=== PATIENT | male | born 1940 | race African-American/Black ===

== ENCOUNTER → 2017-09-14 | Outpatient (CLI) | payer MEDICARE ==
[2017-09-14 11:33] LABS: Blood Urea Nitrogen 31 mg/dL (9-20); Non-African American GFR(MDRD) >60 (>60 ml/min/1.73 sqM)
--- NOTE | 2017-09-14 12:15 | CT ---
EXAMINATION TYPE: CT chest w con DATE OF EXAM: 09/14/2017 COMPARISON: NONE HISTORY: asthma, COPD CT DLP: 484.0 mGycm. Automated Exposure Control for Dose Reduction was Utilized. TECHNIQUE: CT scan of the thorax is performed following with IV Contrast, patient injected with 100 mL of Omnipaque 300. FINDINGS: LUNGS: Bibasilar linear consolidations are favored to represent atelectasis although at this location could represent aspiration pneumonia in the appropriate clinical setting. Minimal centrilobular emph ysema is seen. Lungs are grossly clear, there is no concerning parenchymal mass or nodule identified. Focal area of pleural thickening along the left lung base as seen on series 6 image 49 measuring 7 mm. There is no pleural effusion or pneumothorax seen. The tracheobronchial tree is patent. Minimal atherosclerosis is present of the aortic arch and of the left main coronary artery extending into the left anterior descending coronary artery and circumflex coronary artery. MEDIASTINUM: There are no greater than 1 cm hilar or mediastinal lymph nodes. No pericardial effusi on is seen. OTHER: There is diffuse hypoattenuation of the hepatic parenchyma compatible with hepatic steatosis w ith focal fatty sparing of the medial left hepatic lobe and surrounding the gallbladder fossa in a ge ographic distribution. 2 mm nonobstructing right upper pole renal calculus is seen as well as exophyt ic 9 mm right lower pole cortical renal cyst. Mild multilevel degenerative changes of the thoracic sp ine are present. IMPRESSION: 1. Bibasilar linear airspace disease favored to represent subsegmental atelectasis although in this d istribution aspiration pneumonia is possible in the appropriate clinical setting. Only mild centrilob ular emphysematous changes are seen. 2. Moderate degree calcifications of the left main coronary artery, left anterior descending coronary artery and circumflex coronary artery, a marker of coronary artery disease.
== END ==
LOC: RADCTMAIN 10:55
PROVIDERS: ATTEND Family Medicine
DX: J98.11 Atelectasis (principal); J43.9 Emphysema, unspecified; I25.10 Atherosclerotic heart disease of native coronary artery without angina pectoris
CPT/HCPCS: 82565; 84520; 71260; 36415; Q9967

== ENCOUNTER → 2018-06-04 | Outpatient (CLI) | payer MEDICARE ==
--- NOTE | 2018-06-04 12:15 | PN ---
PROGRESS NOTE Progress note from the [facility]. Gregory is 78, coming in for a followup regarding his ISIDRO treatment. He has got significant ISIDRO with an AHI of 55 and currently is on CPAP at a pressure of 13. He is averaging around 6.1 hour of CPAP use per night and his AHI is down to 6, leak factor is 16 minute. He is benefitting from the treatment. He has no specific complaints. He needs to use it more often. At times he forgets to put in the machine. On days that he uses the machine he feels much more refreshed and alert. No weight loss or weight gain. He is using a Simplus full face mask. He is seeking alternative mask and I was able to offer him an Effort F20 fulll mask. BP is 163/88, pulse is 88, respirations 16, temperature 97.7, saturation 96% on room air. Weight is 223. Height is 5, 5, Needles score is 7, BMI 37.1. GENERAL APPEARANCE: Calm, comfortable. Head is atraumatic, normocephalic. Neck is short, supple, crowded posterior pharynx. Mallampati class 4. No goiter or neck masses. LUNGS: Clear to auscultation. Heart sounds regular rate and rhythm. Normal S1, S2. No S3, S4. No murmurs. Abdomen is soft, nontender. No organomegaly. EXTREMITIES: No edema. No cyanosis or clubbing. IMPRESSION: 1. Severe obstructive sleep apnea, apnea-hypopnea index of 55. The patient is on CPAP pressure of 13. Overall compliance is improving, the patient is benefitting from treatment. 2. Obesity, body mass index of 37.1. 3. Hypersomnia, Needles score is down to 7. PLAN: 1. Encourage weight loss. 2. Continue CPAP therapy at the same level of pressure. Will suggest improved compliancy and will suggest the patient uses every night if possible. Overall response is satisfactory and will see him back in a year's time in followup.. MMODL / IJN: [id number] /
== END | disposition home or self-care (01) ==
LOC: SLEEP 10:45
PROVIDERS: ATTEND Internal Medicine Critical Care Medicine
DX: G47.33 Obstructive sleep apnea (adult) (pediatric) (principal); E66.9 Obesity, unspecified; Z68.37 Body mass index [BMI] 37.0-37.9, adult; Z99.89 Dependence on other enabling machines and devices

== ENCOUNTER → 2020-12-02 | Outpatient (CLI) | payer MEDICARE ==
--- NOTE | 2020-12-02 12:09 | P.STRESS ---
- Stress Test Note Stress Test Results/Findings: Exam Performed: stress echo exercise Exam Date: 12/02/20 Reason for Exam: CARDIOVASCULAR DISEASE Height: 5 ft 6 in Weight: 100 kg Protocol: STRESS ECHO Stage: 1 Duration of Exercise: 4:25 MINUTES Resting Heart Rate: 89 Resting Blood Pressure: 131/68 Maximum Achieved Heart Rate: 140 Maximum Achieved Blood Pressure: 202/101 85% PMHR: 121 100% PMHR: 142 METS: 6.2 Technologist Comment: Stress Test Results/Findings: This is a 80-year-old gentleman with history of previous DC, hypercholester olemia, being evaluated for cardiac status. Stress data: Baseline EKG showed sinus rhythm. Blood pressure at rest is 130/68, pulse rate of 89.. Patient walked on the Len protocol for 4 minutes and 45 seconds achieving a maximum rate of 140 with a blood pressure 191/94. EKGs taken during and after the x-ray did not show any Sigmund change of ischemia. Echo data: Baseline echo images showed hypokinesis of the anteroapical and septal area on the resting images with augmentation noted on the stress images. There is mildly stressed induced hypokinesis of the lateral wall compared to the rest images. There appears to be hypokinesia of the inferoapical segment. On the stress images compared to the rest images with recovery with normalization seen with recovery images. Final impression #1. Evidence of previous leonor-apical and septal myocardial infarction without any inducible ischemia #2. There seems to be ischemic changes involving the inferoapical segment #3. Questionable ischemia of the lateral wall
--- NOTE | 2020-12-02 15:41 | ECHOS ---
Stress Test Results/Findings: Exam Performed: stress echo exercise Exam Date: 12/02/20 Reason for Exam: CARDIOVASCULAR DISEASE Height: 5 ft 6 in Weight: 100 kg Protocol: STRESS ECHO Stage: 1 Duration of Exercise: 4:25 MINUTES Resting Heart Rate: 89 Resting Blood Pressure: 131/68 Maximum Achieved Heart Rate: 140 Maximum Achieved Blood Pressure: 202/101 85% PMHR: 121 100% PMHR: 142 METS: 6.2 Technologist Comment: Stress Test Results/Findings: This is a 80-year-old gentleman with history of previous [place], hypercholesterolemia, being evaluated for cardiac status. Stress data: Baseline EKG showed sinus rhythm. Blood pressure at rest is 130/68, pulse rate of 89.. Patient walked on the Len protocol for 4 minutes and 45 seconds achieving a maximum rate of 140 with a blood pressure 191/94. EKGs taken during and after the x-ray did not show any Sigmund change of ischemia. Echo data: Baseline echo images showed hypokinesis of the anteroapical and septal area on the resting images with augmentation noted on the stress images. There is mildly stressed induced hypokinesis of the lateral wall compared to the rest images. There appears to be hypokinesia of the inferoapical segment. On the stress images compared to the rest images with recovery with normalization seen with recovery images. Final impression #1. Evidence of previous leonor-apical and septal myocardial infarction without any inducible ischemia #2. There seems to be ischemic changes involving the inferoapical segment #3. Questionable ischemia of the lateral wall MTDD
== END | disposition home or self-care (01) ==
LOC: RADNMMAIN 10:00
PROVIDERS: ATTEND Family Medicine
DX: I25.10 Atherosclerotic heart disease of native coronary artery without angina pectoris (principal); I25.2 Old myocardial infarction
CPT/HCPCS: 93351

== ENCOUNTER → 2021-01-18 | Outpatient (CLI) | payer MEDICARE ==
[2021-01-18 13:06] LABS: Potassium 4.8 mmol/L (3.5-5.1)
[2021-01-18 13:18] LABS: HCT 37.7 % (39.0-53.0); HGB 12.4 gm/dL (13.0-17.5); MCH 29.2 pg (25.0-35.0); MCV 88.4 fL (80.0-100.0); Mean Platelet Volume 8.1; Platelet Count 250 k/uL (150-450); RBC 4.26 m/uL (4.30-5.90); RDW 12.9 % (11.5-15.5); WBC 5.9 k/uL (3.8-10.6)
== END | disposition home or self-care (01) ==
LOC: LABPAT 11:51
PROVIDERS: ATTEND Internal Medicine Cardiovascular Disease
DX: Z01.812 Encounter for preprocedural laboratory examination (principal); R93.1 Abnormal findings on diagnostic imaging of heart and coronary circulation
CPT/HCPCS: 36415; 80051; 82565; 84520; 85027

== ENCOUNTER 2021-01-19 06:30 | Day surgery (SDC) | payer MEDICARE ==
[2021-01-17 11:22] VITALS: BMI 35.5
[~2021-01-19 06:30] MED LIST: ALPRAZolam 0.25 MG TAB PO PRN; ALPRAZolam 0.5 MG TAB PO PRN; ASPIRIN 325 MG TAB PO STA; ATORVASTATIN 80 MG TAB PO STA; HEPARIN SODIUM,PORCINE 10,000 UNIT in SODIUM CHLORIDE 0.9% 1,000 ML IRRIGATION PRN; HEPARIN SODIUM,PORCINE 2,500 UNIT in SODIUM CHLORIDE 0.9% 250 ML IRRIGATION PRN; NITROGLYCERIN SL TABS 0.4 MG TAB SUBLINGUAL PRN; SODIUM CHLORIDE 0.9% 1,000 ML in EMPTY BAG 1 BAG IV ONE
[2021-01-19] MEDS ORDERED: CLOPIDOGREL 75 MG TAB ONE (07:07)
[2021-01-19 07:10] VITALS: RESP 18; TEMP 98.1
[2021-01-19 07:18] LABS: Basophils # (A) 0.1 k/uL (0-0.2); Basophils % (A) 1 %; Eosinophils # (A) 0.1 k/uL (0-0.7); Eosinophils % (A) 1 %; HCT 38.2 % (39.0-53.0); HGB 12.5 gm/dL (13.0-17.5); Lymphocytes # (A) 1.6 k/uL (1.0-4.8); Lymphocytes % (A) 14 %; MCH 28.4 pg (25.0-35.0); MCHC 32.6 g/dL (31.0-37.0); MCV 87.1 fL (80.0-100.0); Mean Platelet Volume 7.8; Monocytes # (A) 0.3 k/uL (0-1.0); Monocytes % (A) 3 %; Neutrophils # (A) 9.3 k/uL (1.3-7.7); Neutrophils % (A) 82 %; Platelet Count 294 k/uL (150-450); RBC 4.38 m/uL (4.30-5.90); WBC 11.4 k/uL (3.8-10.6)
[2021-01-19 07:27] LABS: Calcium 9.9 mg/dL (8.4-10.2); Potassium 4.6 mmol/L (3.5-5.1)
[2021-01-19] MEDS ORDERED: fentaNYL (PF) 50 MCG/ML 2 ML AMP ONE (07:50)
[2021-01-19] MEDS ORDERED: fentaNYL (PF) 50 MCG/ML 2 ML AMP IV ONE (07:55)
[2021-01-19] MEDS ORDERED: MIDAZOLAM 2 MG/2 ML VIAL IV ONE ×2 (07:57)
[2021-01-19] MEDS ORDERED: LIDOCAINE 1% INJ 10MG/ML (20 ML MDV) SQ ONE (07:57)
[2021-01-19] MEDS ORDERED: IOPAMIDOL-370 125ML BTL INJ ONE (08:13)
[2021-01-19] MEDS ORDERED: RX INFO: IV CONTRAST WAS GIVEN 1 EACH MISC MISCELLANE PRN (08:33)
[2021-01-19] MEDS ORDERED: SODIUM CHLORIDE 0.9% 1,000 ML IV SCH (08:45)
[2021-01-19] MEDS ORDERED: METOPROLOL SUCCINATE (ER) 25 MG TAB.ER.24H PO SCH (09:00)
[2021-01-19] MEDS ORDERED: lisinopriL 10 MG TAB PO SCH (09:00)
--- NOTE | 2021-01-19 11:36 | ECHOF ---
Referral Reason:assess function/valves MEASUREMENTS -------- HEIGHT: 165.1 cm WEIGHT: 99.3 kg BP: RVIDd: 3.4 cm (< 3.3) IVSd: 1.2 cm (0.6 - 1.1) LVIDd: 4.6 cm (3.9 - 5.3) LVPWd: 1.5 cm (0.6 - 1.1) IVSs: 1.4 cm LVIDs: 3.5 cm LVPWs: 1.7 cm LAESV Index (A-L): 42.77 ml/m Ao Diam: 3.1 cm (2.0 - 3.7) AV Cusp: 1.1 cm (1.5 - 2.6) LA Diam: 4.0 cm (2.7 - 3.8) MV EXCURSION: 19.089 mm (> 18.000) MV EF SLOPE: 90 mm/s (70 - 150) EPSS: 0.3 cm MV E Simba: 0.64 m/s MV DecT: 203 ms MV A Simba: 1.04 m/s MV E/A Ratio: 0.62 RAP: 5.00 mmHg RVSP: 36.40 mmHg FINDINGS -------- Sinus rhythm. This was a technically good study. The left ventricular size is normal. There is mild concentric left ventricular hypertrophy. Overa ll left ventricular systolic function is mildly impaired with, an EF between 45 - 50 %. Anterseptal Hypokinesis The right ventricle is normal in size. LA is severely dilated >40 ml/m2 The right atrial size is normal. There is mild aortic valve sclerosis. There is no evidence of aortic regurgitation. [id number]-[id number] mitral regurgitation is present. Mild tricuspid regurgitation present. There is mild pulmonary hypertension. The right ventricular systolic pressure, as measured by Doppler, is 36.40mmHg. Trace/mild (physiologic) pulmonic regurgitation. The aortic root size is normal. There is a trivial pericardial effusion present. CONCLUSIONS -------- 1. The left ventricular size is normal. 2. There is mild concentric left ventricular hypertrophy. 3. Overall left ventricular systolic function is mildly impaired with, an EF between 45 - 50 %. 4. Anterseptal Hypokinesis 5. The right ventricle is normal in size. 6. LA is severely dilated >40 ml/m2 7. The right atrial size is normal. 8. There is mild aortic valve sclerosis. 9. Gjsm-no-emrcacsk mitral regurgitation is present. 10. Mild tricuspid regurgitation present. 11. There is mild pulmonary hypertension. 12. The right ventricular systolic pressure, as measured by Doppler, is 36.40mmHg. 13. Trace/mild (physiologic) pulmonic regurgitation. 14. The aortic root size is normal. 15. There is a trivial pericardial effusion present. CELL MANAGER: Elizabeth Segura RDCS
--- NOTE | 2021-01-19 11:49 | CC ---
CARDIAC CATHETERIZATION REPORT INDICATION: Abnormal stress echo. PROCEDURE NOTE: After obtaining informed consent, left heart catheterization and coronary angiogram were performed via the right femoral artery using standard Rick catheters. Patient tolerated the procedure well without any obvious immediate complications. The femoral angiogram was performed and Angio-Seal was deployed for hemostasis. Patient received moderate conscious sedation. Total sedation time was 20 minutes. FINDINGS: 1. HEMODYNAMICS: Left ventricular end-diastolic pressure is 24 mm. There is no significant gradient across the aortic valve. 2. LEFT VENTRICULOGRAM: Left ventriculogram is not performed. 3. ANGIOGRAPHIC DATA: Left Main Coronary Artery: Left main coronary artery appears calcified but is free of significant stenosis. Divides into left anterior descending coronary artery and circumflex coronary artery and ramus intermedius. The LAD was previously stented and there is a long segment of narrowing in the LAD which is heavily calcified. At its worst it is a 70% to 80% stenosis. Left main coronary artery shows more than 50% distal left main stenosis. Circumflex coronary artery which is a large vessel in fact reaches the apex of the heart, has a 70% to 80% stenosis distally and more proximally there is a 90% stenosis which seemed to involve the ostium of the ramus also. Right coronary artery is a large dominant vessel that shows ostial stenosis involving PDA. 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 PLAN: I reviewed angiographic data with the patient and consulted a cardiothoracic surgeon for bypass surgery. Cardiothoracic surgeon has evaluated the angiographic data and will schedule him for bypass surgery in an expeditious manner. The patient requires revascularization of the LAD, circumflex, ramus and the PDA. In the meantime, he will be treated with optimal medical therapy including aspirin, Lipitor, Toprol and lisinopril. MMODL / IJN: [id number] /
--- NOTE | 2021-01-19 13:22 | XR ---
EXAMINATION TYPE: XR chest 2V DATE OF EXAM: 01/19/2021 COMPARISON: 09/02/2017 HISTORY: Shortness of breath TECHNIQUE: Frontal and lateral views of the chest are obtained. FINDINGS: Scattered senescent parenchymal changes noted. Hyperinflation compatible with COPD. No evidence for infiltrate. No evidence for atelectasis. Heart size is stable. Mediastinal structures are stable and grossly unremarkable. No evidence for hilar prominence. Degenerative changes dorsal spine. IMPRESSION: 1. No evidence for acute pulmonary disease.
[2021-01-19 14:00] VITALS: BP 154/66; PULSE 72
[2021-01-19 14:35] LABS: Basophils % (A) 0 %; Eosinophils % (A) 0 %; HCT 36.6 % (39.0-53.0); HGB 11.8 gm/dL (13.0-17.5); Lymphocytes # (A) 1.4 k/uL (1.0-4.8); Lymphocytes % (A) 14 %; MCH 28.5 pg (25.0-35.0); MCHC 32.4 g/dL (31.0-37.0); MCV 88.2 fL (80.0-100.0); Mean Platelet Volume 7.6; Monocytes # (A) 0.4 k/uL (0-1.0); Monocytes % (A) 4 %; Neutrophils # (A) 8.3 k/uL (1.3-7.7); Neutrophils % (A) 82 %; Platelet Count 256 k/uL (150-450); RBC 4.15 m/uL (4.30-5.90); WBC 10.1 k/uL (3.8-10.6)
[2021-01-19 14:45] LABS: Appearance,Urine Clear (Clear); Bilirubin,Urine Negative (Negative); Blood,Urine Trace (Negative); Color,Urine Light Yellow; Glucose,Urine (UA) 4+ (Negative); Ketones,Urine Negative (Negative); Leukocyte Esterase,Urine Negative (Negative); Mucus,Urine Rare /hpf; Nitrite,Urine Negative (Negative); PH, Urine 5.5 (5.0-8.0); Protein,Urine Negative (Negative); RBC,Urine 2 /hpf (0-5); Specific Gravity,Urine 1.035 (1.001-1.035); Squamous Epithelial Cell,Urine <1 /hpf (0-4); Urobilinogen,Urine <2.0 mg/dL (<2.0); WBC,Urine <1 /hpf (0-5)
[2021-01-19 14:49] LABS: Albumin 4.4 g/dL (3.5-5.0); Calcium 9.5 mg/dL (8.4-10.2); INR 0.9 (<1.2); Potassium 4.4 mmol/L (3.5-5.1); Prothrombin Time 9.9 sec (9.0-12.0); Total Bilirubin 0.5 mg/dL (0.2-1.3); Total Protein 7.8 g/dL (6.3-8.2)
[2021-01-19 18:25] LABS: T4, Free (Free Thyroxine) 0.64 ng/dL (0.78-2.19)
[2021-01-20 01:43] LABS: Hemoglobin A1C 5.6 % (4.0-6.0)
[2021-01-20 07:39] LABS: Hepatitis A Antibody IgM Non-Reactive (Non-Reactive); Hepatitis B Core IgM Non-Reactive (Non-Reactive); Hepatitis B Surface Antigen Non-Reactive (Non-Reactive); Hepatitis C IgG Antibody Non-Reactive (Non-Reactive)
--- NOTE | 2021-01-20 14:13 | P.GSCN ---
History of Present Illness Consult date: 01/19/21 Reason for Consult: Multivessel coronary artery disease. Requesting physician: Reggie Boo History of present illness: This is a 81-year-old gentleman who is followed by Dr. Kavya Khan on an outpatient basis for his primary care service. The patient has a past medical history significant for coronary artery disease with history of angioplasty with stent placement years ago, remote history of myocardial infarction, hypertension, hyperlipidemia, history of prostate cancer status post prostatectomy, erectile dysfunction, morbid obesity and a history of obstructive sleep apnea without home CPAP use. Recently, the patient has had complaints of a toothache in which he sought medical care from his primary care physician. Subsequently he was referred to Dr. Boo from [facility] to undergo a stress test prior to his seeing a dentist. He denies any recent chest pain, chest pressure, nausea, vomiting, fever, chills, shortness of breath, palpitations, orthopnea or dizziness. On 12/02/2020 the patient underwent a stress echocardiogram which showed evidence of previous anterior apical and s eptal myocardial infarction without any inducible ischemia, and ischemic changes involving the inferior apical segment and questionable ischemia of the lateral wall. Due to the patient's history of coronary artery disease and stress echocardiogram results he was recommended undergo a cardiac catheterization. Today on an elective basis the patient underwent a cardiac catheterization which was performed by Dr. Boo which demonstrated a 50% stenosis to his left main coronary artery, a 60% stenosis to his right coronary artery, and 80% stenosis to his circumflex coronary artery and a 70% stenosis to his proximal left anterior descending coronary artery. The cardiac catheterization findings were reviewed with the patient and a consult was placed to Dr. Kayla James from cardiothoracic surgery for further evaluation and treatment recommendations including myocardial revascularization surgery. Review of Systems A 14 point review of systems was completed was negative except as mentioned in HPI. Past Medical History Past Medical History: Coronary Artery Disease (CAD), Cancer, GERD/Reflux, Hyperlipidemia, Hypertension, Myocardial Infarction (SD), Prostate Disorder, Sleep Apnea/CPAP/BIPAP Additional Past Medical History / Comment(s): no cpap used, hx prostate cancer, erectile dysfunction History of Any Multi-Drug Resistant Organisms: None Reported Past Surgical History: Heart Catheterization With Stent, Prostate Surgery Additional Past Surgical History / Comment(s): one cardiac stent, Past Anesthesia/Blood Transfusion Reactions: No Reported Reaction Date of Last Stent Placement:: unknown Past Psychological History: No Psychological Hx Reported Smoking Status: Never smoker Past Alcohol Use History: None Reported Past Drug Use History: None Reported - Past Family History Mother Additional Family Medical History / Comment(s): Multisystem organ failure, at age 93. Father Family Medical History: Cancer Additional Family Medical History / Comment(s): Colon cancer Medications and Allergies Home Medications Medication Instructions Recorded Confirmed Type Albuterol Sulfate [Albuterol 1 puff PO DIRECTED PRN 01/17/21 01/19/21 History Sulfate Hfa] Atorvastatin [Lipitor] 40 mg PO DIRECTED 01/17/21 01/19/21 History Loratadine [Claritin] 10 mg PO DAILY 01/17/21 01/19/21 History Tums(Dose Unknown) 1 tab PO DIRECTED PRN 01/17/21 01/17/21 History Aspirin [Adult Low Dose Aspirin EC] 81 mg PO DAILY 30 Days tablet. 01/19/21 Rx Clopidogrel [Plavix] 75 mg PO DAILY #0 01/19/21 01/19/21 Rx Metoprolol Succinate (ER) [Toprol 25 mg PO DAILY tab.er.24h 01/19/21 Rx XL] Nitroglycerin Sl Tabs [Nitrostat] 0.4 mg SUBLINGUAL Q5M PRN tab 01/19/21 Rx lisinopriL [Zestril] 10 mg PO DAILY tab 01/19/21 Rx Allergies Allergy/AdvReac Type Severity Reaction Status Date / Time iodine AdvReac Severe Rash/Hives,skin Verified 01/19/21 06:38 peeled Surgical - Exam Vital Signs Temp Pulse Resp BP Pulse Ox 98.1 F 75 18 190/70 96 01/19/21 07:08 01/19/21 07:08 01/19/21 07:08 01/19/21 07:08 01/19/21 07:08 - General well developed, well nourished, no distress, no pain, obese - Eyes PERRL, no icteric - ENT normal pinna, normal nares, normal mucosa, no hearing loss, no congestion - Neck No lymphadenopathy. no masses, no bruits, trachea midline, no venous distension - Respiratory Lung sounds essentially clear throughout. No wheezes, rhonchi or crackles. Respirations are symmetrical and nonlabored. - Cardiovascular Regular rhythm and rate. S1 and S2 present, negative for S3, gallop or murmur. No edema present. - Abdomen Abdomen is soft, nontender and nondistended. Active bowel sounds present all 4 abdominal quadrants. No guarding or rigidity. No organomegaly appreciated. - Genitourinary Deferred - Rectum Deferred - Integumentary no rash, no growths, no abnormal pigmentation - Neurologic Cranial nerves II through XII intact. No focal motor deficits. normal coordination, normal sensation - Musculoskeletal normal gait, normal posture - Psychiatric oriented to time, oriented to person, oriented to place, speech is normal, memory intact Results - Labs 01/19/21 14:09 01/19/21 14:09 Abnormal Lab Results - Last 24 Hours (Table) 01/19/21 01/19/21 Range/Units 06:55 06:55 WBC 11.4 H (3.8-10.6) k/uL Hgb 12.5 L (13.0-17.5) gm/dL Hct 38.2 L (39.0-53.0) % Neutrophils # 9.3 H (1.3-7.7) k/uL BUN 21 H (9-20) mg/dL Glucose 189 H (74-99) mg/dL Diabetes panel 01/19/21 Range/Units 06:55 Sodium 139 (137-145) mmol/L Potassium 4.6 (3.5-5.1) mmol/L Chloride 103 (98-107) mmol/L Carbon Dioxide 26 (22-30) mmol/L BUN 21 H (9-20) mg/dL Creatinine 1.03 (0.66-1.25) mg/dL Glucose 189 H (74-99) mg/dL Calcium 9.9 (8.4-10.2) mg/dL Calcium panel 01/19/21 Range/Units 06:55 Calcium 9.9 (8.4-10.2) mg/dL Pituitary panel 01/19/21 Range/Units 06:55 Sodium 139 (137-145) mmol/L Potassium 4.6 (3.5-5.1) mmol/L Chloride 103 (98-107) mmol/L Carbon Dioxide 26 (22-30) mmol/L BUN 21 H (9-20) mg/dL Creatinine 1.03 (0.66-1.25) mg/dL Glucose 189 H (74-99) mg/dL Calcium 9.9 (8.4-10.2) mg/dL Adrenal panel 01/19/21 Range/Units 06:55 Sodium 139 (137-145) mmol/L Potassium 4.6 (3.5-5.1) mmol/L Chloride 103 (98-107) mmol/L Carbon Dioxide 26 (22-30) mmol/L BUN 21 H (9-20) mg/dL Creatinine 1.03 (0.66-1.25) mg/dL Glucose 189 H (74-99) mg/dL Calcium 9.9 (8.4-10.2) mg/dL Assessment and Plan Assessment: 1. Multivessel coronary artery disease 2. History of coronary artery disease status post angioplasty with stent placement years ago 3. History of myocardial infarction 4. Hypertension 5. Hyperlipidemia 6. Obstructive sleep apnea without home CPAP use 7. Morbid obesity 8. History of prostate cancer status post prostatectomy 9. Erectile dysfunction Plan: The patient was seen and examined in the extended stay unit with Dr. James. Chart/diagnostics were reviewed including heart catheterization films and echocardiogram films. Our recommendation is for coronary artery bypass surgery using the left internal mammary artery, left radial artery, and endoscopic vein harvest as well as exclusion of the left atrial appendage. The usual perioperative course was discussed in detail with the patient and his , risks and benefits were reviewed, all questions were answered, and the patient did consent to surgery. Preoperative testing was initiated. We recommend to continue aspirin, statin, beta ari therapy. Our plan is for surgery 02/03/2021 dependent on the outcome of all preoperative testing. This was discussed with the patient and and they are in complete agreement. STS risk score will be calculated once all testing has been completed. The patient was given our contact information should they have any questions. Thank you Dr. Boo for this consult. Time with Patient: Greater than 30
--- NOTE | 2021-01-26 15:39 | P.ARTDOP ---
Arterial Doppler Bilateral radial artery studies: Reason for testing: Preop CABG Date of study: 01/19/2021 Findings: With radial artery compression using digital plethysmography there are no significant pressure changes. Doppler assessment shows no significant right to left or segmental gradients. On imaging the right radial is 3.9 x 3.6 mm distally, 3.3 x 2.9 mm mid, and 3.5 x 3.8 mm proximally. Left radial is 3.5 x 2.7 mm distally, 3.2 x 2.7 mm mid, and 3.0 x 3.0 mm proximally. Impression: Both radial arteries meet criterion for use.
--- NOTE | 2021-01-26 15:43 | P.VSCSTY ---
Greater Saphenous Vein Mapping This is bilateral lower extremity greater saphenous vein mapping. Date of service: 01/19/2021 Vein quality and ultrasound appearance: We see no intraluminal thrombus or wall changes. The right lower leg and the left leg below mid thigh appear to small for use as conduit Vein size groin right : 5.5 x 6.8 groin left: 5.2 x 6.6 High thigh right: 4.0 x 4.5 high thigh left: 4.2 x 4.5 Mid thigh right: 2.6 x 3.6 mid thigh left: 2.7 x 3.6 Above-knee right: 2.9 above-knee left: 1.4 x 1.9 Below knee right: 2.6 x 3.0 below-knee left: To small to visualize Mid calf right: 1.4 x 1.3 mid calf left: To small to visualize Ankle right: 1.5 x 1.9 ankle left: To small to visualize Impression: There appears to be usable vein in both eyes. The left leg below mid thigh appear to small for use. The right leg mid calf and below appear to small for use.
--- NOTE | 2021-01-27 12:46 | P.PN ---
Progress Note - Text Progress Note Date: 01/27/21 A 5 m walk test was completed with the patient, time 1: 2.82 seconds, time 2: 3.15 seconds, time 3: 2.86 seconds. The STS risk score was calculated and discussed with the patient by Dr. Kayla forbes.
== END 2021-01-19 14:10 | disposition home or self-care (01) ==
LOC: CATHCVL 06:30
PROVIDERS: ATTEND Internal Medicine Cardiovascular Disease
DX: I25.10 Atherosclerotic heart disease of native coronary artery without angina pectoris (principal); I25.84 Coronary atherosclerosis due to calcified coronary lesion; I25.2 Old myocardial infarction; I10 Essential (primary) hypertension; E78.5 Hyperlipidemia, unspecified; E66.01 Morbid (severe) obesity due to excess calories; Z95.5 Presence of coronary angioplasty implant and graft; K21.9 Gastro-esophageal reflux disease without esophagitis; Z85.46 Personal history of malignant neoplasm of prostate; Z20.822 Contact with and (suspected) exposure to COVID-19
CPT/HCPCS: 94150; 93306; 93458; 84439; 80061; 80053; 80074; 84443; 83735; 85025; 85610; 85730; 81001; 87070; 83036; 71046; 93930; 93970; 93923; C1769 ×2; C1760; C1894; U0003; U0005; J2250; J2001; J3010; Q9967; 80048

== ENCOUNTER → 2021-01-28 | Outpatient (CLI) | payer MEDICARE | END | disposition home or self-care (01) | LOC: LABWHC1 16:26 | PROVIDERS: ATTEND Internal Medicine Cardiovascular Disease | DX: E11.9 Type 2 diabetes mellitus without complications (principal) | CPT/HCPCS: 36415; 83036 ==

== ENCOUNTER 2021-02-03 05:32 | Inpatient (IN) | payer MEDICARE ==
[~2021-02-03 05:32] MED LIST changes: +ALBUMIN HUMAN 25% 50 ML IV ONE; +ALBUMIN HUMAN 5% 500 ML IVPB ONE; -ALPRAZolam 0.25 MG TAB PO PRN; -ALPRAZolam 0.5 MG TAB PO PRN; +ASPIRIN 325 MG TAB PO ONE; -ASPIRIN 325 MG TAB PO STA; +ATORVASTATIN 10 MG TAB PO ONE; -ATORVASTATIN 80 MG TAB PO STA; +CALCIUM CHLORIDE 100 MG/ML 10 ML SYRINGE IV ONE; +CHLORHEXIDINE GLUCONATE 15 ML CUP MUCOUS MEM ONE; +CLEVIDIPINE BUTYRATE 25 MG in EMPTY BAG 1 BAG IV ONE; +DEXTROSE 5% IN WATER 1,000 ML with POTASSIUM CHLORIDE 110 MEQ, MAGNESIUM SULFATE 16 MEQ... IV ONE; +DEXTROSE 5% IN WATER 1,000 ML with POTASSIUM CHLORIDE 25 MEQ, SODIUM CHLORIDE 4MEQ/ML V... IRRIGATION ONE; +DILTIAZEM 125 MG in SODIUM CHLORIDE 0.9% 100 ML IV ONE; +HEPARIN SODIUM 1,000 UN/ML (10ML VL) IV ONE; -HEPARIN SODIUM,PORCINE 10,000 UNIT in SODIUM CHLORIDE 0.9% 1,000 ML IRRIGATION PRN; -HEPARIN SODIUM,PORCINE 2,500 UNIT in SODIUM CHLORIDE 0.9% 250 ML IRRIGATION PRN; +HEPARIN SODIUM,PORCINE 5,000 UNIT in SODIUM CHLORIDE 0.9% 500 ML 500 ML IV ONE; +INSULIN REGULAR 100 UNIT in SODIUM CHLORIDE 0.9% 100 ML IV ONE; +LACTATED RINGERS 1,000 ML IV ONE; +MAGNESIUM SULFATE MG 500 MG/ML IV ONE; +MANNITOL 25% 12.5 GM/50 ML VIAL IV ONE; +METOPROLOL TARTRATE 12.5 MG TAB PO ONE; -NITROGLYCERIN SL TABS 0.4 MG TAB SUBLINGUAL PRN; +NITROGLYCERIN-D5W PMX 25 MG/250 ML BTL IV ONE; +NITROGLYCERIN-D5W PMX 50 MG in DEXTROSE/WATER 1 250ML.BAG IV ONE; +NOREPINEPHRINE 4 MG in SODIUM CHLORIDE 0.9% 250 ML IV ONE; +PAPAVERINE 360 MG in SODIUM CHLORIDE 0.9% 90 ML IV ONE; +PHENYLEPHRINE 10 MG/ML VIAL IV ONE; +PHENYLEPHRINE 40 MG in SODIUM CHLORIDE 0.9% 250 ML IV ONE; +PROTAMINE SULFATE 10 MG/ML 25 ML VIAL IV ONE; +PROTAMINE SULFATE 250 MG in EMPTY BAG 1 BAG IV ONE; +SODIUM BICARB 8.4% 50 ML SYR (1 MEQ/ML) IV ONE; +SODIUM CHLORIDE 0.9% 1,000 ML IV ONE; -SODIUM CHLORIDE 0.9% 1,000 ML in EMPTY BAG 1 BAG IV ONE; +TRANEXAMIC ACID 2,000 MG in SODIUM CHLORIDE 0.9% 80 ML IV ONE; +ceFAZolin 1,000 MG in SODIUM CHLORIDE 0.9% IRRIGATIO 1,000 ML IRRIGATION ONE; +propofoL 1,000 MG/100 ML VIAL IV ONE
[2021-02-03 06:24] LABS: Glucose,Whole Blood 135 mg/dL (75-99)
[2021-02-03] MEDS ORDERED: PROTAMINE SULFATE 10 MG/ML 25 ML VIAL IV ONE (08:14)
[2021-02-03] MEDS ORDERED: ALBUMIN HUMAN 5% (25gm) 500 ML VIAL IVPB ONE (08:14)
[2021-02-03] MEDS ORDERED: ceFAZolin 1,000 MG VIAL ONE (08:14)
[2021-02-03] MEDS ORDERED: ELECTROLYTE-R (PH 7.4) 1,000 ML IV.SOLN IV ONE (08:14)
[2021-02-03] MEDS ORDERED: TRANEXAMIC ACID 1,000 MG/10 ML VIAL ONE (08:14)
[2021-02-03] MEDS ORDERED: ROCURONIUM 10 MG/ML (5 ML VIAL) IV ONE (08:14)
[2021-02-03] MEDS ORDERED: SODIUM CHLORIDE 0.9% 250 ML BAG ONE (08:14)
[2021-02-03] MEDS ORDERED: PHENYLEPHRINE-0.9% NACL SYG 1,000 MCG/10 ML SYRINGE ONE (08:14)
[2021-02-03] MEDS ORDERED: SUCCINYLCHOLINE CHLORIDE VIAL 200 MG/10 ML VIAL IV ONE (08:14)
[2021-02-03] MEDS ORDERED: PROPOFOL 10 MG/ML 20 ML VIAL IV ONE (08:14)
[2021-02-03] MEDS ORDERED: fentaNYL (PF) 50 MCG/ML 2 ML AMP ONE (08:14)
[2021-02-03] MEDS ORDERED: NOREPINEPHRINE 1 MG/ML 4 ML VIAL IV ONE (08:14)
[2021-02-03] MEDS ORDERED: LIDOCAINE 2% SYG (PF) 100 MG/5 ML ONE (08:14)
[2021-02-03] MEDS ORDERED: CALCIUM CHLORIDE 100 MG/ML 10 ML SYRINGE ONE (08:14)
[2021-02-03] MEDS ORDERED: SODIUM CHLORIDE 0.9% 100 ML BAG ONE (08:14)
[2021-02-03] MEDS ORDERED: LABETALOL 5 MG/ML VIAL MDV ONE (08:14)
[2021-02-03] MEDS ORDERED: SODIUM CHLORIDE 0.9% IRRIG 1,000 ML BTL IRRIGATION ONE (08:14)
[2021-02-03] MEDS ORDERED: MAGNESIUM SULFATE 4 MEQ/ML 10ML VIAL ONE (08:14)
[2021-02-03] MEDS ORDERED: HEPARIN SODIUM,PORCINE 10,000 UNIT/ML 1 ML VIAL ONE (08:14)
[2021-02-03] MEDS ORDERED: fentaNYL (PF) 50 MCG/ML 50 ML VIAL ONE (08:14)
[2021-02-03] MEDS ORDERED: MIDAZOLAM 2 MG/2 ML VIAL ONE (08:14)
[2021-02-03 09:02] LABS: ABG Base Excess 3.1 mmol/L; ABG Glucose Whole Blood 133 mg/dL (75-99); ABG HCO3 28 mmol/L (21-25); ABG Hematocrit 32 % (34.0-46.0); ABG Ionized Calcium 4.7 mg/dL (4.5-5.3); ABG Lactic Acid Whole Blood 1.1 mmol/L (0.5-1.6); ABG PCO2 40 mmHg (35-45); ABG PH 7.44 (7.35-7.45); ABG PO2 376 mmHg (83-108); ABG Potassium Whole Blood 4.3 mmol/L (3.4-4.5); ABG Sodium Whole Blood 142 mmol/L (135-146); ABG TCO2 29 mmol/L (19-24)
[2021-02-03] MEDS ORDERED: SODIUM CHLORIDE 0.9% 500 ML 500 ML with HEPARIN SODIUM,PORCINE 5,000 UNIT IV ONE ×2 (09:58)
[2021-02-03] MEDS ORDERED: ceFAZolin 1,000 MG in SODIUM CHLORIDE 0.9% 1,000 ML IRRIGATION ONE (09:58)
[2021-02-03] MEDS ORDERED: PAPAVERINE 360 MG in SODIUM CHLORIDE 0.9% 90 ML IV ONE (09:58)
[2021-02-03 11:22] LABS: ABG Base Excess 2.2 mmol/L; ABG Glucose Whole Blood 154 mg/dL (75-99); ABG HCO3 27 mmol/L (21-25); ABG Hematocrit 27 % (34.0-46.0); ABG Ionized Calcium 4.6 mg/dL (4.5-5.3); ABG Lactic Acid Whole Blood 1.6 mmol/L (0.5-1.6); ABG PCO2 41 mmHg (35-45); ABG PH 7.42 (7.35-7.45); ABG PO2 200 mmHg (83-108); ABG Potassium Whole Blood 3.9 mmol/L (3.4-4.5); ABG Sodium Whole Blood 140 mmol/L (135-146); ABG TCO2 28 mmol/L (19-24)
[2021-02-03 12:15] LABS: ABG Base Excess 2.3 mmol/L; ABG Glucose Whole Blood 158 mg/dL (75-99); ABG HCO3 27 mmol/L (21-25); ABG Hematocrit 27 % (34.0-46.0); ABG Ionized Calcium 4.6 mg/dL (4.5-5.3); ABG Lactic Acid Whole Blood 1.4 mmol/L (0.5-1.6); ABG Oxygen Saturation 99.5 % (94-97); ABG PCO2 43 mmHg (35-45); ABG PH 7.41 (7.35-7.45); ABG PO2 149 mmHg (83-108); ABG Sodium Whole Blood 140 mmol/L (135-146); ABG TCO2 29 mmol/L (19-24)
[2021-02-03 12:20] LABS: ABG Base Excess 1.1 mmol/L; ABG Glucose Whole Blood 143 mg/dL (75-99); ABG HCO3 26 mmol/L (21-25); ABG Lactic Acid Whole Blood 1.6 mmol/L (0.5-1.6); ABG PCO2 42 mmHg (35-45); ABG PO2 387 mmHg (83-108); ABG Potassium Whole Blood 4.1 mmol/L (3.4-4.5); ABG Sodium Whole Blood 137 mmol/L (135-146); ABG TCO2 27 mmol/L (19-24)
[2021-02-03 12:56] LABS: ABG Base Excess 1.9 mmol/L; ABG Glucose Whole Blood 180 mg/dL (75-99); ABG HCO3 26 mmol/L (21-25); ABG Ionized Calcium 4.1 mg/dL (4.5-5.3); ABG PCO2 39 mmHg (35-45); ABG PH 7.43 (7.35-7.45); ABG PO2 252 mmHg (83-108); ABG Potassium Whole Blood 4.4 mmol/L (3.4-4.5); ABG Sodium Whole Blood 136 mmol/L (135-146); ABG TCO2 28 mmol/L (19-24)
[2021-02-03 13:39] LABS: ABG Base Excess 1.4 mmol/L; ABG Glucose Whole Blood 198 mg/dL (75-99); ABG HCO3 26 mmol/L (21-25); ABG PCO2 39 mmHg (35-45); ABG PH 7.43 (7.35-7.45); ABG PO2 247 mmHg (83-108); ABG Potassium Whole Blood 4.5 mmol/L (3.4-4.5); ABG Sodium Whole Blood 137 mmol/L (135-146); ABG TCO2 27 mmol/L (19-24)
[2021-02-03 14:15] LABS: ABG Base Excess -0.2 mmol/L; ABG Glucose Whole Blood 189 mg/dL (75-99); ABG HCO3 25 mmol/L (21-25); ABG PCO2 40 mmHg (35-45); ABG PO2 297 mmHg (83-108); ABG Potassium Whole Blood 4.3 mmol/L (3.4-4.5); ABG Sodium Whole Blood 134 mmol/L (135-146); ABG TCO2 26 mmol/L (19-24)
[2021-02-03 14:37] LABS: ABG Base Excess -0.7 mmol/L; ABG Glucose Whole Blood 195 mg/dL (75-99); ABG HCO3 24 mmol/L (21-25); ABG Ionized Calcium 3.9 mg/dL (4.5-5.3); ABG PCO2 42 mmHg (35-45); ABG PH 7.38 (7.35-7.45); ABG PO2 330 mmHg (83-108); ABG Potassium Whole Blood 4.4 mmol/L (3.4-4.5); ABG Sodium Whole Blood 136 mmol/L (135-146); ABG TCO2 26 mmol/L (19-24)
[2021-02-03 15:09] LABS: ABG Base Excess -1.7 mmol/L; ABG Glucose Whole Blood 178 mg/dL (75-99); ABG HCO3 24 mmol/L (21-25); ABG PCO2 45 mmHg (35-45); ABG PH 7.33 (7.35-7.45); ABG PO2 299 mmHg (83-108); ABG Potassium Whole Blood 4.2 mmol/L (3.4-4.5); ABG Sodium Whole Blood 136 mmol/L (135-146); ABG TCO2 25 mmol/L (19-24)
[2021-02-03 16:18] LABS: ABG Hematocrit 23 % (34.0-46.0)
[2021-02-03 16:18] LABS: ABG Hematocrit 21 % (34.0-46.0); ABG Lactic Acid Whole Blood 2.1 mmol/L (0.5-1.6)
[2021-02-03 16:20] LABS: ABG Hematocrit 19 % (34.0-46.0); ABG Lactic Acid Whole Blood 2.7 mmol/L (0.5-1.6)
[2021-02-03 16:21] LABS: ABG Hematocrit 18 % (34.0-46.0); ABG Lactic Acid Whole Blood 3.2 mmol/L (0.5-1.6)
[2021-02-03 16:24] LABS: ABG Hematocrit 21 % (34.0-46.0); ABG Lactic Acid Whole Blood 3.4 mmol/L (0.5-1.6)
[2021-02-03 16:25] LABS: ABG Hematocrit 18 % (34.0-46.0); ABG Lactic Acid Whole Blood 3.5 mmol/L (0.5-1.6)
[2021-02-03] MEDS ORDERED: ALBUMIN HUMAN 5% 250 ML IVPB ONE (16:35)
[2021-02-03] MEDS ORDERED: METOCLOPRAMIDE 5 MG/ML 2 ML VIAL IVP PRN (17:00)
[2021-02-03] MEDS ORDERED: Potassium Replacement Protocol 1 EACH MISC MISCELLANE PRN (17:00)
[2021-02-03] MEDS ORDERED: IPRATROPIUM-ALBUTEROL 3 ML NEB INHALATION PRN (17:00)
[2021-02-03] MEDS ORDERED: Phosphorus Replacement Protoco 1 EACH MISC MISCELLANE PRN (17:00)
[2021-02-03] MEDS ORDERED: BENZOCAINE/MENTHOL LOZENG 1 EACH LOZENGE MUCOUS MEM PRN (17:00)
[2021-02-03] MEDS ORDERED: hydrALAZINE HCL 20 MG/ML 1 ML VIAL IVP PRN (17:00)
[2021-02-03] MEDS ORDERED: DEXMEDETOMIDINE/0.9% NACL(PMX) 400 MCG in EMPTY BAG 1 BAG IV SCH (17:00)
[2021-02-03] MEDS ORDERED: AMIODARONE 360 MG in DEXTROSE 5% IN WATER 200 ML IV PRN ×2 (17:00)
[2021-02-03] MEDS ORDERED: DEXTROSE 5% IN WATER 100 ML with AMIODARONE 150 MG IV PRN (17:00)
[2021-02-03] MEDS ORDERED: CALCIUM GLUCONATE 2 GM in SODIUM CHLORIDE 0.9% 100 ML IVPB PRN (17:00)
[2021-02-03] MEDS ORDERED: ALBUMIN HUMAN 5% 250 ML in EMPTY BAG 1 BAG IVPB PRN (17:00)
[2021-02-03] MEDS ORDERED: NITROGLYCERIN-D5W PMX 50 MG in DEXTROSE/WATER 1 250ML.BAG IV SCH (17:00)
[2021-02-03] MEDS ORDERED: MORPHINE SULFATE 2 MG/ML SYRINGE IVP PRN (17:00)
[2021-02-03] MEDS ORDERED: Magnesium Replacement Protocol 1 EACH MISC MISCELLANE PRN (17:00)
[2021-02-03] MEDS ORDERED: ONDANSETRON 4 MG/2 ML VIAL IVP PRN (17:00)
[2021-02-03] MEDS: NOREPINEPHRINE 4 MG in SODIUM CHLORIDE 0.9% 250 ML IV SCH ×17 (17:00→23:49)
[2021-02-03] MEDS ORDERED: AMIODARONE 450 MG in DEXTROSE 5% IN WATER 250 ML IV PRN ×2 (17:00)
[2021-02-03 17:12] LABS: Glucose,Whole Blood 142 mg/dL (75-99)
[2021-02-03 17:17] LABS: ABG Base Excess -1.5 mmol/L; ABG HCO3 25 mmol/L (21-25); ABG Oxygen Saturation 99.6 % (94-97); ABG PCO2 52 mmHg (35-45); ABG PH 7.29 (7.35-7.45); ABG PO2 351 mmHg (83-108); ABG TCO2 27 mmol/L (19-24)
[2021-02-03 17:21] LABS: Allen Test Performed? NO
[2021-02-03] MEDS: MILRINONE-D5W PMX 20 MG in DEXTROSE/WATER 1 100ML.BAG IV SCH (17:30)
--- NOTE | 2021-02-03 17:37 | XR ---
EXAMINATION TYPE: XR chest 1V portable DATE OF EXAM: 02/03/2021 COMPARISON: 01/19/2021. HISTORY: Status post cardiac surgery. TECHNIQUE: Single frontal view of the chest is obtained. FINDINGS: There are interval cardiothoracic postsurgical changes. There is placement of endotracheal tube with tip at level of the qing. There is a right IJ [place]-Yeison catheter with tip overlying the pulmonary outflow tract. There is a nasogastric tube with tip overlying the stomach. Mediastinal drai n and additional tube overlying the left lower lobe also seen. There is mild perihilar and left basil ar opacities. There are probable trace pleural effusions. No pneumothorax. Cardiomediastinal silhouet te is mildly enlarged. IMPRESSION: Status post cardiac surgery with support apparatus placement. Please note endotracheal t ube is low-lying. Recommend retracting 2 cm. Mild opacities, probably atelectasis.
[2021-02-03 18:03] LABS: Ionized Calcium 5.2 mg/dL (4.5-5.3)
[2021-02-03 18:06] LABS: Basophils % (A) 0 %; Eosinophils # (A) 0.1 k/uL (0-0.7); Eosinophils % (A) 1 %; HCT 26.4 % (39.0-53.0); Hypochromasia Slight; Lymphocytes # (A) 2.2 k/uL (1.0-4.8); Lymphocytes % (A) 20 %; MCH 28.4 pg (25.0-35.0); MCV 88.7 fL (80.0-100.0); Monocytes # (A) 0.6 k/uL (0-1.0); Monocytes % (A) 5 %; Neutrophils # (A) 7.7 k/uL (1.3-7.7); Neutrophils % (A) 72 %; Platelet Count 129 k/uL (150-450); RBC 2.98 m/uL (4.30-5.90); RDW 13.5 % (11.5-15.5); WBC 10.7 k/uL (3.8-10.6)
[2021-02-03 18:07] LABS: HGB 8.4 gm/dL (13.0-17.5)
[2021-02-03] MEDS: SODIUM CHLORIDE 0.9% 1,000 ML IV SCH (18:10)
[2021-02-03 18:14] LABS: Albumin 2.7 g/dL (3.5-5.0); Calcium 8.8 mg/dL (8.4-10.2); Magnesium 2.5 mg/dL (1.6-2.3); Potassium 4.6 mmol/L (3.5-5.1); Total Protein 4.6 g/dL (6.3-8.2)
[2021-02-03] MEDS: ACETAMINOPHEN IV (For NPO) 1,000 MG in EMPTY BAG 1 BAG IVPB SCH ×2 (18:15→23:29)
[2021-02-03] MEDS: INSULIN REGULAR 100 UNIT in SODIUM CHLORIDE 0.9% 100 ML IV SCH (18:19)
[2021-02-03] MEDS: CLEVIDIPINE BUTYRATE 25 MG in EMPTY BAG 1 BAG IV SCH (18:30)
[2021-02-03] MEDS ORDERED: fentaNYL (PF) 50 MCG/ML 2 ML AMP IVP PRN (18:44)
[2021-02-03 18:59] LABS: INR 1.1 (<1.2); Partial Thromboplastin Time 27.8 sec (22.0-30.0); Prothrombin Time 11.7 sec (9.0-12.0)
[2021-02-03] MEDS: HEPARIN SODIUM,PORCINE/PF 5,000 UNIT/0.5 ML SYRINGE SQ SCH ×2 (19:01→23:29)
[2021-02-03] MEDS: IPRATROPIUM-ALBUTEROL 3 ML NEB INHALATION SCH ×2 (19:10)
[2021-02-03 19:13] LABS: Glucose,Whole Blood 113 mg/dL (75-99)
[2021-02-03 19:42] LABS: Glucose,Whole Blood 123 mg/dL (75-99)
[2021-02-03 19:49] LABS: Basophils # (A) 0.1 k/uL (0-0.2); Basophils % (A) 1 %; Eosinophils # (A) 0.1 k/uL (0-0.7); Eosinophils % (A) 1 %; HCT 27.9 % (39.0-53.0); HGB 9.2 gm/dL (13.0-17.5); Hypochromasia Slight; Lymphocytes # (A) 1.9 k/uL (1.0-4.8); Lymphocytes % (A) 18 %; MCH 29.3 pg (25.0-35.0); MCV 88.8 fL (80.0-100.0); Mean Platelet Volume 9.2; Monocytes # (A) 0.7 k/uL (0-1.0); Monocytes % (A) 6 %; Neutrophils # (A) 7.8 k/uL (1.3-7.7); Neutrophils % (A) 74 %; Platelet Count 149 k/uL (150-450); RBC 3.15 m/uL (4.30-5.90); RDW 13.4 % (11.5-15.5); WBC 10.6 k/uL (3.8-10.6)
[2021-02-03 20:57] LABS: Glucose,Whole Blood 155 mg/dL (75-99)
[2021-02-03] MEDS ORDERED: CLOPIDOGREL 75 MG TAB PO STA (21:09)
[2021-02-03 21:31] LABS: Glucose,Whole Blood 164 mg/dL (75-99)
[2021-02-03 21:48] LABS: Basophils % (A) 0 %; Eosinophils # (A) 0.1 k/uL (0-0.7); Eosinophils % (A) 1 %; HCT 24.9 % (39.0-53.0); HGB 8.2 gm/dL (13.0-17.5); Hypochromasia Slight; Lymphocytes # (A) 1.6 k/uL (1.0-4.8); Lymphocytes % (A) 16 %; MCH 29.3 pg (25.0-35.0); MCHC 33.1 g/dL (31.0-37.0); MCV 88.5 fL (80.0-100.0); Mean Platelet Volume 9.7; Monocytes # (A) 0.7 k/uL (0-1.0); Monocytes % (A) 7 %; Neutrophils # (A) 7.6 k/uL (1.3-7.7); Neutrophils % (A) 75 %; Platelet Count 144 k/uL (150-450); RBC 2.81 m/uL (4.30-5.90); RDW 13.4 % (11.5-15.5)
--- NOTE | 2021-02-03 22:38 | OP ---
OPERATIVE REPORT DATE OF SURGERY: 02/03/2021 SURGEON: Dr. Kayla James. ASSISTANTS: 1. DERIAN Shoemaker. 2. EDRIAN Francisco. PREOPERATIVE DIAGNOSES: 1. Triple-vessel coronary artery disease. 2. Prior myocardial infarction and PCI stenting. 3. Obesity. 4. Hypertension. 5. Hyperlipidemia. 6. Obstructive sleep apnea. POSTOPERATIVE DIAGNOSES: 1. Triple-vessel coronary artery disease. 2. Prior myocardial infarction and PCI stenting. 3. Obesity. 4. Hypertension. 5. Hyperlipidemia. 6. Obstructive sleep apnea. 7. Diffuse coronary artery disease. 8. Evidence of an old anteroapical myocardial infarction. PROCEDURE: 1. Quadruple coronary artery bypass grafting using the left internal mammary artery to the left anterior descending artery, the left radial artery to the ramus intermedius artery in a [id number] fashion sequentially, then to the distal circumflex artery in an end-to-side fashion, reverse saphenous vein graft from the aorta to the posterior descending artery. 2. Exclusion of the left atrial appendage using a 35 mm AtriClip. 3. Endoscopic harvesting of the left radial artery. 4. Endoscopic harvesting of the right greater saphenous vein. 5. Graft flow measurements using the YepLike!stim system. 6. Intraoperative transesophageal echocardiogram and epiaortic scanning. INDICATION FOR SURGERY: The patient is a 81-year-old gentleman with the above comorbidities who was worked up recently and found to have triple-vessel disease. He has a prior history of WI and stenting. The patient was brought in today for elective coronary artery bypass grafting. The STS risk was discussed with him. He understood it and agreed to proceed. PROCEDURE DESCRIPTION: With the patient in supine position in the preoperative holding area, right internal jugular [place]-Yeison catheter and right radial arterial line were placed. Cardiac index was 2.5 and PA pressure was 50/30. Subsequently he was brought to the operating room, where general endotracheal anesthesia was induced uneventfully. Taylor catheter was inserted. The chest, abdomen, both lower extremities and the left upper extremity were prepped and draped using ChloraPrep. Ioban was used to cover the skin. The patient received 2 grams of cefazolin intravenously. Transesophageal echocardiogram confirmed the preoperative finding of mild to moderate left ventricular dysfunction with distal anteroseptal hypokinesia and no significant valvular abnormality. Midline sternotomy was performed. The bone was relatively poorly vascularized. No bone wax was used. The left hemisternum was elevated. The left internal mammary artery was harvested in a semi-skeletonized fashion. The left pleura was intentionally opened in this process and was drained with a 19-Eston[place] Kirill drain. The right pleura remained grossly intact. The patient was given 5000 units of heparin, and the mammary artery was clipped distally and transected. It had an excellent pulsatile flow in it and was around 1.5 mm in diameter where it was used. In the same setting, the left radial artery was initially exposed at the wrist, and a clamping trial revealed preserved signal in the left index plethysmography probe. Subsequently the artery was harvested again endoscopically without using a tourniquet. The forearm incisions were closed over a drain. The radial artery was prepared by incising the fascia all along its volar aspect and clipping its branches. It was of excellent quality, around 2 to 3 mm in diameter. Also in the same setting the right greater saphenous vein was harvested endoscopically from groin to above ankle level. That vein was essentially thickened with a lot of branches and we elected to use only one segment of it for the posterior descending artery. The leg incisions were closed over a drain. Patient had been given 2500 units of heparin before starting the control of the venous branching before harvesting. Mediastinal fat was transected between 2 ties and epiaortic scanning revealed no protruding atheroma in the ascending aorta and some concentric intimal thickening. Pericardium was opened in an inverted T-fashion and a pericardial cradle was created. Findings included a short aorta and a mildly enlarged heart with evidence of thinning and old changes at the distal anteroapical wall pointing to an old myocardial infarction. The coronary artery disease was partially calcific in nature. After systemic heparinization, after placement of respective pledgeted pursestrings, aortic cannulation of the proximal arch with a 21-E[place] Soft flow cannula and venous cannulation with a dual-stage 29 37 cannula was done via the right atrial appendage. Antegrade as well as retrograde cardioplegia catheters were given. Cardiopulmonary bypass was initiated and the patient's temperature was allowed to drift down to 34 degrees Celsius. With the heart empty and beating, we looked at the target. The left anterior descending artery was a diminutive artery which seemed to be small in size by cardiac catheterization. In reality, this was a diffusely diseased vessel that probably was occluded distally. We could identify one diagonal branching. That artery again was diffusely diseased and I found a spot in its mid aspect that was softer in view of the fact that it was intramyocardial, and that would be the area for bypass. The ramus intermedius artery very proximally was identified. It had a soft spot as well as the distal circumflex artery as it started coming off the groove which was diffusely diseased. The posterior descending artery was also diffusely diseased, but there was a soft spot despite wall disease in it that would be used for bypass. Aorta was clamped, and during aortic clamping myocardial protection was achieved with an initial dose of one liter of antegrade cold cardioplegia followed by 300 mL of retrograde cold blood cardioplegia. All subsequent doses were given retrograde at 15- to 20-minute intervals. We excluded the left atrial appendage using a 35 mm AtriClip deployed at its base. The first distal anastomosis was between the radial artery and the distal circumflex artery, which was around 2 mm in diameter with wall disease, using Prolene 7-0 in continuous fashion. The second distal anastomosis was between the same conduit, namely the radial artery, and the ramus intermedius artery in a [id number]-[id number] tashi- shaped fashion. That target was around also 2 mm in diameter, thin-walled, and I used Prolene 7-0 in continuous fashion. The third distal anastomosis was between a segment of vein that was thickened but of reasonable quality and the posterior descending artery, which was around 1.5 mm in diameter with wall disease, using Prolene 7-0 in continuous fashion. The fourth and last distal anastomosis was between the left internal mammary artery and the mid aspect in diffusely diseased left anterior descending artery that was diminutive in nature using Prolene 7-0 in continuous fashion. To mention that I used a 1 mm shunt in every anastomosis to stent it, and that was removed before completing the anastomosis. Satisfied with the distal anastomoses, attention was moved at performing the 2 proximal anastomoses of the radial artery and the vein graft. Rewarming was started. Two buttons of 4 mm each were punched out of the ascending aorta and the 2 proximal anastomoses were completed using continuous Prolene. The patient was given one liter of warm blood via the retrograde route as we were performing the last proximal anastomosis. De-airing maneuvers were done. Eventually the aorta was unclamped. The patient regained spontaneous slow junctional rhythm. All anastomoses appeared to be relatively hemostatic. Two monopolar atrial pacing wires were affixed to the respective pursestrings of the right atrium, and one bipolar ventricular pacing wire was driven via the inferior aspect of the right ventricle epicardial surface. After around 15 minutes of reperfusion and imposing an A-pacing at 90, we were able to wean off cardiopulmonary bypass with the need of some vasopressor support, as the patient was dilated. WAQAR showed the same LV function with distal anteroseptal hypokinesia and no significant valvular abnormalities. All suckers were stopped, where we give a test- dose and full-dose protamine. Decannulation followed. The venous cannulation site was reinforced with a pledgeted 4-0 Prolene. At this point, and with stable hemodynamics, we did flow measurements using the Bemba system. A 3 mm probe was selected, and the flow into the vein graft to the posterior descending artery was 28 mL/minute, pulsatility index of 2.2, diastolic filling of 66%, showing an excellent functioning graft. The flow into the radial artery that went sequentially to the ramus and the obtuse marginal artery was 40 mL/minute, pulsatility index of 2.9, diastolic filling of 70%, showing an excellent functioning graft. The flow into the mammary artery to the left anterior descending artery was 13 mL/minute, pulsatility index of 3.6, diastolic filling of 54%, showing a patent graft going to limited outflow vessel. A deep groove was made in the left pleura pericardial fat to accommodate the mammary artery medial to the lung and away from the posterior sternal table. Two 19- [place] Kirill drains were placed substernally. Pericardial and mediastinal fat were approximated over the heart. After ensuring adequate hemostasis and hemodynamics and after correct sponge, instrument and needle counts, the sternum was closed using 5 [id number] pineal cables. Initial plan to perform sternal plating also was aborted, as the system was not available. Thorough irrigation with cefazolin followed. The rest of the closure proceeded in layers. Skin glue was applied. The patient received one unit of packed red blood cells on pump, as his hematocrit was 18, and he received 400 mL of Cell Saver blood. He was transferred to the ICU in stable condition with a PA pressure of 37/15, cardiac index of 2, A-paced at 80 with first-degree AV block and a mean arterial pressure of 75 on low-dose Levophed. MMODL / IJN: [id number] / [facility]
[2021-02-03 23:12] LABS: Glucose,Whole Blood 167 mg/dL (75-99)
[2021-02-03 23:58] LABS: Glucose,Whole Blood 170 mg/dL (75-99)
[2021-02-04] MEDS: NOREPINEPHRINE 4 MG in SODIUM CHLORIDE 0.9% 250 ML IV SCH ×13 (00:18→05:57)
[2021-02-04] MEDS: IPRATROPIUM-ALBUTEROL 3 ML NEB INHALATION SCH ×5 (00:32→20:54)
[2021-02-04 01:05] LABS: Glucose,Whole Blood 159 mg/dL (75-99)
[2021-02-04 01:51] LABS: ABG Base Excess -3.5 mmol/L; ABG HCO3 23 mmol/L (21-25); ABG Oxygen Saturation 94.3 % (94-97); ABG PCO2 43 mmHg (35-45); ABG PH 7.32 (7.35-7.45); ABG PO2 74 mmHg (83-108); ABG TCO2 24 mmol/L (19-24); Allen Test Performed? Yes
[2021-02-04 02:59] LABS: Glucose,Whole Blood 150 mg/dL (75-99)
[2021-02-04 03:57] LABS: Glucose,Whole Blood 143 mg/dL (75-99)
[2021-02-04] MEDS ORDERED: HYDROcodone/APAP 5-325MG 1 EACH TAB PO PRN (04:02)
[2021-02-04 04:23] LABS: Basophils % (A) 0 %; Eosinophils % (A) 0 %; HCT 27.3 % (39.0-53.0); HGB 8.8 gm/dL (13.0-17.5); Hypochromasia Slight; Lymphocytes % (A) 9 %; MCH 28.7 pg (25.0-35.0); MCHC 32.3 g/dL (31.0-37.0); MCV 88.9 fL (80.0-100.0); Mean Platelet Volume 8.7; Monocytes % (A) 6 %; Neutrophils % (A) 84 %; Platelet Count 158 k/uL (150-450); RBC 3.07 m/uL (4.30-5.90); RDW 13.4 % (11.5-15.5); WBC 11.4 k/uL (3.8-10.6)
[2021-02-04 04:24] LABS: Monocytes # (A) 0.7 k/uL (0-1.0); Neutrophils # (A) 9.6 k/uL (1.3-7.7)
[2021-02-04] MEDS: HYDROcodone/APAP 5-325MG 1 EACH TAB PO PRN ×2 (04:30→06:13)
[2021-02-04] MEDS: CLEVIDIPINE BUTYRATE 25 MG in EMPTY BAG 1 BAG IV SCH (04:44)
[2021-02-04 04:55] LABS: Ionized Calcium 5.1 mg/dL (4.5-5.3)
[2021-02-04 05:01] LABS: Glucose,Whole Blood 138 mg/dL (75-99)
[2021-02-04 05:10] LABS: Albumin 3.5 g/dL (3.5-5.0); Calcium 8.6 mg/dL (8.4-10.2); Magnesium 2.3 mg/dL (1.6-2.3); Potassium 4.3 mmol/L (3.5-5.1); Total Bilirubin 0.9 mg/dL (0.2-1.3); Total Protein 5.6 g/dL (6.3-8.2)
[2021-02-04 06:10] LABS: Glucose,Whole Blood 123 mg/dL (75-99)
[2021-02-04 07:06] LABS: Glucose,Whole Blood 132 mg/dL (75-99)
[2021-02-04] MEDS: KETOROLAC 15 MG/ML 1 ML VIAL IVP SCH ×3 (07:15→17:54)
[2021-02-04 08:07] LABS: Glucose,Whole Blood 121 mg/dL (75-99)
[2021-02-04] MEDS ORDERED: METOPROLOL TARTRATE 12.5 MG TAB PO STA (08:28)
--- NOTE | 2021-02-04 08:51 | P.PN ---
Subjective Progress Note Date: 02/04/21 Principal diagnosis: Triple-vessel coronary artery disease. Previous medical history of prior anteroapical myocardial infarction with diffuse coronary artery disease and PCI stenting, obesity, hypertension, hyperlipidemia, obstructive sleep apnea without home CPAP use, history of prostate cancer status post prostatectomy with subsequent erectile dysfunction POD #1 quadruple coronary artery bypass grafting using the left internal mammary artery to the left anterior descending artery, left radial artery to the ramus intermedius artery in a [id number] fashion sequentially, then to the distal circumflex artery in an end to side fashion, reverse saphenous vein graft from t he aorta to the posterior descending artery, exclusion of the left atrial appendage using a 35 mm AtriClip, endoscopic harvesting of the left radial artery, endoscopic harvesting of the right greater saphenous vein from the groin to above the ankle level, intraoperative graft flow measurements using the Agilis Systemsim system, intraoperative transesophageal echocardiogram and epi-aortic scanning. Postoperative acute blood loss anemia, expected given hemodilution and cardiopulmonary bypass pump The patient is currently sitting up in a recliner in the intensive care unit in no acute distress. He was successfully extubated at 2:35 AM. He does complain of postsurgical incisional pain, denies shortness of breath. The patient is in good spirits although a bit confused about date, has asked the nurse if his surgery is today. Remains slightly tachycardic in the low 100s, sinus with occasional PACs. Hemodynamically stable on small dose Primacor. Mediastinal, left pleural chest tube, right internal jugular Zenda/Cordis, right radial arterial line all remaining present. Patient was initially on IV Levophed last night, then needed Cleviprex, currently off of both. No new concerns at this time Objective - Vital Signs Vital signs: Vital Signs Temp 97.2 F L 02/04/21 04:00 Pulse 98 02/04/21 08:00 Resp 18 02/04/21 08:00 BP 129/71 02/04/21 08:00 Pulse Ox 97 02/04/21 08:00 Intake & Output 02/03/21 02/04/21 02/04/21 18:59 06:59 18:59 Intake Total 416.409 0447.391 171.920 Output Total 2764 1426 35 Balance -2281.425 -406.609 136.920 Weight 106.3 kg Intake: IV 157 919 79 Sodium Chloride 0.9% 1, 100 600 50 000 ml @ 20 mls/hr IV . Q24H ELISA Rx#:[id number] co/ci 220 20 pressure bags 99 9 Intake, IV Titration 15.575 100.391 92.920 Amount Clevidipine Butyrate 25 42.932 1.933 mg In Empty Bag 1 bag @ 1 MG/HR 2 mls/hr IV .Q24H ELISA Rx#:[id number] Insulin Regular 100 unit 43.650 7.592 In Sodium Chloride 0.9% 100 ml @ Per Protocol IV .Q0M ELISA Rx#:[id number] Milrinone-D5w Pmx 20 mg 83.395 In Dextrose/Water 1 100ml .bag @ 0.1 MCG/KG/MIN 3. 066 mls/hr IV .Q24H ELISA Rx#:[id number] Norepinephrine 4 mg In 15.575 3.18 Sodium Chloride 0.9% 250 ml @ 2 MCG/KG/MIN 778.764 mls/hr IV .Q20M ELISA Rx#: [id number] propofoL 1,000 mg In 10.629 Empty Bag 1 bag @ Titrate IV .Q0M ELISA Rx#: [id number] Blood Product 310 Rc As-1 Unit 310 [id number] Output: Chest Tube Drainage 170 356 Chest Tube Lateral Chest 100 160 Chest Tube Mediastinal 70 196 Urine 594 1070 35 Estimated Blood Loss 1999 Other: Voiding Method Indwelling Catheter Indwelling Catheter ABP, PAP, CO, CI - Last Documented Arterial Blood Pressure 107/46 Pulmonary Artery Pressure 33/13 Cardiac Output 4.2 Cardiac Index 2.0 - Exam CONSTITUTIONAL: Appears comfortable, cooperative, no acute distress RESPIRATORY: Lungs sounds diminished bilaterally. Respirations even, nonlabored. Currently on 3 L nasal cannula with oxygen saturation 96%. Able to achieve 500 mL on incentive spirometry. Strong cough. CARDIOVASCULAR: S1, S2 present. Tachycardic but regular rate and rhythm, sinus tach with occasional PACs on telemetry. Sternum stable. Palpable peripheral pulses bilaterally. Generalized edema present. No calf pain or tenderness noted. Heart hugger in place with patient demonstrating appropriate use. Antiembolism stockings, SCDs present. GASTROINTESTINAL: Abdomen soft, nontender, nondistended. Hypoactive bowel sounds present 4 quadrants. Tolerating clear liquids. Negative flatus, positive belching GENITOURINARY: Taylor present draining clear, yellow urine. Output overnight 60-100 mL per hour INTEGUMENTARY: Skin is warm and dry with evidence of good perfusion. Anterior chest incision well approximated and covered with dry intact dressing. Right lo wer extremity EVH site well approximated without redness or drainage. Left radial artery harvest site well approximated without redness or drainage, patient able to move his fingers and manager transition appropriately, good cap refill NEUROLOGIC: Cranial nerves II through XII intact MUSKULOSKELETAL: Able to move all extremities, strength equal bilaterally PSYCHIATRIC: Alert and oriented to person, place, confused about date and time, appropriate affect INVASIVE LINES AND TUBES: Mediastinal/left pleural chest tubes present and connected to wall suction, no air leaks present. Mediastinal tube with 90 mL serosanguineous drainage overnight, 300 mL since surgery. Left pleural chest tube with 116 mL serosanguineous drainage overnight, 260 mL since surgery. A/V epicardial pacemaker wires present, connected to generator, VVI mode with backup rate 50 bpm. Right internal jugular Zenda/Cordis, right radial arterial line present. Last CO/CI 4.2/2.0 on 0.1 mcg/kg/m primacor, PA /, CVP 6-8. - Allied health notes Allied health notes reviewed: nursing - Labs CBC & Chem 7: 02/04/21 03:50 02/04/21 03:50 Labs: Abnormal Lab Results - Last 24 Hours (Table) 01/27/21 02/03/21 02/03/21 Range/Units 11:01 09:03 11:23 WBC (3.8-10.6) k/uL RBC (4.30-5.90) m/uL Hgb (13.0-17.5) gm/dL Hct (39.0-53.0) % Plt Count (150-450) k/uL Neutrophils # (1.3-7.7) k/uL ABG pH (7.35-7.45) ABG pCO2 (35-45) mmHg ABG pO2 376 H 200 H (83-108) mmHg ABG HCO3 28 H 27 H (21-25) mmol/L ABG Total CO2 29 H 28 H (19-24) mmol/L ABG O2 Saturation 100.0 H 100.0 H (94-97) % ABG Hematocrit 32 L 27 L (34.0-46.0) % ABG Ionized Calcium (4.5-5.3) mg/dL ABG Glucose 133 H 154 H (75-99) mg/dL ABG Lactic Acid (0.5-1.6) mmol/L Hemoglobin 10.4 L 8.9 L (13.0-17.5) gm/dL Sodium (137-145) mmol/L Chloride (98-107) mmol/L Glucose (74-99) mg/dL POC Glucose (mg/dL) (75-99) mg/dL Magnesium (1.6-2.3) mg/dL AST (17-59) U/L Total Protein (6.3-8.2) g/dL Albumin (3.5-5.0) g/dL Arterial Blood Glucose 133 H 154 H (75-99) mg/dL Crossmatch See Detail 02/03/21 02/03/21 02/03/21 Range/Units 12:16 12:21 12:57 WBC (3.8-10.6) k/uL RBC (4.30-5.90) m/uL Hgb (13.0-17.5) gm/dL Hct (39.0-53.0) % Plt Count (150-450) k/uL Neutrophils # (1.3-7.7) k/uL ABG pH (7.35-7.45) ABG pCO2 (35-45) mmHg ABG pO2 149 H 387 H 252 H (83-108) mmHg ABG HCO3 27 H 26 H 26 H (21-25) mmol/L ABG Total CO2 29 H 27 H 28 H (19-24) mmol/L ABG O2 Saturation 99.5 H 100.0 H 100.0 H (94-97) % ABG Hematocrit 27 L 23 L 21 L (34.0-46.0) % ABG Ionized Calcium 4.0 L 4.1 L (4.5-5.3) mg/dL ABG Glucose 158 H 143 H 180 H (75-99) mg/dL ABG Lactic Acid 2.1 H (0.5-1.6) mmol/L Hemoglobin 8.8 L 7.4 L 6.7 L* (13.0-17.5) gm/dL Sodium (137-145) mmol/L Chloride (98-107) mmol/L Glucose (74-99) mg/dL POC Glucose (mg/dL) (75-99) mg/dL Magnesium (1.6-2.3) mg/dL AST (17-59) U/L Total Protein (6.3-8.2) g/dL Albumin (3.5-5.0) g/dL Arterial Blood Glucose 158 H 143 H 180 H (75-99) mg/dL Crossmatch 02/03/21 02/03/21 02/03/21 Range/Units 14:38 15:09 16:54 WBC 10.7 H (3.8-10.6) k/uL RBC 2.98 L (4.30-5.90) m/uL Hgb 8.4 L D (13.0-17.5) gm/dL Hct 26.4 L (39.0-53.0) % Plt Count 129 L (150-450) k/uL Neutrophils # (1.3-7.7) k/uL ABG pH 7.33 L (7.35-7.45) ABG pCO2 (35-45) mmHg ABG pO2 330 H 299 H (83-108) mmHg ABG HCO3 (21-25) mmol/L ABG Total CO2 26 H 25 H (19-24) mmol/L ABG O2 Saturation 100.0 H 100.0 H (94-97) % ABG Hematocrit 18 L* 21 L (34.0-46.0) % ABG Ionized Calcium 3.9 L 4.0 L (4.5-5.3) mg/dL ABG Glucose 195 H 178 H (75-99) mg/dL ABG Lactic Acid 3.5 H* 3.4 H* (0.5-1.6) mmol/L Hemoglobin 5.7 L* 6.7 L* (13.0-17.5) gm/dL Sodium (137-145) mmol/L Chloride (98-107) mmol/L Glucose (74-99) mg/dL POC Glucose (mg/dL) (75-99) mg/dL Magnesium (1.6-2.3) mg/dL AST (17-59) U/L Total Protein (6.3-8.2) g/dL Albumin (3.5-5.0) g/dL Arterial Blood Glucose 195 H 178 H (75-99) mg/dL Crossmatch 02/03/21 02/03/21 02/03/21 Range/Units 16:54 16:54 17:16 WBC (3.8-10.6) k/uL RBC (4.30-5.90) m/uL Hgb (13.0-17.5) gm/dL Hct (39.0-53.0) % Plt Count (150-450) k/uL Neutrophils # (1.3-7.7) k/uL ABG pH 7.29 L (7.35-7.45) ABG pCO2 52 H (35-45) mmHg ABG pO2 351 H (83-108) mmHg ABG HCO3 (21-25) mmol/L ABG Total CO2 27 H (19-24) mmol/L ABG O2 Saturation 99.6 H (94-97) % ABG Hematocrit (34.0-46.0) % ABG Ionized Calcium (4.5-5.3) mg/dL ABG Glucose (75-99) mg/dL ABG Lactic Acid (0.5-1.6) mmol/L Hemoglobin (13.0-17.5) gm/dL Sodium 135 L (137-145) mmol/L Chloride 108 H (98-107) mmol/L Glucose 126 H (74-99) mg/dL POC Glucose (mg/dL) 142 H (75-99) mg/dL Magnesium 2.5 H (1.6-2.3) mg/dL AST (17-59) U/L Total Protein 4.6 L (6.3-8.2) g/dL Albumin 2.7 L (3.5-5.0) g/dL Arterial Blood Glucose (75-99) mg/dL Crossmatch 02/03/21 02/03/21 02/03/21 Range/Units 19:00 19:40 19:44 WBC (3.8-10.6) k/uL RBC 3.15 L (4.30-5.90) m/uL Hgb 9.2 L (13.0-17.5) gm/dL Hct 27.9 L (39.0-53.0) % Plt Count 149 L (150-450) k/uL Neutrophils # 7.8 H (1.3-7.7) k/uL ABG pH (7.35-7.45) ABG pCO2 (35-45) mmHg ABG pO2 (83-108) mmHg ABG HCO3 (21-25) mmol/L ABG Total CO2 (19-24) mmol/L ABG O2 Saturation (94-97) % ABG Hematocrit (34.0-46.0) % ABG Ionized Calcium (4.5-5.3) mg/dL ABG Glucose (75-99) mg/dL ABG Lactic Acid (0.5-1.6) mmol/L Hemoglobin (13.0-17.5) gm/dL Sodium (137-145) mmol/L Chloride (98-107) mmol/L Glucose (74-99) mg/dL POC Glucose (mg/dL) 113 H 123 H (75-99) mg/dL Magnesium (1.6-2.3) mg/dL AST (17-59) U/L Total Protein (6.3-8.2) g/dL Albumin (3.5-5.0) g/dL Arterial Blood Glucose (75-99) mg/dL Crossmatch 02/03/21 02/03/21 02/03/21 Range/Units 20:56 21:30 21:35 WBC (3.8-10.6) k/uL RBC 2.81 L (4.30-5.90) m/uL Hgb 8.2 L (13.0-17.5) gm/dL Hct 24.9 L (39.0-53.0) % Plt Count 144 L (150-450) k/uL Neutrophils # (1.3-7.7) k/uL ABG pH (7.35-7.45) ABG pCO2 (35-45) mmHg ABG pO2 (83-108) mmHg ABG HCO3 (21-25) mmol/L ABG Total CO2 (19-24) mmol/L ABG O2 Saturation (94-97) % ABG Hematocrit (34.0-46.0) % ABG Ionized Calcium (4.5-5.3) mg/dL ABG Glucose (75-99) mg/dL ABG Lactic Acid (0.5-1.6) mmol/L Hemoglobin (13.0-17.5) gm/dL Sodium (137-145) mmol/L Chloride (98-107) mmol/L Glucose (74-99) mg/dL POC Glucose (mg/dL) 155 H 164 H (75-99) mg/dL Magnesium (1.6-2.3) mg/dL AST (17-59) U/L Total Protein (6.3-8.2) g/dL Albumin (3.5-5.0) g/dL Arterial Blood Glucose (75-99) mg/dL Crossmatch 02/03/21 02/03/21 02/04/21 Range/Units 23:11 23:56 01:03 WBC (3.8-10.6) k/uL RBC (4.30-5.90) m/uL Hgb (13.0-17.5) gm/dL Hct (39.0-53.0) % Plt Count (150-450) k/uL Neutrophils # (1.3-7.7) k/uL ABG pH (7.35-7.45) ABG pCO2 (35-45) mmHg ABG pO2 (83-108) mmHg ABG HCO3 (21-25) mmol/L ABG Total CO2 (19-24) mmol/L ABG O2 Saturation (94-97) % ABG Hematocrit (34.0-46.0) % ABG Ionized Calcium (4.5-5.3) mg/dL ABG Glucose (75-99) mg/dL ABG Lactic Acid (0.5-1.6) mmol/L Hemoglobin (13.0-17.5) gm/dL Sodium (137-145) mmol/L Chloride (98-107) mmol/L Glucose (74-99) mg/dL POC Glucose (mg/dL) 167 H 170 H 159 H (75-99) mg/dL Magnesium (1.6-2.3) mg/dL AST (17-59) U/L Total Protein (6.3-8.2) g/dL Albumin (3.5-5.0) g/dL Arterial Blood Glucose (75-99) mg/dL Crossmatch 02/04/21 02/04/21 02/04/21 Range/Units 01:44 02:51 03:50 WBC 11.4 H (3.8-10.6) k/uL RBC 3.07 L (4.30-5.90) m/uL Hgb 8.8 L (13.0-17.5) gm/dL Hct 27.3 L (39.0-53.0) % Plt Count (150-450) k/uL Neutrophils # 9.6 H (1.3-7.7) k/uL ABG pH 7.32 L (7.35-7.45) ABG pCO2 (35-45) mmHg ABG pO2 74 L (83-108) mmHg ABG HCO3 (21-25) mmol/L ABG Total CO2 (19-24) mmol/L ABG O2 Saturation (94-97) % ABG Hematocrit (34.0-46.0) % ABG Ionized Calcium (4.5-5.3) mg/dL ABG Glucose (75-99) mg/dL ABG Lactic Acid (0.5-1.6) mmol/L Hemoglobin (13.0-17.5) gm/dL Sodium (137-145) mmol/L Chloride (98-107) mmol/L Glucose (74-99) mg/dL POC Glucose (mg/dL) 150 H (75-99) mg/dL Magnesium (1.6-2.3) mg/dL AST (17-59) U/L Total Protein (6.3-8.2) g/dL Albumin (3.5-5.0) g/dL Arterial Blood Glucose (75-99) mg/dL Crossmatch 02/04/21 02/04/21 02/04/21 Range/Units 03:50 03:55 04:59 WBC (3.8-10.6) k/uL RBC (4.30-5.90) m/uL Hgb (13.0-17.5) gm/dL Hct (39.0-53.0) % Plt Count (150-450) k/uL Neutrophils # (1.3-7.7) k/uL ABG pH (7.35-7.45) ABG pCO2 (35-45) mmHg ABG pO2 (83-108) mmHg ABG HCO3 (21-25) mmol/L ABG Total CO2 (19-24) mmol/L ABG O2 Saturation (94-97) % ABG Hematocrit (34.0-46.0) % ABG Ionized Calcium (4.5-5.3) mg/dL ABG Glucose (75-99) mg/dL ABG Lactic Acid (0.5-1.6) mmol/L Hemoglobin (13.0-17.5) gm/dL Sodium (137-145) mmol/L Chloride 108 H (98-107) mmol/L Glucose 135 H (74-99) mg/dL POC Glucose (mg/dL) 143 H 138 H (75-99) mg/dL Magnesium (1.6-2.3) mg/dL AST 105 H (17-59) U/L Total Protein 5.6 L (6.3-8.2) g/dL Albumin (3.5-5.0) g/dL Arterial Blood Glucose (75-99) mg/dL Crossmatch 02/04/21 02/04/21 02/04/21 Range/Units 06:08 07:05 08:06 WBC (3.8-10.6) k/uL RBC (4.30-5.90) m/uL Hgb (13.0-17.5) gm/dL Hct (39.0-53.0) % Plt Count (150-450) k/uL Neutrophils # (1.3-7.7) k/uL ABG pH (7.35-7.45) ABG pCO2 (35-45) mmHg ABG pO2 (83-108) mmHg ABG HCO3 (21-25) mmol/L ABG Total CO2 (19-24) mmol/L ABG O2 Saturation (94-97) % ABG Hematocrit (34.0-46.0) % ABG Ionized Calcium (4.5-5.3) mg/dL ABG Glucose (75-99) mg/dL ABG Lactic Acid (0.5-1.6) mmol/L Hemoglobin (13.0-17.5) gm/dL Sodium (137-145) mmol/L Chloride (98-107) mmol/L Glucose (74-99) mg/dL POC Glucose (mg/dL) 123 H 132 H 121 H (75-99) mg/dL Magnesium (1.6-2.3) mg/dL AST (17-59) U/L Total Protein (6.3-8.2) g/dL Albumin (3.5-5.0) g/dL Arterial Blood Glucose (75-99) mg/dL Crossmatch - Imaging and Cardiology Chest x-ray: image reviewed Assessment and Plan Assessment: 1. Triple-vessel coronary artery disease, status post four-vessel CABG 2. History of prior anteroapical myocardial infarction with diffuse coronary artery disease and PCI stenting 3. Hypertension 4. Hyperlipidemia, treated, cholesterol 221, LDL 151 5. Obstructive sleep apnea without home CPAP use 6. Obesity 7. Never smoker with preoperative FEV1 78% of predicted 8. History of prostate cancer status post prostatectomy with subsequent erectile dysfunction 9. Postoperative acute blood loss anemia, expected Plan: 1. Continue aspirin, statin, Plavix, beta ari therapy. Will increase beta ari therapy as tolerated, increased to 25 mg twice daily today 2. Discontinue IV nitro. Add Norvasc for radial artery spasm. Do not discontinue CCB without discussed with cardiac surgery 3. Will wean off Primacor 4. Wean O2 as tolerated. Encourage incentive spirometry use 10 times every hour while awake. Bronchodilators per pulmonology 5. Increase activity, ambulate as tolerated. PT/OT/cardiac rehab consulted 6. Will monitor daily labs and x-rays. Electrolyte replacement per protocol. No transfusion 7. GI/DVT prophylaxis 8. Pain control with current medication regimen 9. Insulin management per primary care service. Patient is not diabetic, hemoglobin A1c 5.6% 10. Reorient as needed 11. Once Primacor has been discontinued will discontinue Zenda. Connect Cordis to continuous CVP monitoring 12. Continue mediastinal/pleural chest tubes, Cordis, radial arterial line for another 24 hours 13. Continue Taylor catheter for another 24 hours for strict accurate intake and output. Daily weights. 14. More recommendations to follow based on patient's progress Time with Patient: Greater than 30
--- NOTE | 2021-02-04 08:54 | XR ---
EXAMINATION TYPE: XR chest 1V portable DATE OF EXAM: 02/04/2021 COMPARISON: 02/03/2021 HISTORY: Postop cardiac surgery TECHNIQUE: Single frontal view of the chest is obtained. FINDINGS: ET and NG tube have been removed. [place] catheter are noted. Bilateral consolidation an d pleural effusion noted. No sizable pneumothorax. Atherosclerotic change aorta. Question mediastinal drains. Epicardial lead suggested. IMPRESSION: 1. Postoperative change with bilateral infiltrate and small effusion correlate for mild central venou s congestion.
[2021-02-04] MEDS: HEPARIN SODIUM,PORCINE/PF 5,000 UNIT/0.5 ML SYRINGE SQ SCH ×2 (08:56→18:08)
[2021-02-04] MEDS: amLODIPine 5 MG TAB PO SCH (08:58)
[2021-02-04] MEDS: CLOPIDOGREL 75 MG TAB PO SCH (08:59)
[2021-02-04] MEDS: ATORVASTATIN 40 MG TAB PO SCH (08:59)
[2021-02-04] MEDS: ASPIRIN 325 MG TAB PO SCH (08:59)
[2021-02-04] MEDS ORDERED: bisacodyL 10 MG SUPP RECTAL PRN (09:00)
[2021-02-04] MEDS ORDERED: MAGNESIUM HYDROXIDE 2,400 MG/10 ML CUP PO PRN (09:00)
[2021-02-04] MEDS ORDERED: METOPROLOL TARTRATE 12.5 MG TAB PO SCH (09:00)
[2021-02-04] MEDS ORDERED: PANTOPRAZOLE 40 MG/10 ML VIAL IVP SCH (09:00)
--- NOTE | 2021-02-04 09:07 | P.CRDCN ---
History of Present Illness Consult date: 02/04/21 History of present illness: This is a 81-year-old -[place] gentleman who sees Dr. Boo in the office on regular basis with requested to see as a consult here in the intensive care unit following coronary artery that is grafting. The patient was seen recently by Dr. Reis in the office where he was experiencing symptoms of chest discomfort. An echocardiogram was performed and revealed mildly impaired LV function was EF around 45% with mild valvular abnormalities. Subsequently the patient underwent stress echocardiogram and that came in to be abnormal and because of that heart catheterization was advised. The patient underwent a heart catheterization by Dr. Boo few weeks ago and that revealed severe triple-vessel coronary artery disease where the patient was referred to be seen by a surgeon. He was seen after that and underwent yesterday coronary artery that is grafting 4 were the patient received FAULKNER to LAD and radial artery to ramus intermedius as well as left circumflex and also SVG to PDA of the right coronary artery. The patient was extubated yesterday at the same day of the open heart surgery. Today is postop patient the #1. The patient is a slightly confused this morning. He was sitting in the chair does not look in any pain or any distress. After the surgery he was placed on a small dose of Primacor because his cardiac index was low. That was weaned off overnight. This morning he is a slightly hypertensive as well as tachycardic. He is on metoprolol 12.5 mg by mouth twice a day and he was going to be given another 12.5 mg by mouth daily of metoprolol. Otherwise he is on dual antiplatelet therapy along with high intensity started along with calcium channel ari with Norvasc for the radial artery graft. The chest x-ray was reviewed. The blood work was reviewed as well. The patient was seen and examined and he seems to be slightly edematous mostly in the upper extremity. Past Medical History Past Medical History: Coronary Artery Disease (CAD), Cancer, GERD/Reflux, Hyperlipidemia, Hypertension, Myocardial Infarction (GA), Prostate Disorder, Sleep Apnea/CPAP/BIPAP Additional Past Medical History / Comment(s): no cpap used, hx prostate cancer before 1999-had surg. & radiation, erectile dysfunction Last Myocardial Infarction Date:: unknown History of Any Multi-Drug Resistant Organisms: None Reported Past Surgical History: Heart Catheterization, Heart Catheterization With Stent, Prostate Surgery Additional Past Surgical History / Comment(s): one cardiac stent, Past Anesthesia/Blood Transfusion Reactions: No Reported Reaction Date of Last Stent Placement:: unknown Smoking Status: Never smoker - Past Family History Mother Family Medical History: No Reported History Additional Family Medical History / Comment(s): Multisystem organ failure, at age 93. Father Family Medical History: Cancer Additional Family Medical History / Comment(s): Colon cancer Medications and Allergies Home Medications Medication Instructions Recorded Confirmed Type Albuterol Sulfate [Albuterol 1 puff PO Q6H PRN 01/17/21 02/03/21 History Sulfate Hfa] Atorvastatin [Lipitor] 40 mg PO DAILY 01/17/21 02/03/21 History Loratadine [Claritin] 10 mg PO DAILY 01/17/21 02/03/21 History Aspirin [Adult Low Dose Aspirin EC] 81 mg PO DAILY 30 Days tablet. 01/19/21 02/03/21 Rx Metoprolol Succinate (ER) [Toprol 25 mg PO DAILY tab.er.24h 01/19/21 02/03/21 Rx XL] Nitroglycerin Sl Tabs [Nitrostat] 0.4 mg SUBLINGUAL Q5M PRN tab 01/19/21 02/03/21 Rx Allergies Allergy/AdvReac Type Severity Reaction Status Date / Time iodine AdvReac Severe Rash/Hives,skin Verified 02/03/21 06:06 peeled Physical Exam Vitals: Vital Signs Temp Pulse Resp BP Pulse Ox 02/04/21 08:00 98 18 129/71 97 02/04/21 07:30 100 17 129/71 97 02/04/21 07:00 99 12 94 L 02/04/21 06:30 104 H 18 97 02/04/21 06:00 104 H 18 97 02/04/21 05:30 106 H 30 H 91 L 02/04/21 05:00 98 22 91 L 02/04/21 04:30 101 H 23 91 L 02/04/21 04:00 97.2 F L 104 H 19 92 L 02/04/21 03:30 101 H 16 94 L 02/04/21 03:00 101 H 19 129/71 96 02/04/21 02:50 95 02/04/21 02:30 98 15 95 02/04/21 02:00 97 20 94 L 02/04/21 01:30 96 14 98 02/04/21 01:00 91 17 130/76 97 02/04/21 00:48 92 16 100 02/04/21 00:32 95 02/04/21 00:30 94 18 100 02/04/21 00:00 97.2 F L 91 16 130/76 98 02/03/21 23:30 96 24 100 02/03/21 23:15 96 20 100 02/03/21 23:00 95 18 99 02/03/21 22:45 94 16 98 02/03/21 22:30 94 16 100 02/03/21 22:15 93 16 99 02/03/21 22:00 94 16 99 02/03/21 21:45 93 16 98 02/03/21 21:30 94 17 99 02/03/21 21:15 95 16 99 02/03/21 21:00 95 16 99 02/03/21 20:45 96 16 100 02/03/21 20:30 100 14 123/77 99 02/03/21 20:15 96 16 98 02/03/21 20:00 97.7 F 93 16 98 02/03/21 19:45 101 H 17 99 02/03/21 19:30 101 H 16 98 02/03/21 19:20 102 H 02/03/21 19:15 101 H 6 L 98 02/03/21 19:00 99 6 L 98 02/03/21 18:45 98 11 L 02/03/21 18:30 94 16 02/03/21 18:15 90 16 02/03/21 18:00 90 16 02/03/21 17:45 89 16 100 02/03/21 17:30 89 16 100 02/03/21 17:15 89 12 100 02/03/21 17:00 89 11 L 02/03/21 16:48 89 12 02/03/21 15:17 103 H Intake and Output 02/03/21 02/04/21 02/04/21 22:59 06:59 14:59 Intake Total 753.382 691.584 171.920 Output Total 964 826 35 Balance -210.618 -134.416 136.920 Intake: IV 407 612 79 Sodium Chloride 0.9% 1, 300 400 50 000 ml @ 20 mls/hr IV . Q24H ELISA Rx#:[id number] co/ci 80 140 20 pressure bags 27 72 9 Intake, IV Titration 36.382 79.584 92.920 Amount Clevidipine Butyrate 25 3.033 39.899 1.933 mg In Empty Bag 1 bag @ 1 MG/HR 2 mls/hr IV .Q24H ELISA Rx#:[id number] Insulin Regular 100 unit 3.965 39.685 7.592 In Sodium Chloride 0.9% 100 ml @ Per Protocol IV .Q0M ELISA Rx#:[id number] Milrinone-D5w Pmx 20 mg 83.395 In Dextrose/Water 1 100ml .bag @ 0.1 MCG/KG/MIN 3. 066 mls/hr IV .Q24H ELISA Rx#:[id number] Norepinephrine 4 mg In 18.755 Sodium Chloride 0.9% 250 ml @ 2 MCG/KG/MIN 778.764 mls/hr IV .Q20M ELISA Rx#: [id number] propofoL 1,000 mg In 10.629 Empty Bag 1 bag @ Titrate IV .Q0M ELISA Rx#: [id number] Blood Product 310 Rc As-1 Unit 310 [id number] Output: Chest Tube Drainage 320 206 Chest Tube Lateral Chest 144 116 Chest Tube Mediastinal 176 90 Urine 644 620 35 Other: Voiding Method Indwelling Catheter Indwelling Catheter Weight 106.3 kg ABP, PAP, CO, CI - Last 8 Hours Arterial Blood Pressure 107/46 Arterial Blood Pressure 111/46 Arterial Blood Pressure 113/50 Arterial Blood Pressure 131/52 Arterial Blood Pressure 115/54 Arterial Blood Pressure 114/68 Arterial Blood Pressure 126/55 Arterial Blood Pressure 127/57 Arterial Blood Pressure 134/58 Arterial Blood Pressure 135/58 Arterial Blood Pressure 147/59 Arterial Blood Pressure 118/55 Arterial Blood Pressure 165/64 Pulmonary Artery Pressure 33/13 Pulmonary Artery Pressure 27/9 Pulmonary Artery Pressure 30/12 Pulmonary Artery Pressure 34/14 Pulmonary Artery Pressure 32/14 Pulmonary Artery Pressure 43/21 Pulmonary Artery Pressure 47/26 Pulmonary Artery Pressure 40/23 Pulmonary Artery Pressure 38/22 Pulmonary Artery Pressure 39/21 Pulmonary Artery Pressure 43/21 Pulmonary Artery Pressure 41/24 Pulmonary Artery Pressure 40/24 Pulmonary Artery Pressure 46/26 Cardiac Output 4.2 Cardiac Output 4.6 Cardiac Output 4.6 Cardiac Output 5.8 Cardiac Output 6 Cardiac Index 2.0 Cardiac Index 2.2 Cardiac Index 2.2 Cardiac Index 2.7 Cardiac Index 2.8 - Constitutional General appearance: no acute distress - Respiratory Respiratory: bilateral: diminished - Cardiovascular Rhythm: regular Heart sounds: normal: S1, S2 Results 02/04/21 03:50 02/04/21 03:50 Cardiac Enzymes 02/03/21 02/04/21 Range/Units 16:54 03:50 AST 53 105 H (17-59) U/L Coagulation 02/03/21 Range/Units 16:54 PT 11.7 (9.0-12.0) sec APTT 27.8 (22.0-30.0) sec CBC 02/03/21 02/03/21 02/03/21 Range/Units 16:54 19:44 21:35 WBC 10.7 H 10.6 10.0 (3.8-10.6) k/uL RBC 2.98 L 3.15 L 2.81 L (4.30-5.90) m/uL Hgb 8.4 L D 9.2 L 8.2 L (13.0-17.5) gm/dL Hct 26.4 L 27.9 L 24.9 L (39.0-53.0) % Plt Count 129 L 149 L 144 L (150-450) k/uL 02/04/21 Range/Units 03:50 WBC 11.4 H (3.8-10.6) k/uL RBC 3.07 L (4.30-5.90) m/uL Hgb 8.8 L (13.0-17.5) gm/dL Hct 27.3 L (39.0-53.0) % Plt Count 158 (150-450) k/uL Comprehensive Metabolic Panel 02/03/21 02/04/21 Range/Units 16:54 03:50 Sodium 135 L 140 (137-145) mmol/L Potassium 4.6 4.3 (3.5-5.1) mmol/L Chloride 108 H 108 H (98-107) mmol/L Carbon Dioxide 22 23 (22-30) mmol/L BUN 16 17 (9-20) mg/dL Creatinine 1.05 1.17 (0.66-1.25) mg/dL Glucose 126 H 135 H (74-99) mg/dL Calcium 8.8 8.6 (8.4-10.2) mg/dL AST 53 105 H (17-59) U/L ALT 15 22 (4-49) U/L Alkaline Phosphatase 41 49 (38-126) U/L Total Protein 4.6 L 5.6 L (6.3-8.2) g/dL Albumin 2.7 L 3.5 (3.5-5.0) g/dL Current Medications Generic Name Dose Route Start Last Admin Trade Name Freq PRN Reason Stop Dose Admin Hydrocodone Bitart/Acetaminophen 2 each 02/04/21 04:02 Hydrocodone/Apap 5-325mg 1 Each Tab PO Q4HR PRN Severe Pain Hydrocodone Bitart/Acetaminophen 1 each 02/04/21 04:02 02/04/21 06:13 Hydrocodone/Apap 5-325mg 1 Each Tab PO 1 each Q4HR PRN Administration Moderate Pain Albuterol/Ipratropium 3 ml 02/03/21 17:00 Ipratropium-Albuterol 3 Ml Neb INHALATION RT-Q2H PRN Shortness Of Breath Or Wheezing Albuterol/Ipratropium 3 ml 02/03/21 22:03 02/04/21 07:45 Ipratropium-Albuterol 3 Ml Neb INHALATION Not Given RT-QID [facility] Amlodipine Besylate 5 mg 02/04/21 09:00 02/04/21 08:58 Amlodipine 5 Mg Tab PO 5 mg DAILY ELISA Administration Aspirin 325 mg 02/04/21 09:00 02/04/21 08:59 Aspirin 325 Mg Tab PO 325 mg DAILY ELISA Administration Atorvastatin Calcium 40 mg 02/04/21 09:00 02/04/21 08:59 Atorvastatin 40 Mg Tab PO 40 mg DAILY ELISA Administration Benzocaine/Menthol 1 each 02/03/21 17:00 Benzocaine/Menthol Lozeng 1 Each Lozenge MUCOUS MEM Q2H PRN Sore Throat Bisacodyl 10 mg 02/04/21 09:00 Bisacodyl 10 Mg Supp RECTAL DAILY PRN Constipation Clopidogrel Bisulfate 75 mg 02/04/21 09:00 02/04/21 08:59 Clopidogrel 75 Mg Tab PO 75 mg DAILY ELISA Administration Heparin Sodium (Porcine) 5,000 unit 02/03/21 17:00 02/04/21 08:56 Heparin Sodium,Porcine/Pf 5,000 Unit/0.5 Ml Syringe SQ 5,000 unit Q8HR ELISA Administration Milrinone Lactate/Dextrose 20 100 mls @ 3.066 mls/hr 02/03/21 17:15 02/04/21 07:06 mg/ IV Solution IV 0.1 mcg/kg/min .Q24H ELISA 3.066 mls/hr Infusion 0.1 MCG/KG/MIN Clevidipine 25 mg/ IV Solution 50 mls @ 2 mls/hr 02/03/21 17:00 02/04/21 07:06 IV 0 mg/hr .Q24H ELISA 0 mls/hr Titration Protocol 1 MG/HR Amiodarone HCl 150 mg/ 103 mls @ 618 mls/hr 02/03/21 17:00 Dextrose/Water IV .Q10M PRN A.FIB/FLUTTER Protocol Amiodarone HCl 360 mg/ 207.2 mls @ 34.533 mls/hr 02/03/21 17:00 Dextrose/Water IV .Q6H PRN A.FIB/FLUTTER Protocol 1 MG/MIN Amiodarone HCl 450 mg/ 250 mls @ 16.667 mls/hr 02/03/21 17:00 Dextrose/Water IV .Q15H PRN A.FIB/FLUTTER Protocol 0.5 MG/MIN Albumin Human 250 ml/ IV 250 mls @ 250 mls/hr 02/03/21 17:00 02/03/21 20:01 Solution IVPB 02/05/21 17:01 250 mls/hr Q1HR PRN Administration For Volume Cefazolin Sodium 2 gm/ Sodium 50 mls @ 100 mls/hr 02/03/21 17:00 02/04/21 00:19 Chloride IVPB 02/04/21 09:29 100 mls/hr Q8H ELISA Administration Calcium Gluconate 2 gm/ Sodium 120 mls @ 100 mls/hr 02/03/21 17:00 Chloride IVPB 02/25/21 17:01 ONCE PRN Ionized Calcium less than 4.4 Insulin Human Regular 100 unit 101 mls @ 0 mls/hr 02/03/21 17:00 02/04/21 08:09 / Sodium Chloride IV 3.5 units/hr .Q0M ELISA 3.535 mls/hr Titration Protocol Per Protocol Sodium Chloride 1,000 mls @ 20 mls/hr 02/03/21 17:00 02/03/21 18:10 Saline 0.9% IV 50 mls/hr .Q24H ELISA Administration Ketorolac Tromethamine 15 mg 02/04/21 07:15 02/04/21 07:15 Ketorolac 15 Mg/Ml 1 Ml Vial IVP 02/09/21 07:16 15 mg Q6HR ELISA Administration Magnesium Hydroxide 2,400 mg 02/04/21 09:00 Magnesium Hydroxide 2,400 Mg/10 Ml Cup PO BID PRN Constipation Metoclopramide HCl 10 mg 02/03/21 17:00 Metoclopramide 5 Mg/Ml 2 Ml Vial IVP Q4H PRN Nausea And Vomiting Metoprolol Tartrate 25 mg 02/04/21 21:00 Metoprolol Tartrate 25 Mg Tab PO BID ELISA Miscellaneous Information 1 each 02/03/21 17:00 Magnesium Replacement Protocol 1 Each Misc MISCELLANE DAILY PRN Per Protocol Protocol Miscellaneous Information 1 each 02/03/21 17:00 Potassium Replacement Protocol 1 Each Misc MISCELLANE DAILY PRN Per Protocol Protocol Miscellaneous Information 1 each 02/03/21 17:00 Phosphorus Replacement Protoco 1 Each Misc MISCELLANE DAILY PRN Per Protocol Protocol Ondansetron HCl 4 mg 02/03/21 17:00 02/04/21 02:01 Ondansetron 4 Mg/2 Ml Vial IVP 4 mg Q6HR PRN Administration Nausea And Vomiting Pantoprazole Sodium 40 mg 02/04/21 09:00 02/04/21 08:58 Pantoprazole 40 Mg/10 Ml Vial IVP 02/04/21 10:00 40 mg DAILY ELISA Administration Pantoprazole Sodium 40 mg 02/05/21 07:30 Pantoprazole 40 Mg Tablet PO AC-[id number] ELISA Senna/Docusate Sodium 2 each 02/04/21 21:00 Sennosides-Docusate Sodium 1 Each Tab PO HS ELISA Sodium Chloride 10 ml 02/03/21 21:00 02/03/21 21:23 Sodium Chloride 0.9% Flush 10 Ml Syringe IV 10 ml BID ELISA Administration Intake and Output 02/03/21 02/04/21 02/04/21 22:59 06:59 14:59 Intake Total 753.382 691.584 171.920 Output Total 964 826 35 Balance -210.618 -134.416 136.920 Intake: IV 407 612 79 Sodium Chloride 0.9% 1, 300 400 50 000 ml @ 20 mls/hr IV . Q24H ELISA Rx#:[id number] co/ci 80 140 20 pressure bags 27 72 9 Intake, IV Titration 36.382 79.584 92.920 Amount Clevidipine Butyrate 25 3.033 39.899 1.933 mg In Empty Bag 1 bag @ 1 MG/HR 2 mls/hr IV .Q24H ELISA Rx#:[id number] Insulin Regular 100 unit 3.965 39.685 7.592 In Sodium Chloride 0.9% 100 ml @ Per Protocol IV .Q0M ELISA Rx#:[id number] Milrinone-D5w Pmx 20 mg 83.395 In Dextrose/Water 1 100ml .bag @ 0.1 MCG/KG/MIN 3. 066 mls/hr IV .Q24H ELISA Rx#:[id number] Norepinephrine 4 mg In 18.755 Sodium Chloride 0.9% 250 ml @ 2 MCG/KG/MIN 778.764 mls/hr IV .Q20M ELISA Rx#: [id number] propofoL 1,000 mg In 10.629 Empty Bag 1 bag @ Titrate IV .Q0M ELISA Rx#: [id number] Blood Product 310 Rc As-1 Unit 310 [id number] Output: Chest Tube Drainage 320 206 Chest Tube Lateral Chest 144 116 Chest Tube Mediastinal 176 90 Urine 644 620 35 Other: Voiding Method Indwelling Catheter Indwelling Catheter Weight 106.3 kg 02/04/21 03:50 02/04/21 03:50 Assessment and Plan Assessment: Assessment #1 severe triple-vessel coronary artery disease #2 coronary artery bypass grafting 4 as described above #3 hypertension #4 dyslipidemia #5 mild cardiomyopathy Plan #1 continue the current medical regimen including dual antiplatelet therapy along with a statin #2 continue titrating the beta ari to control the heart rate as well as blood pressure next #3 continue monitor the kidney function as well as electrolytes and hemoglobin #4 continue monitoring the chest x-ray #5 continue monitor the urine output as well #6 follow up with the patient
[2021-02-04 09:10] LABS: Glucose,Whole Blood 122 mg/dL (75-99)
[2021-02-04] MEDS ORDERED: METOCLOPRAMIDE 5 MG/ML 2 ML VIAL IVP STA (09:26)
[2021-02-04] MEDS: MILRINONE-D5W PMX 20 MG in DEXTROSE/WATER 1 100ML.BAG IV SCH (09:44)
[2021-02-04 10:02] LABS: Glucose,Whole Blood 132 mg/dL (75-99)
[2021-02-04 11:07] LABS: Glucose,Whole Blood 119 mg/dL (75-99)
--- NOTE | 2021-02-04 11:54 | P.CNPUL ---
History of Present Illness Consult date: 02/04/21 Requesting physician: Kayla James Reason for consult: other Chief complaint: Status post bypass grafting, ICU management. History of present illness: 81-year-old black male, followed by Dr. Khan on the outpatient basis. The patient has a history of CAD, previous angioplasty and stent placement, remote history of myocardial infarction, hypertension, hyperlipidemia, prostate cancer, status post prostatectomy, erectile dysfunction, sleep apnea, morbid obesity, among other things. Recently, he was referred to one of the woodwind reeds cutter for evaluation. He was to see a woodwind reeds cutter before seeing a N test. Unfortunately, a stress echocardiogram showed evidence of previous anterior apical and septal myocardial infarction, without any inducible ischemia. A cardiac catheterization was performed, and demonstrated a 50% stenosis to the left main coronary artery, a 60% stenosis to his right coronary artery and 80% stenosis to the circumflex coronary artery, and a 70% stenosis to his proximal left anterior descending coronary artery. The patient was referred to the cardiothoracic surgeon and underwent a FAULKNER to LAD bypass, left radial to ramus , left radial to distal circumflex coronary artery, and SVG To PDA bypass the patient also had a left atrial ligation procedure. Today is postop day #1. The patient did take quite a bit of time to get extubated from mechanical ventilatio n after leaving the operating room, approximately 10 hours or so. Currently, he is on 4 L nasal cannula, Primacor at 0.1 micrograms per kilogram per minute, saline at 50 mL an hour, and insulin-dependent 3.5 units an hour. The patient is sitting up in the chair next to his bed. White count 11.4, hemoglobin 8.8, hematocrit 27.3, and platelet count 158,000. Sodium 140, potassium 4.3, chlorides 108, CO2 23, anion gap 9, BUN 17, creatinine 1.17. Chest x-ray shows bilateral infiltrates and a small effusion with some central venous congestion. Review of Systems REVIEW OF SYSTEMS: CONSTITUTIONAL: [Negative.] NEUROLOGIC: [ Negative.] HEENT: [ Negative.] CARDIAC: Pain at the surgical site. PULMONARY: [Negative.] GI: [Negative.] : [Negative.] RHEUMATOLOGIC: [ Negative.] IMMUNOLOGIC: [ Negative.] ENDOCRINE: [Negative. ] DERMATOLOGIC: [Negative.] Past Medical History Past Medical History: Coronary Artery Disease (CAD), Cancer, GERD/Reflux, Hyperlipidemia, Hypertension, Myocardial Infarction ([place]), Prostate Disorder, Sleep Apnea/CPAP/BIPAP Additional Past Medical History / Comment(s): no cpap used, hx prostate cancer before 1999-had surg. & radiation, erectile dysfunction Last Myocardial Infarction Date:: unknown History of Any Multi-Drug Resistant Organisms: None Reported Past Surgical History: Heart Catheterization, Heart Catheterization With Stent, Prostate Surgery Additional Past Surgical History / Comment(s): one cardiac stent, Past Anesthesia/Blood Transfusion Reactions: No Reported Reaction Date of Last Stent Placement:: unknown Smoking Status: Never smoker - Past Family History Mother Family Medical History: No Reported History Additional Family Medical History / Comment(s): Multisystem organ failure, at age 93. Father Family Medical History: Cancer Additional Family Medical History / Comment(s): Colon cancer Medications and Allergies Home Medications Medication Instructions Recorded Confirmed Type Albuterol Sulfate [Albuterol 1 puff PO Q6H PRN 01/17/21 02/03/21 History Sulfate Hfa] Atorvastatin [Lipitor] 40 mg PO DAILY 01/17/21 02/03/21 History Loratadine [Claritin] 10 mg PO DAILY 01/17/21 02/03/21 History Aspirin [Adult Low Dose Aspirin EC] 81 mg PO DAILY 30 Days tablet. 01/19/21 02/03/21 Rx Metoprolol Succinate (ER) [Toprol 25 mg PO DAILY tab.er.24h 01/19/21 02/03/21 Rx XL] Nitroglycerin Sl Tabs [Nitrostat] 0.4 mg SUBLINGUAL Q5M PRN tab 01/19/21 02/03/21 Rx Allergies Allergy/AdvReac Type Severity Reaction Status Date / Time iodine AdvReac Severe Rash/Hives,skin Verified 02/03/21 06:06 peeled Physical Exam Osteopathic Statement: *. No significant issues noted on an osteopathic structural exam other than those noted in the History and Physical/Consult. Vitals: Vital Signs Temp Pulse Resp BP Pulse Ox 02/04/21 11:00 92 14 129/71 99 02/04/21 10:30 93 15 129/71 98 02/04/21 10:00 98 17 129/71 97 02/04/21 09:30 98 15 129/71 99 02/04/21 09:00 98 15 129/71 99 02/04/21 08:30 97.9 F 97 16 129/71 99 02/04/21 08:00 98 18 129/71 97 02/04/21 07:30 100 17 129/71 97 02/04/21 07:00 99 12 94 L 02/04/21 06:30 104 H 18 97 02/04/21 06:00 104 H 18 97 02/04/21 05:30 106 H 30 H 91 L 02/04/21 05:00 98 22 91 L 02/04/21 04:30 101 H 23 91 L 02/04/21 04:00 97.2 F L 104 H 19 92 L 02/04/21 03:30 101 H 16 94 L 02/04/21 03:00 101 H 19 129/71 96 02/04/21 02:50 95 02/04/21 02:30 98 15 95 02/04/21 02:00 97 20 94 L 02/04/21 01:30 96 14 98 02/04/21 01:00 91 17 130/76 97 02/04/21 00:48 92 16 100 02/04/21 00:32 95 02/04/21 00:30 94 18 100 02/04/21 00:00 97.2 F L 91 16 130/76 98 02/03/21 23:30 96 24 100 02/03/21 23:15 96 20 100 02/03/21 23:00 95 18 99 02/03/21 22:45 94 16 98 02/03/21 22:30 94 16 100 02/03/21 22:15 93 16 99 02/03/21 22:00 94 16 99 02/03/21 21:45 93 16 98 02/03/21 21:30 94 17 99 02/03/21 21:15 95 16 99 02/03/21 21:00 95 16 99 02/03/21 20:45 96 16 100 02/03/21 20:30 100 14 123/77 99 02/03/21 20:15 96 16 98 02/03/21 20:00 97.7 F 93 16 98 02/03/21 19:45 101 H 17 99 02/03/21 19:30 101 H 16 98 02/03/21 19:20 102 H 02/03/21 19:15 101 H 6 L 98 02/03/21 19:00 99 6 L 98 02/03/21 18:45 98 11 L 02/03/21 18:30 94 16 02/03/21 18:15 90 16 02/03/21 18:00 90 16 02/03/21 17:45 89 16 100 02/03/21 17:30 89 16 100 02/03/21 17:15 89 12 100 02/03/21 17:00 89 11 L 02/03/21 16:48 89 12 02/03/21 15:17 103 H Intake and Output 02/03/21 02/04/21 02/04/21 22:59 06:59 14:59 Intake Total 753.382 691.584 377.481 Output Total 964 826 275 Balance -210.618 -134.416 102.481 Intake: IV 407 612 266 Sodium Chloride 0.9% 1, 300 400 170 000 ml @ 20 mls/hr IV . Q24H ELISA Rx#:[id number] co/ci 80 140 60 pressure bags 27 72 36 Intake, IV Titration 36.382 79.584 111.481 Amount Clevidipine Butyrate 25 3.033 39.899 1.933 mg In Empty Bag 1 bag @ 1 MG/HR 2 mls/hr IV .Q24H ELISA Rx#:[id number] Insulin Regular 100 unit 3.965 39.685 18.079 In Sodium Chloride 0.9% 100 ml @ Per Protocol IV .Q0M ELISA Rx#:[id number] Milrinone-D5w Pmx 20 mg 91.469 In Dextrose/Water 1 100ml .bag @ 0.1 MCG/KG/MIN 3. 066 mls/hr IV .Q24H ELISA Rx#:[id number] Norepinephrine 4 mg In 18.755 Sodium Chloride 0.9% 250 ml @ 2 MCG/KG/MIN 778.764 mls/hr IV .Q20M ELISA Rx#: [id number] propofoL 1,000 mg In 10.629 Empty Bag 1 bag @ Titrate IV .Q0M ELISA Rx#: [id number] Blood Product 310 Rc As-1 Unit 310 [id number] Output: Chest Tube Drainage 320 206 130 Chest Tube Lateral Chest 144 116 110 Chest Tube Mediastinal 176 90 20 Drainage 0 Left Wrist 0 Urine 644 163 145 Other: Voiding Method Indwelling Catheter Indwelling Catheter Indwelling Catheter Weight 106.3 kg 106.3 kg ABP, PAP, CO, CI - Last 8 Hours Arterial Blood Pressure 107/44 Arterial Blood Pressure 109/48 Arterial Blood Pressure 151/53 Arterial Blood Pressure 129/50 Arterial Blood Pressure 113/44 Arterial Blood Pressure 118/49 Arterial Blood Pressure 107/46 Arterial Blood Pressure 111/46 Arterial Blood Pressure 113/50 Arterial Blood Pressure 131/52 Arterial Blood Pressure 115/54 Arterial Blood Pressure 114/68 Arterial Blood Pressure 126/55 Arterial Blood Pressure 127/57 Pulmonary Artery Pressure 36/13 Pulmonary Artery Pressure 38/15 Pulmonary Artery Pressure 41/16 Pulmonary Artery Pressure 32/11 Pulmonary Artery Pressure 34/13 Pulmonary Artery Pressure 32/10 Pulmonary Artery Pressure 33/13 Pulmonary Artery Pressure 27/9 Pulmonary Artery Pressure 30/12 Pulmonary Artery Pressure 34/14 Pulmonary Artery Pressure 32/14 Pulmonary Artery Pressure 43/21 Pulmonary Artery Pressure 47/26 Pulmonary Artery Pressure 40/23 Pulmonary Artery Pressure 38/22 Cardiac Output 4.0 Cardiac Output 5.6 Cardiac Output 4.2 Cardiac Output 4.2 Cardiac Output 4.6 Cardiac Output 4.6 Cardiac Output 5.8 Cardiac Index 1.9 Cardiac Index 2.7 Cardiac Index 2 Cardiac Index 2 Cardiac Index 2.0 Cardiac Index 2.2 Cardiac Index 2.2 Cardiac Index 2.7 No acute distress, oriented 3. Nasal O2 at 4 L. HEENT examination is grossly unremarkable. Neck supple. Full range of motion. No adenopathy thyromegaly or neck vein distention. Cardiovascular examination reveals regular rhythm rate. S1-S2 normal. No S3 or S4. No discernible murmur noted. Heart rate 92 bpm. Lungs reveal scattered rhonchi. No wheezes or crackles. Breath sounds equal. The patient does not take deep breaths. Abdomen soft bowel sounds are heard. No masses or tenderness. Extremities are intact. No cyanosis clubbing or edema. Skin is without rash or lesion. Neurologic examination is brief but nonfocal. Results - Laboratory Findings CBC and BMP: 02/04/21 03:50 02/04/21 03:50 ABG ABG pH 7.32 (7.35-7.45) L 02/04/21 01:44 ABG pCO2 43 mmHg (35-45) 02/04/21 01:44 ABG pO2 74 mmHg (83-108) L 02/04/21 01:44 ABG O2 Saturation 94.3 % (94-97) 02/04/21 01:44 PT/INR, D-dimer PT 11.7 sec (9.0-12.0) 02/03/21 16:54 INR 1.1 (<1.2) 02/03/21 16:54 Abnormal lab findings: Abnormal Labs 01/27/21 02/03/21 02/03/21 11:01 06:19 09:03 WBC RBC Hgb Hct Plt Count Neutrophils # ABG pH ABG pCO2 ABG pO2 376 H ABG HCO3 28 H ABG Total CO2 29 H ABG O2 Saturation 100.0 H ABG Hematocrit 32 L ABG Ionized Calcium ABG Glucose 133 H ABG Lactic Acid Hemoglobin 10.4 L Sodium Chloride Glucose POC Glucose (mg/dL) 135 H Magnesium AST Total Protein Albumin Arterial Blood Glucose 133 H Crossmatch See Detail 02/03/21 02/03/21 02/03/21 11:23 12:16 12:21 WBC RBC Hgb Hct Plt Count Neutrophils # ABG pH ABG pCO2 ABG pO2 200 H 149 H 387 H ABG HCO3 27 H 27 H 26 H ABG Total CO2 28 H 29 H 27 H ABG O2 Saturation 100.0 H 99.5 H 100.0 H ABG Hematocrit 27 L 27 L 23 L ABG Ionized Calcium 4.0 L ABG Glucose 154 H 158 H 143 H ABG Lactic Acid Hemoglobin 8.9 L 8.8 L 7.4 L Sodium Chloride Glucose POC Glucose (mg/dL) Magnesium AST Total Protein Albumin Arterial Blood Glucose 154 H 158 H 143 H Crossmatch 02/03/21 02/03/21 02/03/21 12:57 14:38 15:09 WBC RBC Hgb Hct Plt Count Neutrophils # ABG pH 7.33 L ABG pCO2 ABG pO2 252 H 330 H 299 H ABG HCO3 26 H ABG Total CO2 28 H 26 H 25 H ABG O2 Saturation 100.0 H 100.0 H 100.0 H ABG Hematocrit 21 L 18 L* 21 L ABG Ionized Calcium 4.1 L 3.9 L 4.0 L ABG Glucose 180 H 195 H 178 H ABG Lactic Acid 2.1 H 3.5 H* 3.4 H* Hemoglobin 6.7 L* 5.7 L* 6.7 L* Sodium Chloride Glucose POC Glucose (mg/dL) Magnesium AST Total Protein Albumin Arterial Blood Glucose 180 H 195 H 178 H Crossmatch 02/03/21 02/03/21 02/03/21 16:54 16:54 16:54 WBC 10.7 H RBC 2.98 L Hgb 8.4 L D Hct 26.4 L Plt Count 129 L Neutrophils # ABG pH ABG pCO2 ABG pO2 ABG HCO3 ABG Total CO2 ABG O2 Saturation ABG Hematocrit ABG Ionized Calcium ABG Glucose ABG Lactic Acid Hemoglobin Sodium 135 L Chloride 108 H Glucose 126 H POC Glucose (mg/dL) 142 H Magnesium 2.5 H AST Total Protein 4.6 L Albumin 2.7 L Arterial Blood Glucose Crossmatch 02/03/21 02/03/21 02/03/21 17:16 19:00 19:40 WBC RBC Hgb Hct Plt Count Neutrophils # ABG pH 7.29 L ABG pCO2 52 H ABG pO2 351 H ABG HCO3 ABG Total CO2 27 H ABG O2 Saturation 99.6 H ABG Hematocrit ABG Ionized Calcium ABG Glucose ABG Lactic Acid Hemoglobin Sodium Chloride Glucose POC Glucose (mg/dL) 113 H 123 H Magnesium AST Total Protein Albumin Arterial Blood Glucose Crossmatch 02/03/21 02/03/21 02/03/21 19:44 20:56 21:30 WBC RBC 3.15 L Hgb 9.2 L Hct 27.9 L Plt Count 149 L Neutrophils # 7.8 H ABG pH ABG pCO2 ABG pO2 ABG HCO3 ABG Total CO2 ABG O2 Saturation ABG Hematocrit ABG Ionized Calcium ABG Glucose ABG Lactic Acid Hemoglobin Sodium Chloride Glucose POC Glucose (mg/dL) 155 H 164 H Magnesium AST Total Protein Albumin Arterial Blood Glucose Crossmatch 02/03/21 02/03/21 02/03/21 21:35 23:11 23:56 WBC RBC 2.81 L Hgb 8.2 L Hct 24.9 L Plt Count 144 L Neutrophils # ABG pH ABG pCO2 ABG pO2 ABG HCO3 ABG Total CO2 ABG O2 Saturation ABG Hematocrit ABG Ionized Calcium ABG Glucose ABG Lactic Acid Hemoglobin Sodium Chloride Glucose POC Glucose (mg/dL) 167 H 170 H Magnesium AST Total Protein Albumin Arterial Blood Glucose Crossmatch 02/04/21 02/04/21 02/04/21 01:03 01:44 02:51 WBC RBC Hgb Hct Plt Count Neutrophils # ABG pH 7.32 L ABG pCO2 ABG pO2 74 L ABG HCO3 ABG Total CO2 ABG O2 Saturation ABG Hematocrit ABG Ionized Calcium ABG Glucose ABG Lactic Acid Hemoglobin Sodium Chloride Glucose POC Glucose (mg/dL) 159 H 150 H Magnesium AST Total Protein Albumin Arterial Blood Glucose Crossmatch 02/04/21 02/04/21 02/04/21 03:50 03:50 03:55 WBC 11.4 H RBC 3.07 L Hgb 8.8 L Hct 27.3 L Plt Count Neutrophils # 9.6 H ABG pH ABG pCO2 ABG pO2 ABG HCO3 ABG Total CO2 ABG O2 Saturation ABG Hematocrit ABG Ionized Calcium ABG Glucose ABG Lactic Acid Hemoglobin Sodium Chloride 108 H Glucose 135 H POC Glucose (mg/dL) 143 H Magnesium AST 105 H Total Protein 5.6 L Albumin Arterial Blood Glucose Crossmatch 02/04/21 02/04/21 02/04/21 04:59 06:08 07:05 WBC RBC Hgb Hct Plt Count Neutrophils # ABG pH ABG pCO2 ABG pO2 ABG HCO3 ABG Total CO2 ABG O2 Saturation ABG Hematocrit ABG Ionized Calcium ABG Glucose ABG Lactic Acid Hemoglobin Sodium Chloride Glucose POC Glucose (mg/dL) 138 H 123 H 132 H Magnesium AST Total Protein Albumin Arterial Blood Glucose Crossmatch 02/04/21 02/04/21 02/04/21 08:06 09:08 10:01 WBC RBC Hgb Hct Plt Count Neutrophils # ABG pH ABG pCO2 ABG pO2 ABG HCO3 ABG Total CO2 ABG O2 Saturation ABG Hematocrit ABG Ionized Calcium ABG Glucose ABG Lactic Acid Hemoglobin Sodium Chloride Glucose POC Glucose (mg/dL) 121 H 122 H 132 H Magnesium AST Total Protein Albumin Arterial Blood Glucose Crossmatch 02/04/21 11:06 WBC RBC Hgb Hct Plt Count Neutrophils # ABG pH ABG pCO2 ABG pO2 ABG HCO3 ABG Total CO2 ABG O2 Saturation ABG Hematocrit ABG Ionized Calcium ABG Glucose ABG Lactic Acid Hemoglobin Sodium Chloride Glucose POC Glucose (mg/dL) 119 H Magnesium AST Total Protein Albumin Arterial Blood Glucose Crossmatch - Diagnostic Findings Chest x-ray: image reviewed Assessment and Plan Assessment: Postop day #1, status post FAULKNER to LAD bypass, left radial to ramus and distal circumflex bypass, and SVG to PDA bypass, with left atrial ligation. Routine postoperative ventilator management. History of CAD, with previous angioplasty and stent. Remote history of myocardial infarction. History of essential hypertension. History of hyperlipidemia. History of prostate cancer, status post prostatectomy. History of erectile dysfunction. Morbid obesity. History of sleep apnea syndrome, without home CPAP use. Plan: Plan dated 02/04/2021. The patient seems be doing reasonably well. He is currently on 4 L. We encourage him to deep breathe, cough, and clear secretions. We also expect him to use incentive spirometer every hour while awake. Additional recommendations and suggestions are forthcoming. Prognosis is guarded. We will continue to follow this patient and make recommendations were appropriate. Time with Patient: Greater than 30
[2021-02-04 13:24] LABS: Glucose,Whole Blood 82 mg/dL (75-99)
[2021-02-04 13:24] LABS: Glucose,Whole Blood 104 mg/dL (75-99)
[2021-02-04] MEDS: SODIUM CHLORIDE 0.9% 1,000 ML IV SCH (13:30)
[2021-02-04] MEDS ORDERED: MILRINONE-D5W PMX 20 MG in DEXTROSE/WATER 1 100ML.BAG IV SCH (14:00)
[2021-02-04] MEDS: ALBUMIN HUMAN 25% 50 ML in EMPTY BAG 1 BAG IVPB SCH ×2 (14:00→14:34)
[2021-02-04 14:04] LABS: Glucose,Whole Blood 103 mg/dL (75-99)
[2021-02-04 14:57] LABS: Glucose,Whole Blood 119 mg/dL (75-99)
[2021-02-04 17:14] LABS: Glucose,Whole Blood 160 mg/dL (75-99)
[2021-02-04 17:40] LABS: Glucose,Whole Blood 131 mg/dL (75-99)
[2021-02-04 18:16] LABS: Glucose,Whole Blood 145 mg/dL (75-99)
[2021-02-04 19:10] LABS: Glucose,Whole Blood 122 mg/dL (75-99)
[2021-02-04 20:01] LABS: Glucose,Whole Blood 132 mg/dL (75-99)
[2021-02-04] MEDS: SENNOSIDES-DOCUSATE SODIUM 1 EACH TAB PO SCH (20:18)
[2021-02-04] MEDS: METOPROLOL TARTRATE 25 MG TAB PO SCH (20:18)
[2021-02-04 20:50] LABS: ABG Base Excess -0.8 mmol/L; ABG HCO3 24 mmol/L (21-25); ABG Oxygen Saturation 97.7 % (94-97); ABG PCO2 41 mmHg (35-45); ABG PH 7.38 (7.35-7.45); ABG PO2 92 mmHg (83-108); ABG TCO2 26 mmol/L (19-24); Allen Test Performed? Yes
[2021-02-04 20:54] LABS: Glucose,Whole Blood 118 mg/dL (75-99)
[2021-02-04] MEDS ORDERED: methylPREDNISolone SOD SUCCI 125 MG/2 ML VIAL IV STA (20:57)
[2021-02-04] MEDS ORDERED: diphenhydrAMINE 50 MG/ML 1 ML VIAL IVP STA (20:59)
[2021-02-04] MEDS ORDERED: FAMOTIDINE 20 MG/2 ML VIAL IV ONE (20:59)
--- NOTE | 2021-02-04 21:32 | CT ---
EXAMINATION TYPE: CT brain wo con DATE OF EXAM: 02/04/2021 COMPARISON: None INDICATION: Altered mental status. DLP: 1247.4 mGycm, Automated exposure control for dose reduction was used. CONTRAST: None CT of the brain is performed utilizing 3 mm thick sections through the posterior fossa and 3 mm thick sections through the remaining calvarium. Study is performed within 24 hours of arrival to the hosp [facility]. No abnormal hyperdensity is present to suggest an acute intracranial hemorrhage. No mass lesion is evident. No acute infarcts are evident. There is mild periventricular white matter hypodensity, likely on the basis of chronic white matter ischemic changes. Ventricles and sulci are appropriate for the patient age. Paranasal sinuses and mastoid air cells within the [id number] are clear. IMPRESSIONS: 1. Mild periventricular white matter chronic appearing ischemic type changes.
--- NOTE | 2021-02-04 22:00 | CT ---
EXAMINATION TYPE: CODE STROKE: CTA head neck DATE OF EXAM: 02/04/2021 HISTORY: Altered mental status. COMPARISON: None CT DLP: 915.1 mGycm. Automated Exposure Control for Dose Reduction was Utilized. TECHNIQUE: CTA scan of the neck is performed with IV Contrast, patient injected with 65ml mL of Isov ue 370, axial images are obtained, coronal and sagittal reformatted images are reviewed. Three-D nasir nstructed images are created on an independent workstation and reviewed. Source images are reviewed. FINDINGS: Carotid/Vascular Structures: There is three-vessel arch. Vertebral arteries appear codominant. Common carotid arteries to the bifurcations are normal. Carotid bifurcations are unremarkable without signi ficant flow-limiting stenosis. Cervical of [place]: Vertebral basilar system appears normal. Posterior cerebral vasculature is unrema rkable. Internal carotid arteries bifurcate normally into A1 and M1 segments. A2 segments are normal. The anterior communicating artery is patent. Left Posterior communicating artery is patent. Right po sterior communicating artery is patent. Other: Mild degenerative disc changes to the cervical spine. IMPRESSION: 1. No flow-limiting stenosis bilateral carotid bifurcations. 2. Normal [place]
[2021-02-04 22:01] LABS: Glucose,Whole Blood 110 mg/dL (75-99)
[2021-02-04 22:11] LABS: Basophils % (A) 0 %; Eosinophils % (A) 1 %; Hypochromasia Slight; Lymphocytes # (A) 1.8 k/uL (1.0-4.8); Lymphocytes % (A) 20 %; MCHC 33.6 g/dL (31.0-37.0); MCV 89.2 fL (80.0-100.0); Mean Platelet Volume 9.5; Monocytes # (A) 0.7 k/uL (0-1.0); Monocytes % (A) 8 %; Neutrophils # (A) 6.2 k/uL (1.3-7.7); Neutrophils % (A) 68 %; Platelet Count 108 k/uL (150-450); RBC 2.21 m/uL (4.30-5.90); RDW 13.7 % (11.5-15.5)
[2021-02-04 22:27] LABS: INR 1.1 (<1.2); Prothrombin Time 11.8 sec (9.0-12.0)
[2021-02-04 22:30] LABS: HGB 6.6 gm/dL (13.0-17.5)
[2021-02-04 22:31] LABS: HCT 19.7 % (39.0-53.0)
[2021-02-04 22:52] LABS: Albumin 2.9 g/dL (3.5-5.0); Calcium 8.1 mg/dL (8.4-10.2); Potassium 4.4 mmol/L (3.5-5.1); Total Bilirubin 0.9 mg/dL (0.2-1.3); Total Protein 4.8 g/dL (6.3-8.2)
[2021-02-04 23:05] LABS: Glucose,Whole Blood 131 mg/dL (75-99)
[2021-02-05 00:25] LABS: Glucose,Whole Blood 149 mg/dL (75-99)
[2021-02-05] MEDS: HEPARIN SODIUM,PORCINE/PF 5,000 UNIT/0.5 ML SYRINGE SQ SCH ×4 (00:29→23:33)
[2021-02-05 01:08] LABS: Glucose,Whole Blood 142 mg/dL (75-99)
[2021-02-05 01:57] LABS: Glucose,Whole Blood 149 mg/dL (75-99)
[2021-02-05 02:59] LABS: Glucose,Whole Blood 148 mg/dL (75-99)
[2021-02-05] MEDS ORDERED: ACETAMINOPHEN IV (For NPO) 1,000 MG in EMPTY BAG 1 BAG IVPB PRN (03:18)
[2021-02-05 04:03] LABS: Glucose,Whole Blood 138 mg/dL (75-99)
[2021-02-05 05:16] LABS: Glucose,Whole Blood 127 mg/dL (75-99)
[2021-02-05] MEDS: METOPROLOL TARTRATE 25 MG TAB PO SCH (05:24)
[2021-02-05] MEDS: amLODIPine 5 MG TAB PO SCH ×2 (05:24→06:33)
[2021-02-05] MEDS: PANTOPRAZOLE 40 MG TABLET PO SCH (05:25)
[2021-02-05 05:28] LABS: Basophils % (A) 0 %; Eosinophils % (A) 0 %; HCT 26.1 % (39.0-53.0); Hypochromasia Slight; Lymphocytes # (A) 0.9 k/uL (1.0-4.8); Lymphocytes % (A) 9 %; MCH 29.5 pg (25.0-35.0); MCHC 33.5 g/dL (31.0-37.0); MCV 87.8 fL (80.0-100.0); Mean Platelet Volume 8.9; Monocytes # (A) 0.4 k/uL (0-1.0); Monocytes % (A) 4 %; Neutrophils # (A) 9.2 k/uL (1.3-7.7); Neutrophils % (A) 86 %; Platelet Count 118 k/uL (150-450); RBC 2.97 m/uL (4.30-5.90); RDW 14.4 % (11.5-15.5); WBC 10.7 k/uL (3.8-10.6)
[2021-02-05 05:29] LABS: HGB 8.7 gm/dL (13.0-17.5)
[2021-02-05] MEDS: CLEVIDIPINE BUTYRATE 25 MG in EMPTY BAG 1 BAG IV SCH ×2 (05:35→17:32)
[2021-02-05 05:57] LABS: Albumin 3.3 g/dL (3.5-5.0); Calcium 8.4 mg/dL (8.4-10.2); Potassium 4.4 mmol/L (3.5-5.1); Total Bilirubin 1.3 mg/dL (0.2-1.3); Total Protein 5.5 g/dL (6.3-8.2)
[2021-02-05 06:26] LABS: Glucose,Whole Blood 136 mg/dL (75-99)
[2021-02-05] MEDS ORDERED: METOPROLOL TARTRATE 25 MG TAB PO STA (06:33)
--- NOTE | 2021-02-05 06:46 | P.PN ---
Subjective Progress Note Date: 02/05/21 Principal diagnosis: Status post open heart This is a 81-year-old gentleman who sees Dr. Reis in the office on regular basis was admitted to the hospital and underwent elective CABG 4 with FAULKNER to LAD and radial artery to ramus and diagonal as well as SVG to PDA of RCA. This is postoperative elevation day #3. The patient did have some change in mental status last night and he underwent a computed tomography scan of the brain which showed no evidence of stroke. Hemodynamically he is slightly hypertensive and tachycardic and I would advise increasing the dose of metoprol ol. He still on small dose of Primacor which hopefully would be weaned later on today. Otherwise he is on dual antiplatelet therapy and high intensity statin. He underwent a chest x-ray which I reviewed and showed left pleural effusion. He might benefit from some Lasix IV. Objective - Vital Signs Vital signs: Vital Signs Temp 99.8 F H 02/05/21 04:18 Pulse 111 H 02/05/21 06:00 Resp 21 02/05/21 06:00 BP 133/68 02/05/21 06:00 Pulse Ox 93 L 02/05/21 06:00 Intake & Output 02/04/21 02/04/21 02/05/21 06:59 18:59 06:59 Intake Total 1019.391 767.139 860.280 Output Total 1426 615 845 Balance -406.609 152.139 15.280 Weight 106.3 kg 106.3 kg 108.8 kg Intake: IV 919 649 703 Sodium Chloride 0.9% 1, 600 450 295 000 ml @ 20 mls/hr IV . Q24H ELISA Rx#:[id number] co/ci 220 100 300 pressure bags 99 99 108 Intake, IV Titration 100.391 118.139 37.280 Amount Clevidipine Butyrate 25 42.932 1.933 4.667 mg In Empty Bag 1 bag @ 1 MG/HR 2 mls/hr IV .Q24H ELISA Rx#:[id number] Insulin Regular 100 unit 43.650 24.737 32.613 In Sodium Chloride 0.9% 100 ml @ Per Protocol IV .Q0M ELISA Rx#:[id number] Milrinone-D5w Pmx 20 mg 91.469 In Dextrose/Water 1 100ml .bag @ 0.1 MCG/KG/MIN 3. 066 mls/hr IV .Q24H ELISA Rx#:[id number] Norepinephrine 4 mg In 3.18 Sodium Chloride 0.9% 250 ml @ 2 MCG/KG/MIN 778.764 mls/hr IV .Q20M ELISA Rx#: [id number] propofoL 1,000 mg In 10.629 Empty Bag 1 bag @ Titrate IV .Q0M ELISA Rx#: [id number] Oral 120 Blood Product 0 Rc As-1 Unit 0 [id number] Output: Chest Tube Drainage 356 300 310 Chest Tube Lateral Chest 160 270 280 Chest Tube Mediastinal 196 30 30 Drainage 0 Left Wrist 0 Urine 1070 315 535 Other: Voiding Method Indwelling Catheter Indwelling Catheter Indwelling Catheter ABP, PAP, CO, CI - Last Documented Arterial Blood Pressure 145/52 Pulmonary Artery Pressure 29/11 Cardiac Output 5.7 Cardiac Index 2.7 - Constitutional General appearance: Present: no acute distress - Respiratory Respiratory: bilateral: diminished - Cardiovascular Rhythm: regular - Labs CBC & Chem 7: 02/05/21 05:05 02/05/21 05:05 Labs: Abnormal Lab Results - Last 24 Hours (Table) 01/27/21 02/04/21 02/04/21 Range/Units 11:01 07:05 08:06 WBC (3.8-10.6) k/uL RBC (4.30-5.90) m/uL Hgb (13.0-17.5) gm/dL Hct (39.0-53.0) % Plt Count (150-450) k/uL Neutrophils # (1.3-7.7) k/uL Lymphocytes # (1.0-4.8) k/uL ABG Total CO2 (19-24) mmol/L ABG O2 Saturation (94-97) % Sodium (137-145) mmol/L Chloride (98-107) mmol/L BUN (9-20) mg/dL Creatinine (0.66-1.25) mg/dL Glucose (74-99) mg/dL POC Glucose (mg/dL) 132 H 121 H (75-99) mg/dL Calcium (8.4-10.2) mg/dL AST (17-59) U/L Total Protein (6.3-8.2) g/dL Albumin (3.5-5.0) g/dL Crossmatch See Detail 02/04/21 02/04/21 02/04/21 Range/Units 09:08 10:01 11:06 WBC (3.8-10.6) k/uL RBC (4.30-5.90) m/uL Hgb (13.0-17.5) gm/dL Hct (39.0-53.0) % Plt Count (150-450) k/uL Neutrophils # (1.3-7.7) k/uL Lymphocytes # (1.0-4.8) k/uL ABG Total CO2 (19-24) mmol/L ABG O2 Saturation (94-97) % Sodium (137-145) mmol/L Chloride (98-107) mmol/L BUN (9-20) mg/dL Creatinine (0.66-1.25) mg/dL Glucose (74-99) mg/dL POC Glucose (mg/dL) 122 H 132 H 119 H (75-99) mg/dL Calcium (8.4-10.2) mg/dL AST (17-59) U/L Total Protein (6.3-8.2) g/dL Albumin (3.5-5.0) g/dL Crossmatch 02/04/21 02/04/21 02/04/21 Range/Units 13:13 14:03 14:55 WBC (3.8-10.6) k/uL RBC (4.30-5.90) m/uL Hgb (13.0-17.5) gm/dL Hct (39.0-53.0) % Plt Count (150-450) k/uL Neutrophils # (1.3-7.7) k/uL Lymphocytes # (1.0-4.8) k/uL ABG Total CO2 (19-24) mmol/L ABG O2 Saturation (94-97) % Sodium (137-145) mmol/L Chloride (98-107) mmol/L BUN (9-20) mg/dL Creatinine (0.66-1.25) mg/dL Glucose (74-99) mg/dL POC Glucose (mg/dL) 104 H 103 H 119 H (75-99) mg/dL Calcium (8.4-10.2) mg/dL AST (17-59) U/L Total Protein (6.3-8.2) g/dL Albumin (3.5-5.0) g/dL Crossmatch 02/04/21 02/04/21 02/04/21 Range/Units 17:13 17:37 18:14 WBC (3.8-10.6) k/uL RBC (4.30-5.90) m/uL Hgb (13.0-17.5) gm/dL Hct (39.0-53.0) % Plt Count (150-450) k/uL Neutrophils # (1.3-7.7) k/uL Lymphocytes # (1.0-4.8) k/uL ABG Total CO2 (19-24) mmol/L ABG O2 Saturation (94-97) % Sodium (137-145) mmol/L Chloride (98-107) mmol/L BUN (9-20) mg/dL Creatinine (0.66-1.25) mg/dL Glucose (74-99) mg/dL POC Glucose (mg/dL) 160 H 131 H 145 H (75-99) mg/dL Calcium (8.4-10.2) mg/dL AST (17-59) U/L Total Protein (6.3-8.2) g/dL Albumin (3.5-5.0) g/dL Crossmatch 02/04/21 02/04/21 02/04/21 Range/Units 19:09 20:00 20:45 WBC (3.8-10.6) k/uL RBC (4.30-5.90) m/uL Hgb (13.0-17.5) gm/dL Hct (39.0-53.0) % Plt Count (150-450) k/uL Neutrophils # (1.3-7.7) k/uL Lymphocytes # (1.0-4.8) k/uL ABG Total CO2 26 H (19-24) mmol/L ABG O2 Saturation 97.7 H (94-97) % Sodium (137-145) mmol/L Chloride (98-107) mmol/L BUN (9-20) mg/dL Creatinine (0.66-1.25) mg/dL Glucose (74-99) mg/dL POC Glucose (mg/dL) 122 H 132 H (75-99) mg/dL Calcium (8.4-10.2) mg/dL AST (17-59) U/L Total Protein (6.3-8.2) g/dL Albumin (3.5-5.0) g/dL Crossmatch 02/04/21 02/04/21 02/04/21 Range/Units 20:51 21:59 22:08 WBC (3.8-10.6) k/uL RBC 2.21 L (4.30-5.90) m/uL Hgb 6.6 L* D (13.0-17.5) gm/dL Hct 19.7 L* (39.0-53.0) % Plt Count 108 L (150-450) k/uL Neutrophils # (1.3-7.7) k/uL Lymphocytes # (1.0-4.8) k/uL ABG Total CO2 (19-24) mmol/L ABG O2 Saturation (94-97) % Sodium (137-145) mmol/L Chloride (98-107) mmol/L BUN (9-20) mg/dL Creatinine (0.66-1.25) mg/dL Glucose (74-99) mg/dL POC Glucose (mg/dL) 118 H 110 H (75-99) mg/dL Calcium (8.4-10.2) mg/dL AST (17-59) U/L Total Protein (6.3-8.2) g/dL Albumin (3.5-5.0) g/dL Crossmatch 02/04/21 02/04/21 02/05/21 Range/Units 22:08 23:03 00:24 WBC (3.8-10.6) k/uL RBC (4.30-5.90) m/uL Hgb (13.0-17.5) gm/dL Hct (39.0-53.0) % Plt Count (150-450) k/uL Neutrophils # (1.3-7.7) k/uL Lymphocytes # (1.0-4.8) k/uL ABG Total CO2 (19-24) mmol/L ABG O2 Saturation (94-97) % Sodium 136 L (137-145) mmol/L Chloride (98-107) mmol/L BUN 26 H (9-20) mg/dL Creatinine 1.97 H (0.66-1.25) mg/dL Glucose 105 H (74-99) mg/dL POC Glucose (mg/dL) 131 H 149 H (75-99) mg/dL Calcium 8.1 L (8.4-10.2) mg/dL AST 88 H (17-59) U/L Total Protein 4.8 L (6.3-8.2) g/dL Albumin 2.9 L (3.5-5.0) g/dL Crossmatch 02/05/21 02/05/21 02/05/21 Range/Units 01:05 01:56 02:56 WBC (3.8-10.6) k/uL RBC (4.30-5.90) m/uL Hgb (13.0-17.5) gm/dL Hct (39.0-53.0) % Plt Count (150-450) k/uL Neutrophils # (1.3-7.7) k/uL Lymphocytes # (1.0-4.8) k/uL ABG Total CO2 (19-24) mmol/L ABG O2 Saturation (94-97) % Sodium (137-145) mmol/L Chloride (98-107) mmol/L BUN (9-20) mg/dL Creatinine (0.66-1.25) mg/dL Glucose (74-99) mg/dL POC Glucose (mg/dL) 142 H 149 H 148 H (75-99) mg/dL Calcium (8.4-10.2) mg/dL AST (17-59) U/L Total Protein (6.3-8.2) g/dL Albumin (3.5-5.0) g/dL Crossmatch 02/05/21 02/05/21 02/05/21 Range/Units 04:01 05:05 05:05 WBC 10.7 H (3.8-10.6) k/uL RBC 2.97 L (4.30-5.90) m/uL Hgb 8.7 L D (13.0-17.5) gm/dL Hct 26.1 L (39.0-53.0) % Plt Count 118 L (150-450) k/uL Neutrophils # 9.2 H (1.3-7.7) k/uL Lymphocytes # 0.9 L (1.0-4.8) k/uL ABG Total CO2 (19-24) mmol/L ABG O2 Saturation (94-97) % Sodium (137-145) mmol/L Chloride 108 H (98-107) mmol/L BUN 26 H (9-20) mg/dL Creatinine 1.61 H (0.66-1.25) mg/dL Glucose 121 H (74-99) mg/dL POC Glucose (mg/dL) 138 H (75-99) mg/dL Calcium (8.4-10.2) mg/dL AST 98 H (17-59) U/L Total Protein 5.5 L (6.3-8.2) g/dL Albumin 3.3 L (3.5-5.0) g/dL Crossmatch 02/05/21 02/05/21 Range/Units 05:14 06:19 WBC (3.8-10.6) k/uL RBC (4.30-5.90) m/uL Hgb (13.0-17.5) gm/dL Hct (39.0-53.0) % Plt Count (150-450) k/uL Neutrophils # (1.3-7.7) k/uL Lymphocytes # (1.0-4.8) k/uL ABG Total CO2 (19-24) mmol/L ABG O2 Saturation (94-97) % Sodium (137-145) mmol/L Chloride (98-107) mmol/L BUN (9-20) mg/dL Creatinine (0.66-1.25) mg/dL Glucose (74-99) mg/dL POC Glucose (mg/dL) 127 H 136 H (75-99) mg/dL Calcium (8.4-10.2) mg/dL AST (17-59) U/L Total Protein (6.3-8.2) g/dL Albumin (3.5-5.0) g/dL Crossmatch Assessment and Plan Assessment: Assessment #1 severe triple-vessel coronary artery disease #2 coronary artery bypass grafting 4 as described above #3 hypertension #4 dyslipidemia #5 mild cardiomyopathy Plan #1 continue the current medical regimen including dual antiplatelet therapy along with a statin #2 advise increasing the dose of metoprolol #3 advised giving the patient IV Lasix #4 follow-up with the patient
[2021-02-05] MEDS: INSULIN REGULAR 100 UNIT in SODIUM CHLORIDE 0.9% 100 ML IV SCH (06:59)
[2021-02-05 07:13] LABS: Glucose,Whole Blood 127 mg/dL (75-99)
[2021-02-05 07:57] LABS: Glucose,Whole Blood 127 mg/dL (75-99)
[2021-02-05] MEDS: ATORVASTATIN 40 MG TAB PO SCH (08:32)
[2021-02-05] MEDS: ASPIRIN 325 MG TAB PO SCH (08:32)
[2021-02-05] MEDS: CLOPIDOGREL 75 MG TAB PO SCH (08:32)
[2021-02-05] MEDS ORDERED: FUROSEMIDE 10 MG/ML 2 ML VIAL IV ONE (08:37)
--- NOTE | 2021-02-05 08:38 | P.PN ---
Subjective Progress Note Date: 02/05/21 Principal diagnosis: Triple-vessel coronary artery disease. Previous medical history of prior anteroapical myocardial infarction with diffuse coronary artery disease and PCI stenting, obesity, hypertension, hyperlipidemia, obstructive sleep apnea without home CPAP use, history of prostate cancer status post prostatectomy with subsequent erectile dysfunction POD #2 quadruple coronary artery bypass grafting using the left internal mammary artery to the left anterior descending artery, left radial artery to the ramus intermedius artery in a [id number] fashion sequentially, then to the distal circumflex artery in an end to side fashion, reverse saphenous vein graft from t he aorta to the posterior descending artery, exclusion of the left atrial appendage using a 35 mm AtriClip, endoscopic harvesting of the left radial artery, endoscopic harvesting of the right greater saphenous vein from the groin to above the ankle level, intraoperative graft flow measurements using the [employer] system, intraoperative transesophageal echocardiogram and epi-aortic scanning. Postoperative acute blood loss anemia, expected given hemodilution and cardiopulmonary bypass pump The patient is currently sitting up in a recliner in the intensive care unit in no acute distress. He does complain of postsurgical incisional pain, denies shortness of breath. The patient was progressively more sleepy yesterday afternoon, last night he was confused with global weakness. He was sent down for brain CT and neck CTA per stroke protocol with no acute findings. Within a few hours he was awake, oriented 3, still weak globally but he is able to move all extremities, neurologically intact. Remains slightly tachycardic in the low 100s, sinus with occasional PACs. Hemodynamically stable on small dose Primacor, blood pressure has been allowed to trend up for adequate perfusion. In addition hemoglobin was 6.6 last night although no obvious evidence of bleeding, was transfused with 1 unit packed red blood cells with hemoglobin 8.7 this morning. Mediastinal, left pleural chest tube, right internal jugular [place]ordis, right radial arterial line all remain present. Objective - Vital Signs Vital signs: Vital Signs Temp 99.8 F H 02/05/21 04:18 Pulse 96 02/05/21 07:00 Resp 19 02/05/21 07:00 BP 123/64 02/05/21 07:00 Pulse Ox 97 02/05/21 07:00 Intake & Output 04/09/21 04/10/21 04/10/21 18:59 06:59 18:59 Intake Total 925.008 2501.280 64 Output Total 615 845 35 Balance 152.139 325.280 29 Weight 106.3 kg 108.8 kg Intake: IV 649 703 64 Sodium Chloride 0.9% 1, 450 295 25 000 ml @ 20 mls/hr IV . Q24H ELISA Rx#:[id number] co/ci 100 300 30 pressure bags 99 108 9 Intake, IV Titration 118.139 37.280 Amount Clevidipine Butyrate 25 1.933 4.667 mg In Empty Bag 1 bag @ 1 MG/HR 2 mls/hr IV .Q24H ELISA Rx#:[id number] Insulin Regular 100 unit 24.737 32.613 In Sodium Chloride 0.9% 100 ml @ Per Protocol IV .Q0M ELISA Rx#:[id number] Milrinone-D5w Pmx 20 mg 91.469 In Dextrose/Water 1 100ml .bag @ 0.1 MCG/KG/MIN 3. 066 mls/hr IV .Q24H ELISA Rx#:[id number] Oral 120 Blood Product 310 Rc As-1 Unit 310 [id number] Output: Chest Tube Drainage 300 310 0 Chest Tube Lateral Chest 270 280 0 Chest Tube Mediastinal 30 30 0 Drainage 0 Left Wrist 0 Urine 315 535 35 Other: Voiding Method Indwelling Catheter Indwelling Catheter ABP, PAP, CO, CI - Last Documented Arterial Blood Pressure 145/52 Pulmonary Artery Pressure 42/18 Cardiac Output 5.7 Cardiac Index 2.7 - Exam CONSTITUTIONAL: Appears comfortable, cooperative, no acute distress RESPIRATORY: Lungs sounds diminished bilaterally. Respirations even, nonlabored. Currently on 4 L nasal cannula with oxygen saturation mid 90s. Barely able to achieve 500 mL on incentive spirometry. Strong cough. CARDIOVASCULAR: S1, S2 present. Tachycardic but regular rate and rhythm, sinus tach with PACs on telemetry. Sternum stable. Palpable peripheral pulses bilaterally. Generalized edema present. No calf pain or tenderness noted. Hea rt hugger in place with patient demonstrating appropriate use. Antiembolism stockings, SCDs present. GASTROINTESTINAL: Abdomen soft, nontender, nondistended. Hypoactive bowel sounds present 4 quadrants. Tolerating clear liquids. Positive flatus GENITOURINARY: Taylor present draining clear, yellow urine. Output overnight 40-60 mL per hour INTEGUMENTARY: Skin is warm and dry with evidence of good perfusion. Anterior chest incision well approximated and covered with dry intact dressing. Right lower extremity EVH site well approximated without redness or drainage. Left radial artery harvest site well approximated without redness or drainage, patient able to move his fingers and clay products glazer appropriately, good cap refill NEUROLOGIC: Cranial nerves II through XII intact MUSKULOSKELETAL: Able to move all extremities, strength equal bilaterally but very weak PSYCHIATRIC: Alert and oriented to person, place, year, thinks it's August. Does remember that he was here for open heart surgery, does remember having CAT scans last night but thought it was for his heart. Following commands. INVASIVE LINES AND TUBES: Mediastinal/left pleural chest tubes present and connected to wall suction, no air leaks present. Mediastinal tube with 30 mL serosanguineous drainage overnight, 50 mL in the last 24 hours. Left pleural chest tube with 150 mL serosanguineous drainage overnight, 550 mL in the last 24 hours. A/V epicardial pacemaker wires present, connected to generator, VVI mode with backup rate 50 bpm. Right internal jugular [place], right radial arterial line present. Last CO/CI 5.7/2.7 on 0.1 mcg/kg/m primacor, PA 37/12, CVP 10-16. - Allied health notes Allied health notes reviewed: nursing - Labs CBC & Chem 7: 02/05/21 05:05 02/05/21 05:05 Labs: Abnormal Lab Results - Last 24 Hours (Table) 01/27/21 02/04/21 02/04/21 Range/Units 11:01 08:06 09:08 WBC (3.8-10.6) k/uL RBC (4.30-5.90) m/uL Hgb (13.0-17.5) gm/dL Hct (39.0-53.0) % Plt Count (150-450) k/uL Neutrophils # (1.3-7.7) k/uL Lymphocytes # (1.0-4.8) k/uL ABG Total CO2 (19-24) mmol/L ABG O2 Saturation (94-97) % Sodium (137-145) mmol/L Chloride (98-107) mmol/L BUN (9-20) mg/dL Creatinine (0.66-1.25) mg/dL Glucose (74-99) mg/dL POC Glucose (mg/dL) 121 H 122 H (75-99) mg/dL Calcium (8.4-10.2) mg/dL AST (17-59) U/L Total Protein (6.3-8.2) g/dL Albumin (3.5-5.0) g/dL Crossmatch See Detail 02/04/21 02/04/21 02/04/21 Range/Units 10:01 11:06 13:13 WBC (3.8-10.6) k/uL RBC (4.30-5.90) m/uL Hgb (13.0-17.5) gm/dL Hct (39.0-53.0) % Plt Count (150-450) k/uL Neutrophils # (1.3-7.7) k/uL Lymphocytes # (1.0-4.8) k/uL ABG Total CO2 (19-24) mmol/L ABG O2 Saturation (94-97) % Sodium (137-145) mmol/L Chloride (98-107) mmol/L BUN (9-20) mg/dL Creatinine (0.66-1.25) mg/dL Glucose (74-99) mg/dL POC Glucose (mg/dL) 132 H 119 H 104 H (75-99) mg/dL Calcium (8.4-10.2) mg/dL AST (17-59) U/L Total Protein (6.3-8.2) g/dL Albumin (3.5-5.0) g/dL Crossmatch 02/04/21 02/04/21 02/04/21 Range/Units 14:03 14:55 17:13 WBC (3.8-10.6) k/uL RBC (4.30-5.90) m/uL Hgb (13.0-17.5) gm/dL Hct (39.0-53.0) % Plt Count (150-450) k/uL Neutrophils # (1.3-7.7) k/uL Lymphocytes # (1.0-4.8) k/uL ABG Total CO2 (19-24) mmol/L ABG O2 Saturation (94-97) % Sodium (137-145) mmol/L Chloride (98-107) mmol/L BUN (9-20) mg/dL Creatinine (0.66-1.25) mg/dL Glucose (74-99) mg/dL POC Glucose (mg/dL) 103 H 119 H 160 H (75-99) mg/dL Calcium (8.4-10.2) mg/dL AST (17-59) U/L Total Protein (6.3-8.2) g/dL Albumin (3.5-5.0) g/dL Crossmatch 02/04/21 02/04/21 02/04/21 Range/Units 17:37 18:14 19:09 WBC (3.8-10.6) k/uL RBC (4.30-5.90) m/uL Hgb (13.0-17.5) gm/dL Hct (39.0-53.0) % Plt Count (150-450) k/uL Neutrophils # (1.3-7.7) k/uL Lymphocytes # (1.0-4.8) k/uL ABG Total CO2 (19-24) mmol/L ABG O2 Saturation (94-97) % Sodium (137-145) mmol/L Chloride (98-107) mmol/L BUN (9-20) mg/dL Creatinine (0.66-1.25) mg/dL Glucose (74-99) mg/dL POC Glucose (mg/dL) 131 H 145 H 122 H (75-99) mg/dL Calcium (8.4-10.2) mg/dL AST (17-59) U/L Total Protein (6.3-8.2) g/dL Albumin (3.5-5.0) g/dL Crossmatch 02/04/21 02/04/21 02/04/21 Range/Units 20:00 20:45 20:51 WBC (3.8-10.6) k/uL RBC (4.30-5.90) m/uL Hgb (13.0-17.5) gm/dL Hct (39.0-53.0) % Plt Count (150-450) k/uL Neutrophils # (1.3-7.7) k/uL Lymphocytes # (1.0-4.8) k/uL ABG Total CO2 26 H (19-24) mmol/L ABG O2 Saturation 97.7 H (94-97) % Sodium (137-145) mmol/L Chloride (98-107) mmol/L BUN (9-20) mg/dL Creatinine (0.66-1.25) mg/dL Glucose (74-99) mg/dL POC Glucose (mg/dL) 132 H 118 H (75-99) mg/dL Calcium (8.4-10.2) mg/dL AST (17-59) U/L Total Protein (6.3-8.2) g/dL Albumin (3.5-5.0) g/dL Crossmatch 02/04/21 02/04/21 02/04/21 Range/Units 21:59 22:08 22:08 WBC (3.8-10.6) k/uL RBC 2.21 L (4.30-5.90) m/uL Hgb 6.6 L* D (13.0-17.5) gm/dL Hct 19.7 L* (39.0-53.0) % Plt Count 108 L (150-450) k/uL Neutrophils # (1.3-7.7) k/uL Lymphocytes # (1.0-4.8) k/uL ABG Total CO2 (19-24) mmol/L ABG O2 Saturation (94-97) % Sodium 136 L (137-145) mmol/L Chloride (98-107) mmol/L BUN 26 H (9-20) mg/dL Creatinine 1.97 H (0.66-1.25) mg/dL Glucose 105 H (74-99) mg/dL POC Glucose (mg/dL) 110 H (75-99) mg/dL Calcium 8.1 L (8.4-10.2) mg/dL AST 88 H (17-59) U/L Total Protein 4.8 L (6.3-8.2) g/dL Albumin 2.9 L (3.5-5.0) g/dL Crossmatch 02/04/21 02/05/21 02/05/21 Range/Units 23:03 00:24 01:05 WBC (3.8-10.6) k/uL RBC (4.30-5.90) m/uL Hgb (13.0-17.5) gm/dL Hct (39.0-53.0) % Plt Count (150-450) k/uL Neutrophils # (1.3-7.7) k/uL Lymphocytes # (1.0-4.8) k/uL ABG Total CO2 (19-24) mmol/L ABG O2 Saturation (94-97) % Sodium (137-145) mmol/L Chloride (98-107) mmol/L BUN (9-20) mg/dL Creatinine (0.66-1.25) mg/dL Glucose (74-99) mg/dL POC Glucose (mg/dL) 131 H 149 H 142 H (75-99) mg/dL Calcium (8.4-10.2) mg/dL AST (17-59) U/L Total Protein (6.3-8.2) g/dL Albumin (3.5-5.0) g/dL Crossmatch 02/05/21 02/05/21 02/05/21 Range/Units 01:56 02:56 04:01 WBC (3.8-10.6) k/uL RBC (4.30-5.90) m/uL Hgb (13.0-17.5) gm/dL Hct (39.0-53.0) % Plt Count (150-450) k/uL Neutrophils # (1.3-7.7) k/uL Lymphocytes # (1.0-4.8) k/uL ABG Total CO2 (19-24) mmol/L ABG O2 Saturation (94-97) % Sodium (137-145) mmol/L Chloride (98-107) mmol/L BUN (9-20) mg/dL Creatinine (0.66-1.25) mg/dL Glucose (74-99) mg/dL POC Glucose (mg/dL) 149 H 148 H 138 H (75-99) mg/dL Calcium (8.4-10.2) mg/dL AST (17-59) U/L Total Protein (6.3-8.2) g/dL Albumin (3.5-5.0) g/dL Crossmatch 02/05/21 02/05/21 02/05/21 Range/Units 05:05 05:05 05:14 WBC 10.7 H (3.8-10.6) k/uL RBC 2.97 L (4.30-5.90) m/uL Hgb 8.7 L D (13.0-17.5) gm/dL Hct 26.1 L (39.0-53.0) % Plt Count 118 L (150-450) k/uL Neutrophils # 9.2 H (1.3-7.7) k/uL Lymphocytes # 0.9 L (1.0-4.8) k/uL ABG Total CO2 (19-24) mmol/L ABG O2 Saturation (94-97) % Sodium (137-145) mmol/L Chloride 108 H (98-107) mmol/L BUN 26 H (9-20) mg/dL Creatinine 1.61 H (0.66-1.25) mg/dL Glucose 121 H (74-99) mg/dL POC Glucose (mg/dL) 127 H (75-99) mg/dL Calcium (8.4-10.2) mg/dL AST 98 H (17-59) U/L Total Protein 5.5 L (6.3-8.2) g/dL Albumin 3.3 L (3.5-5.0) g/dL Crossmatch 02/05/21 02/05/21 Range/Units 06:19 07:11 WBC (3.8-10.6) k/uL RBC (4.30-5.90) m/uL Hgb (13.0-17.5) gm/dL Hct (39.0-53.0) % Plt Count (150-450) k/uL Neutrophils # (1.3-7.7) k/uL Lymphocytes # (1.0-4.8) k/uL ABG Total CO2 (19-24) mmol/L ABG O2 Saturation (94-97) % Sodium (137-145) mmol/L Chloride (98-107) mmol/L BUN (9-20) mg/dL Creatinine (0.66-1.25) mg/dL Glucose (74-99) mg/dL POC Glucose (mg/dL) 136 H 127 H (75-99) mg/dL Calcium (8.4-10.2) mg/dL AST (17-59) U/L Total Protein (6.3-8.2) g/dL Albumin (3.5-5.0) g/dL Crossmatch - Imaging and Cardiology Chest x-ray: image reviewed Assessment and Plan Assessment: 1. Triple-vessel coronary artery disease, status post four-vessel CABG 2. History of prior anteroapical myocardial infarction with diffuse coronary artery disease and PCI stenting 3. Hypertension 4. Hyperlipidemia, treated, cholesterol 221, LDL 151 5. Obstructive sleep apnea without home CPAP use 6. Obesity 7. Never smoker with preoperative FEV1 78% of predicted 8. History of prostate cancer status post prostatectomy with subsequent erectile dysfunction 9. Postoperative acute blood loss anemia, expected Plan: 1. Continue aspirin, statin, Plavix, beta ari therapy. Will increase beta ari therapy as tolerated 2. Continue Norvasc for radial artery spasm. Do not discontinue CCB without discussed with cardiac surgery 3. Will wean off Primacor 4. Wean O2 as tolerated. Encourage incentive spirometry use 10 times every hour while awake. Bronchodilators per pulmonology 5. Increase activity, ambulate as tolerated. PT/OT/cardiac rehab consulted 6. Will monitor daily labs and x-rays. Electrolyte replacement per protocol. No further transfusion at this time. Will give 20 mg IV lasix 7. GI/DVT prophylaxis 8. Pain control with current medication regimen 9. Insulin management per primary care service. Patient is not diabetic, hemoglobin A1c 5.6% 10. Reorient as needed, neuro checks 11. Once Primacor has been discontinued will discontinue [place]. Connect Cordis to continuous CVP monitoring 12. Will discontinue mediastinal chest tube, keep left pleural chest tube, [place], radial arterial line for another 24 hours 13. Continue Taylor catheter for another 24 hours for strict accurate intake and output. Daily weights. 14. More recommendations to follow based on patient's progress Time with Patient: Greater than 30
[2021-02-05 09:04] LABS: Glucose,Whole Blood 105 mg/dL (75-99)
[2021-02-05] MEDS: IPRATROPIUM-ALBUTEROL 3 ML NEB INHALATION SCH ×4 (09:09→20:02)
--- NOTE | 2021-02-05 09:48 | XR ---
EXAMINATION TYPE: XR chest 1V portable DATE OF EXAM: 02/05/2021 COMPARISON: 02/04/2021 INDICATION: Postop cardiac surgery TECHNIQUE: Single frontal view of the chest is obtained. FINDINGS: The heart size is normal. The pulmonary vasculature is normal. Bibasilar infiltrates are present. A small right pleural effusion is likely present. There is a left basilar chest tube. No pneumothorax is evident. [place] catheter is present with the tip in the main pulmonary artery region. Correlate with the wa veform. Mediastinal chest tubes are present. IMPRESSION: 1. Bibasilar infiltrates greater on the right. A small right pleural effusion is present. 2. Lines and catheters discussed above.
[2021-02-05 10:02] LABS: Glucose,Whole Blood 137 mg/dL (75-99)
[2021-02-05 11:27] LABS: Glucose,Whole Blood 150 mg/dL (75-99)
[2021-02-05 12:00] LABS: Glucose,Whole Blood 137 mg/dL (75-99)
--- NOTE | 2021-02-05 12:14 | P.PN ---
Subjective Progress Note Date: 02/05/21 Principal diagnosis: Ventilator management. 81-year-old black male, followed by Dr. Khan on the outpatient basis. The patient has a history of CAD, previous angioplasty and stent placement, remote history of myocardial infarction, hypertension, hyperlipidemia, prostate cancer, status post prostatectomy, erectile dysfunction, sleep apnea, morbid obesity, among other things. Recently, he was referred to one of the optometric coordinator for evaluation. He was to see a optometric coordinator before seeing a N test. Unfortunately, a stress echocardiogram showed evidence of previous anterior apical and septal myocardial infarction, without any inducible ischemia. A cardiac catheterization was performed, and demonstrated a 50% stenosis to the left main coronary artery, a 60% stenosis to his right coronary artery and 80% stenosis to the circumflex coronary artery, and a 70% stenosis to his proximal left anterior descending coronary artery. The patient was referred to the cardiothoracic surgeon and underwent a FAULKNER to LAD bypass, left radial to ramus , left radial to distal circumflex coronary artery, and SVG To PDA bypass the patient also had a left atrial ligation procedure. Today is postop day #1. The patient did take quite a bit of time to get extubated from mechanical v entilation after leaving the operating room, approximately 10 hours or so. Currently, he is on 4 L nasal cannula, Primacor at 0.1 micrograms per kilogram per minute, saline at 50 mL an hour, and insulin-dependent 3.5 units an hour. The patient is sitting up in the chair next to his bed. White count 11.4, hemoglobin 8.8, hematocrit 27.3, and platelet count 158,000. Sodium 140, potassium 4.3, chlorides 108, CO2 23, anion gap 9, BUN 17, creatinine 1.17. Chest x-ray shows bilateral infiltrates and a small effusion with some central venous congestion. Progress note dated 02/05/2021. 81-year-old black male, postop day #2, status post four-vessel bypass grafting. The patient had routine postoperative ventilator management, and carries with him a diagnosis of myocardial infarction essential hypertension hyperlipidemia prostate cancer erectile dysfunction morbid obesity, sleep apnea syndrome. Currently, the patient's on 4 L nasal cannula. He is on saline at 30 mL an hour, and insulin drip at 3.5 units an hour. The patient's a bit confused this morning. In no distress. He has been seen by cardiothoracic surgery already today. White count 10.7, hemoglobin 8.7, hematocrit 26.1, platelet count 118,000. Sodium 138, potassium 4.4, chlorides 108, CO2 23, anion gap 7, BUN 26, creatinine 1.61. Chest x-ray showed bibasilar infiltrates, and a small right- sided pleural effusion. CT of the brain showed nothing acute, CT angiography was negative. Objective - Vital Signs Vital signs: Vital Signs Temp 99.7 F H 02/05/21 08:00 Pulse 92 02/05/21 10:30 Resp 17 02/05/21 10:30 BP 124/71 02/05/21 10:30 Pulse Ox 97 02/05/21 10:30 Intake & Output 02/04/21 02/05/21 02/05/21 18:59 06:59 18:59 Intake Total 890.563 3721.280 241.302 Output Total 615 845 590 Balance 152.139 380.280 -348.698 Weight 106.3 kg 108.8 kg Intake: IV 649 758 160 Sodium Chloride 0.9% 1, 450 350 80 000 ml @ 20 mls/hr IV . Q24H ELISA Rx#:[id number] co/ci 100 300 50 pressure bags 99 108 30 Intake, IV Titration 118.139 37.280 81.302 Amount Clevidipine Butyrate 25 1.933 4.667 mg In Empty Bag 1 bag @ 1 MG/HR 2 mls/hr IV .Q24H ELISA Rx#:[id number] Insulin Regular 100 unit 24.737 32.613 7.718 In Sodium Chloride 0.9% 100 ml @ Per Protocol IV .Q0M ELISA Rx#:[id number] Milrinone-D5w Pmx 20 mg 91.469 73.584 In Dextrose/Water 1 100ml .bag @ 0.1 MCG/KG/MIN 3. 066 mls/hr IV .Q24H ELISA Rx#:[id number] Oral 120 Blood Product 310 Rc As-1 Unit 310 [id number] Output: Chest Tube Drainage 300 310 20 Chest Tube Lateral Chest 270 280 20 Chest Tube Mediastinal 30 30 0 Drainage 0 Left Wrist 0 Urine 315 535 570 Other: Voiding Method Indwelling Catheter Indwelling Catheter Indwelling Catheter ABP, PAP, CO, CI - Last Documented Arterial Blood Pressure 159/64 Pulmonary Artery Pressure 38/13 Cardiac Output 4.4 Cardiac Index 2.1 - Exam No acute distress, confused and a bit disoriented. Nasal O2 at 4 L. HEENT examination is grossly unremarkable. Neck supple. Full range of motion. No adenopathy thyromegaly or neck vein distention. Cardiovascular examination reveals regular rhythm rate. S1-S2 normal. No S3 or S4. No discernible murmur noted. Heart rate 88 bpm. Lungs reveal scattered rhonchi. No wheezes or crackles. Breath sounds equal. The patient does not take deep breaths. Abdomen soft bowel sounds are heard. No masses or tenderness. Extremities are intact. No cyanosis clubbing or edema. Skin is without rash or lesion. Neurologic examination is brief but nonfocal. - Labs CBC & Chem 7: 02/05/21 05:05 02/05/21 05:05 Labs: Abnormal Lab Results - Last 24 Hours (Table) 01/27/21 02/04/21 02/04/21 Range/Units 11:01 13:13 14:03 WBC (3.8-10.6) k/uL RBC (4.30-5.90) m/uL Hgb (13.0-17.5) gm/dL Hct (39.0-53.0) % Plt Count (150-450) k/uL Neutrophils # (1.3-7.7) k/uL Lymphocytes # (1.0-4.8) k/uL ABG Total CO2 (19-24) mmol/L ABG O2 Saturation (94-97) % Sodium (137-145) mmol/L Chloride (98-107) mmol/L BUN (9-20) mg/dL Creatinine (0.66-1.25) mg/dL Glucose (74-99) mg/dL POC Glucose (mg/dL) 104 H 103 H (75-99) mg/dL Calcium (8.4-10.2) mg/dL AST (17-59) U/L Total Protein (6.3-8.2) g/dL Albumin (3.5-5.0) g/dL Crossmatch See Detail 02/04/21 02/04/21 02/04/21 Range/Units 14:55 17:13 17:37 WBC (3.8-10.6) k/uL RBC (4.30-5.90) m/uL Hgb (13.0-17.5) gm/dL Hct (39.0-53.0) % Plt Count (150-450) k/uL Neutrophils # (1.3-7.7) k/uL Lymphocytes # (1.0-4.8) k/uL ABG Total CO2 (19-24) mmol/L ABG O2 Saturation (94-97) % Sodium (137-145) mmol/L Chloride (98-107) mmol/L BUN (9-20) mg/dL Creatinine (0.66-1.25) mg/dL Glucose (74-99) mg/dL POC Glucose (mg/dL) 119 H 160 H 131 H (75-99) mg/dL Calcium (8.4-10.2) mg/dL AST (17-59) U/L Total Protein (6.3-8.2) g/dL Albumin (3.5-5.0) g/dL Crossmatch 02/04/21 02/04/21 02/04/21 Range/Units 18:14 19:09 20:00 WBC (3.8-10.6) k/uL RBC (4.30-5.90) m/uL Hgb (13.0-17.5) gm/dL Hct (39.0-53.0) % Plt Count (150-450) k/uL Neutrophils # (1.3-7.7) k/uL Lymphocytes # (1.0-4.8) k/uL ABG Total CO2 (19-24) mmol/L ABG O2 Saturation (94-97) % Sodium (137-145) mmol/L Chloride (98-107) mmol/L BUN (9-20) mg/dL Creatinine (0.66-1.25) mg/dL Glucose (74-99) mg/dL POC Glucose (mg/dL) 145 H 122 H 132 H (75-99) mg/dL Calcium (8.4-10.2) mg/dL AST (17-59) U/L Total Protein (6.3-8.2) g/dL Albumin (3.5-5.0) g/dL Crossmatch 02/04/21 02/04/21 02/04/21 Range/Units 20:45 20:51 21:59 WBC (3.8-10.6) k/uL RBC (4.30-5.90) m/uL Hgb (13.0-17.5) gm/dL Hct (39.0-53.0) % Plt Count (150-450) k/uL Neutrophils # (1.3-7.7) k/uL Lymphocytes # (1.0-4.8) k/uL ABG Total CO2 26 H (19-24) mmol/L ABG O2 Saturation 97.7 H (94-97) % Sodium (137-145) mmol/L Chloride (98-107) mmol/L BUN (9-20) mg/dL Creatinine (0.66-1.25) mg/dL Glucose (74-99) mg/dL POC Glucose (mg/dL) 118 H 110 H (75-99) mg/dL Calcium (8.4-10.2) mg/dL AST (17-59) U/L Total Protein (6.3-8.2) g/dL Albumin (3.5-5.0) g/dL Crossmatch 02/04/21 02/04/21 02/04/21 Range/Units 22:08 22:08 23:03 WBC (3.8-10.6) k/uL RBC 2.21 L (4.30-5.90) m/uL Hgb 6.6 L* D (13.0-17.5) gm/dL Hct 19.7 L* (39.0-53.0) % Plt Count 108 L (150-450) k/uL Neutrophils # (1.3-7.7) k/uL Lymphocytes # (1.0-4.8) k/uL ABG Total CO2 (19-24) mmol/L ABG O2 Saturation (94-97) % Sodium 136 L (137-145) mmol/L Chloride (98-107) mmol/L BUN 26 H (9-20) mg/dL Creatinine 1.97 H (0.66-1.25) mg/dL Glucose 105 H (74-99) mg/dL POC Glucose (mg/dL) 131 H (75-99) mg/dL Calcium 8.1 L (8.4-10.2) mg/dL AST 88 H (17-59) U/L Total Protein 4.8 L (6.3-8.2) g/dL Albumin 2.9 L (3.5-5.0) g/dL Crossmatch 02/05/21 02/05/21 02/05/21 Range/Units 00:24 01:05 01:56 WBC (3.8-10.6) k/uL RBC (4.30-5.90) m/uL Hgb (13.0-17.5) gm/dL Hct (39.0-53.0) % Plt Count (150-450) k/uL Neutrophils # (1.3-7.7) k/uL Lymphocytes # (1.0-4.8) k/uL ABG Total CO2 (19-24) mmol/L ABG O2 Saturation (94-97) % Sodium (137-145) mmol/L Chloride (98-107) mmol/L BUN (9-20) mg/dL Creatinine (0.66-1.25) mg/dL Glucose (74-99) mg/dL POC Glucose (mg/dL) 149 H 142 H 149 H (75-99) mg/dL Calcium (8.4-10.2) mg/dL AST (17-59) U/L Total Protein (6.3-8.2) g/dL Albumin (3.5-5.0) g/dL Crossmatch 02/05/21 02/05/21 02/05/21 Range/Units 02:56 04:01 05:05 WBC 10.7 H (3.8-10.6) k/uL RBC 2.97 L (4.30-5.90) m/uL Hgb 8.7 L D (13.0-17.5) gm/dL Hct 26.1 L (39.0-53.0) % Plt Count 118 L (150-450) k/uL Neutrophils # 9.2 H (1.3-7.7) k/uL Lymphocytes # 0.9 L (1.0-4.8) k/uL ABG Total CO2 (19-24) mmol/L ABG O2 Saturation (94-97) % Sodium (137-145) mmol/L Chloride (98-107) mmol/L BUN (9-20) mg/dL Creatinine (0.66-1.25) mg/dL Glucose (74-99) mg/dL POC Glucose (mg/dL) 148 H 138 H (75-99) mg/dL Calcium (8.4-10.2) mg/dL AST (17-59) U/L Total Protein (6.3-8.2) g/dL Albumin (3.5-5.0) g/dL Crossmatch 02/05/21 02/05/21 02/05/21 Range/Units 05:05 05:14 06:19 WBC (3.8-10.6) k/uL RBC (4.30-5.90) m/uL Hgb (13.0-17.5) gm/dL Hct (39.0-53.0) % Plt Count (150-450) k/uL Neutrophils # (1.3-7.7) k/uL Lymphocytes # (1.0-4.8) k/uL ABG Total CO2 (19-24) mmol/L ABG O2 Saturation (94-97) % Sodium (137-145) mmol/L Chloride 108 H (98-107) mmol/L BUN 26 H (9-20) mg/dL Creatinine 1.61 H (0.66-1.25) mg/dL Glucose 121 H (74-99) mg/dL POC Glucose (mg/dL) 127 H 136 H (75-99) mg/dL Calcium (8.4-10.2) mg/dL AST 98 H (17-59) U/L Total Protein 5.5 L (6.3-8.2) g/dL Albumin 3.3 L (3.5-5.0) g/dL Crossmatch 02/05/21 02/05/21 02/05/21 Range/Units 07:11 07:55 09:02 WBC (3.8-10.6) k/uL RBC (4.30-5.90) m/uL Hgb (13.0-17.5) gm/dL Hct (39.0-53.0) % Plt Count (150-450) k/uL Neutrophils # (1.3-7.7) k/uL Lymphocytes # (1.0-4.8) k/uL ABG Total CO2 (19-24) mmol/L ABG O2 Saturation (94-97) % Sodium (137-145) mmol/L Chloride (98-107) mmol/L BUN (9-20) mg/dL Creatinine (0.66-1.25) mg/dL Glucose (74-99) mg/dL POC Glucose (mg/dL) 127 H 127 H 105 H (75-99) mg/dL Calcium (8.4-10.2) mg/dL AST (17-59) U/L Total Protein (6.3-8.2) g/dL Albumin (3.5-5.0) g/dL Crossmatch 02/05/21 02/05/21 02/05/21 Range/Units 10:00 11:26 11:59 WBC (3.8-10.6) k/uL RBC (4.30-5.90) m/uL Hgb (13.0-17.5) gm/dL Hct (39.0-53.0) % Plt Count (150-450) k/uL Neutrophils # (1.3-7.7) k/uL Lymphocytes # (1.0-4.8) k/uL ABG Total CO2 (19-24) mmol/L ABG O2 Saturation (94-97) % Sodium (137-145) mmol/L Chloride (98-107) mmol/L BUN (9-20) mg/dL Creatinine (0.66-1.25) mg/dL Glucose (74-99) mg/dL POC Glucose (mg/dL) 137 H 150 H 137 H (75-99) mg/dL Calcium (8.4-10.2) mg/dL AST (17-59) U/L Total Protein (6.3-8.2) g/dL Albumin (3.5-5.0) g/dL Crossmatch Assessment and Plan Assessment: Postop day #2, status post FAULKNER to LAD bypass, left radial to ramus and distal circumflex bypass, and SVG to PDA bypass, with left atrial ligation. Routine postoperative ventilator management. History of CAD, with previous angioplasty and stent. Remote history of myocardial infarction. History of essential hypertension. History of hyperlipidemia. History of prostate cancer, status post prostatectomy. History of erectile dysfunction. Morbid obesity. History of sleep apnea syndrome, without home CPAP use. Confusion, with negative computed tomography scan of the brain, and CT angiography. Plan: Plan dated 02/04/2021. The patient seems be doing reasonably well. He is currently on 4 L. We encourage him to deep breathe, cough, and clear secretions. We also expect him to use incentive spirometer every hour while awake. Additional recommendations and suggestions are forthcoming. Prognosis is guarded. We will continue to follow this patient and make recommendations were appropriate. Plan dated 02/05/2021. The patient was a bit confused and disoriented this morning. He pulled out some of his IVs. We encourage deep breathing, coughing, and clearing of secretions. We also recommend hourly use of the incentive spirometer. CT of the brain did not show anything acute. CT angiography did not show any significant blood vessel stenosis. We will continue to follow. Additional recommendations and suggestions are forthcoming. Labs, x-rays, and medications are all reviewed. Prognosis is guarded. Time with Patient: Less than 30
[2021-02-05] MEDS: INSULIN ASPART (NovoLOG) 100 UNIT/ML VIAL SQ SCH ×3 (12:22→19:49)
[2021-02-05] MEDS: AMIODARONE 200 MG TAB PO SCH ×2 (12:48→19:34)
[2021-02-05] MEDS: SODIUM CHLORIDE 0.9% 1,000 ML IV SCH (12:50)
[2021-02-05] MEDS ORDERED: HALOPERIDOL LACTATE 5 MG/ML 1 ML VIAL IVP STA (12:55)
[2021-02-05] MEDS ORDERED: HALOPERIDOL LACTATE 5 MG/ML 1 ML VIAL ONE (12:59)
--- NOTE | 2021-02-05 15:42 | CONS ---
CONSULTATION DATE OF SERVICE: 02/05/2021 REASON FOR CONSULTATION: Diabetes mellitus and other medical issues, requested by Cardiovascular Surgery HISTORY OF PRESENT ILLNESS: This 81-year-old gentleman with a past medical history of multiple medical problems, being followed CAD, GERD, hypertension, history of myocardial infarction being followed by Dr. Mix in the outpatient setting was admitted after CABG. The blood sugars were elevated. The patient underwent CABG. The blood sugars are elevated and patient was on insulin drip this morning and currently off insulin drip. The patient is mildly confused and multiple consultants are following the patient closely. The blood sugars of 150, 137. There is no history of fever, rigors or chills. REVIEW OF SYSTEMS: Could not be taken because the patient is confused. HOME MEDICATIONS: The home medications are nitroglycerin, Toprol, Claritin. Lipitor, aspirin, albuterol. ALLERGIES: IODINE. FAMILY HISTORY: Multiorgan failure. SOCIAL HISTORY: No history of current smoking or alcohol. Previous smoking. REVIEW OF SYSTEMS: Could not be taken because of change in mental status. PHYSICAL EXAM: Patient is conscious, confused. Pulse 92, blood pressure 128/70, respiration 17, temperature 99.3, pulse ox 97% on 4 L. HEENT: Conjunctivae normal. Oral mucosa moist. NECK: No jugular venous distention. No lymph node enlargement. CARDIOVASCULAR: S1, S2, muffled. No S3, no S4, RESPIRATORY: Diminished breath sounds at the bases. A few scattered rhonchi. ABDOMEN: Soft, nontender. NERVOUS SYSTEM: No focal deficits. LABS: Accu-Cheks 137. WBC 10.2, hemoglobin is 8.6. ASSESSMENT: 1. Coronary artery disease, coronary artery bypass graft. 2. History of gastroesophageal reflux disease. 3. Elevated blood sugars. 4. Hypertension. 5. History of myocardial infarction. 6. History of sleep apnea. 7. History of prostate cancer. 8. History of coronary artery disease, stent. 9. FULL CODE. RECOMMENDATION AND DISCUSSION: In this 81-year-old gentleman who presented after surgery, at this time I recommend to continue current management, continue symptomatic treatment. The patient had elevated blood sugars immediately postop, but currently the sugars are better controlled. I would recommend Accu-Cheks a.c. and HS again. There is no evidence of any diabetes prior to admission. Otherwise, continue the rest of medications. Incentive spirometry. DVT prophylaxis. Recommend close followup with Dr. Mix after discharge. Thank you for letting us participate in the care of this patient. MMODL / IJN: [id number] /
[2021-02-05 17:12] LABS: Glucose,Whole Blood 127 mg/dL (75-99)
[2021-02-05] MEDS: SENNOSIDES-DOCUSATE SODIUM 1 EACH TAB PO SCH (19:33)
[2021-02-05] MEDS: METOPROLOL TARTRATE 50 MG TAB PO SCH (19:34)
[2021-02-05 19:50] LABS: Glucose,Whole Blood 135 mg/dL (75-99)
[2021-02-06 01:07] LABS: Glucose,Whole Blood 174 mg/dL (75-99)
[2021-02-06 05:31] LABS: Albumin 3.2 g/dL (3.5-5.0); Calcium 8.4 mg/dL (8.4-10.2); Potassium 4.7 mmol/L (3.5-5.1); Total Bilirubin 1.2 mg/dL (0.2-1.3); Total Protein 5.5 g/dL (6.3-8.2)
[2021-02-06 05:33] LABS: Basophils % (A) 0 %; Eosinophils % (A) 0 %; HCT 25.8 % (39.0-53.0); Hypochromasia Slight; Lymphocytes # (A) 1.8 k/uL (1.0-4.8); Lymphocytes % (A) 14 %; MCH 27.9 pg (25.0-35.0); MCHC 31.2 g/dL (31.0-37.0); MCV 89.5 fL (80.0-100.0); Mean Platelet Volume 8.2; Monocytes # (A) 0.9 k/uL (0-1.0); Monocytes % (A) 7 %; Neutrophils # (A) 10.6 k/uL (1.3-7.7); Neutrophils % (A) 79 %; Platelet Count 153 k/uL (150-450); RBC 2.89 m/uL (4.30-5.90); RDW 14.8 % (11.5-15.5); WBC 13.5 k/uL (3.8-10.6)
[2021-02-06] MEDS: PANTOPRAZOLE 40 MG TABLET PO SCH (06:24)
[2021-02-06] MEDS: INSULIN ASPART (NovoLOG) 100 UNIT/ML VIAL SQ SCH ×4 (06:31→20:31)
[2021-02-06 06:32] LABS: Glucose,Whole Blood 142 mg/dL (75-99)
--- NOTE | 2021-02-06 07:23 | P.PN ---
Subjective Progress Note Date: 02/06/21 Principal diagnosis: Triple-vessel coronary artery disease. Previous medical history of prior anteroapical myocardial infarction with diffuse coronary artery disease and PCI stenting, obesity, hypertension, hyperlipidemia, obstructive sleep apnea without home CPAP use, history of prostate cancer status post prostatectomy with subsequent erectile dysfunction POD #3 quadruple coronary artery bypass grafting using the left internal mammary artery to the left anterior descending artery, left radial artery to the ramus intermedius artery in a [id number] fashion sequentially, then to the distal circumflex artery in an end to side fashion, reverse saphenous vein graft from t he aorta to the posterior descending artery, exclusion of the left atrial appendage using a 35 mm AtriClip, endoscopic harvesting of the left radial artery, endoscopic harvesting of the right greater saphenous vein from the groin to above the ankle level, intraoperative graft flow measurements using the Tarena system, intraoperative transesophageal echocardiogram and epi-aortic scanning. Postoperative acute blood loss anemia, expected given hemodilution and cardiopulmonary bypass pump Confusion, unclear etiology, CT of the brain negative for any acute process The patient is currently sitting up in a recliner in the intensive care unit in no acute distress. He does complain of postsurgical incisional pain, denies shortness of breath. The patient continues to have intermittent short bursts of confusion, yesterday he became agitated at one point, was given IV Haldol with resolution of agitation. He did pull out his Brady/Cordis yesterday morning. Last night he was calm and cooperative all night with a couple of short bursts of confusion per nursing. Currently he is alert and oriented 3, does remember being confused and states he had a bad day yesterday, cooperative and able to move all extremities. Currently in sinus rhythm with occasional PACs. Hemodynamically stable on no inotropes or pressors. Left pleural chest tube, right radial arterial line, epicardial pacemaker wires remain present. Objective - Vital Signs Vital signs: Vital Signs Temp 98.3 F 02/06/21 04:00 Pulse 92 02/06/21 06:00 Resp 20 02/06/21 06:00 BP 130/95 02/06/21 06:00 Pulse Ox 97 02/06/21 06:00 Intake & Output 02/05/21 02/06/21 02/06/21 18:59 06:59 18:59 Intake Total 259.302 156 3 Output Total 880 560 40 Balance -620.698 -404 -37 Weight 105.3 kg Intake: IV 178 36 3 Sodium Chloride 0.9% 1, 80 000 ml @ 20 mls/hr IV . Q24H ELISA Rx#:[id number] co/ci 50 pressure bags 48 36 3 Intake, IV Titration 81.302 Amount Insulin Regular 100 unit 7.718 In Sodium Chloride 0.9% 100 ml @ Per Protocol IV .Q0M ELISA Rx#:[id number] Milrinone-D5w Pmx 20 mg 73.584 In Dextrose/Water 1 100ml .bag @ 0.1 MCG/KG/MIN 3. 066 mls/hr IV .Q24H ELISA Rx#:[id number] Oral 120 Output: Chest Tube Drainage 20 180 10 Chest Tube Lateral Chest 20 180 10 Chest Tube Mediastinal 0 Urine 860 380 30 Other: Voiding Method Indwelling Catheter Indwelling Catheter ABP, PAP, CO, CI - Last Documented Arterial Blood Pressure 144/56 Pulmonary Artery Pressure 38/13 Cardiac Output 4.4 Cardiac Index 2.1 - Exam CONSTITUTIONAL: Appears comfortable, cooperative, no acute distress RESPIRATORY: Lungs sounds diminished bilaterally. Respirations even, nonlabored. Currently on 3 L nasal cannula with oxygen saturation 96%. Barely able to achieve 500 mL on incentive spirometry. Weak cough. CARDIOVASCULAR: S1, S2 present. Regular rate and rhythm, sinus rhythm with occasional PACs on telemetry. Sternum stable. Palpable peripheral pulses bilaterally. Generalized edema present. No calf pain or tenderness noted. Heart hugger in place with patient demonstrating appropriate use. Antiembolism stockings, SCDs present. GASTROINTESTINAL: Abdomen soft, nontender, nondistended. Hypoactive bowel sounds present 4 quadrants. Tolerating full liquids. Positive flatus GENITOURINARY: Taylor present draining clear, yellow urine. Output overnight 30-40 mL per hour, 1240 mL in the last 24 hours INTEGUMENTARY: Skin is warm and dry with evidence of good perfusion. Anterior chest incision well approximated and covered with dry intact dressing. Right lower extremity EVH site well approximated without redness or drainage. 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 Does remember that he was here for open heart surgery, does remember being confused yesterday. Following commands. INVASIVE LINES AND TUBES: Left pleural chest tubes present and connected to wall suction, no air leak present. Left pleural chest tube with 120 mL serosanguineous drainage overnight, 350 mL in the last 24 hours. A/V epicardial pacemaker wires present, grounded. Right radial arterial line present. - Allied health notes Allied health notes reviewed: nursing - Labs CBC & Chem 7: 02/06/21 04:35 02/06/21 04:35 Labs: Abnormal Lab Results - Last 24 Hours (Table) 02/03/21 02/03/21 02/05/21 Range/Units 13:40 14:16 07:11 WBC (3.8-10.6) k/uL RBC (4.30-5.90) m/uL Hgb (13.0-17.5) gm/dL Hct (39.0-53.0) % Neutrophils # (1.3-7.7) k/uL ABG pO2 247 H 297 H (83-108) mmHg ABG HCO3 26 H (21-25) mmol/L ABG Total CO2 27 H 26 H (19-24) mmol/L ABG O2 Saturation 100.0 H 100.0 H (94-97) % ABG Hematocrit 19 L* 18 L* (34.0-46.0) % ABG Sodium 134 L (135-146) mmol/L ABG Ionized Calcium 4.0 L 4.0 L (4.5-5.3) mg/dL ABG Glucose 198 H 189 H (75-99) mg/dL ABG Lactic Acid 2.7 H* 3.2 H* (0.5-1.6) mmol/L Hemoglobin 6.2 L* 5.7 L* (13.0-17.5) gm/dL BUN (9-20) mg/dL Creatinine (0.66-1.25) mg/dL Glucose (74-99) mg/dL POC Glucose (mg/dL) 127 H (75-99) mg/dL AST (17-59) U/L ALT (4-49) U/L Total Protein (6.3-8.2) g/dL Albumin (3.5-5.0) g/dL Arterial Blood Glucose 198 H 189 H (75-99) mg/dL 02/05/21 02/05/21 02/05/21 Range/Units 07:55 09:02 10:00 WBC (3.8-10.6) k/uL RBC (4.30-5.90) m/uL Hgb (13.0-17.5) gm/dL Hct (39.0-53.0) % Neutrophils # (1.3-7.7) k/uL ABG pO2 (83-108) mmHg ABG HCO3 (21-25) mmol/L ABG Total CO2 (19-24) mmol/L ABG O2 Saturation (94-97) % ABG Hematocrit (34.0-46.0) % ABG Sodium (135-146) mmol/L ABG Ionized Calcium (4.5-5.3) mg/dL ABG Glucose (75-99) mg/dL ABG Lactic Acid (0.5-1.6) mmol/L Hemoglobin (13.0-17.5) gm/dL BUN (9-20) mg/dL Creatinine (0.66-1.25) mg/dL Glucose (74-99) mg/dL POC Glucose (mg/dL) 127 H 105 H 137 H (75-99) mg/dL AST (17-59) U/L ALT (4-49) U/L Total Protein (6.3-8.2) g/dL Albumin (3.5-5.0) g/dL Arterial Blood Glucose (75-99) mg/dL 02/05/21 02/05/21 02/05/21 Range/Units 11:26 11:59 17:10 WBC (3.8-10.6) k/uL RBC (4.30-5.90) m/uL Hgb (13.0-17.5) gm/dL Hct (39.0-53.0) % Neutrophils # (1.3-7.7) k/uL ABG pO2 (83-108) mmHg ABG HCO3 (21-25) mmol/L ABG Total CO2 (19-24) mmol/L ABG O2 Saturation (94-97) % ABG Hematocrit (34.0-46.0) % ABG Sodium (135-146) mmol/L ABG Ionized Calcium (4.5-5.3) mg/dL ABG Glucose (75-99) mg/dL ABG Lactic Acid (0.5-1.6) mmol/L Hemoglobin (13.0-17.5) gm/dL BUN (9-20) mg/dL Creatinine (0.66-1.25) mg/dL Glucose (74-99) mg/dL POC Glucose (mg/dL) 150 H 137 H 127 H (75-99) mg/dL AST (17-59) U/L ALT (4-49) U/L Total Protein (6.3-8.2) g/dL Albumin (3.5-5.0) g/dL Arterial Blood Glucose (75-99) mg/dL 02/05/21 02/06/21 02/06/21 Range/Units 19:48 01:05 04:35 WBC 13.5 H (3.8-10.6) k/uL RBC 2.89 L (4.30-5.90) m/uL Hgb 8.0 L (13.0-17.5) gm/dL Hct 25.8 L (39.0-53.0) % Neutrophils # 10.6 H (1.3-7.7) k/uL ABG pO2 (83-108) mmHg ABG HCO3 (21-25) mmol/L ABG Total CO2 (19-24) mmol/L ABG O2 Saturation (94-97) % ABG Hematocrit (34.0-46.0) % ABG Sodium (135-146) mmol/L ABG Ionized Calcium (4.5-5.3) mg/dL ABG Glucose (75-99) mg/dL ABG Lactic Acid (0.5-1.6) mmol/L Hemoglobin (13.0-17.5) gm/dL BUN (9-20) mg/dL Creatinine (0.66-1.25) mg/dL Glucose (74-99) mg/dL POC Glucose (mg/dL) 135 H 174 H (75-99) mg/dL AST (17-59) U/L ALT (4-49) U/L Total Protein (6.3-8.2) g/dL Albumin (3.5-5.0) g/dL Arterial Blood Glucose (75-99) mg/dL 02/06/21 02/06/21 Range/Units 04:35 06:29 WBC (3.8-10.6) k/uL RBC (4.30-5.90) m/uL Hgb (13.0-17.5) gm/dL Hct (39.0-53.0) % Neutrophils # (1.3-7.7) k/uL ABG pO2 (83-108) mmHg ABG HCO3 (21-25) mmol/L ABG Total CO2 (19-24) mmol/L ABG O2 Saturation (94-97) % ABG Hematocrit (34.0-46.0) % ABG Sodium (135-146) mmol/L ABG Ionized Calcium (4.5-5.3) mg/dL ABG Glucose (75-99) mg/dL ABG Lactic Acid (0.5-1.6) mmol/L Hemoglobin (13.0-17.5) gm/dL BUN 42 H (9-20) mg/dL Creatinine 1.62 H (0.66-1.25) mg/dL Glucose 145 H (74-99) mg/dL POC Glucose (mg/dL) 142 H (75-99) mg/dL AST 111 H (17-59) U/L ALT 60 H (4-49) U/L Total Protein 5.5 L (6.3-8.2) g/dL Albumin 3.2 L (3.5-5.0) g/dL Arterial Blood Glucose (75-99) mg/dL - Imaging and Cardiology Chest x-ray: image reviewed Assessment and Plan Assessment: 1. Triple-vessel coronary artery disease, status post four-vessel CABG 2. History of prior anteroapical myocardial infarction with diffuse coronary artery disease and PCI stenting 3. Hypertension 4. Hyperlipidemia, treated, cholesterol 221, LDL 151 5. Obstructive sleep apnea without home CPAP use 6. Obesity 7. Never smoker with preoperative FEV1 78% of predicted 8. History of prostate cancer status post prostatectomy with subsequent erectile dysfunction 9. Postoperative acute blood loss anemia, expected 10. Confusion, unclear etiology, CT of brain negative, ammonia level negative, no narcotics given Plan: 1. Continue aspirin, statin, Plavix, beta ari therapy. Will increase beta ari therapy as tolerated 2. Continue Norvasc for radial artery spasm. Do not discontinue CCB without discussed with cardiac surgery 3. Continue oral amiodarone for A. fib prophylaxis 4. Wean O2 as tolerated. Encourage incentive spirometry use 10 times every hour while awake. Bronchodilators per pulmonology 5. Increase activity, ambulate as tolerated. PT/OT/cardiac rehab consulted 6. Will monitor daily labs and x-rays. Electrolyte replacement per protocol. No further transfusion at this time. 7. GI/DVT prophylaxis 8. Pain control with current medication regimen 9. Insulin management per primary care service. Patient is not diabetic, hemoglobin A1c 5.6% 10. Reorient as needed, neuro checks 11. Likely will keep left pleural chest tube, radial arterial line for another 24 hours 12. Continue Taylor catheter for another 24 hours for strict accurate intake and output. Daily weights. 13. More recommendations to follow based on patient's progress Time with Patient: Greater than 30
[2021-02-06] MEDS: IPRATROPIUM-ALBUTEROL 3 ML NEB INHALATION SCH ×4 (07:39→19:17)
[2021-02-06] MEDS: AMIODARONE 200 MG TAB PO SCH ×2 (08:43→20:30)
[2021-02-06] MEDS: CLOPIDOGREL 75 MG TAB PO SCH (08:43)
[2021-02-06] MEDS: amLODIPine 5 MG TAB PO SCH (08:43)
[2021-02-06] MEDS: METOPROLOL TARTRATE 50 MG TAB PO SCH ×2 (08:44→20:31)
[2021-02-06] MEDS: ASPIRIN 325 MG TAB PO SCH (08:44)
[2021-02-06] MEDS: HEPARIN SODIUM,PORCINE/PF 5,000 UNIT/0.5 ML SYRINGE SQ SCH ×3 (08:44→23:56)
[2021-02-06] MEDS: ATORVASTATIN 40 MG TAB PO SCH (08:44)
[2021-02-06] MEDS: ACETAMINOPHEN TAB 325 MG TAB PO PRN ×2 (09:49→22:05)
--- NOTE | 2021-02-06 10:27 | P.PN ---
Subjective Progress Note Date: 02/06/21 Principal diagnosis: Status post open heart This is a 81-year-old gentleman who sees Dr. Reis in the office on regular basis was admitted to the hospital and underwent elective CABG 4 with FAULKNER to LAD and radial artery to ramus and diagonal as well as SVG to PDA of RCA. The patient was seen today they #4. He is definitely doing better from a cardiovascular standpoint of her interim heart rate and blood pressure. Because he was experiencing intermittent episodes of tachycardia along with frequent PVCs he was started on amiodarone. Otherwise he is on dual antiplatelet therapy along with high intensity statin. Overall and from a cardiovascular standpoint of view, he seems to be stable. Objective - Vital Signs Vital signs: Vital Signs Temp 98.3 F 02/06/21 04:00 Pulse 81 02/06/21 07:00 Resp 18 02/06/21 07:00 BP 128/64 02/06/21 07:00 Pulse Ox 97 02/06/21 07:00 Intake & Output 02/05/21 02/06/21 02/06/21 18:59 06:59 18:59 Intake Total 259.302 156 3 Output Total 880 560 40 Balance -620.698 -404 -37 Weight 105.3 kg Intake: IV 178 36 3 Sodium Chloride 0.9% 1, 80 000 ml @ 20 mls/hr IV . Q24H ELISA Rx#:[id number] co/ci 50 pressure bags 48 36 3 Intake, IV Titration 81.302 Amount Insulin Regular 100 unit 7.718 In Sodium Chloride 0.9% 100 ml @ Per Protocol IV .Q0M ELISA Rx#:[id number] Milrinone-D5w Pmx 20 mg 73.584 In Dextrose/Water 1 100ml .bag @ 0.1 MCG/KG/MIN 3. 066 mls/hr IV .Q24H ELISA Rx#:[id number] Oral 120 Output: Chest Tube Drainage 20 180 10 Chest Tube Lateral Chest 20 180 10 Chest Tube Mediastinal 0 Urine 860 380 30 Other: Voiding Method Indwelling Catheter Indwelling Catheter ABP, PAP, CO, CI - Last Documented Arterial Blood Pressure 144/56 Pulmonary Artery Pressure 38/13 Cardiac Output 4.4 Cardiac Index 2.1 - Constitutional General appearance: Present: no acute distress - Labs CBC & Chem 7: 02/06/21 04:35 02/06/21 04:35 Labs: Abnormal Lab Results - Last 24 Hours (Table) 02/03/21 02/03/21 02/05/21 Range/Units 13:40 14:16 11:26 WBC (3.8-10.6) k/uL RBC (4.30-5.90) m/uL Hgb (13.0-17.5) gm/dL Hct (39.0-53.0) % Neutrophils # (1.3-7.7) k/uL ABG pO2 247 H 297 H (83-108) mmHg ABG HCO3 26 H (21-25) mmol/L ABG Total CO2 27 H 26 H (19-24) mmol/L ABG O2 Saturation 100.0 H 100.0 H (94-97) % ABG Hematocrit 19 L* 18 L* (34.0-46.0) % ABG Sodium 134 L (135-146) mmol/L ABG Ionized Calcium 4.0 L 4.0 L (4.5-5.3) mg/dL ABG Glucose 198 H 189 H (75-99) mg/dL ABG Lactic Acid 2.7 H* 3.2 H* (0.5-1.6) mmol/L Hemoglobin 6.2 L* 5.7 L* (13.0-17.5) gm/dL BUN (9-20) mg/dL Creatinine (0.66-1.25) mg/dL Glucose (74-99) mg/dL POC Glucose (mg/dL) 150 H (75-99) mg/dL AST (17-59) U/L ALT (4-49) U/L Total Protein (6.3-8.2) g/dL Albumin (3.5-5.0) g/dL Arterial Blood Glucose 198 H 189 H (75-99) mg/dL 02/05/21 02/05/21 02/05/21 Range/Units 11:59 17:10 19:48 WBC (3.8-10.6) k/uL RBC (4.30-5.90) m/uL Hgb (13.0-17.5) gm/dL Hct (39.0-53.0) % Neutrophils # (1.3-7.7) k/uL ABG pO2 (83-108) mmHg ABG HCO3 (21-25) mmol/L ABG Total CO2 (19-24) mmol/L ABG O2 Saturation (94-97) % ABG Hematocrit (34.0-46.0) % ABG Sodium (135-146) mmol/L ABG Ionized Calcium (4.5-5.3) mg/dL ABG Glucose (75-99) mg/dL ABG Lactic Acid (0.5-1.6) mmol/L Hemoglobin (13.0-17.5) gm/dL BUN (9-20) mg/dL Creatinine (0.66-1.25) mg/dL Glucose (74-99) mg/dL POC Glucose (mg/dL) 137 H 127 H 135 H (75-99) mg/dL AST (17-59) U/L ALT (4-49) U/L Total Protein (6.3-8.2) g/dL Albumin (3.5-5.0) g/dL Arterial Blood Glucose (75-99) mg/dL 02/06/21 02/06/21 02/06/21 Range/Units 01:05 04:35 04:35 WBC 13.5 H (3.8-10.6) k/uL RBC 2.89 L (4.30-5.90) m/uL Hgb 8.0 L (13.0-17.5) gm/dL Hct 25.8 L (39.0-53.0) % Neutrophils # 10.6 H (1.3-7.7) k/uL ABG pO2 (83-108) mmHg ABG HCO3 (21-25) mmol/L ABG Total CO2 (19-24) mmol/L ABG O2 Saturation (94-97) % ABG Hematocrit (34.0-46.0) % ABG Sodium (135-146) mmol/L ABG Ionized Calcium (4.5-5.3) mg/dL ABG Glucose (75-99) mg/dL ABG Lactic Acid (0.5-1.6) mmol/L Hemoglobin (13.0-17.5) gm/dL BUN 42 H (9-20) mg/dL Creatinine 1.62 H (0.66-1.25) mg/dL Glucose 145 H (74-99) mg/dL POC Glucose (mg/dL) 174 H (75-99) mg/dL AST 111 H (17-59) U/L ALT 60 H (4-49) U/L Total Protein 5.5 L (6.3-8.2) g/dL Albumin 3.2 L (3.5-5.0) g/dL Arterial Blood Glucose (75-99) mg/dL 02/06/21 Range/Units 06:29 WBC (3.8-10.6) k/uL RBC (4.30-5.90) m/uL Hgb (13.0-17.5) gm/dL Hct (39.0-53.0) % Neutrophils # (1.3-7.7) k/uL ABG pO2 (83-108) mmHg ABG HCO3 (21-25) mmol/L ABG Total CO2 (19-24) mmol/L ABG O2 Saturation (94-97) % ABG Hematocrit (34.0-46.0) % ABG Sodium (135-146) mmol/L ABG Ionized Calcium (4.5-5.3) mg/dL ABG Glucose (75-99) mg/dL ABG Lactic Acid (0.5-1.6) mmol/L Hemoglobin (13.0-17.5) gm/dL BUN (9-20) mg/dL Creatinine (0.66-1.25) mg/dL Glucose (74-99) mg/dL POC Glucose (mg/dL) 142 H (75-99) mg/dL AST (17-59) U/L ALT (4-49) U/L Total Protein (6.3-8.2) g/dL Albumin (3.5-5.0) g/dL Arterial Blood Glucose (75-99) mg/dL Assessment and Plan Assessment: Assessment #1 severe triple-vessel coronary artery disease #2 coronary artery bypass grafting 4 as described above #3 hypertension #4 dyslipidemia #5 mild cardiomyopathy Plan #1 continue the current medical regimen including dual antiplatelet therapy along with a statin #2 follow-up with the patient
[2021-02-06 12:35] LABS: Glucose,Whole Blood 139 mg/dL (75-99)
[2021-02-06] MEDS ORDERED: OXYBUTYNIN CHLORIDE 5 MG TAB PO STA (12:43)
--- NOTE | 2021-02-06 13:15 | XR ---
EXAMINATION TYPE: XR chest 1V portable DATE OF EXAM: 02/06/2021 COMPARISON: 02/05/2021 INDICATION: Post cardiac surgery TECHNIQUE: Single frontal view of the chest is obtained. FINDINGS: The heart size is normal. The pulmonary vasculature is normal. The lungs are clear. Baker-Yeison catheter is been removed. Sternotomy wires are present from the patient's CABG. IMPRESSION: 1. Continued improving bilateral lung infiltrates.
--- NOTE | 2021-02-06 13:29 | P.PN ---
Subjective Progress Note Date: 02/06/21 Principal diagnosis: Ventilator management. 81-year-old black male, followed by Dr. Khan on the outpatient basis. The patient has a history of CAD, previous angioplasty and stent placement, remote history of myocardial infarction, hypertension, hyperlipidemia, prostate cancer, status post prostatectomy, erectile dysfunction, sleep apnea, morbid obesity, among other things. Recently, he was referred to one of the mobile lounge driver or operator for evaluation. He was to see a mobile lounge driver or operator before seeing a N test. Unfortunately, a stress echocardiogram showed evidence of previous anterior apical and septal myocardial infarction, without any inducible ischemia. A cardiac catheterization was performed, and demonstrated a 50% stenosis to the left main coronary artery, a 60% stenosis to his right coronary artery and 80% stenosis to the circumflex coronary artery, and a 70% stenosis to his proximal left anterior descending coronary artery. The patient was referred to the cardiothoracic surgeon and underwent a FAULKNER to LAD bypass, left radial to ramus , left radial to distal circumflex coronary artery, and SVG To PDA bypass the patient also had a left atrial ligation procedure. Today is postop day #1. The patient did take quite a bit of time to get extubated from mechanical v entilation after leaving the operating room, approximately 10 hours or so. Currently, he is on 4 L nasal cannula, Primacor at 0.1 micrograms per kilogram per minute, saline at 50 mL an hour, and insulin-dependent 3.5 units an hour. The patient is sitting up in the chair next to his bed. White count 11.4, hemoglobin 8.8, hematocrit 27.3, and platelet count 158,000. Sodium 140, potassium 4.3, chlorides 108, CO2 23, anion gap 9, BUN 17, creatinine 1.17. Chest x-ray shows bilateral infiltrates and a small effusion with some central venous congestion. Progress note dated 02/05/2021. 81-year-old black male, postop day #2, status post four-vessel bypass grafting. The patient had routine postoperative ventilator management, and carries with him a diagnosis of myocardial infarction essential hypertension hyperlipidemia prostate cancer erectile dysfunction morbid obesity, sleep apnea syndrome. Currently, the patient's on 4 L nasal cannula. He is on saline at 30 mL an hour, and insulin drip at 3.5 units an hour. The patient's a bit confused this morning. In no distress. He has been seen by cardiothoracic surgery already today. White count 10.7, hemoglobin 8.7, hematocrit 26.1, platelet count 118,000. Sodium 138, potassium 4.4, chlorides 108, CO2 23, anion gap 7, BUN 26, creatinine 1.61. Chest x-ray showed bibasilar infiltrates, and a small right- sided pleural effusion. CT of the brain showed nothing acute, CT angiography was negative. Progress note dated 02/06/2021. 81-year-old white male, postop day #3, status post four-vessel bypass grafting. Currently, he's on 3 L. He's not receiving any IV fluids. He is doing much better today. He is much more alert and oriented. Yesterday he was quite confused, pulling out lines, etc. He has a history of myocardial infarction, essential hypertension, hyperlipidemia, prostate cancer, erectile dysfunction, morbid obesity, and sleep apnea syndrome. White count 13.5, hemoglobin 8, hematocrit 25.8, and platelet count 153,000. Sodium potassium chloride CO2 all normal. Anion gap normal. BUN and creatinine were 42 and 1.62. Chest x-rays is improved. Objective - Vital Signs Vital signs: Vital Signs Temp 98.4 F 02/06/21 08:00 Pulse 86 02/06/21 10:00 Resp 19 02/06/21 10:00 BP 112/67 02/06/21 10:00 Pulse Ox 99 02/06/21 10:00 Intake & Output 02/05/21 02/06/21 02/06/21 18:59 06:59 18:59 Intake Total 259.302 156 18 Output Total 880 560 310 Balance -620.698 -404 -292 Weight 105.3 kg Intake: IV 178 36 18 Sodium Chloride 0.9% 1, 80 000 ml @ 20 mls/hr IV . Q24H ELISA Rx#:[id number] co/ci 50 pressure bags 48 36 18 Intake, IV Titration 81.302 Amount Insulin Regular 100 unit 7.718 In Sodium Chloride 0.9% 100 ml @ Per Protocol IV .Q0M ELISA Rx#:[id number] Milrinone-D5w Pmx 20 mg 73.584 In Dextrose/Water 1 100ml .bag @ 0.1 MCG/KG/MIN 3. 066 mls/hr IV .Q24H ELISA Rx#:[id number] Oral 120 Output: Chest Tube Drainage 20 180 10 Chest Tube Lateral Chest 20 180 10 Chest Tube Mediastinal 0 Drainage 50 Left Lower Lateral Chest 50 Urine 860 380 250 Other: Voiding Method Indwelling Catheter Indwelling Catheter Indwelling Catheter # Bowel Movements 1 ABP, PAP, CO, CI - Last Documented Arterial Blood Pressure 144/56 Pulmonary Artery Pressure 38/13 Cardiac Output 4.4 Cardiac Index 2.1 - Exam No acute distress, much more alert and oriented today. Nasal O2 at 3L. HEENT examination is grossly unremarkable. Neck supple. Full range of motion. No adenopathy thyromegaly or neck vein distention. Cardiovascular examination reveals regular rhythm rate. S1-S2 normal. No S3 or S4. No discernible murmur noted. Heart rate 86 bpm. Lungs reveal scattered rhonchi. No wheezes or crackles. Breath sounds equal. Abdomen soft bowel sounds are heard. No masses or tenderness. Extremities are intact. No cyanosis clubbing or edema. Skin is without rash or lesion. Neurologic examination is brief but nonfocal. - Labs CBC & Chem 7: 02/06/21 04:35 02/06/21 04:35 Labs: Abnormal Lab Results - Last 24 Hours (Table) 02/03/21 02/03/21 02/05/21 Range/Units 13:40 14:16 17:10 WBC (3.8-10.6) k/uL RBC (4.30-5.90) m/uL Hgb (13.0-17.5) gm/dL Hct (39.0-53.0) % Neutrophils # (1.3-7.7) k/uL ABG pO2 247 H 297 H (83-108) mmHg ABG HCO3 26 H (21-25) mmol/L ABG Total CO2 27 H 26 H (19-24) mmol/L ABG O2 Saturation 100.0 H 100.0 H (94-97) % ABG Hematocrit 19 L* 18 L* (34.0-46.0) % ABG Sodium 134 L (135-146) mmol/L ABG Ionized Calcium 4.0 L 4.0 L (4.5-5.3) mg/dL ABG Glucose 198 H 189 H (75-99) mg/dL ABG Lactic Acid 2.7 H* 3.2 H* (0.5-1.6) mmol/L Hemoglobin 6.2 L* 5.7 L* (13.0-17.5) gm/dL BUN (9-20) mg/dL Creatinine (0.66-1.25) mg/dL Glucose (74-99) mg/dL POC Glucose (mg/dL) 127 H (75-99) mg/dL AST (17-59) U/L ALT (4-49) U/L Total Protein (6.3-8.2) g/dL Albumin (3.5-5.0) g/dL Arterial Blood Glucose 198 H 189 H (75-99) mg/dL 02/05/21 02/06/21 02/06/21 Range/Units 19:48 01:05 04:35 WBC 13.5 H (3.8-10.6) k/uL RBC 2.89 L (4.30-5.90) m/uL Hgb 8.0 L (13.0-17.5) gm/dL Hct 25.8 L (39.0-53.0) % Neutrophils # 10.6 H (1.3-7.7) k/uL ABG pO2 (83-108) mmHg ABG HCO3 (21-25) mmol/L ABG Total CO2 (19-24) mmol/L ABG O2 Saturation (94-97) % ABG Hematocrit (34.0-46.0) % ABG Sodium (135-146) mmol/L ABG Ionized Calcium (4.5-5.3) mg/dL ABG Glucose (75-99) mg/dL ABG Lactic Acid (0.5-1.6) mmol/L Hemoglobin (13.0-17.5) gm/dL BUN (9-20) mg/dL Creatinine (0.66-1.25) mg/dL Glucose (74-99) mg/dL POC Glucose (mg/dL) 135 H 174 H (75-99) mg/dL AST (17-59) U/L ALT (4-49) U/L Total Protein (6.3-8.2) g/dL Albumin (3.5-5.0) g/dL Arterial Blood Glucose (75-99) mg/dL 02/06/21 02/06/21 02/06/21 Range/Units 04:35 06:29 12:34 WBC (3.8-10.6) k/uL RBC (4.30-5.90) m/uL Hgb (13.0-17.5) gm/dL Hct (39.0-53.0) % Neutrophils # (1.3-7.7) k/uL ABG pO2 (83-108) mmHg ABG HCO3 (21-25) mmol/L ABG Total CO2 (19-24) mmol/L ABG O2 Saturation (94-97) % ABG Hematocrit (34.0-46.0) % ABG Sodium (135-146) mmol/L ABG Ionized Calcium (4.5-5.3) mg/dL ABG Glucose (75-99) mg/dL ABG Lactic Acid (0.5-1.6) mmol/L Hemoglobin (13.0-17.5) gm/dL BUN 42 H (9-20) mg/dL Creatinine 1.62 H (0.66-1.25) mg/dL Glucose 145 H (74-99) mg/dL POC Glucose (mg/dL) 142 H 139 H (75-99) mg/dL AST 111 H (17-59) U/L ALT 60 H (4-49) U/L Total Protein 5.5 L (6.3-8.2) g/dL Albumin 3.2 L (3.5-5.0) g/dL Arterial Blood Glucose (75-99) mg/dL Assessment and Plan Assessment: Postop day #2, status post FAULKNER to LAD bypass, left radial to ramus and distal circumflex bypass, and SVG to PDA bypass, with left atrial ligation. Routine postoperative ventilator management. History of CAD, with previous angioplasty and stent. Remote history of myocardial infarction. History of essential hypertension. History of hyperlipidemia. History of prostate cancer, status post prostatectomy. History of erectile dysfunction. Morbid obesity. History of sleep apnea syndrome, without home CPAP use. Confusion, with negative computed tomography scan of the brain, and CT angiography, improved. Plan: Plan dated 02/04/2021. The patient seems be doing reasonably well. He is currently on 4 L. We encourage him to deep breathe, cough, and clear secretions. We also expect him to use incentive spirometer every hour while awake. Additional recommendations and suggestions are forthcoming. Prognosis is guarded. We will continue to follow this patient and make recommendations were appropriate. Plan dated 02/05/2021. The patient was a bit confused and disoriented this morning. He pulled out some of his IVs. We encourage deep breathing, coughing, and clearing of secretions. We also recommend hourly use of the incentive spirometer. CT of the brain did not show anything acute. CT angiography did not show any significant blood vessel stenosis. We will continue to follow. Additional recommendations and suggestions are forthcoming. Labs, x-rays, and medications are all reviewed. Prognosis is guarded. Plan dated 02/06/2021. Currently, the patient is doing much better. He is much more awake and alert. The patient is postop day #3. He remains on 3 L nasal cannula. Is not receiving any IV fluids. He is status post four-vessel bypass grafting. The patient was evaluated for possible CVA, and everything turned out negative. We will continue to follow. We encourage him to deep breathe, cough, and clear secretions, as well as use the incentive spirometer every hour. Time with Patient: Less than 30
--- NOTE | 2021-02-06 14:04 | PN ---
PROGRESS NOTE DATE OF SERVICE: 02/06/2021 I am covering for Dr. Mix. INTERVAL HISTORY: This 81-year-old gentleman who was admitted after CAD, CABG also had elevated blood sugars. The patient was slightly more confused yesterday. Today the patient is much more improved. The patient has bilateral infiltrates. The hemoglobin today was found to be 8 and creatinine is 1.62. PAST MEDICAL HISTORY: Reviewed. REVIEW OF SYSTEMS: CARDIOVASCULAR: No angina or palpitations. RESPIRATORY: As mentioned earlier. GI: As mentioned earlier. : No dysuria. NERVOUS SYSTEM: No numbness or weakness. CURRENT MEDICATIONS: Reviewed and include Tylenol, DuoNeb, Cordarone, Norvasc, aspirin, Lipitor, Cepacol, Plavix. Other doses and medication noted. PHYSICAL EXAM: GENERAL: Patient is alert and oriented times three. VITAL SIGNS: Pulse 86, blood pressure 112/67, respirations 19, temperature 98.5. HEENT: Conjunctivae pale. NECK: No jugular venous distention. No carotid bruits. RESPIRATORY: Breath sounds diminished at the bases. A few scattered rhonchi. HEART: S1 and S2, muffled. ABDOMEN: Soft, no tenderness. NERVOUS: No focal deficits. LABS: WBC 13, hemoglobin is 8. ASSESSMENT: 1. Coronary artery disease status post CABG. 2. History of gastroesophageal reflux disease. 3. Elevated blood glucose. 4. Hypertension. 5. History of myocardial infarction. 6. History of sleep apnea. 7. History of prostate cancer. 8. History of coronary artery disease, stent. 9. FULL CODE. RECOMMENDATIONS AND DISCUSSION: Continue current management and symptomatic treatment. Continue with DVT prophylaxis. Continue with Accu-Cheks with a.c. and h.s. scale. Blood sugars are well controlled at this time. I would also recommend CBC and monitor creatinine closely. The patient is on amiodarone. Further recommendations to follow. Incentive spirometry. MMODL / IJN: [id number] /
[2021-02-06 17:20] LABS: Glucose,Whole Blood 104 mg/dL (75-99)
[2021-02-06 20:19] LABS: Glucose,Whole Blood 177 mg/dL (75-99)
[2021-02-06] MEDS: SENNOSIDES-DOCUSATE SODIUM 1 EACH TAB PO SCH (20:30)
[2021-02-07 04:59] LABS: HCT 23.8 % (39.0-53.0); Hypochromasia Slight; MCH 29.3 pg (25.0-35.0); MCHC 33.6 g/dL (31.0-37.0); MCV 87.2 fL (80.0-100.0); Platelet Count 216 k/uL (150-450); RBC 2.72 m/uL (4.30-5.90); RDW 14.5 % (11.5-15.5); WBC 12.8 k/uL (3.8-10.6)
[2021-02-07 06:36] LABS: Calcium 8.4 mg/dL (8.4-10.2); Magnesium 2.7 mg/dL (1.6-2.3); Potassium 4.4 mmol/L (3.5-5.1); Total Bilirubin 0.8 mg/dL (0.2-1.3); Total Protein 5.4 g/dL (6.3-8.2)
[2021-02-07] MEDS: INSULIN ASPART (NovoLOG) 100 UNIT/ML VIAL SQ SCH ×4 (06:49→22:02)
[2021-02-07 06:50] LABS: Glucose,Whole Blood 112 mg/dL (75-99)
[2021-02-07] MEDS: PANTOPRAZOLE 40 MG TABLET PO SCH (06:51)
[2021-02-07] MEDS ORDERED: FUROSEMIDE 10 MG/ML 2 ML VIAL IV ONE (07:12)
[2021-02-07] MEDS: HEPARIN SODIUM,PORCINE/PF 5,000 UNIT/0.5 ML SYRINGE SQ SCH ×2 (07:19→16:34)
--- NOTE | 2021-02-07 07:21 | P.PN ---
Subjective Progress Note Date: 02/07/21 Principal diagnosis: Triple-vessel coronary artery disease. Previous medical history of prior anteroapical myocardial infarction with diffuse coronary artery disease and PCI stenting, obesity, hypertension, hyperlipidemia, obstructive sleep apnea without home CPAP use, history of prostate cancer status post prostatectomy with subsequent erectile dysfunction POD #4 quadruple coronary artery bypass grafting using the left internal mammary artery to the left anterior descending artery, left radial artery to the ramus intermedius artery in a [id number] fashion sequentially, then to the distal circumflex artery in an end to side fashion, reverse saphenous vein graft from t he aorta to the posterior descending artery, exclusion of the left atrial appendage using a 35 mm AtriClip, endoscopic harvesting of the left radial artery, endoscopic harvesting of the right greater saphenous vein from the groin to above the ankle level, intraoperative graft flow measurements using the MarkTend system, intraoperative transesophageal echocardiogram and epi-aortic scanning. Postoperative acute blood loss anemia, expected given hemodilution and cardiopulmonary bypass pump Confusion, unclear etiology, CT of the brain negative for any acute process The patient is currently sitting up in a recliner in the intensive care unit in no acute distress. States postsurgical incisional pain controlled on current medication regimen, denies shortness of breath. The patient has had no more confusion. Last night he was calm and cooperative all night with no confusion per nursing. Currently he is alert and oriented 3, cooperative and able to move all extremities. Currently in sinus rhythm with occasional PACs. Hemodynamically stable on no inotropes or pressors. Did ambulate in room yesterday with assist x 2. Left pleural chest tube, right radial arterial line, epicardial pacemaker wires remain present. No other new concerns. Objective - Vital Signs Vital signs: Vital Signs Temp 103.6 F H 02/07/21 05:00 Pulse 73 02/07/21 06:00 Resp 20 02/07/21 06:00 BP 118/62 02/07/21 06:00 Pulse Ox 90 L 02/07/21 06:00 Intake & Output 02/06/21 02/07/21 02/07/21 18:59 06:59 18:59 Intake Total 39 30 Output Total 595 770 Balance -556 -740 Weight 105.4 kg Intake: IV 39 30 pressure bags 39 30 Output: Chest Tube Drainage 10 90 Chest Tube Lateral Chest 10 90 Drainage 90 80 Left Lower Lateral Chest 90 80 Urine 495 600 Other: Voiding Method Indwelling Catheter Indwelling Catheter # Bowel Movements 1 ABP, PAP, CO, CI - Last Documented Arterial Blood Pressure 145/54 Pulmonary Artery Pressure 38/13 Cardiac Output 4.4 Cardiac Index 2.1 - Exam CONSTITUTIONAL: Appears comfortable, cooperative, no acute distress RESPIRATORY: Lungs sounds diminished bilaterally. Respirations even, nonlabored. Currently on 2 L nasal cannula with oxygen saturation 97%. Barely able to achieve 500 mL on incentive spirometry. Weak cough. CARDIOVASCULAR: S1, S2 present. Regular rate and rhythm, sinus rhythm with occasional PACs on telemetry. Sternum stable. Palpable peripheral pulses bilaterally. Generalized edema present. No calf pain or tenderness noted. Heart hugger in place with patient demonstrating appropriate use. Antiembolism stockings, SCDs present. GASTROINTESTINAL: Abdomen soft, nontender, nondistended. Active bowel sounds present 4 quadrants. Tolerating diet. Positive bowel movement 02/06/21 GENITOURINARY: Taylor present draining clear, yellow urine. Output overnight 30-40 mL per hour, 1240 mL in the last 24 hours INTEGUMENTARY: Skin is warm and dry with evidence of good perfusion. Anterior chest incision well approximated and covered with dry intact dressing. Right lower extremity EVH site well approximated without redness or drainage. Left radial artery harvest site well approximated without redness or drainage, patient able to move his fingers and butter fat tester appropriately, good cap refill NEUROLOGIC: Cranial nerves II through XII intact MUSKULOSKELETAL: Able to move all extremities, strength equal bilaterally. Able to ambulate short distances with assist x 2 PSYCHIATRIC: Alert and oriented x 3. Following commands. INVASIVE LINES AND TUBES: Left pleural chest tubes present and connected to wall suction, no air leak present, 60 mL serosanguineous drainage overnight, 220 mL in the last 24 hours. A/V epicardial pacemaker wires present, grounded. Right radial arterial line present. - Allied health notes Allied health notes reviewed: nursing - Labs CBC & Chem 7: 02/07/21 04:45 02/07/21 04:45 Labs: Abnormal Lab Results - Last 24 Hours (Table) 02/06/21 02/06/21 02/06/21 Range/Units 12:34 17:19 20:13 WBC (3.8-10.6) k/uL RBC (4.30-5.90) m/uL Hgb (13.0-17.5) gm/dL Hct (39.0-53.0) % Chloride (98-107) mmol/L BUN (9-20) mg/dL Creatinine (0.66-1.25) mg/dL Glucose (74-99) mg/dL POC Glucose (mg/dL) 139 H 104 H 177 H (75-99) mg/dL Magnesium (1.6-2.3) mg/dL AST (17-59) U/L ALT (4-49) U/L Total Protein (6.3-8.2) g/dL Albumin (3.5-5.0) g/dL 02/07/21 02/07/21 02/07/21 Range/Units 04:45 04:45 06:48 WBC 12.8 H (3.8-10.6) k/uL RBC 2.72 L (4.30-5.90) m/uL Hgb 8.0 L (13.0-17.5) gm/dL Hct 23.8 L (39.0-53.0) % Chloride 110 H (98-107) mmol/L BUN 43 H (9-20) mg/dL Creatinine 1.55 H (0.66-1.25) mg/dL Glucose 115 H (74-99) mg/dL POC Glucose (mg/dL) 112 H (75-99) mg/dL Magnesium 2.7 H (1.6-2.3) mg/dL AST 142 H (17-59) U/L ALT 156 H (4-49) U/L Total Protein 5.4 L (6.3-8.2) g/dL Albumin 3.0 L (3.5-5.0) g/dL - Imaging and Cardiology Chest x-ray: image reviewed Assessment and Plan Assessment: 1. Triple-vessel coronary artery disease, status post four-vessel CABG 2. History of prior anteroapical myocardial infarction with diffuse coronary artery disease and PCI stenting 3. Hypertension 4. Hyperlipidemia, treated, cholesterol 221, LDL 151 5. Obstructive sleep apnea without home CPAP use 6. Obesity 7. Never smoker with preoperative FEV1 78% of predicted 8. History of prostate cancer status post prostatectomy with subsequent erectile dysfunction 9. Postoperative acute blood loss anemia, expected 10. Confusion, unclear etiology, CT of brain negative, ammonia level negative, no narcotics given Plan: 1. Continue aspirin, statin, Plavix, beta ari therapy. Will increase beta ari therapy as tolerated 2. Continue Norvasc for radial artery spasm. Do not discontinue CCB without discussed with cardiac surgery 3. Continue oral amiodarone for A. fib prophylaxis 4. Wean O2 as tolerated. Encourage incentive spirometry use 10 times every hour while awake. Bronchodilators per pulmonology 5. Increase activity, ambulate as tolerated. PT/OT/cardiac rehab consulted 6. Will monitor daily labs and x-rays. Electrolyte replacement per protocol. No further transfusion at this time. Will give lasix 20 mg IVP x 1 7. GI/DVT prophylaxis 8. Pain control with current medication regimen 9. Insulin management per primary care service. Patient is not diabetic, hemoglobin A1c 5.6% 10. Reorient as needed, neuro checks 11. Will discontinue left pleural chest tube. Keep radial arterial line until transfer out of ICU 12. Discontinue Taylor catheter after diuresis. May bladder scan and straight cath for >300 mL residual 13. Strict accurate intake and output. Daily weights. 14. Will place transfer orders later this afternoon, [facility] 15. More recommendations to follow based on patient's progress Time with Patient: Greater than 30
--- NOTE | 2021-02-07 08:13 | P.PN ---
Subjective Progress Note Date: 02/07/21 81-year-old black male, followed by Dr. Khan on the outpatient basis. The patient has a history of CAD, previous angioplasty and stent placement, remote history of myocardial infarction, hypertension, hyperlipidemia, prostate cancer, status post prostatectomy, erectile dysfunction, sleep apnea, morbid obesity, among other things. Recently, he was referred to one of the data migration lead for evaluation. He was to see a data migration lead before seeing a N test. Unfortunately, a stress echocardiogram showed evidence of previous anterior apical and septal myocardial infarction, without any inducible ischemia. A cardiac catheterization was performed, and demonstrated a 50% stenosis to the left main coronary artery, a 60% stenosis to his right coronary artery and 80% stenosis to the circumflex coronary artery, and a 70% stenosis to his proximal left anterior descending coronary artery. The patient was referred to the cardiothoracic surgeon and underwent a FAULKNER to LAD bypass, left radial to ramus , left radial to distal circumflex coronary artery, and SVG To PDA bypass the patient also had a left atrial ligation procedure. Today is postop day #1. The patient did take quite a bit of time to get extubated from mechanical ventilation after leaving the operating room, approximately 10 hours or so. Currently, he is on 4 L nasal cannula, Primacor at 0.1 micrograms per kilogram per minute, saline at 50 mL an hour, and insulin-dependent 3.5 units an hour. The patient is sitting up in the chair next to his bed. White count 11.4, hemoglobin 8.8, hematocrit 27.3, and platelet count 158,000. Sodium 140, potassium 4.3, chlorides 108, CO2 23, anion gap 9, BUN 17, creatinine 1.17. Chest x-ray shows bilateral infiltrates and a small effusion with some central venous congestion. Progress note dated 02/05/2021. 81-year-old black male, postop day #2, status post four-vessel bypass grafting. The patient had routine postoperative ventilator management, and carries with him a diagnosis of myocardial infarction essential hypertension hyperlipidemia prostate cancer erectile dysfunction morbid obesity, sleep apnea syndrome. Currently, the patient's on 4 L nasal cannula. He is on saline at 30 mL an hour, and insulin drip at 3.5 units an hour. The patient's a bit confused this morning. In no distress. He has been seen by cardiothoracic surgery already today. White count 10.7, hemoglobin 8.7, hematocrit 26.1, platelet count 118,000. Sodium 138, potassium 4.4, chlorides 108, CO2 23, anion gap 7, BUN 26, creatinine 1.61. Chest x-ray showed bibasilar infiltrates, and a small right- sided pleural effusion. CT of the brain showed nothing acute, CT angiography was negative. Progress note dated 02/06/2021. 81-year-old white male, postop day #3, status post four-vessel bypass grafting. Currently, he's on 3 L. He's not receiving any IV fluids. He is doing much better today. He is much more alert and oriented. Yesterday he was quite confused, pulling out lines, etc. He has a history of myocardial infarction, essential hypertension, hyperlipidemia, prostate cancer, erectile dysfunction, morbid obesity, and sleep apnea syndrome. White count 13.5, hemoglobin 8, hematocrit 25.8, and platelet count 153,000. Sodium potassium chloride CO2 all normal. Anion gap normal. BUN and creatinine were 42 and 1.62. Chest x-rays is improved. On today's evaluation of 02/07/2021 the patient is postop day #4: Four-vessel bypass surgery. The patient was extubated without any major difficulties and the patient is currently at 2 L about 2 by nasal cannula. Mentally is awake and alert and is no focal neurological deficits. The patient is doing well on his incentive spirometer. His chest x-ray showing some limited atelectatic changes small effusion the lung bases bilaterally. These are consistent with post bypass changes. The patient is currently on a combination of aspirin and Plavix. The patient is also on metoprolol 50 mg by mouth twice a day. The patient is on Norvasc 5 mg by mouth daily for blood pressure control also. He is on NovoLog 5. Coverage for blood sugar control. The patient is also known to have hypertension, hyperlipidemia, prostate cancer, the patient is obese with known history of obstructive sleep apnea chest x-rays showing post thoracotomy changes. The patient is atelectatic changes in the lung bases bilaterally in addition to possibly some effusion on the right. The left-sided chest tube is still in place and output is no order of 100 mL overnight. No evidence of any air leak. No evidence of any pneumothorax. The patient remains in a negative fluid balance. Hemoglobin today is at 8 Objective - Vital Signs Vital signs: Vital Signs Temp 103.6 F H 02/07/21 05:00 Pulse 73 02/07/21 06:00 Resp 20 02/07/21 06:00 BP 118/62 02/07/21 06:00 Pulse Ox 90 L 02/07/21 06:00 Intake & Output 02/06/21 02/07/21 02/07/21 18:59 06:59 18:59 Intake Total 39 30 3 Output Total 595 770 125 Balance -556 -420 -122 Weight 105.4 kg Intake: IV 39 30 3 pressure bags 39 30 3 Output: Chest Tube Drainage 10 90 Chest Tube Lateral Chest 10 90 Drainage 90 80 Left Lower Lateral Chest 90 80 Urine 495 600 125 Other: Voiding Method Indwelling Catheter Indwelling Catheter # Bowel Movements 1 ABP, PAP, CO, CI - Last Documented Arterial Blood Pressure 145/54 Pulmonary Artery Pressure 38/13 Cardiac Output 4.4 Cardiac Index 2.1 - Exam No acute distress, much more alert and oriented today. Nasal O2 at 2 liters HEENT examination is grossly unremarkable. Neck supple. Full range of motion. No adenopathy thyromegaly or neck vein distention. Cardiovascular examination reveals regular rhythm rate. S1-S2 normal. No S3 or S4. No discernible murmur noted. Heart rate 86 bpm. Lungs reveal scattered rhonchi. No wheezes or crackles. Breath sounds equal. , The patient has a chest tube on the left side of the chest Abdomen soft bowel sounds are heard. No masses or tenderness. Extremities are intact. No cyanosis clubbing or edema. Skin is without rash or lesion. Neurologic examination is brief but nonfocal. - Labs CBC & Chem 7: 02/07/21 04:45 02/07/21 04:45 Labs: Abnormal Lab Results - Last 24 Hours (Table) 02/06/21 02/06/21 02/06/21 Range/Units 12:34 17:19 20:13 WBC (3.8-10.6) k/uL RBC (4.30-5.90) m/uL Hgb (13.0-17.5) gm/dL Hct (39.0-53.0) % Chloride (98-107) mmol/L BUN (9-20) mg/dL Creatinine (0.66-1.25) mg/dL Glucose (74-99) mg/dL POC Glucose (mg/dL) 139 H 104 H 177 H (75-99) mg/dL Magnesium (1.6-2.3) mg/dL AST (17-59) U/L ALT (4-49) U/L Total Protein (6.3-8.2) g/dL Albumin (3.5-5.0) g/dL 02/07/21 02/07/21 02/07/21 Range/Units 04:45 04:45 06:48 WBC 12.8 H (3.8-10.6) k/uL RBC 2.72 L (4.30-5.90) m/uL Hgb 8.0 L (13.0-17.5) gm/dL Hct 23.8 L (39.0-53.0) % Chloride 110 H (98-107) mmol/L BUN 43 H (9-20) mg/dL Creatinine 1.55 H (0.66-1.25) mg/dL Glucose 115 H (74-99) mg/dL POC Glucose (mg/dL) 112 H (75-99) mg/dL Magnesium 2.7 H (1.6-2.3) mg/dL AST 142 H (17-59) U/L ALT 156 H (4-49) U/L Total Protein 5.4 L (6.3-8.2) g/dL Albumin 3.0 L (3.5-5.0) g/dL Assessment and Plan Plan: 1 Postop day #4, status post FAULKNER to LAD bypass, left radial to ramus and distal circumflex bypass, and SVG to PDA bypass, with left atrial ligation. 2 Routine postoperative ventilator management, post thoracotomy and the patient has been extubated successfully currently on 2 liters cannula , still has atelectatic changes in lung bases bilaterally and the patient has a left-sided chest tube in place without evidence of any air leak with minimal amount of output. 3 History of CAD, with previous angioplasty and stent. 4 Remote history of myocardial infarction. 5 History of essential hypertension. 6 History of hyperlipidemia. 7 History of prostate cancer, status post prostatectomy. 8 History of erectile dysfunction. 9 Morbid obesity. 10 History of sleep apnea syndrome, without home CPAP use. 11 Confusion, with negative computed tomography scan of the brain, and CT angiography, improved. Plan: The patient seems be doing reasonably well. Wean down the FiO2 currently on 2 L. encourage use of incentive spirometer Considered removing the left-sided chest tube Neurologic events were noted and the patient underwent computed tomography scan of the brain and CT angiogram of the brain that showed no acute abnormalities and the mental status improved We'll continue to follow Transfer out of the intensive care unit
[2021-02-07] MEDS: amLODIPine 5 MG TAB PO SCH (09:02)
[2021-02-07] MEDS: ATORVASTATIN 40 MG TAB PO SCH (09:02)
[2021-02-07] MEDS: ASPIRIN 325 MG TAB PO SCH (09:02)
[2021-02-07] MEDS: AMIODARONE 200 MG TAB PO SCH ×2 (09:02→20:46)
[2021-02-07] MEDS: CLOPIDOGREL 75 MG TAB PO SCH (09:03)
[2021-02-07] MEDS: METOPROLOL TARTRATE 50 MG TAB PO SCH ×2 (09:03→20:48)
--- NOTE | 2021-02-07 09:09 | XR ---
EXAMINATION TYPE: XR chest 1V portable DATE OF EXAM: 02/07/2021 COMPARISON: 02/06/2021 HISTORY: Post cardiac surgery TECHNIQUE: Single frontal view of the chest is obtained. FINDINGS: Postsurgical change with bilateral infiltrate and small effusion. Heart size enlarged. Sug gestion of epicardial lead and left-sided chest tube. No sizable pneumothorax. Atherosclerotic change aorta. IMPRESSION: 1. Bilateral lower lobe infiltrate and small effusion stable.
--- NOTE | 2021-02-07 09:39 | PN ---
PROGRESS NOTE Mr. Jaimes is a 81-year-old male who is followed by Dr. Boo on a regular basis. He underwent coronary artery bypass grafting by Dr. James on the 03 of February. He received at that time FAULKNER to LAD, left radial to the ramus and to the distal left circumflex, saphenous vein graft to the PDA with clipping of the left atrial appendage. He is awake, alert, sitting up in the chair. Hemodynamically, he is stable. He denies any chest discomfort. He is complaining of some bladder spasm. He denies any dizziness or palpitation. No nausea. He is in sinus mechanism. He continues to be at this time on aspirin once a day, amiodarone 400 mg twice a day, amlodipine 5 mg daily, Lipitor 40 mg daily, Plavix 75 mg daily, insulin, metoprolol tartrate 50 mg twice a day. PHYSICAL EXAMINATION: Blood pressure 118/60 with a heart rate in the 70s. LUNGS: With mild decrease in the bases. No wheezes. HEART: Regular rate and rhythm. S1, S2. No S3. A soft rub. No gallop. ABDOMEN: Soft, nontender. EXTREMITIES: No edema. LAB DATA: Lab data revealed BUN and creatinine 43 and 1.55, which has improved compared to yesterday, remains higher than his baseline. His hemoglobin is 8. IMPRESSION: 1. Status post coronary artery bypass grafting. 2. Renal failure, stabilizing. 3. Episode of confusion, improving. 4. Hyperlipidemia. 5. Hypertension. RECOMMENDATION: From the cardiac standpoint, will continue present therapy increase his level activity. Continue incentive spirometry, probably discontinue the Taylor catheter, and probably transfer to telemetry floor. MMODL / IJN: [id number] /
[2021-02-07 11:48] LABS: Glucose,Whole Blood 116 mg/dL (75-99)
[2021-02-07] MEDS: IPRATROPIUM-ALBUTEROL 3 ML NEB INHALATION SCH ×2 (13:06→17:33)
--- NOTE | 2021-02-07 16:11 | P.PN ---
Subjective Progress Note Date: 02/07/21 This is a 81-year-old gentleman status post CABG, postop day #3. Vital signs stable, maintaining O2 sats in the high 90s on 3 L nasal cannula. Sensorium significantly improved. BUN 43, creatinine 1.55. Blood sugars controlled. Afebrile, WBC 12.8. Hemoglobin 8, platelets 216. Magnesium 2.7. T bili within normal limits, AST, ALT, alk phos climbing up. Telemetry reporting sinus rhythm with occasional PAC. Incentive spirometer up to 500 ML. Blood sugars controlled. Objective - Vital Signs Vital signs: Vital Signs Temp 98.4 F 02/07/21 12:00 Pulse 69 02/07/21 12:00 Resp 18 02/07/21 12:00 BP 141/54 02/07/21 12:00 Pulse Ox 97 02/07/21 12:37 Intake & Output 02/06/21 02/07/21 02/07/21 18:59 06:59 18:59 Intake Total 39 30 6 Output Total 595 770 800 Balance -516 -740 -794 Weight 105.4 kg Intake: IV 39 30 6 pressure bags 39 30 6 Output: Chest Tube Drainage 10 90 Chest Tube Lateral Chest 10 90 Drainage 90 80 Left Lower Lateral Chest 90 80 Urine 495 600 800 Other: Voiding Method Indwelling Catheter Indwelling Catheter Urinal # Bowel Movements 1 ABP, PAP, CO, CI - Last Documented Arterial Blood Pressure 145/54 Pulmonary Artery Pressure 38/13 Cardiac Output 4.4 Cardiac Index 2.1 - Exam PHYSICAL EXAM: VITAL SIGNS: [As above] GENERAL: Sitting up in chair, no acute distress HEENT: Conjunctivae normal. eyes normal. NECK: No JVD. No thyroid enlargement. No LNs CARDIOVASCULAR: S1, S2 regular.. No murmur RESPIRATION: Breath sounds diminished in the bases. Scattered rhonchi, no crackles. Left pleural chest tube. ABDOMEN: Soft, nontender . No guarding. no masses palpable. Positive Bowel sounds. LEGS: No edema. no swelling PSYCHIATRY: Alert and oriented X3, mood and affect normal. NERVOUS SYSTEM: Cranial N 2-12 grossly normal. Moves all 4 limbs.No focal deficits. Strength and sensation grossly intact. Skin: Warm and dry, no rash - Labs CBC & Chem 7: 02/07/21 04:45 02/07/21 04:45 Labs: Abnormal Lab Results - Last 24 Hours (Table) 02/06/21 02/06/21 02/07/21 Range/Units 17:19 20:13 04:45 WBC 12.8 H (3.8-10.6) k/uL RBC 2.72 L (4.30-5.90) m/uL Hgb 8.0 L (13.0-17.5) gm/dL Hct 23.8 L (39.0-53.0) % Chloride (98-107) mmol/L BUN (9-20) mg/dL Creatinine (0.66-1.25) mg/dL Glucose (74-99) mg/dL POC Glucose (mg/dL) 104 H 177 H (75-99) mg/dL Magnesium (1.6-2.3) mg/dL AST (17-59) U/L ALT (4-49) U/L Total Protein (6.3-8.2) g/dL Albumin (3.5-5.0) g/dL 02/07/21 02/07/21 02/07/21 Range/Units 04:45 06:48 11:47 WBC (3.8-10.6) k/uL RBC (4.30-5.90) m/uL Hgb (13.0-17.5) gm/dL Hct (39.0-53.0) % Chloride 110 H (98-107) mmol/L BUN 43 H (9-20) mg/dL Creatinine 1.55 H (0.66-1.25) mg/dL Glucose 115 H (74-99) mg/dL POC Glucose (mg/dL) 112 H 116 H (75-99) mg/dL Magnesium 2.7 H (1.6-2.3) mg/dL AST 142 H (17-59) U/L ALT 156 H (4-49) U/L Total Protein 5.4 L (6.3-8.2) g/dL Albumin 3.0 L (3.5-5.0) g/dL Assessment and Plan Assessment: CAD, Triple-vessel, status post CABG Acute metabolic encephalopathy, sensorium significantly improved Mildly elevated LFTs History of CAD with MO and prior stenting Hypertension Hyperlipidemia Morbid Obesity, BMI 37.5 Obstructive sleep apnea, does not use CPAP at home Prostate cancer status post prostatectomy Plan: Continue on current medication regime ,monitoring and symptomatic treatment. Aggressive pulmonary toileting with incentive spirometer reinforced. Increase ambulation as tolerated. Close monitoring of Accu-Cheks. Continue trending LFTs. Cleared for transfer out of ICU as per axle and frame mechanic and cardiothoracic surgery. The impression and plan of care has been dictated as directed. : I performed a history and examination of this patient, discussed the same with the dictator. I agree with the dictator's note ,documented as a scribe. Any additional findings or plans will be noted.
[2021-02-07 16:19] LABS: Glucose,Whole Blood 132 mg/dL (75-99)
[2021-02-07 17:10] LABS: Glucose,Whole Blood 138 mg/dL (75-99)
[2021-02-07] MEDS: SENNOSIDES-DOCUSATE SODIUM 1 EACH TAB PO SCH (20:48)
[2021-02-07 20:56] LABS: Glucose,Whole Blood 121 mg/dL (75-99)
[2021-02-08] MEDS: IPRATROPIUM-ALBUTEROL 3 ML NEB INHALATION SCH ×5 (00:51→20:44)
[2021-02-08 05:53] LABS: Glucose,Whole Blood 131 mg/dL (75-99)
[2021-02-08] MEDS: INSULIN ASPART (NovoLOG) 100 UNIT/ML VIAL SQ SCH ×4 (06:41→21:32)
[2021-02-08] MEDS: PANTOPRAZOLE 40 MG TABLET PO SCH (06:41)
[2021-02-08 08:28] LABS: HCT 25.6 % (39.0-53.0); HGB 8.3 gm/dL (13.0-17.5); Hypochromasia Slight; MCH 28.6 pg (25.0-35.0); MCHC 32.4 g/dL (31.0-37.0); MCV 88.3 fL (80.0-100.0); Mean Platelet Volume 7.6; Platelet Count 277 k/uL (150-450); RDW 14.2 % (11.5-15.5); WBC 11.1 k/uL (3.8-10.6)
[2021-02-08 08:29] LABS: Albumin 3.1 g/dL (3.5-5.0); Calcium 8.6 mg/dL (8.4-10.2); Potassium 4.3 mmol/L (3.5-5.1); Total Protein 5.7 g/dL (6.3-8.2)
[2021-02-08] MEDS: HEPARIN SODIUM,PORCINE/PF 5,000 UNIT/0.5 ML SYRINGE SQ SCH ×4 (08:50→23:54)
[2021-02-08] MEDS: AMIODARONE 200 MG TAB PO SCH ×2 (08:50→21:32)
[2021-02-08] MEDS: amLODIPine 5 MG TAB PO SCH (08:51)
[2021-02-08] MEDS: METOPROLOL TARTRATE 50 MG TAB PO SCH ×2 (08:51→21:32)
[2021-02-08] MEDS: ATORVASTATIN 40 MG TAB PO SCH (08:51)
[2021-02-08] MEDS: ASPIRIN 325 MG TAB PO SCH (08:51)
[2021-02-08] MEDS: CLOPIDOGREL 75 MG TAB PO SCH (08:51)
--- NOTE | 2021-02-08 08:56 | XR ---
EXAMINATION TYPE: XR chest 2V DATE OF EXAM: 02/08/2021 COMPARISON: 02/07/2021 TECHNIQUE: PA and lateral views submitted. HISTORY: Postop FINDINGS: Heart is enlarged and is postsurgical change with bilateral infiltrate and pleural effusion. Diffuse interstitial pattern. No sizable pneumothorax. Apical pleural thickening seen. Left-sided chest tube no longer identified. IMPRESSION: 1. Cardiomegaly with bilateral infiltrate and pleural effusion. Correlate for CHF. 2. No pneumothorax.
[2021-02-08] MEDS ORDERED: FUROSEMIDE 10 MG/ML 2 ML VIAL IV ONE (09:01)
--- NOTE | 2021-02-08 09:03 | P.PN ---
Subjective Progress Note Date: 02/08/21 Principal diagnosis: Triple-vessel coronary artery disease. Previous medical history of prior anteroapical myocardial infarction with diffuse coronary artery disease and PCI stenting, obesity, hypertension, hyperlipidemia, obstructive sleep apnea without home CPAP use, history of prostate cancer status post prostatectomy with subsequent erectile dysfunction POD #5 quadruple coronary artery bypass grafting using the left internal mammary artery to the left anterior descending artery, left radial artery to the ramus intermedius artery in a [id number] fashion sequentially, then to the distal circumflex artery in an end to side fashion, reverse saphenous vein graft from t he aorta to the posterior descending artery, exclusion of the left atrial appendage using a 35 mm AtriClip, endoscopic harvesting of the left radial artery, endoscopic harvesting of the right greater saphenous vein from the groin to above the ankle level, intraoperative graft flow measurements using the [employer] system, intraoperative transesophageal echocardiogram and epi-aortic scanning. Postoperative acute blood loss anemia, expected given hemodilution and cardiopulmonary bypass pump Confusion, unclear etiology, CT of the brain negative for any acute process The patient is currently sitting up in a recliner on the cardiac step-down unit in no acute distress. States postsurgical incisional pain controlled on current medication regimen, denies shortness of breath. The patient had short bout of confusion last night per nursing but reoriented quickly, currently oriented x 3. JRemains in sinus rhythm and hemodynamically stable. Did ambulate in room yesterday with PT/OT. Epicardial pacemaker wires remain present and grounded. Still attempting incentive spirometry but with poor effort and weak cough. Has voided several times since removal of lara. No other new concerns. Objective - Vital Signs Vital signs: Vital Signs Temp 98.5 F 02/07/21 20:00 Pulse 86 02/08/21 04:00 Resp 18 02/08/21 04:00 BP 167/73 02/08/21 04:00 Pulse Ox 94 L 02/08/21 04:00 Intake & Output 02/07/21 02/08/21 02/08/21 18:59 06:59 18:59 Intake Total 546 Output Total 800 Balance -254 Intake: IV 6 pressure bags 6 Oral 540 Output: Urine 800 Other: Voiding Method Urinal Urinal # Voids 1 ABP, PAP, CO, CI - Last Documented Arterial Blood Pressure 145/54 Pulmonary Artery Pressure 38/13 Cardiac Output 4.4 Cardiac Index 2.1 - Exam CONSTITUTIONAL: Appears comfortable, cooperative, no acute distress RESPIRATORY: Lungs sounds diminished bilaterally. Respirations even, nonl abored. Currently on room air with oxygen saturation 94%. Only able to achieve 500 mL on incentive spirometry. Weak cough. CARDIOVASCULAR: S1, S2 present. Regular rate and rhythm, sinus rhythm on telemetry. Sternum stable. Palpable peripheral pulses bilaterally. Generalized edema present but less than yesterday. No calf pain or tenderness noted. Heart hugger in place with patient demonstrating appropriate use. Antiembolism stockings, SCDs present. GASTROINTESTINAL: Abdomen soft, nontender, nondistended. Active bowel sounds present 4 quadrants. Tolerating diet. Positive bowel movement this morning GENITOURINARY: Lara discontinued yesterday, patient has voided several times per nursing with no residual via bladder scan INTEGUMENTARY: Skin is warm and dry with evidence of good perfusion. Anterior chest incision well approximated and covered with dry intact dressing. Right lower extremity EVH site well approximated without redness or drainage. Left radial artery harvest site well approximated without redness or drainage, patient able to move his fingers and reliability specialist appropriately, good cap refill NEUROLOGIC: Cranial nerves II through XII intact MUSKULOSKELETAL: Able to move all extremities, strength equal bilaterally. Able to ambulate short distances with assist x 2 PSYCHIATRIC: Alert and oriented x 3. Following commands. INVASIVE LINES AND TUBES: A/V epicardial pacemaker wires present, grounded. - Allied health notes Allied health notes reviewed: nursing - Labs CBC & Chem 7: 02/08/21 07:08 02/08/21 07:08 Labs: Abnormal Lab Results - Last 24 Hours (Table) 02/07/21 02/07/21 02/07/21 Range/Units 11:47 16:18 16:59 POC Glucose (mg/dL) 116 H 132 H 138 H (75-99) mg/dL 02/07/21 02/08/21 Range/Units 20:54 05:52 POC Glucose (mg/dL) 121 H 131 H (75-99) mg/dL - Imaging and Cardiology Chest x-ray: image reviewed Assessment and Plan Assessment: 1. Triple-vessel coronary artery disease, status post four-vessel CABG 2. History of prior anteroapical myocardial infarction with diffuse coronary artery disease and PCI stenting 3. Hypertension 4. Hyperlipidemia, treated, cholesterol 221, LDL 151 5. Obstructive sleep apnea without home CPAP use 6. Obesity 7. Never smoker with preoperative FEV1 78% of predicted 8. History of prostate cancer status post prostatectomy with subsequent erectile dysfunction 9. Postoperative acute blood loss anemia, expected 10. Confusion, unclear etiology, CT of brain negative, ammonia level negative, no narcotics given Plan: 1. Continue aspirin, statin, Plavix, beta ari therapy. Will increase beta ari therapy as tolerated 2. Continue Norvasc for radial artery spasm. Do not discontinue CCB without discussed with cardiac surgery 3. Continue oral amiodarone for A. fib prophylaxis 4. Encourage incentive spirometry use 10 times every hour while awake. Bronchodilators per pulmonology 5. Increase activity, ambulate as tolerated. PT/OT/cardiac rehab following 6. Will monitor daily labs and x-rays. Electrolyte replacement per protocol. No further transfusion at this time. Will give lasix 20 mg IVP x 1 7. GI/DVT prophylaxis 8. Pain control with current medication regimen, no narcotics 9. Insulin management per primary care service. Patient is not diabetic, hemoglobin A1c 5.6% 10. Reorient as needed, neuro checks 11. First postoperative shower today 12. Strict accurate intake and output. Daily weights. 13. Discharge planning in progress. Anticipate discharge to home with home care in the next 24-48 hours if remains stable 14. More recommendations to follow based on patient's progress Time with Patient: Greater than 30
--- NOTE | 2021-02-08 10:00 | P.PN ---
Subjective Mr Jaimes is a 81-year-old -[place] male who sees Dr. Boo in the office. He is POD #5 from coronary artery bypass graftin by Dr. James on February 03 2021. He recieved at that time FAULKNER to LAD, left radial to the ramus and to the distal left circumflex, saphenous vein graft to the PDA with clipping of the left atrial appendage. Patient seen and examined at bedside today. Alert and oriented x 3. Up in bedside chair. Using incentive Spirometer pulling volumes 500-750. He is stable. Does have some mild incision pain. Denies chest pain, dizziness, palpation, shortness of breath. He is in sinus mechanism on telemetry HR 70s. He is curre ntly being maintained on ASA once a day, Amiodarone 400mg BID, amlodipine 5mg daily, Lipitor 40mg daily, Plavix 75mg daily, Metoprolol tartrate 50mg BID. Taylor catheter was removed. PHYSICAL EXAM: VITAL SIGNS: BP 156/67 HR 93 RR 16, 94% on room air, Temp 99.4. HEENT: Neck supple. LUNGS: Respirations even. Labored. Lungs diminished bases bilaterally. HEART:Regular rate and rhythm. S1 and S2 heard. ABDOMEN: Soft. Nondistended. Nontender. SKIN: anterior chest incision covered in dressing that is clean dry and intact. Left radial site covered in dressing clean dry and intact, no bleeding noted EXTREMITIES: Normal range of motion. No clubbing or cyanosis. Peripheral pulses intact. no bilateral lower extremity edema NEUROLOGIC: Awake and alert. Oriented x 3. ASSESSMENT: Coronary artery disease- s/p 4 vessel coronary artery bypass grafting Hypertension Hyperlipidemia Confusion post operative- unclear etiology- improving PLAN: From cardiology standpoint, no change in current therapy Continue aspirin, statin, plavix, beta ari, amlodipine Patient on amiodarone for A fib prophylaxis Cardiothoracic surgery following and managing patient Nurse practitioner note has been reviewed by physician. Signing provider agrees with the documented findings, assessment, and plan of care. Objective - Vital Signs Vital signs: Vital Signs Temp 99.4 F 02/08/21 08:00 Pulse 93 02/08/21 08:00 Resp 16 02/08/21 08:00 BP 156/67 02/08/21 08:00 Pulse Ox 93 L 02/08/21 08:00 Intake & Output 02/07/21 02/08/21 02/08/21 18:59 06:59 18:59 Intake Total 546 Output Total 800 Balance -254 Intake: IV 6 pressure bags 6 Oral 540 Output: Urine 800 Other: Voiding Method Urinal Urinal Urinal # Voids 1 4 ABP, PAP, CO, CI - Last Documented Arterial Blood Pressure 145/54 Pulmonary Artery Pressure 38/13 Cardiac Output 4.4 Cardiac Index 2.1 - Labs CBC & Chem 7: 02/08/21 07:08 02/08/21 07:08 Labs: Abnormal Lab Results - Last 24 Hours (Table) 02/07/21 02/07/21 02/07/21 Range/Units 11:47 16:18 16:59 WBC (3.8-10.6) k/uL RBC (4.30-5.90) m/uL Hgb (13.0-17.5) gm/dL Hct (39.0-53.0) % BUN (9-20) mg/dL Creatinine (0.66-1.25) mg/dL Glucose (74-99) mg/dL POC Glucose (mg/dL) 116 H 132 H 138 H (75-99) mg/dL AST (17-59) U/L ALT (4-49) U/L Alkaline Phosphatase (38-126) U/L Total Protein (6.3-8.2) g/dL Albumin (3.5-5.0) g/dL 02/07/21 02/08/21 02/08/21 Range/Units 20:54 05:52 07:08 WBC 11.1 H (3.8-10.6) k/uL RBC 2.90 L (4.30-5.90) m/uL Hgb 8.3 L (13.0-17.5) gm/dL Hct 25.6 L (39.0-53.0) % BUN (9-20) mg/dL Creatinine (0.66-1.25) mg/dL Glucose (74-99) mg/dL POC Glucose (mg/dL) 121 H 131 H (75-99) mg/dL AST (17-59) U/L ALT (4-49) U/L Alkaline Phosphatase (38-126) U/L Total Protein (6.3-8.2) g/dL Albumin (3.5-5.0) g/dL 02/08/21 Range/Units 07:08 WBC (3.8-10.6) k/uL RBC (4.30-5.90) m/uL Hgb (13.0-17.5) gm/dL Hct (39.0-53.0) % BUN 29 H (9-20) mg/dL Creatinine 1.27 H (0.66-1.25) mg/dL Glucose 119 H (74-99) mg/dL POC Glucose (mg/dL) (75-99) mg/dL AST 74 H (17-59) U/L ALT 118 H (4-49) U/L Alkaline Phosphatase 129 H (38-126) U/L Total Protein 5.7 L (6.3-8.2) g/dL Albumin 3.1 L (3.5-5.0) g/dL
--- NOTE | 2021-02-08 11:05 | P.PN ---
Subjective Progress Note Date: 02/08/21 81-year-old black male, followed by Dr. Khan on the outpatient basis. The patient has a history of CAD, previous angioplasty and stent placement, remote history of myocardial infarction, hypertension, hyperlipidemia, prostate cancer, status post prostatectomy, erectile dysfunction, sleep apnea, morbid obesity, among other things. Recently, he was referred to one of the social group worker for evaluation. He was to see a social group worker before seeing a N test. Unfortunately, a stress echocardiogram showed evidence of previous anterior apical and septal myocardial infarction, without any inducible ischemia. A cardiac catheterization was performed, and demonstrated a 50% stenosis to the left main coronary artery, a 60% stenosis to his right coronary artery and 80% stenosis to the circumflex coronary artery, and a 70% stenosis to his proximal left anterior descending coronary artery. The patient was referred to the cardiothoracic surgeon and underwent a FAULKNER to LAD bypass, left radial to ramus , left radial to distal circumflex coronary artery, and SVG To PDA bypass the patient also had a left atrial ligation procedure. Today is postop day #1. The patient did take quite a bit of time to get extubated from mechanical ventilation after leaving the operating room, approximately 10 hours or so. Currently, he is on 4 L nasal cannula, Primacor at 0.1 micrograms per kilogram per minute, saline at 50 mL an hour, and insulin-dependent 3.5 units an hour. The patient is sitting up in the chair next to his bed. White count 11.4, hemoglobin 8.8, hematocrit 27.3, and platelet count 158,000. Sodium 140, potassium 4.3, chlorides 108, CO2 23, anion gap 9, BUN 17, creatinine 1.17. Chest x-ray shows bilateral infiltrates and a small effusion with some central venous congestion. Progress note dated 02/05/2021. 81-year-old black male, postop day #2, status post four-vessel bypass grafting. The patient had routine postoperative ventilator management, and carries with him a diagnosis of myocardial infarction essential hypertension hyperlipidemia prostate cancer erectile dysfunction morbid obesity, sleep apnea syndrome. Currently, the patient's on 4 L nasal cannula. He is on saline at 30 mL an hour, and insulin drip at 3.5 units an hour. The patient's a bit confused this morning. In no distress. He has been seen by cardiothoracic surgery already today. White count 10.7, hemoglobin 8.7, hematocrit 26.1, platelet count 118,000. Sodium 138, potassium 4.4, chlorides 108, CO2 23, anion gap 7, BUN 26, creatinine 1.61. Chest x-ray showed bibasilar infiltrates, and a small right- sided pleural effusion. CT of the brain showed nothing acute, CT angiography was negative. Progress note dated 02/06/2021. 81-year-old white male, postop day #3, status post four-vessel bypass grafting. Currently, he's on 3 L. He's not receiving any IV fluids. He is doing much better today. He is much more alert and oriented. Yesterday he was quite confused, pulling out lines, etc. He has a history of myocardial infarction, essential hypertension, hyperlipidemia, prostate cancer, erectile dysfunction, morbid obesity, and sleep apnea syndrome. White count 13.5, hemoglobin 8, hematocrit 25.8, and platelet count 153,000. Sodium potassium chloride CO2 all normal. Anion gap normal. BUN and creatinine were 42 and 1.62. Chest x-rays is improved. On today's evaluation of 02/07/2021 the patient is postop day #4: Four-vessel bypass surgery. The patient was extubated without any major difficulties and the patient is currently at 2 L about 2 by nasal cannula. Mentally is awake and alert and is no focal neurological deficits. The patient is doing well on his incentive spirometer. His chest x-ray showing some limited atelectatic changes small effusion the lung bases bilaterally. These are consistent with post bypass changes. The patient is currently on a combination of aspirin and Plavix. The patient is also on metoprolol 50 mg by mouth twice a day. The patient is on Norvasc 5 mg by mouth daily for blood pressure control also. He is on NovoLog 5. Coverage for blood sugar control. The patient is also known to have hypertension, hyperlipidemia, prostate cancer, the patient is obese with known history of obstructive sleep apnea chest x-rays showing post thoracotomy changes. The patient is atelectatic changes in the lung bases bilaterally in addition to possibly some effusion on the right. The left-sided chest tube is still in place and output is no order of 100 mL overnight. No evidence of any air leak. No evidence of any pneumothorax. The patient remains in a negative fluid balance. Hemoglobin today is at 8 On today's evaluation of 02/08/2021, the patient is postop day #5. The patient is doing well. He got transferred out of the intensive care unit yesterday. The patient is ambulating. He is on room air oxygen. Using incentive spirom eter. Left-sided chest tube was removed. Cardiac medications have been all noted. He was also given Lasix. No other significant events otherwise for now. He is pulling 1500 on the incentive spirometer. The chest x-ray from today is showing postsurgical changes with post thoracotomy and there is some atelectatic changes and small effusion the lung bases bilaterally. Chest the chest tube was removed. The patient's hemoglobin is at 8.3 with a creatinine of 1.27. He had an acute kidney injury in the renal function is improved significantly. Objective - Vital Signs Vital signs: Vital Signs Temp 99.4 F 02/08/21 08:00 Pulse 93 02/08/21 08:00 Resp 16 02/08/21 08:00 BP 156/67 02/08/21 08:00 Pulse Ox 93 L 02/08/21 08:00 Intake & Output 02/07/21 02/08/21 02/08/21 18:59 06:59 18:59 Intake Total 546 Output Total 800 Balance -254 Weight 103.8 kg Intake: IV 6 pressure bags 6 Oral 540 Output: Urine 800 Other: Voiding Method Urinal Urinal Urinal # Voids 1 4 ABP, PAP, CO, CI - Last Documented Arterial Blood Pressure 145/54 Pulmonary Artery Pressure 38/13 Cardiac Output 4.4 Cardiac Index 2.1 - Exam No acute distress, much more alert and oriented today. Patient is currently on room air oxygen HEENT examination is grossly unremarkable. Neck supple. Full range of motion. No adenopathy thyromegaly or neck vein distention. Cardiovascular examination reveals regular rhythm rate. S1-S2 normal. No S3 or S4. No discernible murmur noted. Lungs reveal scattered rhonchi. No wheezes or crackles. Breath sounds equal. The chest is of been all removed Abdomen soft bowel sounds are heard. No masses or tenderness. Extremities are intact. No cyanosis clubbing or edema. Skin is without rash or lesion. Neurologic examination is brief but nonfocal. - Labs CBC & Chem 7: 02/08/21 07:08 02/08/21 07:08 Labs: Abnormal Lab Results - Last 24 Hours (Table) 02/07/21 02/07/21 02/07/21 Range/Units 11:47 16:18 16:59 WBC (3.8-10.6) k/uL RBC (4.30-5.90) m/uL Hgb (13.0-17.5) gm/dL Hct (39.0-53.0) % BUN (9-20) mg/dL Creatinine (0.66-1.25) mg/dL Glucose (74-99) mg/dL POC Glucose (mg/dL) 116 H 132 H 138 H (75-99) mg/dL AST (17-59) U/L ALT (4-49) U/L Alkaline Phosphatase (38-126) U/L Total Protein (6.3-8.2) g/dL Albumin (3.5-5.0) g/dL 02/07/21 02/08/21 02/08/21 Range/Units 20:54 05:52 07:08 WBC 11.1 H (3.8-10.6) k/uL RBC 2.90 L (4.30-5.90) m/uL Hgb 8.3 L (13.0-17.5) gm/dL Hct 25.6 L (39.0-53.0) % BUN (9-20) mg/dL Creatinine (0.66-1.25) mg/dL Glucose (74-99) mg/dL POC Glucose (mg/dL) 121 H 131 H (75-99) mg/dL AST (17-59) U/L ALT (4-49) U/L Alkaline Phosphatase (38-126) U/L Total Protein (6.3-8.2) g/dL Albumin (3.5-5.0) g/dL 02/08/21 Range/Units 07:08 WBC (3.8-10.6) k/uL RBC (4.30-5.90) m/uL Hgb (13.0-17.5) gm/dL Hct (39.0-53.0) % BUN 29 H (9-20) mg/dL Creatinine 1.27 H (0.66-1.25) mg/dL Glucose 119 H (74-99) mg/dL POC Glucose (mg/dL) (75-99) mg/dL AST 74 H (17-59) U/L ALT 118 H (4-49) U/L Alkaline Phosphatase 129 H (38-126) U/L Total Protein 5.7 L (6.3-8.2) g/dL Albumin 3.1 L (3.5-5.0) g/dL Assessment and Plan Plan: 1 Postop day #5, status post FAULKNER to LAD bypass, left radial to ramus and distal circumflex bypass, and SVG to PDA bypass, with left atrial ligation. 2 Routine postoperative ventilator management, post thoracotomy and the patient has been extubated successfully currently room air oxygen and the left-sided chest tube was also removed yesterday. Chest x-ray showing some atelectatic changes small effusion the lung bases bilaterally. Using incentive spirometer., 3 History of CAD, with previous angioplasty and stent. 4 Remote history of myocardial infarction. 5 History of essential hypertension. 6 History of hyperlipidemia. 7 History of prostate cancer, status post prostatectomy. 8 History of erectile dysfunction. 9 Morbid obesity. 10 History of sleep apnea syndrome, without home CPAP use. 11 Confusion, with negative computed tomography scan of the brain, and CT angiography, improved. Plan: The patient seems be doing reasonably well. Room air oxygen Chest tubes have been removed encourage use of incentive spirometer Considered removing the left-sided chest tube Lasix was given Acute kidney injury is improving and the creatinine is down to 1.2 We'll continue to follow
[2021-02-08 11:56] LABS: Glucose,Whole Blood 114 mg/dL (75-99)
--- NOTE | 2021-02-08 14:42 | P.PN ---
Subjective Progress Note Date: 02/08/21 This is a 81-year-old gentleman status post CABG, postop day #3. Vital signs stable, maintaining O2 sats in the high 90s on 3 L nasal cannula. Sensorium significantly improved. BUN 43, creatinine 1.55. Blood sugars controlled. Afebrile, WBC 12.8. Hemoglobin 8, platelets 216. Magnesium 2.7. T bili within normal limits, AST, ALT, alk phos climbing up. Telemetry reporting sinus rhythm with occasional PAC. Incentive spirometer up to 500 ML. Blood sugars controlled. 02/08/2021 transferred out of ICU yesterday, left pleural chest tube discontinued ,doing well. Incentive spirometer up to 1000.maintaining O2 sats in the mid 90s on room air.Sitting up in chair, ambulating in his room earlier, tolerated exertion well with no shortness of breath. Chest x-ray noted. Renal function continues to improve with creatinine around 1.27. Blood sugars controlled. Alk phos trending up, AST, ALT decreased. Hemoglobin 8.3, platelets 277. Objective - Vital Signs Vital signs: Vital Signs Temp 98.7 F 02/08/21 11:40 Pulse 71 02/08/21 14:00 Resp 20 02/08/21 14:00 BP 141/63 02/08/21 12:30 Pulse Ox 95 02/08/21 12:30 Intake & Output 02/07/21 02/08/21 02/08/21 18:59 06:59 18:59 Intake Total 546 Output Total 800 Balance -254 Weight 103.8 kg Intake: IV 6 pressure bags 6 Oral 540 Output: Urine 800 Other: Voiding Method Urinal Urinal Toilet Urinal Incontinent # Voids 1 3 ABP, PAP, CO, CI - Last Documented Arterial Blood Pressure 145/54 Pulmonary Artery Pressure 38/13 Cardiac Output 4.4 Cardiac Index 2.1 - Exam PHYSICAL EXAM: VITAL SIGNS: [As above] GENERAL: Sitting up in chair, no acute distress HEENT: Conjunctivae normal. eyes normal. NECK: No JVD. No thyroid enlargement. No LNs CARDIOVASCULAR: S1, S2 regular.. No murmur RESPIRATION: Breath sounds diminished in the bases. Scattered rhonchi, no crackles. ABDOMEN: Soft, nontender . No guarding. no masses palpable. Positive Bowel sounds. LEGS: No edema. no swelling PSYCHIATRY: Alert and oriented X3, mood and affect normal. NERVOUS SYSTEM: Cranial N 2-12 grossly normal. Moves all 4 limbs.No focal deficits. Strength and sensation grossly intact. Skin: Warm and dry, no rash - Labs CBC & Chem 7: 02/08/21 07:08 02/08/21 07:08 Labs: Abnormal Lab Results - Last 24 Hours (Table) 02/07/21 02/07/21 02/07/21 Range/Units 16:18 16:59 20:54 WBC (3.8-10.6) k/uL RBC (4.30-5.90) m/uL Hgb (13.0-17.5) gm/dL Hct (39.0-53.0) % BUN (9-20) mg/dL Creatinine (0.66-1.25) mg/dL Glucose (74-99) mg/dL POC Glucose (mg/dL) 132 H 138 H 121 H (75-99) mg/dL AST (17-59) U/L ALT (4-49) U/L Alkaline Phosphatase (38-126) U/L Total Protein (6.3-8.2) g/dL Albumin (3.5-5.0) g/dL 02/08/21 02/08/21 02/08/21 Range/Units 05:52 07:08 07:08 WBC 11.1 H (3.8-10.6) k/uL RBC 2.90 L (4.30-5.90) m/uL Hgb 8.3 L (13.0-17.5) gm/dL Hct 25.6 L (39.0-53.0) % BUN 29 H (9-20) mg/dL Creatinine 1.27 H (0.66-1.25) mg/dL Glucose 119 H (74-99) mg/dL POC Glucose (mg/dL) 131 H (75-99) mg/dL AST 74 H (17-59) U/L ALT 118 H (4-49) U/L Alkaline Phosphatase 129 H (38-126) U/L Total Protein 5.7 L (6.3-8.2) g/dL Albumin 3.1 L (3.5-5.0) g/dL 02/08/21 Range/Units 11:54 WBC (3.8-10.6) k/uL RBC (4.30-5.90) m/uL Hgb (13.0-17.5) gm/dL Hct (39.0-53.0) % BUN (9-20) mg/dL Creatinine (0.66-1.25) mg/dL Glucose (74-99) mg/dL POC Glucose (mg/dL) 114 H (75-99) mg/dL AST (17-59) U/L ALT (4-49) U/L Alkaline Phosphatase (38-126) U/L Total Protein (6.3-8.2) g/dL Albumin (3.5-5.0) g/dL Assessment and Plan Assessment: CAD, Triple-vessel, status post CABG Acute metabolic encephalopathy, sensorium significantly improved Mildly elevated LFTs History of CAD with TN and prior stenting Hypertension Hyperlipidemia Morbid Obesity, BMI 37.5 Obstructive sleep apnea, does not use CPAP at home Prostate cancer status post prostatectomy Plan: Continue on current medication regime ,monitoring and symptomatic treatment. Continue aggressive pulmonary toileting with incentive spirometer reinforced. Discharge planning in progress as per cardiothoracic surgery. The impression and plan of care has been dictated as directed. : I performed a history and examination of this patient, discussed the same with the dictator. I agree with the dictator's note ,documented as a scribe. Any additional findings or plans will be noted.
[2021-02-08 17:01] LABS: Glucose,Whole Blood 109 mg/dL (75-99)
[2021-02-08 20:12] LABS: Glucose,Whole Blood 136 mg/dL (75-99)
[2021-02-08] MEDS: SENNOSIDES-DOCUSATE SODIUM 1 EACH TAB PO SCH (21:32)
[2021-02-09 06:06] LABS: Glucose,Whole Blood 121 mg/dL (75-99)
[2021-02-09] MEDS: PANTOPRAZOLE 40 MG TABLET PO SCH (06:30)
[2021-02-09] MEDS: INSULIN ASPART (NovoLOG) 100 UNIT/ML VIAL SQ SCH ×4 (06:31→20:30)
[2021-02-09] MEDS: IPRATROPIUM-ALBUTEROL 3 ML NEB INHALATION SCH ×4 (07:09→20:01)
[2021-02-09] MEDS: AMIODARONE 200 MG TAB PO SCH ×2 (09:01→20:37)
[2021-02-09] MEDS: amLODIPine 5 MG TAB PO SCH (09:02)
[2021-02-09] MEDS: CLOPIDOGREL 75 MG TAB PO SCH (09:02)
[2021-02-09] MEDS: HEPARIN SODIUM,PORCINE/PF 5,000 UNIT/0.5 ML SYRINGE SQ SCH ×2 (09:02→19:34)
[2021-02-09] MEDS: ASPIRIN 325 MG TAB PO SCH (09:02)
[2021-02-09] MEDS: ATORVASTATIN 40 MG TAB PO SCH (09:02)
[2021-02-09] MEDS: METOPROLOL TARTRATE 50 MG TAB PO SCH ×2 (09:03→20:37)
[2021-02-09] MEDS: ACETAMINOPHEN TAB 325 MG TAB PO PRN ×2 (09:03→20:37)
--- NOTE | 2021-02-09 09:24 | P.PN ---
Subjective Mr Jaimes is a 81-year-old -[place] male who sees Dr. Boo in the office. He is POD #5 from coronary artery bypass graftin by Dr. James on February 03 2021. He recieved at that time FAULKNER to LAD, left radial to the ramus and to the distal left circumflex, saphenous vein graft to the PDA with clipping of the left atrial appendage. Patient seen and examined at bedside today. Alert and oriented x 3. Up in bedside chair. Using incentive Spirometer. He states he is walking around room and in the halls without difficulty. He is stable. Denies chest pain, dizziness, palpation, shortness of breath. He is in sinus mechanism on telemetry HR 70-80s. He is currently being maintained on ASA once a day, Amiodarone 400mg BID, amlodipine 5mg daily, Lipitor 40mg daily, Plavix 75mg daily, Metoprolol tartrate 50mg BID. PHYSICAL EXAM: VITAL SIGNS: BP 154/69, SBP overnight in 130s, HR 86 RR 16, 94% on room air, afebrile HEENT: Neck supple. LUNGS: Respirations even. Labored. Lungs fine crackles bases bilaterally. HEART:Regular rate and rhythm. S1 and S2 heard. ABDOMEN: Soft. Nondistended. Nontender. SKIN: anterior chest incision is clean dry and intact, open to air. Left radial site covered in clean dry and intact,open to air EXTREMITIES: Normal range of motion. No clubbing or cyanosis. Peripheral pulses intact. no bilateral lower extremity edema NEUROLOGIC: Awake and alert. Oriented x 3. ASSESSMENT: Coronary artery disease- s/p 4 vessel coronary artery bypass grafting Hypertension Hyperlipidemia Confusion post operative- unclear etiology- improving PLAN: From cardiology standpoint, no change in current therapy Continue aspirin, statin, plavix, beta ari, amlodipine Patient on amiodarone for A fib prophylaxis Cardiothoracic surgery following and managing patient Patient will follow up in the office with Dr. Boo at scheduled appointment. Nurse practitioner note has been reviewed by physician. Signing provider agrees with the documented findings, assessment, and plan of care. Objective - Vital Signs Vital signs: Vital Signs Temp 98.9 F 02/09/21 07:39 Pulse 86 02/09/21 07:39 Resp 24 02/09/21 07:39 BP 154/69 02/09/21 07:39 Pulse Ox 94 L 02/09/21 07:39 Intake & Output 02/08/21 02/09/21 02/09/21 18:59 06:59 18:59 Intake Total 480 Balance 480 Weight 103.8 kg 105.7 kg Intake: Oral 480 Other: Voiding Method Toilet Toilet Urinal Urinal Incontinent Incontinent # Voids 3 # Bowel Movements 1 ABP, PAP, CO, CI - Last Documented Arterial Blood Pressure 145/54 Pulmonary Artery Pressure 38/13 Cardiac Output 4.4 Cardiac Index 2.1 - Labs CBC & Chem 7: 02/08/21 07:08 02/08/21 07:08 Labs: Abnormal Lab Results - Last 24 Hours (Table) 02/08/21 02/08/21 02/08/21 Range/Units 11:54 16:58 20:11 POC Glucose (mg/dL) 114 H 109 H 136 H (75-99) mg/dL 02/09/21 Range/Units 06:04 POC Glucose (mg/dL) 121 H (75-99) mg/dL
--- NOTE | 2021-02-09 09:41 | XR ---
EXAMINATION TYPE: XR chest 2V DATE OF EXAM: 02/09/2021 COMPARISON: Chest x-ray 02/08/2021 HISTORY: Status post cardiac surgery, abnormal chest x-ray TECHNIQUE: Frontal and lateral views of the chest are obtained. FINDINGS: Cardiac mediastinal silhouette is stable, patient is post median sternotomy and left atria l appendage clip placement. There are overlying artifacts. Bibasilar densities present, there is blun ting of the costophrenic angles. No evident pneumothorax. IMPRESSION: Probable basilar effusions and associated atelectasis, correlate to exclude pneumonia. C ardiomegaly.
[2021-02-09 09:49] LABS: HGB 8.7 gm/dL (13.0-17.5); Hypochromasia Slight; MCH 29.7 pg (25.0-35.0); MCHC 33.4 g/dL (31.0-37.0); MCV 88.9 fL (80.0-100.0); Mean Platelet Volume 7.7; Platelet Count 375 k/uL (150-450); RBC 2.93 m/uL (4.30-5.90); RDW 14.4 % (11.5-15.5)
[2021-02-09 10:03] LABS: Albumin 3.4 g/dL (3.5-5.0); Calcium 8.8 mg/dL (8.4-10.2); Potassium 4.2 mmol/L (3.5-5.1); Total Bilirubin 1.2 mg/dL (0.2-1.3)
[2021-02-09] MEDS ORDERED: FUROSEMIDE 10 MG/ML 4 ML VIAL IV STA (10:25)
--- NOTE | 2021-02-09 10:25 | P.PN ---
Subjective Progress Note Date: 02/09/21 Principal diagnosis: Triple-vessel coronary artery disease. Past medical history significant for anteroapical myocardial infarction with diffuse coronary artery disease and PCI stenting, obesity, hypertension, hyperlipidemia, obstructive sleep apnea without home CPAP use, history of prostate cancer status post prostatectomy with subsequent erectile dysfunction. POD #5 quadruple coronary artery bypass grafting using the left internal mammary artery to the left anterior descending coronary artery, left radial artery to the ramus intermedius coronary artery in a [id number] fashion sequentially, then to the distal circumflex coronary artery in an end to side fashion, a rev erse greater saphenous vein graft from the aorta to the posterior descending coronary artery, exclusion of the left atrial appendage using a 35 mm AtriClip, endoscopic harvesting of the left radial artery, endoscopic harvesting of the right greater saphenous vein from the groin to above the ankle level, intraoperative graft flow measurements using the [employer] system, intraoperative transesophageal echocardiogram and epi-aortic scanning. Postoperative acute blood loss anemia, expected given hemodilution and cardiopulmonary bypass pump. Confusion, unclear etiology, CT of the brain negative for acute process. The patient was seen in follow-up today 02/09/2021 at his bedside on the cardiac stepdown unit. Currently he is sitting up to the bedside chair, is awake, alert and oriented 3. He reports that he tried to ambulated to the bathroom last night on his own and had a fall. Denies hitting his head and denies any injuries. He remains hemodynamically stable and is currently on no inotropic or pressor support. Remote telemetry showing normal sinus rhythm heart rate 86 BPM. Oxygen saturation is 95% on room air and he is achieving 500 mL on his incentive spirometry with encouragement. The patient is anxious to be discharged home. Denies any complaints of shortness of breath or pain at this time. He has been afebrile the last 24 hours. Objective - Vital Signs Vital signs: Vital Signs Temp 98.5 F 02/08/21 20:00 Pulse 82 02/09/21 04:00 Resp 18 02/09/21 04:00 BP 138/64 02/09/21 04:00 Pulse Ox 95 02/09/21 04:00 Intake & Output 02/08/21 02/08/21 02/09/21 06:59 18:59 06:59 Intake Total 480 Balance 480 Weight 103.8 kg 105.7 kg Intake: Oral 480 Other: Voiding Method Urinal Toilet Toilet Urinal Urinal Incontinent Incontinent # Voids 3 ABP, PAP, CO, CI - Last Documented Arterial Blood Pressure 145/54 Pulmonary Artery Pressure 38/13 Cardiac Output 4.4 Cardiac Index 2.1 - Constitutional General appearance: Present: cooperative, morbidly obese, no acute distress - EENT Eyes: Present: normal appearance. Absent: scleral icterus ENT: Present: hearing grossly normal - Neck Details: Neck is supple, no JVD, no lymphadenopathy. - Respiratory Details: Lung sounds essentially clear to his bilateral upper lobes, diminished to his bilateral bases. No wheezes, rhonchi or crackles. Respirations are symmetrical and nonlabored. Oxygen saturation is 95% on room air. Achieving 500 mL on his incentive spirometry. - Cardiovascular Details: Regular rhythm and rate. S1 and S2 present, negative for S3, gallop or murmur. Sternum is stable. Remote telemetry showing normal sinus rhythm heart rate 86 BPM. Heart hugger is in place and he is demonstrating appropriate use. Knee- high NICK hose and sequential compression devices in place to his bilateral lower extremities. +1 generalized edema. - Gastrointestinal Gastrointestinal Comment(s): Abdomen is soft, nontender and nondistended. Active bowel sounds present in all 4 abdominal quadrants. No guarding or rigidity. No organomegaly appreciated. Tolerating oral intake. - Genitourinary Genitourinary Comment(s): Continues to void. - Integumentary Integumentary Comment(s): Skin is warm and dry. No clubbing or cyanosis is present. Midline sternal incision is clean, dry and approximated. No drainage or redness is present. Right lower extremity EVH site is clean, dry and approximated. No drainage or redness is present. Left arm radial artery harvest sites clean, dry and approximated. No drainage or redness is present. - Neurologic Neurologic: Present: CNII-XII intact. Absent: focal deficits - Musculoskeletal Musculoskeletal: Present: gait normal, generalized weakness, strength equal bilaterally - Psychiatric Psychiatric: Present: A&O x's 3, appropriate affect, intact judgment & insight - Allied health notes Allied health notes reviewed: nursing - Labs CBC & Chem 7: 02/09/21 08:53 02/09/21 08:53 Labs: Abnormal Lab Results - Last 24 Hours (Table) 02/08/21 02/08/21 02/08/21 Range/Units 07:08 07:08 11:54 WBC 11.1 H (3.8-10.6) k/uL RBC 2.90 L (4.30-5.90) m/uL Hgb 8.3 L (13.0-17.5) gm/dL Hct 25.6 L (39.0-53.0) % BUN 29 H (9-20) mg/dL Creatinine 1.27 H (0.66-1.25) mg/dL Glucose 119 H (74-99) mg/dL POC Glucose (mg/dL) 114 H (75-99) mg/dL AST 74 H (17-59) U/L ALT 118 H (4-49) U/L Alkaline Phosphatase 129 H (38-126) U/L Total Protein 5.7 L (6.3-8.2) g/dL Albumin 3.1 L (3.5-5.0) g/dL 02/08/21 02/08/21 02/09/21 Range/Units 16:58 20:11 06:04 WBC (3.8-10.6) k/uL RBC (4.30-5.90) m/uL Hgb (13.0-17.5) gm/dL Hct (39.0-53.0) % BUN (9-20) mg/dL Creatinine (0.66-1.25) mg/dL Glucose (74-99) mg/dL POC Glucose (mg/dL) 109 H 136 H 121 H (75-99) mg/dL AST (17-59) U/L ALT (4-49) U/L Alkaline Phosphatase (38-126) U/L Total Protein (6.3-8.2) g/dL Albumin (3.5-5.0) g/dL - Imaging and Cardiology Chest x-ray: report reviewed, image reviewed Assessment and Plan Assessment: 1. Triple-vessel coronary artery disease, status post four-vessel CABG 2. History of prior anteroapical myocardial infarction with diffuse coronary artery disease and previous PCI stenting 3. Hypertension 4. Hyperlipidemia, treated, cholesterol 221, LDL 151 5. Obstructive sleep apnea without home CPAP use 6. Obesity 7. Never smoker with preoperative FEV1 78% of predicted 8. History of prostate cancer status post prostatectomy with subsequent erectile dysfunction 9. Postoperative acute blood loss anemia, expected 10. Confusion, unclear etiology, CT of brain negative, ammonia level negative, no narcotics given Plan: 1. Continue aspirin, statin, Plavix, beta ari therapy. Will increase beta ari therapy as tolerated. 2. Continue Norvasc for radial artery spasm. Do not discontinue Norvasc without discussing with cardiac surgery please. 3. Continue oral amiodarone for A. fib prophylaxis. Currently on amiodarone 400 mg by mouth twice a day, we will decrease his amiodarone to 200 mg by mouth twice a day. 4. Encourage incentive spirometry use 10 times every hour while awake. Bronchodilators per pulmonology/critical care medicine. 5. Increase activity, ambulate as tolerated. PT/OT/cardiac rehab following. 6. Will monitor daily labs and chest x-rays. Electrolyte replacement per protocol. 7. GI/DVT prophylaxis 8. Pain control with current medication regimen. Normal narcotics as the patient has had some postoperative confusion. 9. Insulin management per primary care service. Patient is not diabetic, hemoglobin A1c 5.6%. 10. Reorient as needed, continue neuro checks. 11. Shower daily. 12. Strict accurate intake and output. Daily weights. 13. Discharge planning in progress. Anticipate discharge to home with home care in the next 24 hours if remains stable. 14. UA with reflex culture as his WBC count today is 14.0. 15. Lasix 40 mg IV 1 now. 16. More recommendations to follow based on patient's progress. Time with Patient: Greater than 30
[2021-02-09 11:02] LABS: Appearance,Urine Clear (Clear); Bacteria,Urine Rare /hpf; Bilirubin,Urine Negative (Negative); Blood,Urine Trace (Negative); Color,Urine Yellow; Glucose,Urine (UA) Negative (Negative); Granular Casts,Urine 7 /lpf (0); Hyaline Casts,Urine 18 /lpf (0-2); Ketones,Urine Trace (Negative); Leukocyte Esterase,Urine Negative (Negative); Mucus,Urine Few /hpf; Nitrite,Urine Negative (Negative); Protein,Urine 1+ (Negative); RBC,Urine 2 /hpf (0-5); Specific Gravity,Urine 1.018 (1.001-1.035); Squamous Epithelial Cell,Urine 1 /hpf (0-4); WBC,Urine 2 /hpf (0-5)
[2021-02-09 11:51] LABS: Glucose,Whole Blood 144 mg/dL (75-99)
--- NOTE | 2021-02-09 11:59 | P.PN ---
Subjective Progress Note Date: 02/09/21 This is a 81-year-old gentleman status post CABG, postop day #3. Vital signs stable, maintaining O2 sats in the high 90s on 3 L nasal cannula. Sensorium significantly improved. BUN 43, creatinine 1.55. Blood sugars controlled. Afebrile, WBC 12.8. Hemoglobin 8, platelets 216. Magnesium 2.7. T bili within normal limits, AST, ALT, alk phos climbing up. Telemetry reporting sinus rhythm with occasional PAC. Incentive spirometer up to 500 ML. Blood sugars controlled. 02/08/2021 transferred out of ICU yesterday, left pleural chest tube discontinued ,doing well. Incentive spirometer up to 1000.maintaining O2 sats in the mid 90s on room air.Sitting up in chair, ambulating in his room earlier, tolerated exertion well with no shortness of breath. Chest x-ray noted. Renal function continues to improve with creatinine around 1.27. Blood sugars controlled. Alk phos trending up, AST, ALT decreased. Hemoglobin 8.3, platelets 277. 02/09/2021 Continues to do well on step down, telemetry unit sitting up in chair. Denies dizziness or lightheadedness or focal deficits. Telemetry reporting normal sinus rhythm. VSS. Maintaining O2 sats in the mid 90s on room air. Incentive spirometer up to 500 ml. Chest x-ray pending. Hemoglobin 8.7, platelets 375 .Afebrile, WBC 14.Staff reports last night while ambulating patient to bathroom, he became weaker, losing his lower extremity strength-l owered patient down to his knees, no fall, no trauma, no injuries. Renal function improving. Blood sugars controlled. LFTs trending down, minimally elevated. Objective - Vital Signs Vital signs: Vital Signs Temp 98.9 F 02/09/21 07:39 Pulse 80 02/09/21 11:04 Resp 24 02/09/21 08:00 BP 154/69 02/09/21 07:39 Pulse Ox 94 L 02/09/21 07:39 Intake & Output 02/08/21 02/09/21 02/09/21 18:59 06:59 18:59 Intake Total 480 Output Total 50 Balance 480 -50 Weight 103.8 kg 105.7 kg Intake: Oral 480 Output: Urine 50 Other: Voiding Method Toilet Toilet Urinal Urinal Incontinent Incontinent # Voids 3 # Bowel Movements 1 ABP, PAP, CO, CI - Last Documented Arterial Blood Pressure 145/54 Pulmonary Artery Pressure 38/13 Cardiac Output 4.4 Cardiac Index 2.1 - Exam PHYSICAL EXAM: VITAL SIGNS: [As above] GENERAL: Sitting up in chair, no acute distress HEENT: Conjunctivae normal. eyes normal. NECK: No JVD. No thyroid enlargement. No LNs CARDIOVASCULAR: S1, S2 regular.. No murmur. Wearing his heart hugger. RESPIRATION: Breath sounds diminished in the bases. No rhonchi, no crackles.No wheezing. ABDOMEN: Soft, nontender . No guarding. no masses palpable. Positive Bowel sounds. LEGS: Trace edema. No calf tenderness. PSYCHIATRY: Alert and oriented X3, mood and affect normal. NERVOUS SYSTEM: Cranial N 2-12 grossly normal. Moves all 4 limbs.No focal deficits. Strength and sensation grossly intact. Skin: Warm and dry, no rash - Labs CBC & Chem 7: 02/09/21 08:53 02/09/21 08:53 Labs: Abnormal Lab Results - Last 24 Hours (Table) 02/08/21 02/08/21 02/08/21 Range/Units 11:54 16:58 20:11 WBC (3.8-10.6) k/uL RBC (4.30-5.90) m/uL Hgb (13.0-17.5) gm/dL Hct (39.0-53.0) % BUN (9-20) mg/dL Glucose (74-99) mg/dL POC Glucose (mg/dL) 114 H 109 H 136 H (75-99) mg/dL ALT (4-49) U/L Alkaline Phosphatase (38-126) U/L Total Protein (6.3-8.2) g/dL Albumin (3.5-5.0) g/dL Urine Protein (Negative) Urine Ketones (Negative) Urine Blood (Negative) Urine Bacteria (None) /hpf Hyaline Casts (0-2) /lpf Urine Mucus (None) /hpf 02/09/21 02/09/21 02/09/21 Range/Units 06:04 08:53 08:53 WBC 14.0 H (3.8-10.6) k/uL RBC 2.93 L (4.30-5.90) m/uL Hgb 8.7 L (13.0-17.5) gm/dL Hct 26.0 L (39.0-53.0) % BUN 21 H (9-20) mg/dL Glucose 115 H (74-99) mg/dL POC Glucose (mg/dL) 121 H (75-99) mg/dL ALT 94 H (4-49) U/L Alkaline Phosphatase 136 H (38-126) U/L Total Protein 6.0 L (6.3-8.2) g/dL Albumin 3.4 L (3.5-5.0) g/dL Urine Protein (Negative) Urine Ketones (Negative) Urine Blood (Negative) Urine Bacteria (None) /hpf Hyaline Casts (0-2) /lpf Urine Mucus (None) /hpf 02/09/21 Range/Units 10:47 WBC (3.8-10.6) k/uL RBC (4.30-5.90) m/uL Hgb (13.0-17.5) gm/dL Hct (39.0-53.0) % BUN (9-20) mg/dL Glucose (74-99) mg/dL POC Glucose (mg/dL) (75-99) mg/dL ALT (4-49) U/L Alkaline Phosphatase (38-126) U/L Total Protein (6.3-8.2) g/dL Albumin (3.5-5.0) g/dL Urine Protein 1+ H (Negative) Urine Ketones Trace H (Negative) Urine Blood Trace H (Negative) Urine Bacteria Rare H (None) /hpf Hyaline Casts 18 H (0-2) /lpf Urine Mucus Few H (None) /hpf Assessment and Plan Assessment: CAD, Triple-vessel, status post CABG Acute metabolic encephalopathy, sensorium significantly improved Bibasilar atelectasis Mildly elevated LFTs History of CAD with SD and prior stenting Hypertension Hyperlipidemia Morbid Obesity, BMI 37.5 Obstructive sleep apnea, does not use CPAP at home Prostate cancer status post prostatectomy Plan: Continue on current medication regime ,monitoring and symptomatic treatment. Incentive spirometer worse today, WBC mildly increased from yesterday, chest x-ray pending. Aggressive pulmonary toileting, incentive spirometer reinforced-encourage patient hourly. PT. Discharge planning in progress as per cardiothoracic surgery. The impression and plan of care has been dictated as directed. : I performed a history and examination of this patient, discussed the same with the dictator. I agree with the dictator's note ,documented as a scribe. Any additional findings or plans will be noted.
[2021-02-09 16:57] LABS: Glucose,Whole Blood 131 mg/dL (75-99)
[2021-02-09 20:30] LABS: Glucose,Whole Blood 133 mg/dL (75-99)
[2021-02-09] MEDS: SENNOSIDES-DOCUSATE SODIUM 1 EACH TAB PO SCH (20:36)
[2021-02-10] MEDS: HEPARIN SODIUM,PORCINE/PF 5,000 UNIT/0.5 ML SYRINGE SQ SCH ×3 (00:51→17:09)
[2021-02-10 06:05] LABS: Glucose,Whole Blood 144 mg/dL (75-99)
[2021-02-10] MEDS: INSULIN ASPART (NovoLOG) 100 UNIT/ML VIAL SQ SCH ×3 (06:27→17:30)
[2021-02-10] MEDS: PANTOPRAZOLE 40 MG TABLET PO SCH (07:00)
[2021-02-10] MEDS: CLOPIDOGREL 75 MG TAB PO SCH (08:04)
[2021-02-10] MEDS: AMIODARONE 200 MG TAB PO SCH ×2 (08:04→18:28)
--- NOTE | 2021-02-10 08:04 | P.PN ---
Subjective Progress Note Date: 02/10/21 Principal diagnosis: Triple-vessel coronary artery disease. Past medical history significant for anteroapical myocardial infarction with diffuse coronary artery disease and PCI stenting, obesity, hypertension, hyperlipidemia, obstructive sleep apnea without home CPAP use, history of prostate cancer status post prostatectomy with subsequent erectile dysfunction. POD #7 quadruple coronary artery bypass grafting using the left internal mammary artery to the left anterior descending coronary artery, left radial artery to the ramus intermedius coronary artery in a [id number] fashion sequentially, then to the distal circumflex coronary artery in an end to side fashion, a rev erse greater saphenous vein graft from the aorta to the posterior descending coronary artery, exclusion of the left atrial appendage using a 35 mm AtriClip, endoscopic harvesting of the left radial artery, endoscopic harvesting of the right greater saphenous vein from the groin to above the ankle level, intraoperative graft flow measurements using the [employer] system, intraoperative transesophageal echocardiogram and epi-aortic scanning. Postoperative acute blood loss anemia, expected given hemodilution and cardiopulmonary bypass pump. Confusion, unclear etiology, CT of the brain negative for acute process. The patient was seen in follow-up today 02/10/2021 at his bedside on the cardiac stepdown unit. Currently he is sitting up to the bedside chair, is awake, alert and oriented 3. He denies any complaints of shortness of breath although is complaining of some surgical type pain with coughing. He did ambulate in the cardiac stepdown unit hallway with minimal assistance this morning, tolerating around 300 feet. Oxygen saturations are 95% on room air and he is achieving 500 mL on his incentive spirometry with much encouragement. Lasix 40 mg IV 1 was given yesterday, and the patient reports they had to put a condom-type catheter on him due to some episodes of incontinence with his Lasix. The patient does report that he does have some incontinence at home on occasion since he has had his prostate removed. He remains hemodynamically stable and has been afebrile in the last 24 hours. His recorded blood pressures last night were 131/62 and 164/72. Currently he is on Norvasc 5 mg by mouth daily. Night nurse reports no further episodes of confusion throughout the night. Discharge planning is in place. Objective - Vital Signs Vital signs: Vital Signs Temp 98.9 F 02/10/21 04:00 Pulse 87 02/10/21 04:00 Resp 20 02/10/21 04:00 BP 164/72 02/10/21 04:00 Pulse Ox 95 02/10/21 04:00 Intake & Output 02/09/21 02/10/21 02/10/21 18:59 06:59 18:59 Intake Total 900 Output Total 825 450 Balance 75 -450 Weight 104.5 kg Intake: Oral 900 Output: Urine 825 450 Other: Voiding Method Toilet Urinal Incontinent # Bowel Movements 1 ABP, PAP, CO, CI - Last Documented Arterial Blood Pressure 145/54 Pulmonary Artery Pressure 38/13 Cardiac Output 4.4 Cardiac Index 2.1 - Constitutional General appearance: Present: cooperative, no acute distress, obese - EENT Eyes: Present: normal appearance. Absent: scleral icterus ENT: Present: hearing grossly normal - Neck Details: Neck is supple, no JVD, no lymphadenopathy. - Respiratory Details: Lung sounds are essentially clear to his bilateral upper lobes, diminished to his bilateral bases. No wheezes, rhonchi or crackles. Respirations are symmetrical and nonlabored. Oxygen saturation is 95% on room air. Achieving 500 mL on his incentive spirometry with much encouragement. - Cardiovascular Details: Regular rhythm and rate. S1 and S2 present, negative for S3, gallop or murmur. Sternum is stable. Remote telemetry showing normal sinus rhythm heart rate 88 BPM. Trace edema to his bilateral lower extremities. Heart hugger is in place and he is demonstrating appropriate use. Knee-high NICK hose and sequential compression devices in place to his bilateral lower extremities. - Gastrointestinal Gastrointestinal Comment(s): Abdomen is soft, nontender and nondistended. Active bowel sounds present in all 4 abdominal quadrants. No guarding or rigidity. No organomegaly appreciated. Tolerating well intake. - Genitourinary Genitourinary Comment(s): Condom catheter in place. - Integumentary Integumentary Comment(s): Skin is warm and dry. No clubbing or cyanosis is present. Midline sternal incision is clean, dry and approximated. No drainage or redness is present. Right lower extremity EVH site is clean, dry and approximated. No drainage or redness is present. Left arm radial artery harvest sites clean, dry and approximated. No drainage or redness is present. - Neurologic Neurologic: Present: CNII-XII intact. Absent: focal deficits - Musculoskeletal Musculoskeletal: Present: gait normal, generalized weakness, strength equal bilaterally - Psychiatric Psychiatric: Present: A&O x's 3, appropriate affect, intact judgment & insight - Allied health notes Allied health notes reviewed: nursing - Labs CBC & Chem 7: 02/09/21 08:53 02/09/21 08:53 Labs: Abnormal Lab Results - Last 24 Hours (Table) 02/09/21 02/09/21 02/09/21 Range/Units 08:53 08:53 10:47 WBC 14.0 H (3.8-10.6) k/uL RBC 2.93 L (4.30-5.90) m/uL Hgb 8.7 L (13.0-17.5) gm/dL Hct 26.0 L (39.0-53.0) % BUN 21 H (9-20) mg/dL Glucose 115 H (74-99) mg/dL POC Glucose (mg/dL) (75-99) mg/dL ALT 94 H (4-49) U/L Alkaline Phosphatase 136 H (38-126) U/L Total Protein 6.0 L (6.3-8.2) g/dL Albumin 3.4 L (3.5-5.0) g/dL Urine Protein 1+ H (Negative) Urine Ketones Trace H (Negative) Urine Blood Trace H (Negative) Urine Bacteria Rare H (None) /hpf Hyaline Casts 18 H (0-2) /lpf Urine Mucus Few H (None) /hpf 02/09/21 02/09/21 02/09/21 Range/Units 11:49 16:46 20:28 WBC (3.8-10.6) k/uL RBC (4.30-5.90) m/uL Hgb (13.0-17.5) gm/dL Hct (39.0-53.0) % BUN (9-20) mg/dL Glucose (74-99) mg/dL POC Glucose (mg/dL) 144 H 131 H 133 H (75-99) mg/dL ALT (4-49) U/L Alkaline Phosphatase (38-126) U/L Total Protein (6.3-8.2) g/dL Albumin (3.5-5.0) g/dL Urine Protein (Negative) Urine Ketones (Negative) Urine Blood (Negative) Urine Bacteria (None) /hpf Hyaline Casts (0-2) /lpf Urine Mucus (None) /hpf 02/10/21 Range/Units 06:02 WBC (3.8-10.6) k/uL RBC (4.30-5.90) m/uL Hgb (13.0-17.5) gm/dL Hct (39.0-53.0) % BUN (9-20) mg/dL Glucose (74-99) mg/dL POC Glucose (mg/dL) 144 H (75-99) mg/dL ALT (4-49) U/L Alkaline Phosphatase (38-126) U/L Total Protein (6.3-8.2) g/dL Albumin (3.5-5.0) g/dL Urine Protein (Negative) Urine Ketones (Negative) Urine Blood (Negative) Urine Bacteria (None) /hpf Hyaline Casts (0-2) /lpf Urine Mucus (None) /hpf - Imaging and Cardiology Chest x-ray: report reviewed, image reviewed Assessment and Plan Assessment: 1. Triple-vessel coronary artery disease, status post four-vessel CABG 2. History of prior anteroapical myocardial infarction with diffuse coronary artery disease and previous PCI stenting 3. Hypertension 4. Hyperlipidemia, treated, cholesterol 221, LDL 151 5. Obstructive sleep apnea without home CPAP use 6. Obesity 7. Never smoker with preoperative FEV1 78% of predicted 8. History of prostate cancer status post prostatectomy with subsequent erectile dysfunction 9. Postoperative acute blood loss anemia, expected 10. Confusion, unclear etiology, CT of brain negative, ammonia level negative, no narcotics given Plan: 1. Continue aspirin, statin, Plavix, beta ari therapy. Will increase beta ari therapy as tolerated. 2. Continue Norvasc for radial artery spasm. Please do not discontinue Norvasc without discussing with cardiac surgery. 3. Continue oral amiodarone for A. fib prophylaxis. Currently on amiodarone to 200 mg by mouth twice a day. 4. Encourage incentive spirometry use 10 times every hour while awake. Bronchodilators per pulmonology/critical care medicine. 5. Increase activity, ambulate as tolerated. PT/OT/cardiac rehab following. 6. Will monitor daily labs and chest x-rays. Electrolyte replacement per protocol. 7. GI/DVT prophylaxis 8. Pain control with current medication regimen. No narcotics as the patient has had some postoperative confusion. 9. Insulin management per primary care service. Patient is not diabetic, hemoglobin A1c 5.6%. 10. Reorient as needed, continue neuro checks. 11. Continue to shower daily. 12. Strict accurate intake and output. Daily weights. 13. Discharge planning in progress. Anticipate discharge to home with [facility] in the next 24 hours if remains stable. 14. Urinalysis was negative. 15. Lasix 40 mg IV 1 now. 16. Start Cozaar 25 mg by mouth daily for blood pressure control. 17. More recommendations to follow based on patient's progress. Time with Patient: Greater than 30
[2021-02-10] MEDS: ATORVASTATIN 40 MG TAB PO SCH (08:05)
[2021-02-10] MEDS: ASPIRIN 325 MG TAB PO SCH (08:05)
[2021-02-10] MEDS: amLODIPine 5 MG TAB PO SCH (08:05)
[2021-02-10] MEDS: ACETAMINOPHEN TAB 325 MG TAB PO PRN ×2 (08:05→17:08)
[2021-02-10] MEDS: METOPROLOL TARTRATE 50 MG TAB PO SCH ×2 (08:05→18:28)
--- NOTE | 2021-02-10 08:28 | XR ---
EXAMINATION TYPE: XR chest 1V portable DATE OF EXAM: 02/10/2021 COMPARISON: Chest x-ray 02/09/2021 HISTORY: Postop coronary artery bypass graft TECHNIQUE: Single frontal view of the chest is obtained. FINDINGS: Patient is post median sternotomy. There are overlying artifacts. Left atrial appendage cl ipping placement has been performed. The heart is enlarged. There is bibasilar increased attenuation similar to prior exam. No evident pneumothorax. Aorta is dense. IMPRESSION: Findings similar to prior exam, there are likely basilar effusions and associated atelec tasis, correlate to exclude pneumonia. Cardiomegaly, postop changes.
[2021-02-10] MEDS ORDERED: LOSARTAN 25 MG TAB PO SCH (09:00)
[2021-02-10 09:06] LABS: HCT 27.1 % (39.0-53.0); HGB 8.6 gm/dL (13.0-17.5); Hypochromasia Moderate; MCH 28.5 pg (25.0-35.0); MCHC 31.8 g/dL (31.0-37.0); MCV 89.5 fL (80.0-100.0); Mean Platelet Volume 7.1; Platelet Count 435 k/uL (150-450); RBC 3.03 m/uL (4.30-5.90); RDW 14.3 % (11.5-15.5); WBC 13.1 k/uL (3.8-10.6)
[2021-02-10 09:17] LABS: Albumin 3.2 g/dL (3.5-5.0); Calcium 8.4 mg/dL (8.4-10.2); Potassium 4.1 mmol/L (3.5-5.1); Total Bilirubin 1.3 mg/dL (0.2-1.3); Total Protein 5.9 g/dL (6.3-8.2)
[2021-02-10] MEDS ORDERED: FUROSEMIDE 10 MG/ML 4 ML VIAL IV STA (10:00)
--- NOTE | 2021-02-10 10:34 | P.PN ---
Subjective Mr Jaimes is a 81-year-old -[place] male who sees Dr. Boo in the office. He is POD #5 from coronary artery bypass graftin by Dr. James on February 03 2021. He recieved at that time FAULKNER to LAD, left radial to the ramus and to the distal left circumflex, saphenous vein graft to the PDA with clipping of the left atrial appendage. Patient seen and examined at bedside today. Alert and oriented x 3. Up in bedside chair. Using incentive Spirometer. He states he is walking around room and in the halls up to nurses station without difficulty. Per nursing external catheter placed for incontinence. Denies chest pain, dizziness, palpation, shortness of breath. He is in sinus mechanism on telemetry HR 70-80s. He is currently being maintained on ASA once a day, Amiodarone 200mg BID, amlodipine 5mg daily, Lipitor 40mg daily, Plavix 75mg daily, Metoprolol tartrate 50mg BID. PHYSICAL EXAM: VITAL SIGNS: BP 131/61, HR 92 95% on room air, afebrile HEENT: Neck supple. LUNGS: Respirations even. Labored. Lungs diminished bases bilaterally. HEART:Regular rate and rhythm. S1 and S2 heard. ABDOMEN: Soft. Nondistended. Nontender. SKIN: anterior chest incision is clean dry and intact, open to air. Left radial site covered in clean dry and intact,open to air EXTREMITIES: Normal range of motion. No clubbing or cyanosis. Peripheral pulses intact. no bilateral lower extremity edema NEUROLOGIC: Awake and alert. Oriented x 3. ASSESSMENT: Coronary artery disease- s/p 4 vessel coronary artery bypass grafting Hypertension Hyperlipidemia Confusion post operative- unclear etiology- improving, no signs of confusion today or overnight per nursing PLAN: From cardiology standpoint, no change in current therapy Continue aspirin, statin, plavix, beta ari, amlodipine Patient on amiodarone for A fib prophylaxis Cardiothoracic surgery following and managing patient Patient will follow up in the office with Dr. Boo at scheduled appointment. Nurse practitioner note has been reviewed by physician. Signing provider agrees with the documented findings, assessment, and plan of care. Objective - Vital Signs Vital signs: Vital Signs Temp 97.1 F L 02/10/21 08:00 Pulse 92 02/10/21 08:00 Resp 18 02/10/21 08:00 BP 131/61 02/10/21 08:00 Pulse Ox 95 02/10/21 04:00 Intake & Output 02/09/21 02/10/21 02/10/21 18:59 06:59 18:59 Intake Total 900 120 Output Total 825 450 Balance 75 -450 120 Weight 104.5 kg Intake: Oral 900 120 Output: Urine 825 450 Other: Voiding Method Toilet Urinal Incontinent # Bowel Movements 1 ABP, PAP, CO, CI - Last Documented Arterial Blood Pressure 145/54 Pulmonary Artery Pressure 38/13 Cardiac Output 4.4 Cardiac Index 2.1 - Labs CBC & Chem 7: 02/10/21 08:47 02/10/21 08:47 Labs: Abnormal Lab Results - Last 24 Hours (Table) 02/09/21 02/09/21 02/09/21 Range/Units 08:53 10:47 11:49 WBC (3.8-10.6) k/uL RBC (4.30-5.90) m/uL Hgb (13.0-17.5) gm/dL Hct (39.0-53.0) % BUN 21 H (9-20) mg/dL Glucose 115 H (74-99) mg/dL POC Glucose (mg/dL) 144 H (75-99) mg/dL ALT 94 H (4-49) U/L Alkaline Phosphatase 136 H (38-126) U/L Total Protein 6.0 L (6.3-8.2) g/dL Albumin 3.4 L (3.5-5.0) g/dL Urine Protein 1+ H (Negative) Urine Ketones Trace H (Negative) Urine Blood Trace H (Negative) Urine Bacteria Rare H (None) /hpf Hyaline Casts 18 H (0-2) /lpf Urine Mucus Few H (None) /hpf 02/09/21 02/09/21 02/10/21 Range/Units 16:46 20:28 06:02 WBC (3.8-10.6) k/uL RBC (4.30-5.90) m/uL Hgb (13.0-17.5) gm/dL Hct (39.0-53.0) % BUN (9-20) mg/dL Glucose (74-99) mg/dL POC Glucose (mg/dL) 131 H 133 H 144 H (75-99) mg/dL ALT (4-49) U/L Alkaline Phosphatase (38-126) U/L Total Protein (6.3-8.2) g/dL Albumin (3.5-5.0) g/dL Urine Protein (Negative) Urine Ketones (Negative) Urine Blood (Negative) Urine Bacteria (None) /hpf Hyaline Casts (0-2) /lpf Urine Mucus (None) /hpf 02/10/21 02/10/21 Range/Units 08:47 08:47 WBC 13.1 H (3.8-10.6) k/uL RBC 3.03 L (4.30-5.90) m/uL Hgb 8.6 L (13.0-17.5) gm/dL Hct 27.1 L (39.0-53.0) % BUN 21 H (9-20) mg/dL Glucose 192 H (74-99) mg/dL POC Glucose (mg/dL) (75-99) mg/dL ALT 98 H (4-49) U/L Alkaline Phosphatase 137 H (38-126) U/L Total Protein 5.9 L (6.3-8.2) g/dL Albumin 3.2 L (3.5-5.0) g/dL Urine Protein (Negative) Urine Ketones (Negative) Urine Blood (Negative) Urine Bacteria (None) /hpf Hyaline Casts (0-2) /lpf Urine Mucus (None) /hpf
[2021-02-10 11:42] LABS: Glucose,Whole Blood 123 mg/dL (75-99)
--- NOTE | 2021-02-10 12:17 | P.PN ---
Subjective Progress Note Date: 02/10/21 This is a 81-year-old gentleman status post CABG, postop day #3. Vital signs stable, maintaining O2 sats in the high 90s on 3 L nasal cannula. Sensorium significantly improved. BUN 43, creatinine 1.55. Blood sugars controlled. Afebrile, WBC 12.8. Hemoglobin 8, platelets 216. Magnesium 2.7. T bili within normal limits, AST, ALT, alk phos climbing up. Telemetry reporting sinus rhythm with occasional PAC. Incentive spirometer up to 500 ML. Blood sugars controlled. 02/08/2021 transferred out of ICU yesterday, left pleural chest tube discontinued ,doing well. Incentive spirometer up to 1000.maintaining O2 sats in the mid 90s on room air.Sitting up in chair, ambulating in his room earlier, tolerated exertion well with no shortness of breath. Chest x-ray noted. Renal function continues to improve with creatinine around 1.27. Blood sugars controlled. Alk phos trending up, AST, ALT decreased. Hemoglobin 8.3, platelets 277. 02/09/2021 Continues to do well on step down, telemetry unit sitting up in chair. Denies dizziness or lightheadedness or focal deficits. Telemetry reporting normal sinus rhythm. VSS. Maintaining O2 sats in the mid 90s on room air. Incentive spirometer up to 500 ml. Chest x-ray pending. Hemoglobin 8.7, platelets 375 .Afebrile, WBC 14.Staff reports last night while ambulating patient to bathroom, he became weaker, losing his lower extremity strength-l owered patient down to his knees, no fall, no trauma, no injuries. Renal function improving. Blood sugars controlled. LFTs trending down, minimally elevated. 02/10/2021 ambulating with PT, tolerating exertion well. Denies shakiness, increased weakness. Denies balance issues. Denies dizziness lightheadedness or focal deficits. Maintaining O2 sats in the mid 90s on room air. Chest x-ray reporting similar to prior exam. Likely basilar effusions and atelectasis. Incentive spirometer up to 500ml. Hemoglobin 8.6, platelets 435. Cozaar initiated yesterday, Creatinine up to 1.22. Denies chest pain, palpitations. Telemetry reporting sinus rhythm.Afebrile, WBC 13. Objective - Vital Signs Vital signs: Vital Signs Temp 97.1 F L 02/10/21 08:00 Pulse 92 02/10/21 08:00 Resp 18 02/10/21 11:00 BP 131/61 02/10/21 08:00 Pulse Ox 95 02/10/21 04:00 Intake & Output 02/09/21 02/10/21 02/10/21 18:59 06:59 18:59 Intake Total 900 120 Output Total 825 450 Balance 75 -450 120 Weight 104.5 kg Intake: Oral 900 120 Output: Urine 825 450 Other: Voiding Method Toilet Indwelling Catheter Urinal Incontinent # Bowel Movements 1 ABP, PAP, CO, CI - Last Documented Arterial Blood Pressure 145/54 Pulmonary Artery Pressure 38/13 Cardiac Output 4.4 Cardiac Index 2.1 - Exam PHYSICAL EXAM: VITAL SIGNS: [As above] GENERAL: Alert and oriented 3, Sitting up in chair, no acute distress HEENT: Conjunctivae normal. eyes normal. NECK: No JVD. No thyroid enlargement. No LNs CARDIOVASCULAR: S1, S2 regular. No murmur. RESPIRATION: Breath sounds diminished in the bases. ABDOMEN: Soft, nontender . No guarding. no masses palpable. Positive Bowel sounds. LEGS: No edema. No calf tenderness. NERVOUS SYSTEM: Cranial N 2-12 grossly normal. Moves all 4 limbs.No focal deficits. Strength and sensation grossly intact. Skin: Warm and dry, no rash - Labs CBC & Chem 7: 02/10/21 08:47 02/10/21 08:47 Labs: Abnormal Lab Results - Last 24 Hours (Table) 02/09/21 02/09/21 02/09/21 Range/Units 11:49 16:46 20:28 WBC (3.8-10.6) k/uL RBC (4.30-5.90) m/uL Hgb (13.0-17.5) gm/dL Hct (39.0-53.0) % BUN (9-20) mg/dL Glucose (74-99) mg/dL POC Glucose (mg/dL) 144 H 131 H 133 H (75-99) mg/dL ALT (4-49) U/L Alkaline Phosphatase (38-126) U/L Total Protein (6.3-8.2) g/dL Albumin (3.5-5.0) g/dL 02/10/21 02/10/21 02/10/21 Range/Units 06:02 08:47 08:47 WBC 13.1 H (3.8-10.6) k/uL RBC 3.03 L (4.30-5.90) m/uL Hgb 8.6 L (13.0-17.5) gm/dL Hct 27.1 L (39.0-53.0) % BUN 21 H (9-20) mg/dL Glucose 192 H (74-99) mg/dL POC Glucose (mg/dL) 144 H (75-99) mg/dL ALT 98 H (4-49) U/L Alkaline Phosphatase 137 H (38-126) U/L Total Protein 5.9 L (6.3-8.2) g/dL Albumin 3.2 L (3.5-5.0) g/dL 02/10/21 Range/Units 11:41 WBC (3.8-10.6) k/uL RBC (4.30-5.90) m/uL Hgb (13.0-17.5) gm/dL Hct (39.0-53.0) % BUN (9-20) mg/dL Glucose (74-99) mg/dL POC Glucose (mg/dL) 123 H (75-99) mg/dL ALT (4-49) U/L Alkaline Phosphatase (38-126) U/L Total Protein (6.3-8.2) g/dL Albumin (3.5-5.0) g/dL Assessment and Plan Assessment: CAD, Triple-vessel, status post CABG Acute metabolic encephalopathy, sensorium significantly improved Bibasilar atelectasis Mildly elevated LFTs History of CAD with IA and prior stenting Hypertension Hyperlipidemia Morbid Obesity, BMI 37.5 Obstructive sleep apnea, does not use CPAP at home Prostate cancer status post prostatectomy Plan: Continue on current medication regime ,monitoring and symptomatic treatment. Close monitoring of renal function .continue encouraging aggressive pulmonary toileting , using Incentive spirometer every hour X 10 as advised, [place]. PT. Discharge planning in progress as per cardiothoracic surgery. Follow with PCP, Dr. Christian Mix in 1 week. The impression and plan of care has been dictated as directed. .: I performed a history and examination of this patient, discussed the same with the dictator. I agree with the dictator's note ,documented as a scribe. Any additional findings or plans will be noted.
[2021-02-10 12:54] VITALS: BP 121/58; PULSE 72; TEMP 96.8
[2021-02-10 13:21] LABS: Basophils # (M) 0.26 k/uL (0-0.2); Eosinophils # (M) 0.26 k/uL (0-0.7); Monocytes # (M) 1.05 k/uL (0-1.0); Neutrophils # (M) 9.83 k/uL (1.3-7.7); Neutrophils % (M) 75 %; Nucleated Red Blood Cells 0 /100 WBC (0-0); Total Cells Counted 100
[2021-02-10 13:22] LABS: Polychromasia Present
[2021-02-10 14:54] VITALS: BMI 37.1
--- NOTE | 2021-02-10 16:22 | P.DS ---
Providers Date of admission: 02/03/21 05:32 Expected date of discharge: 02/10/21 Attending physician: Kayla James Consults: 02/03/21 17:00 Consult Physician Routine Consulting Provider: Adolfo Salvador Consult Reason/Comments: Top Lift Compresser Consult: post cardiac surgery Do you want consulting provider notified?: Yes Consult Physician Routine Consulting Provider: Christian Mix Consult Reason/Comments: bennett arboleda; Bill patient Do you want consulting provider notified?: Yes Consult Physician Routine Consulting Provider: Cyo Iglesias Consult Reason/Comments: Retention Representative Consult: post cardiac surgery Do you want consulting provider notified?: Yes Primary care physician: Kavya Khan Hospital Course: FINAL DIAGNOSIS: 1. Triple-vessel coronary artery disease, status post four-vessel CABG 2. History of prior anteroapical myocardial infarction with diffuse coronary artery disease and previous PCI stenting 3. Hypertension 4. Hyperlipidemia, treated, cholesterol 221, LDL 151 5. Obstructive sleep apnea without home CPAP use 6. Obesity 7. Never smoker with preoperative FEV1 78% of predicted 8. History of prostate cancer status post prostatectomy with subsequent erectile dysfunction 9. Postoperative acute blood loss anemia, expected 10. Confusion, unclear etiology, CT of brain negative, ammonia level negative, no narcotics given PRINCIPAL PROCEDURE: 1. Quadruple coronary artery bypass grafting using the left internal mammary artery to the left anterior descending coronary artery, left radial artery to the ramus intermedius coronary artery in a [id number] fashion sequentially, then to the distal circumflex coronary artery in an end-to-side fashion, and a reverse greater saphenous vein graft to the aorta from the posterior descending coronary artery. 2. Exclusion of the left atrial appendage using a 35 mm Atriclip. 3. Endoscopic harvesting of the left radial artery. 4. Endoscopic harvesting of the right greater saphenous vein from groin to above the ankle level. 5. Intraoperative graft flow measurements using the [employer] system. 6. Intraoperative transesophageal echocardiogram. 7. Intraoperative epi-aortic scanning. HISTORY OF PRESENT ILLNESS: This is a 81-year-old gentleman who is followed by Dr. Kavya Khan on an outpatient basis for his primary care service. The patient has a past medical history significant for coronary artery disease with history of angioplasty with stent placement years ago, remote history of myocardial infarction, hypertension, hyperlipidemia, history of prostate cancer status post prostatectomy, erectile dysfunction, morbid obesity and history of obstructive sleep apnea without home CPAP use. Recently, the patient has had complaints of a toothache in which he sought medical care from his primary care physician. The patient was subsequently referred to Dr. tomas from [facility]. He underwent a stress test prior to seeing the dentist. The stress echocardiogram showed evidence of a prior anterior apical and septal myocardial infarction without any inducible ischemia and ischemic changes involving the inferior apical segment and questionable ischemia of the lateral wall. For further evaluation the patient underwent a cardiac catheterization which demonstrated a 50% stenosis of the left main coronary artery, a 60% stenosis of his right coronary artery, an 80% stenosis to his circumflex coronary artery and a 70% stenosis to his proximal left anterior descending coronary artery. The cardiac catheterization findings were reviewed with the patient and his by Dr. Boo and a consult at that time was placed for Dr. Kayla James from cardiothoracic surgery for further evaluation and treatment recommendations including myocardial revascularization surgery. The findings of the cardiac catheterization films were discussed with the patient and the patient's by Dr. Kayla James. Treatment options were discussed including myocardial revascularization surgery, risks and benefits of myocardial revascularization surgery were discussed with the patient including the STS risk score and knowing and understanding these risks the patient wished to proceed with elective myocardial revascularization surgery. HOSPITAL COURSE: The patient was brought to the hospital on 02/03/2021, taken to the preoperative area, prepared in the usual fashion and subsequently taken to the operating room where Dr. Kayla James performed an elective quadruple coronary artery bypass grafting using the left internal mammary artery to the left anterior descending coronary artery, left radial artery to the ramus intermedius coronary artery in a [id number] fashion sequentially, then to the distal circumflex coronary artery in an end-to-side fashion, and a reverse greater saphenous vein graft to the aorta from the posterior descending coronary artery, exclusion of the left atrial appendage using a 35 mm Atriclip, endoscopic harvesting of the left radial artery, endoscopic harvesting of the right greater saphenous vein from groin to above the ankle level, intraoperative graft flow measurements using the [employer] system, and an intraoperative transesophageal echocardiogram and epi-aortic scanning. Upon completion of the surgery the patient was transferred to the cardiovascular intensive care unit where he was recovered and monitored hemodynamically. He was subsequently extubated, all lines, tubes and supportive drips were discontinued when appropriate and he was transferred to the third floor cardiac stepdown unit for further monitoring and rehabilitation. His oxygen was titrated down, he continued to work with physical/occupational therapy and cardiac rehab, he was tolerating an oral diet, his pain was well-controlled and he was ready to be discharged home with [facility] on postoperative day #7. He has received written and verbal instructions regarding his medications, activity restrictions, signs and symptoms requiring physician notification and his follow-up appointments. COMPLICATIONS: There were no postoperative complications. Plan - Discharge Summary Discharge Rx Participant: Yes New Discharge Prescriptions: New Amiodarone [Cordarone] 200 mg PO BID #20 tab Losartan [Cozaar] 25 mg PO DAILY #30 tab Furosemide [Lasix] 40 mg PO DAILY #7 tablet Metoprolol Tartrate [Lopressor] 50 mg PO BID #60 tab Aspirin 325 mg PO DAILY tab Atorvastatin [Lipitor] 40 mg PO DAILY #30 tab amLODIPine [Norvasc] 5 mg PO DAILY #30 tab Clopidogrel [Plavix] 75 mg PO DAILY #30 tab Pantoprazole [Protonix] 40 mg PO AC-BRKFST #30 tablet.dr Cummins-Docusate Sodium [Senokot-S] 2 each PO HS #7 tab Acetaminophen Tab [Tylenol] 650 mg PO Q6HR PRN tab PRN Reason: Fever And/ Or Pain Continue Albuterol Sulfate [Albuterol Sulfate Hfa] 1 puff PO Q6H PRN PRN Reason: sob Loratadine [Claritin] 10 mg PO DAILY Discontinued Atorvastatin [Lipitor] 40 mg PO DAILY Metoprolol Succinate (ER) [Toprol XL] 25 mg PO DAILY tab.er.24h Aspirin [Adult Low Dose Aspirin EC] 81 mg PO DAILY 30 Days tablet. Nitroglycerin Sl Tabs [Nitrostat] 0.4 mg SUBLINGUAL Q5M PRN tab PRN Reason: Chest Pain Discharge Medication List Albuterol Sulfate [Albuterol Sulfate Hfa] 1 puff PO Q6H PRN 01/17/21 [History] Loratadine [Claritin] 10 mg PO DAILY 01/17/21 [History] Acetaminophen Tab [Tylenol] 650 mg PO Q6HR PRN tab 02/10/21 [Rx] Amiodarone [Cordarone] 200 mg PO BID #20 tab 02/10/21 [Rx] Aspirin 325 mg PO DAILY tab 02/10/21 [Rx] Atorvastatin [Lipitor] 40 mg PO DAILY #30 tab 02/10/21 [Rx] Clopidogrel [Plavix] 75 mg PO DAILY #30 tab 02/10/21 [Rx] Furosemide [Lasix] 40 mg PO DAILY #7 tablet 02/10/21 [Rx] Losartan [Cozaar] 25 mg PO DAILY #30 tab 02/10/21 [Rx] Metoprolol Tartrate [Lopressor] 50 mg PO BID #60 tab 02/10/21 [Rx] Pantoprazole [Protonix] 40 mg PO AC-BRKFST #30 tablet. 02/10/21 [Rx] Sennosides-Docusate Sodium [Senokot-S] 2 each PO HS #7 tab 02/10/21 [Rx] amLODIPine [Norvasc] 5 mg PO DAILY #30 tab 02/10/21 [Rx] Follow up Appointment(s)/Referral(s): Camila Hayden NPC [Nurse Practitioner] - 02/14/21 11:00 am [facility] [NON-STAFF] - 4 Weeks (You will receive a phone call approximately 4-6 weeks after surgery to set up evaluation for cardiac rehab) Kayla James MD [STAFF PHYSICIAN] - 03/04/21 10:15 am Kavya Khan DO [Primary Care Provider] - 02/24/21 11:30 am (Appointment is with OSBALDO Mckeon) Reggie Boo MD [STAFF PHYSICIAN] - 02/22/21 4:15 pm Luisa Schaffer MD [STAFF PHYSICIAN] - 03/09/21 9:45 am Ambulatory/Diagnostic Orders: Complete Blood Count w/diff [LAB.AMB] Time Frame: 02/13/21, Facility: [facility], Location: Laboratory [facility] Comprehensive Metabolic Panel [LAB.AMB] Time Frame: 02/13/21, Facility: [facility], Location: Laboratory [facility] Activity/Diet/Wound Care/Special Instructions: DISCHARGE INSTRUCTIONS: 1. No driving for 4 weeks, or until physician gives their ok. 2. The patient should sleep in their own bed, no medical bed needed. 3. Stairs are not an issue. If the bedroom is upstairs, it is advised that the patient go up at night and down in the morning for the first week. Go slowly, using handrail and take 1 step at a time. 4. NICK hose are to be worn for 30 days or until physician discontinues. 5. Heart hugger is to be worn 100% of the time until physician discontinues.(except when showering) 6. No lifting, pushing, or pulling more than 10 pounds for 12 weeks. The physician will advise of any restriction changes. 7. The patient is expected to continue the prescribed walking program. 8. Continue pain control per as needed orders. 9. Continue with incentive spirometry and splinting/heart hugger until otherwise directed by the physician. 10. Must shower daily using liquid antibacterial soap and a separate white washcloth for each individual incision. 11. Routine sternal incision care. No powders, lotions, ointments on incisions. No dressings are necessary on incisions unless they are draining. Dermabond tape is to remain on sternal incision until surgeon follow-up. 12. Please call surgeon/SWAGE TENDER for temp greater than 101 F or purulent drainage from incisions. 13. All prescriptions given by surgeon for 30 days. Refills need to be filled through gauge maker apprentice/primary care physician. 14. A Red armband has been placed on the patient. It should be worn for 30 days post surgery and will be removed by the cardiac surgeons. If an ER visit is necessary, please make sure the number on the Red armband is called. 15. You have been referred to and are expected to begin Cardiac Rehab in approximately 4-6 weeks. HOME HEALTH SERVICES TO PROVIDE: RN SKILLED HOME CARE SERVICES FOR POST-OP SURGICAL PATIENTS WITH THE FOLLOWING: Coronary Artery Bypass Surgery (CABG) RN TO CONTINUE EDUCATION FROM ``ROAD TO A HEALTH HEART PATIENT EDUCATION MANUAL (GIVEN TO PATIENT IN THE HOSPITAL) MEDICATION RECONCILIATION WITH EDUCATION NEEDED ON FIRST HOME VISIT EMPHASIZE IMPORTANCE OF WEARING BREAST SUPPORT/HEART HUGGER ENCOURAGE USE OF INCENTIVE SPIROMETER 10 X EVERY HOUR WHILE AWAKE ENCOURAGE UTILIZATION OF LOWER EXTREMITY COMPRESSION STOCKINGS/NICK HOSE and ELEVATE LEGS ABOVE LEVEL OF HEART WHILE AT REST. ENCOURAGE AMBULATION 3-5x/day INCREASING TOLERATES, WHILE AVOIDING EXTREMES IN TEMPERATURE FREQUENCY: RN TO OPEN THE PATIENT WITHIN 24 HOURS OF DISCHARGE FROM THE HOSPITAL WITH [place] [facility] [place] VISIT 2-3 X A WEEK FOR 4 WEEKS ESTABLISHED BY PATIENT NEEDS. LABORATORY: CBC, CMP TO BE DRAWN ON THE THIRD DAY HOME, (RAN STAT) FAX RESULTS TO [phone]. TELEHEALTH PARAMETERS: WEIGHT: NOTIFY MD OF WEIGHT GAIN OF 2 LBS IN 24 HOURS OR 5 LBS IN ONE WEEK HR: NOTIFY MD OF HR <55 BPM OR HR>100 BPM BP: NOTIFY MD IF BP <90/55 OR BP>140/100 O2 SAT: NOTIFY MD IF PO2<93% ON ROOM AIR SEND TELEHEALTH REPORT TO PACKING LINE OPERATOR AND CARDIOVASCULAR SURGEON THE FIRST WEEK OF CARE AND THEN BI-WEEKLY. PLEASE ADDITIONALLY COMMUNICATE ANY ABNORMALS AND NEW FINDINGS TO THE SURGEONS OFFICE. For any questions or concerns please call ground layer Camila @ or Carlos @ Discharge Disposition: HOME WITH HOME HEALTH SERVICES
[2021-02-10 16:24] VITALS: RESP 14
[2021-02-10 16:53] LABS: Glucose,Whole Blood 117 mg/dL (75-99)
[2021-02-10] MEDS: SENNOSIDES-DOCUSATE SODIUM 1 EACH TAB PO SCH (18:28)
== END 2021-02-10 18:33 | disposition home health service (06) | DRG 235 ==
LOC: 2ORMAIN 05:32 → 2SICU 13:29 → 3SCARD 02-07 16:46
PROVIDERS: ADMIT Surgery; ATTEND Surgery
PROC: 03BC4ZZ Excision of Left Radial Artery, Percutaneous Endoscopic Approach (ICD-10-PCS; principal; 2021-02-03 08:30)
PROC: 0D9670Z Drainage of Stomach with Drainage Device, Via Natural or Artificial Opening (ICD-10-PCS; principal; 2021-02-03 08:30)
PROC: 06BP4ZZ Excision of Right Saphenous Vein, Percutaneous Endoscopic Approach (ICD-10-PCS; principal; 2021-02-03 08:30)
PROC: 021009W Bypass Coronary Artery, One Artery from Aorta with Autologous Venous Tissue, Open Approach (ICD-10-PCS; principal; 2021-02-03 08:30)
PROC: 02100Z9 Bypass Coronary Artery, One Artery from Left Internal Mammary, Open Approach (ICD-10-PCS; principal; 2021-02-03 08:30)
PROC: 5A1221Z Performance of Cardiac Output, Continuous (ICD-10-PCS; principal; 2021-02-03 08:30)
PROC: 30240N1 Transfusion of Nonautologous Red Blood Cells into Central Vein, Open Approach (ICD-10-PCS; principal; 2021-02-03 08:30)
PROC: 02L70CK Occlusion of Left Atrial Appendage with Extraluminal Device, Open Approach (ICD-10-PCS; principal; 2021-02-03 08:30)
PROC: B246ZZ4 Ultrasonography of Right and Left Heart, Transesophageal (ICD-10-PCS; principal; 2021-02-03 08:30)
PROC: 02110AW Bypass Coronary Artery, Two Arteries from Aorta with Autologous Arterial Tissue, Open Approach (ICD-10-PCS; principal; 2021-02-03 08:30)
PROC: 4A0305C Measurement of Arterial Flow, Coronary, Open Approach (ICD-10-PCS; principal; 2021-02-03 08:30)
DX: I25.10 Atherosclerotic heart disease of native coronary artery without angina pectoris (principal); G93.41 Metabolic encephalopathy; D62 Acute posthemorrhagic anemia; N17.9 Acute kidney failure, unspecified; J90 Pleural effusion, not elsewhere classified; J98.11 Atelectasis; I42.9 Cardiomyopathy, unspecified; E66.01 Morbid (severe) obesity due to excess calories; I11.9 Hypertensive heart disease without heart failure; J45.909 Unspecified asthma, uncomplicated; I25.2 Old myocardial infarction; Z68.38 Body mass index [BMI] 38.0-38.9, adult; E78.5 Hyperlipidemia, unspecified; G47.33 Obstructive sleep apnea (adult) (pediatric); K21.9 Gastro-esophageal reflux disease without esophagitis; I44.0 Atrioventricular block, first degree; R73.9 Hyperglycemia, unspecified; R32 Unspecified urinary incontinence; N32.89 Other specified disorders of bladder; K08.89 Other specified disorders of teeth and supporting structures; N42.9 Disorder of prostate, unspecified; N52.9 Male erectile dysfunction, unspecified; Z90.79 Acquired absence of other genital organ(s); Z79.82 Long term (current) use of aspirin; Z79.899 Other long term (current) drug therapy; Z85.46 Personal history of malignant neoplasm of prostate; Z95.5 Presence of coronary angioplasty implant and graft; Z87.891 Personal history of nicotine dependence; Z98.890 Other specified postprocedural states; Z71.3 Dietary counseling and surveillance; W19.XXXA Unspecified fall, initial encounter; Z88.8 Allergy status to other drugs, medicaments and biological substances; Z80.0 Family history of malignant neoplasm of digestive organs
CPT/HCPCS: 70450; 70496; 70498; 71045; 71046; 80053; 81001; 82140; 82330; 82805; 83605; 83735; 85025; 85027; 85520; 85610; 85730; 86850; 86891; 86900; 86901; 86920; 94002; 94003; 94640; 94760

== ENCOUNTER → 2021-03-03 | Outpatient (CLI) | payer MEDICARE ==
--- NOTE | 2021-03-03 17:21 | XR ---
EXAMINATION TYPE: XR chest 2V DATE OF EXAM: 03/03/2021 CLINICAL HISTORY: COUGH/ HX OF BYPASS. TECHNIQUE: Frontal and lateral view of the chest. COMPARISON: 02/10/2021 FINDINGS: Sternotomy wires and left atrial appendage clip. Cardiac silhouette is obscured by large l eft pleural effusion. No pneumothorax. No acute displaced osseous fracture. IMPRESSION: Large left pleural effusion, significantly increased from 02/10/2021.
== END | disposition home or self-care (01) ==
LOC: RADXRMAIN 14:17
PROVIDERS: ATTEND Physician Assistant Medical
DX: J90 Pleural effusion, not elsewhere classified (principal)
CPT/HCPCS: 71046

== ENCOUNTER → 2021-03-04 | Day surgery (SDC) | payer MEDICARE ==
[2021-03-04 13:45] VITALS: RESP 16; TEMP 97
[2021-03-04 13:49] VITALS: BP 130/72; PULSE 90
--- NOTE | 2021-03-04 14:02 | XR ---
EXAMINATION TYPE: XR chest 1V portable DATE OF EXAM: 03/04/2021 COMPARISON: 03/03/2021 HISTORY: Thoracentesis TECHNIQUE: Single view FINDINGS: There is blunting left costophrenic angle. Heart is probably enlarged. There are sternal wi res. There is no heart failure. There is infiltrate left lower lobe. No pneumothorax. IMPRESSION: There is approximate 50% decrease in the large left pleural effusion compared to exam yes terday.
[2021-03-04 14:29] LABS: Appearance,BF Cloudy; Color,BF Orange
[2021-03-04 14:46] LABS: Nucleated Cells, Body Fluid 1300 /uL; RBC, Body Fluid 15600 /uL
[2021-03-04 14:53] LABS: Mononuclear WBC,Body Fluid 95 %; Polynuclear WBC,Body Fluid 4 %; Total Cells Counted,Body Fluid 100
[2021-03-05 05:45] LABS: Glucose, BF Source Pleural Fluid; Glucose, Body Fluid 105 mg/dL; LDH, Body Fluid Source Pleural Fluid
--- NOTE | 2021-03-09 12:53 | P.PCN ---
Date of Procedure: 03/09/21 Preoperative Diagnosis: left sided pleraul effusion Postoperative Diagnosis: left sided pleural effusion Procedure(s) Performed: thoracentesis Anesthesia: local Surgeon: Luisa Schaffer Estimated Blood Loss (ml): 0 Pathology: other Disposition: same day Operative Findings: A time out was performed and the chest x-ray was reviewed, the appropriate side was confirmed and marked. My hands were washed immediately prior to the procedure. I wore a surgical cap, mask with protective eyewear, sterile gown and sterile gloves throughout the procedure. The patient was prepped and draped in a sterile manner using chlorhexidine scrub after the appropriate level was percussed and confirmed by ultrasound. 1% lidocaine was used to anesthesize the skin, subcutaneous tissue, superior aspect of the rib periosteum and parietal pleura. A finder needle was then introduced over the superior aspect of the rib to locate the pleural fluid; 2colored fluid was aspirated at a depth of approximately 2 cm. A 10-blade scalpel was used to jeffrey the skin at the insertion site. The [id number]-l-[id number] needle was then introduced through the skin incision into the pleural space using negative aspiration pressure and the red colometric indicator to confirm appropriate positioning of the needle. The thoracentesis catheter was then threaded without difficulty, 1600 ml of turbid colored fluid was removed without difficulty. The catheter was then removed. No immediate complications were noted during the procedure. A post-procedure chest x-ray is pending at the time of this note. The fluid will be sent for studies. Estimated blood loss is 0cc
== END ==
LOC: PROCWHC3 13:08
PROVIDERS: ATTEND Internal Medicine Critical Care Medicine
DX: J90 Pleural effusion, not elsewhere classified (principal)
CPT/HCPCS: 32554; 71045; 82945; 83615; 84157; 87070; 87205; 88108; 88305; 89050

== ENCOUNTER → 2021-03-11 | Day surgery (SDC) | payer MEDICARE ==
[~2021-03-11] MED LIST changes: -ALBUMIN HUMAN 25% 50 ML IV ONE; -ALBUMIN HUMAN 5% 500 ML IVPB ONE; -ASPIRIN 325 MG TAB PO ONE; -ATORVASTATIN 10 MG TAB PO ONE; -CALCIUM CHLORIDE 100 MG/ML 10 ML SYRINGE IV ONE; -CHLORHEXIDINE GLUCONATE 15 ML CUP MUCOUS MEM ONE; -CLEVIDIPINE BUTYRATE 25 MG in EMPTY BAG 1 BAG IV ONE; -DEXTROSE 5% IN WATER 1,000 ML with POTASSIUM CHLORIDE 110 MEQ, MAGNESIUM SULFATE 16 MEQ... IV ONE; -DEXTROSE 5% IN WATER 1,000 ML with POTASSIUM CHLORIDE 25 MEQ, SODIUM CHLORIDE 4MEQ/ML V... IRRIGATION ONE; -DILTIAZEM 125 MG in SODIUM CHLORIDE 0.9% 100 ML IV ONE; -HEPARIN SODIUM 1,000 UN/ML (10ML VL) IV ONE; -HEPARIN SODIUM,PORCINE 5,000 UNIT in SODIUM CHLORIDE 0.9% 500 ML 500 ML IV ONE; -INSULIN REGULAR 100 UNIT in SODIUM CHLORIDE 0.9% 100 ML IV ONE; -LACTATED RINGERS 1,000 ML IV ONE; -MAGNESIUM SULFATE MG 500 MG/ML IV ONE; -MANNITOL 25% 12.5 GM/50 ML VIAL IV ONE; -METOPROLOL TARTRATE 12.5 MG TAB PO ONE; -NITROGLYCERIN-D5W PMX 25 MG/250 ML BTL IV ONE; -NITROGLYCERIN-D5W PMX 50 MG in DEXTROSE/WATER 1 250ML.BAG IV ONE; -NOREPINEPHRINE 4 MG in SODIUM CHLORIDE 0.9% 250 ML IV ONE; -PAPAVERINE 360 MG in SODIUM CHLORIDE 0.9% 90 ML IV ONE; -PHENYLEPHRINE 10 MG/ML VIAL IV ONE; -PHENYLEPHRINE 40 MG in SODIUM CHLORIDE 0.9% 250 ML IV ONE; -PROTAMINE SULFATE 10 MG/ML 25 ML VIAL IV ONE; -PROTAMINE SULFATE 250 MG in EMPTY BAG 1 BAG IV ONE; -SODIUM BICARB 8.4% 50 ML SYR (1 MEQ/ML) IV ONE; -SODIUM CHLORIDE 0.9% 1,000 ML IV ONE; +SODIUM CHLORIDE 0.9% 500 ML 500 ML in EMPTY BAG 1 BAG IV PRN; -TRANEXAMIC ACID 2,000 MG in SODIUM CHLORIDE 0.9% 80 ML IV ONE; -ceFAZolin 1,000 MG in SODIUM CHLORIDE 0.9% IRRIGATIO 1,000 ML IRRIGATION ONE; -propofoL 1,000 MG/100 ML VIAL IV ONE
[2021-03-11 11:51] VITALS: RESP 18
[2021-03-11 11:54] VITALS: TEMP 98.5
[2021-03-11 13:17] VITALS: BP 128/62; PULSE 84
--- NOTE | 2021-03-11 13:25 | XR ---
EXAMINATION TYPE: XR chest 1V portable DATE OF EXAM: 03/11/2021 HISTORY: POST THORACENTESIS COMPARISON: 03/04/2021 TECHNIQUE: Single view of the chest is submitted. FINDINGS: Persistent left basilar opacity. No evidence for left-sided pneumothorax. The heart is stable. Hilar and mediastinal structures are within normal limits. Degenerative changes are seen of the dorsal spine. IMPRESSION: 1. Persistent left basilar opacity. No evidence for left-sided pneumothorax.
--- NOTE | 2021-03-11 23:16 | PCN ---
PROCEDURE NOTE PROCEDURE PERFORMED: Left sided thoracentesis. PREOP DIAGNOSIS: Left sided pleural effusion. POSTOP DIAGNOSIS: Left sided pleural effusion. A time-out was completed verifying correct patient, procedure, site, positioning , and implant (s) or special equipment if applicable. Ultrasound guidance was not used and appropriate fluid pocket was identified and marked. Patient was positioned, prepped and draped in usual sterile fashion. Lidocaine was used to anesthetize the area. A Thoracentesis catheter was introduced into the pleural space and fluid was removed. Blood loss was none. A chest x-ray was ordered to evaluate for pneumothorax. Total Fluid Removed: 550 mL Color of Fluid : Dark turbid deep yellowish. Fluid was sent for appropriate laboratory tests. Patient tolerated the procedure well and there were no complications. No ultrasound markings obtained. Total amount of fluid drained was 550 mL of pleural fluid dark turbid deep yellowish in color. No complications. Chest x-rays to follow. MMODL / IJN: [id number] /
== END ==
LOC: PROCWHC3 11:43
PROVIDERS: ATTEND Internal Medicine Critical Care Medicine
DX: J90 Pleural effusion, not elsewhere classified (principal); Z91.048 Other nonmedicinal substance allergy status; Z79.02 Long term (current) use of antithrombotics/antiplatelets; Z79.899 Other long term (current) drug therapy; I25.10 Atherosclerotic heart disease of native coronary artery without angina pectoris; K21.9 Gastro-esophageal reflux disease without esophagitis; E78.5 Hyperlipidemia, unspecified; I10 Essential (primary) hypertension; G47.33 Obstructive sleep apnea (adult) (pediatric); Z95.1 Presence of aortocoronary bypass graft; Z80.0 Family history of malignant neoplasm of digestive organs; Z90.79 Acquired absence of other genital organ(s); Z85.46 Personal history of malignant neoplasm of prostate; E66.01 Morbid (severe) obesity due to excess calories; Z68.34 Body mass index [BMI] 34.0-34.9, adult
CPT/HCPCS: 32554; 71045

== ENCOUNTER → 2022-02-07 | Outpatient (CLI) | payer MEDICARE ==
[2022-02-07 14:47] LABS: ALT 13 U/L (10-49); AST 27 U/L (14-35); Chol/HDL Ratio 5.27 Ratio; LDL Cholesterol,Calculated 124.1 mg/dL (0.0-131.0)
== END | disposition home or self-care (01) ==
LOC: LABWHC1 10:46
PROVIDERS: ATTEND Internal Medicine Cardiovascular Disease
DX: E78.2 Mixed hyperlipidemia (principal)
CPT/HCPCS: 36415; 80061; 84450; 84460

== ENCOUNTER 2022-06-07 12:06 | Emergency (ER) | payer MEDICARE ==
[2022-06-07 12:31] VITALS: BP 167/65; PULSE 95; RESP 20; TEMP 98
--- NOTE | 2022-06-07 12:55 | ED ---
General Adult HPI - General Chief complaint: ENT Stated complaint: sore throat and body aches Time Seen by Provider: 06/07/22 12:32 Source: patient Mode of arrival: ambulatory Limitations: no limitations - History of Present Illness Initial comments: Patient is an 82-year-old male presenting with chief complaint of sore throat. Patient states that he woke up sore throat today, he admits to trying aphasia but denies any dysphasia. Patient also states he has had urinary urgency and frequency starting last night. He denies any chest pain, shortness of breath, fever, chills, nausea, vomiting, abdominal pain, dysuria, hematuria, flank pain, diarrhea, hematochezia, melena. - Related Data Home Medications Medication Instructions Recorded Confirmed Albuterol Sulfate [Albuterol 1 puff PO Q6H PRN 01/17/21 03/11/21 Sulfate Hfa] Loratadine [Claritin] 10 mg PO DAILY 01/17/21 03/11/21 Previous Rx's Medication Instructions Recorded Acetaminophen Tab [Tylenol] 650 mg PO Q6HR PRN tab 02/10/21 Amiodarone [Cordarone] 200 mg PO BID #20 tab 02/10/21 Aspirin 325 mg PO DAILY tab 02/10/21 Atorvastatin [Lipitor] 40 mg PO DAILY #30 tab 02/10/21 Furosemide [Lasix] 40 mg PO DAILY #7 tablet 02/10/21 Metoprolol Tartrate [Lopressor] 50 mg PO BID #60 tab 02/10/21 Pantoprazole [Protonix] 40 mg PO EKATERINA #30 tablet. 02/10/21 Sennosides-Docusate Sodium 2 each PO HS #7 tab 02/10/21 [Senokot-S] amLODIPine [Norvasc] 5 mg PO DAILY #30 tab 02/10/21 Clopidogrel Bisulfate [Plavix] 75 mg PO DAILY #30 tab 03/04/21 Losartan Potassium [Cozaar] 50 mg PO DAILY #30 tablet 03/04/21 Allergies Allergy/AdvReac Type Severity Reaction Status Date / Time iodine AdvReac Severe Rash/Hives,skin Verified 06/07/22 12:31 peeled Review of Systems ROS Statement: Those systems with pertinent positive or pertinent negative responses have been documented in the HPI. ROS Other: All systems not noted in ROS Statement are negative. Past Medical History Past Medical History: Coronary Artery Disease (CAD), Cancer, GERD/Reflux, Hyperlipidemia, Hypertension, Myocardial Infarction ([place]), Prostate Disorder, Sleep Apnea/CPAP/BIPAP Additional Past Medical History / Comment(s): no cpap used, hx prostate cancer before 1999-had surg. & radiation, erectile dysfunction. BILATERAL PLELURAL EFFUSIONS POST CABG. Last Myocardial Infarction Date:: unknown History of Any Multi-Drug Resistant Organisms: None Reported Past Surgical History: Heart Catheterization, Heart Catheterization With Stent, Prostate Surgery Additional Past Surgical History / Comment(s): one cardiac stent,. BILATERAL THORACENTESIS Past Anesthesia/Blood Transfusion Reactions: No Reported Reaction Date of Last Stent Placement:: unknown Past Psychological History: No Psychological Hx Reported Smoking Status: Never smoker Past Alcohol Use History: None Reported Past Drug Use History: None Reported - Past Family History Mother Family Medical History: No Reported History Additional Family Medical History / Comment(s): Multisystem organ failure, at age 93. Father Family Medical History: Cancer Additional Family Medical History / Comment(s): Colon cancer General Exam Limitations: no limitations General appearance: alert, in no apparent distress Head exam: Present: atraumatic, normocephalic, normal inspection Eye exam: Present: normal appearance, EOMI. Absent: scleral icterus, periorbital swelling ENT exam: Present: normal oropharynx, mucous membranes moist Neck exam: Present: normal inspection Respiratory exam: Present: normal lung sounds bilaterally. Absent: respiratory distress, wheezes, rales, rhonchi, stridor Cardiovascular Exam: Present: regular rate, normal rhythm, normal heart sounds. Absent: systolic murmur, diastolic murmur, rubs, gallop, clicks Neurological exam: Present: alert, oriented X3, CN II-XII intact Psychiatric exam: Present: normal affect, normal mood Skin exam: Present: warm, dry, intact, normal color. Absent: rash Course Vital Signs 06/07/22 12:29 Temperature 98 F Pulse Rate 95 Respiratory 20 Rate Blood Pressure 167/65 O2 Sat by Pulse 99 Oximetry Medical Decision Making - Medical Decision Making Patient is an 82-year-old male presenting with chief complaint of sore throat. Patient is also complaining of urinary urgency and frequency. I saw the patient while in the waiting room. Physical examination is WNL. Patient is negative for Covid. Patient left AMA from waiting room before receiving strep testing and submitting a UA. Patient should follow-up with his PCP in one to 2 days and report back to ER if any new or worsening symptoms. My attending is Dr. Herrera - Lab Data Lab Results 06/07/22 Range/Units 12:32 Coronavirus (PCR) Not Detected (Not Detectd) Disposition Clinical Impression: Sore throat Disposition: Left Against Medical Advice Condition: Fair Instructions (If sedation given, give patient instructions): Pharyngitis (ED) Referrals: Kavya Khan DO [Primary Care Provider] - 1-2 days
== END 2022-06-07 14:21 | disposition left against medical advice (07) ==
LOC: EC 12:06
DX: J02.9 Acute pharyngitis, unspecified (principal); I25.10 Atherosclerotic heart disease of native coronary artery without angina pectoris; K21.9 Gastro-esophageal reflux disease without esophagitis; E78.5 Hyperlipidemia, unspecified; I10 Essential (primary) hypertension; I25.2 Old myocardial infarction; Z91.041 Radiographic dye allergy status; Z79.82 Long term (current) use of aspirin; Z79.899 Other long term (current) drug therapy; Z20.822 Contact with and (suspected) exposure to COVID-19; Z53.29 Procedure and treatment not carried out because of patient's decision for other reasons
CPT/HCPCS: 87635; 99283

== ENCOUNTER → 2022-07-26 | Outpatient (CLI) | payer MEDICARE ==
[2022-07-26 18:08] LABS: ALT 34 U/L (10-49); AST 26 U/L (14-35); Chol/HDL Ratio 3.63 Ratio; LDL Cholesterol,Calculated 75.7 mg/dL (0.0-131.0)
== END | disposition home or self-care (01) ==
LOC: LABWHC1 10:22
PROVIDERS: ATTEND Internal Medicine Cardiovascular Disease
DX: E78.2 Mixed hyperlipidemia (principal)
CPT/HCPCS: 36415; 80061; 84450; 84460

== ENCOUNTER 2022-07-27 07:56 | Day surgery (SDC) | payer MEDICARE ==
[2022-07-27] MEDS ORDERED: SODIUM CHLORIDE 0.9% 500 ML 500 ML IV ONE (08:12)
[2022-07-27 08:28] VITALS: TEMP 98.3
[2022-07-27] MEDS ORDERED: fentaNYL (PF) 50 MCG/ML 2 ML AMP ONE (08:41)
[2022-07-27] MEDS ORDERED: BENZOCAINE SPRAY 1 CAN TOPICAL ONE (08:54)
[2022-07-27] MEDS ORDERED: BENZOCAINE SPRAY 1 CAN MUCOUS MEM ONE (09:11)
[2022-07-27] MEDS ORDERED: fentaNYL (PF) 50 MCG/ML 2 ML AMP IV ONE (09:11)
[2022-07-27] MEDS ORDERED: MIDAZOLAM 2 MG/2 ML VIAL IV ONE (09:11)
[2022-07-27] MEDS ORDERED: SODIUM CHLORIDE 0.9% 1,000 ML IV SCH (09:30)
[2022-07-27 11:07] VITALS: RESP 16
[2022-07-27 11:09] VITALS: BP 169/67; PULSE 59
--- NOTE | 2022-07-28 04:22 | ECHOT ---
TRANSESOPHAGEAL ECHOCARDIOGRAM INDICATION: Mitral regurgitation. PROCEDURE NOTE: After obtaining informed consent, transesophageal echocardiogram was performed in left lateral position using an Omni plane probe. Local and IV sedation were obtained using 2 mg of Versed, 25 mcg of fentanyl and Xylocaine spray. The patient tolerated the procedure well without any obvious complications. Total sedation time was 10 minutes. FINDINGS: 1. Mitral valve appears anatomically normal. There is poor coaptation of the mitral valve leaflets with [id number] central mitral regurgitation. There is no evidence of reversal of flow into the pulmonary vein. Mitral anulus appears dilated. Left atrium appears moderately enlarged. Right atrium and right ventricle seen within normal limits. 2. Left ventricle appears mildly enlarged with hypokinetic apex and septum, suggestive of prior myocardial infarction in LAD distribution with an ejection fraction of 35%. There is mild tricuspid regurgitation noted. There is no evidence of left-to- right shunt by color-flow Doppler or [id number] shunt by agitated saline contrast study. 3. Aortic valve is a 3-leaflet valve. There is no evidence of aortic stenosis or regurgitation. Ascending aorta appears within normal limits. CONCLUSIONS: [id number] central mitral regurgitation, ischemic cardiomyopathy with an ejection fraction of 35%. Aortic sclerosis without significant stenosis. MMODL / IJN: [id number] /
== END 2022-07-27 10:37 | disposition home or self-care (01) ==
LOC: CATHCVL 07:56
PROVIDERS: ATTEND Internal Medicine Cardiovascular Disease
DX: I08.1 Rheumatic disorders of both mitral and tricuspid valves (principal); I25.5 Ischemic cardiomyopathy; I10 Essential (primary) hypertension; E78.2 Mixed hyperlipidemia; Z95.1 Presence of aortocoronary bypass graft; I27.20 Pulmonary hypertension, unspecified; Z95.5 Presence of coronary angioplasty implant and graft; I25.10 Atherosclerotic heart disease of native coronary artery without angina pectoris; Z79.82 Long term (current) use of aspirin; Z79.899 Other long term (current) drug therapy
CPT/HCPCS: 93312; 93320; 93325; J2250; J3010

== ENCOUNTER 2024-02-11 23:54 | Inpatient (IN) | payer MEDICARE ==
[2024-02-12 00:34] LABS: ALT 71 U/L (4-49); AST 53 U/L (17-59); African American GFR (CKD) 76 (>60 ml/min/1.73 sqM); Albumin 3.9 g/dL (3.5-5.0); Alkaline Phosphatase 91 U/L (38-126); Anion Gap 7 mmol/L; Blood Urea Nitrogen 22 mg/dL (9-20); Calcium 9.2 mg/dL (8.4-10.2); Carbon Dioxide 24 mmol/L (22-30); Chloride 109 mmol/L (98-107); Glucose 125 mg/dL (74-99); INR 0.9 (<1.2); Non-African American GFR(CKD) 66 (>60 ml/min/1.73 sqM); Partial Thromboplastin Time 26.4 sec (22.0-30.0); Potassium 4.3 mmol/L (3.5-5.1); Prothrombin Time 10.2 sec (10.0-12.5); Sodium 140 mmol/L (137-145); Total Bilirubin 0.4 mg/dL (0.2-1.3); Total Protein 7.1 g/dL (6.3-8.2)
--- NOTE | 2024-02-12 00:52 | ED ---
Chest Pain HPI - General Chief Complaint: Chest Pain Stated Complaint: chest pain left arm pain Time Seen by Provider: 02/12/24 00:50 Source: patient, RN notes reviewed, old records reviewed Mode of arrival: wheelchair Limitations: no limitations - History of Present Illness Initial Comments: This is an 84-year-old male to the ER for evaluation today. Patient has not been feeling well for a few days now but without chest pain occasional shortness of breath no diaphoresis. Patient has history of CABG, patient was off his home medications were recently restarted taking his blood pressure medications. As well as his anticoagulation medications. Blood thinners, patient has no fevers no travels no sick contacts no other complaints does not feel well does complain of chest pain chest pain with arm and neck chest pain to the back with swelling of the back, admits to increased workout regiment MD Complaint: chest pain -: hour(s) Onset: during rest, during exertion Pain Location: substernal, left chest Pain Radiation: LUE Severity: moderate Severity scale (1-10): 4 Quality: aching Consistency: intermittent Improves With: nothing Worsens With: nothing Anginal Symptoms: sense of impending doom Other Symptoms: palpitations Treatments Prior to Arrival: none - Related Data Home Medications Medication Instructions Recorded Confirmed Atorvastatin Calcium [Lipitor] 40 mg PO DAILY 02/12/24 02/12/24 Clopidogrel [Plavix] 75 mg PO DAILY 02/12/24 02/12/24 Fluticasone Nasal [place] [Flonase 2 spray EA NOSTRIL DAILY 02/12/24 02/12/24 Nasal [place]] Loratadine [Claritin] 10 mg PO DAILY 02/12/24 02/12/24 Mirabegron [Myrbetriq] 50 mg PO DAILY 02/12/24 02/12/24 Previous Rx's Medication Instructions Recorded Aspirin 81 mg PO DAILY tab 02/13/24 Losartan-Hctz 50-12.5 mg [Hyzaar 2 each PO DAILY #60 tab 02/13/24 50-12.5] Metoprolol Tartrate [Lopressor] 25 mg PO BID #60 tab 02/13/24 Nitroglycerin Sl Tabs [Nitrostat] 0.4 mg SUBLINGUAL Q5M PRN tab 02/13/24 amLODIPine [Norvasc] 10 mg PO DAILY #30 tab 02/13/24 Isosorbide Mononitrate ER [Imdur] 30 mg PO DAILY #30 tab 02/14/24 Spironolactone [Aldactone] 25 mg PO DAILY #30 tab 02/14/24 Pantoprazole [Protonix] 40 mg PO DAILY #30 tab 02/15/24 Ticagrelor [Brilinta] 90 mg PO BID #180 tab 02/19/24 Allergies Allergy/AdvReac Type Severity Reaction Status Date / Time iodine Allergy Severe Rash/Hives,skin Verified 02/12/24 08:49 peeled shellfish derived [Shellfish] Allergy Rash/Hives Verified 02/12/24 08:49 Review of Systems ROS Statement: Those systems with pertinent positive or pertinent negative responses have been documented in the HPI. ROS Other: All systems not noted in ROS Statement are negative. EKG Findings - EKG Comments: EKG Findings:: EKG is sinus 65 W[place] 188 QRS 136 QTc 438 - EKG Results: EKG: interpreted by [facility] Past Medical History Past Medical History: Coronary Artery Disease (CAD), Cancer, GERD/Reflux, Hyperlipidemia, Hypertension, Myocardial Infarction ([place]), Prostate Disorder, Sleep Apnea/CPAP/BIPAP Additional Past Medical History / Comment(s): H&P scanned. No CPAP use, hx prostate cancer prior to 1999-had surgery & radiation, erectile dysfunction, BILATERAL PLEURAL EFFUSIONS POST CABG. Last Myocardial Infarction Date:: unknown History of Any Multi-Drug Resistant Organisms: None Reported Past Surgical History: Coronary Bypass/CABG, Heart Catheterization, Heart Cath eterization With Stent, Prostate Surgery Additional Past Surgical History / Comment(s): Quadruple bypass, one cardiac stent, BILATERAL THORACENTESIS, prostatectomy. Past Anesthesia/Blood Transfusion Reactions: No Reported Reaction Date of Last Stent Placement:: unknown Past Psychological History: No Psychological Hx Reported Smoking Status: Never smoker Past Alcohol Use History: None Reported Past Drug Use History: None Reported - Past Family History Mother Family Medical History: No Reported History Additional Family Medical History / Comment(s): Multisystem organ failure, at age 93. Father Family Medical History: Cancer Additional Family Medical History / Comment(s): Colon cancer. General Exam Limitations: no limitations General appearance: alert, in no apparent distress Head exam: Present: atraumatic, normocephalic, normal inspection Eye exam: Present: normal appearance, PERRL, EOMI. Absent: scleral icterus, conjunctival injection, periorbital swelling ENT exam: Present: normal exam, mucous membranes moist Neck exam: Present: normal inspection. Absent: tenderness, meningismus, lymphadenopathy Respiratory exam: Present: normal lung sounds bilaterally. Absent: respiratory distress, wheezes, rales, rhonchi, stridor Cardiovascular Exam: Present: regular rate, normal rhythm, normal heart sounds. Absent: systolic murmur, diastolic murmur, rubs, gallop, clicks GI/Abdominal exam: Present: soft, normal bowel sounds. Absent: distended, tenderness, guarding, rebound, rigid Extremities exam: Present: normal inspection, full ROM, normal capillary refill. Absent: tenderness, pedal edema, joint swelling, calf tenderness Back exam: Present: normal inspection Neurological exam: Present: alert, oriented X3, CN II-XII intact Psychiatric exam: Present: normal affect, normal mood Skin exam: Present: warm, dry, intact, normal color. Absent: rash Course Vital Signs 02/11/24 02/12/24 02/12/24 23:56 01:02 01:52 Temperature 97.2 F L Pulse Rate 71 67 61 Respiratory 20 16 18 Rate Blood Pressure 191/79 156/68 165/84 O2 Sat by Pulse 100 97 100 Oximetry 02/12/24 02/12/24 02/12/24 05:41 06:46 09:00 Temperature 97.9 F Pulse Rate 61 58 L 64 Respiratory 16 16 20 Rate Blood Pressure 156/74 188/104 O2 Sat by Pulse 99 100 98 Oximetry 02/12/24 02/12/24 02/12/24 12:00 16:00 20:00 Temperature Pulse Rate 60 54 L 63 Respiratory 16 16 18 Rate Blood Pressure 169/102 171/69 178/77 O2 Sat by Pulse 97 98 96 Oximetry 02/13/24 02/13/24 02/13/24 00:00 03:17 06:59 Temperature Pulse Rate 60 60 54 L Respiratory 14 18 18 Rate Blood Pressure 179/88 183/81 169/72 O2 Sat by Pulse 97 97 99 Oximetry 02/13/24 08:32 Temperature Pulse Rate 62 Respiratory 16 Rate Blood Pressure 158/70 O2 Sat by Pulse 97 Oximetry - Reevaluation(s) Reevaluation #1: 02/12/24 00:51 Medical records reviewed Reevaluation #2: 02/12/24 00:51 Still with episodic chest pain here in the ER Reevaluation #3: 02/12/24 01:27 patient is informed of results and questions answered Reevaluation #4: Was pt. sent in by a medical professional or institution (, [facility], [employer], urgent care, hospital, or residential...) When possible be specific @ -no Did you speak to anyone other than the patient for history (EMS, parent, family, police, friend...)? What history was obtained from this source @ -no Did you review nursing and triage notes (agree or disagree)? Why? @ -agree Are old charts reviewed (outside hosp., previous admission, EMS record, old EKG, old radiological studies, urgent care reports/EKG's, residential records)? Report findings @ -yes Differential Diagnosis (chest pain, altered mental status, abdominal pain women, abdominal pain men, vaginal bleeding, weakness, fever, dyspnea, syncope, headache, dizziness, GI bleed, back pain, seizure, CVA, palpatations, mental health, musculoskeletal)? @ -prior EKG interpreted by me (3pts min.). @ -yes X-rays interpreted by me (1pt min.). @ -yes negative for acute disease CT interpreted by me (1pt min.). @ -no U/S interpreted by me (1pt. min.). @ -no What testing was considered but not performed or refused? (CT, X-rays, U/S, labs)? Why? @ -none What meds were considered but not given or refused? Why? @ -none Did you discuss the management of the patient with other professionals (professionals i.e. , [facility], [employer], lab, RT, psych nurse, social worker assistant, logistics vice president, teacher, peace officer, shoe caser)? Give summary @ -no Was smoking cessation discussed for >3mins.? @ -no Was critical care preformed (if so, how long)? @ -yes31 Were there social determinants of health that impacted care today? How? (Homelessness, low income, unemployed, alcoholism, drug addiction, tr ansportation, low edu. Level, literacy, decrease access to med. care, intermediate, rehab)? @ -none Was there de-escalation of care discussed even if they declined (Discuss DNR or withdrawal of care, Hospice)? DNR status @ -no What co-morbidities impacted this encounter? (DM, HTN, Smoking, COPD, CAD, Cancer, CVA, ARF, Chemo, Hep., AIDS, mental health diagnosis, sleep apnea, morbid obesity)? @ -none Was patient admitted / discharged? Hospital course, mention meds given and route, prescriptions, significant lab abnormalities, going to OR and other pertinent info. @ - 84 male to the ED co weakness, chest pain and not feeling well, debbie has NSTEMI and will admit for cardiology evlauation and treatment Admitted Undiagnosed new problem with uncertain prognosis? @ -no Drug Therapy requiring intensive monitoring for toxicity (Heparin, Nitro, Insulin, Cardizem)? @ -no Were any procedures done? @ -no Diagnosis/symptom? @ -Chest pain non-STEMI Acute, or Chronic, or Acute on Chronic? @ -Acute Uncomplicated (without systemic symptoms) or Complicated (systemic symptoms)? @ -Complicated Side effects of treatment? @ -no Exacerbation, Progression, or Severe Exacerbation? @ -exacerbation Poses a threat to life or bodily function? How? (Chest pain, [place], [place], pneumonia, PE, COPD, DKA, ARF, appy, cholecystitis, CVA, Diverticulitis, Homicidal, Suicidal, threat to staff... and all critical care pts) @ -yes with significant chest pain Reevaluation #5: Differential Chest Pain: Stable Angina, Unstable Angina, STEMI, NSTEMI Aortic Dissection, Pneumothorax, Musculoskeletal, Esophageal Spasm GERD, Cholecystitis, Pancreatitis, Zoster, this is not meant to be an all-inclusive list. - Consultations Consultation #1: Spoke with admitting physicians who agreed to admit this patient Chest Pain MDM - MDM 84 male to the ED co weakness, chest pain and not feeling well, debbie has NSTEMI and will admit for cardiology evlauation and treatment Critical Care Time Critical Care Time: Yes Total Critical Care Time: 31 Disposition Clinical Impression: CAD (coronary artery disease), Chest pain, Acute non-ST elevation myocardial infarction (NSTEMI) Disposition: ADMITTED IP TO THIS [facility] Condition: Stable Is patient prescribed a controlled substance at d/c from ED?: No Time of Disposition: 01:45
[2024-02-12 01:05] LABS: Basophils # (A) 0.1 k/uL (0-0.2); Basophils % (A) 1 %; Eosinophils # (A) 0.3 k/uL (0-0.7); Eosinophils % (A) 3 %; HCT 36.1 % (39.0-53.0); HGB 11.2 gm/dL (13.0-17.5); Hypochromasia Slight; Lymphocytes # (A) 2.9 k/uL (1.0-4.8); Lymphocytes % (A) 32 %; MCHC 31.1 g/dL (31.0-37.0); MCV 90.1 fL (80.0-100.0); Mean Platelet Volume 8.1; Monocytes # (A) 0.5 k/uL (0-1.0); Monocytes % (A) 5 %; Neutrophils % (A) 56 %; Platelet Count 293 k/uL (150-450); RBC 4.01 m/uL (4.30-5.90); RDW 13.3 % (11.5-15.5); WBC 8.9 k/uL (3.8-10.6)
--- NOTE | 2024-02-12 01:08 | XR ---
EXAM: XR Chest, 2 Views CLINICAL HISTORY: ITS.REASON XR Reason: Chest Pain TECHNIQUE: Frontal and lateral views of the chest. COMPARISON: Chest x-ray 03/11/21. FINDINGS: Lungs: Improved aeration of the left lung, with equivocal nodular densities in the periphery left lower lobe, versus overlap artifact from the ribs. No consolidation. Pleural space: No pneumothorax. Heart: Stable cardiomegaly. Mediastinum: Unremarkable. Bones/Soft Tissues: No acute abnormality. IMPRESSION: 1. Possible nodular densities in the left lower lobe laterally, versus artifact. 2. Consider chest CTA as indicated for further evaluation.
[2024-02-12] MEDS ORDERED: NITROGLYCERIN SL TABS 0.4 MG TAB SUBLINGUAL PRN (01:25)
[2024-02-12] MEDS: ASPIRIN 81 MG PO STA (01:44)
[2024-02-12] MEDS: MORPHINE SULFATE 4 MG/ML SYRINGE IVP PRN (01:49)
[2024-02-12] MEDS ORDERED: LOSARTAN 50 MG TAB PO SCH (09:00)
[2024-02-12] MEDS ORDERED: ATORVASTATIN 80 MG TAB PO SCH (09:00)
[2024-02-12] MEDS: LOSARTAN-HCTZ 50-12.5 MG 1 EACH TAB PO SCH (09:10)
[2024-02-12] MEDS: METOPROLOL TARTRATE 25 MG TAB PO SCH (09:10)
[2024-02-12] MEDS: amLODIPine 5 MG TAB PO SCH (09:10)
--- NOTE | 2024-02-12 10:05 | P.CRDCN ---
History of Present Illness History of present illness: HISTORY OF PRESENT ILLNESS: This is a 84-year-old male with a past medical history significant for hypertension, hyperlipidemia, ischemic cardiomyopathy, coronary artery disease with previous CABG, and mitral regurgitation. Patient follows in the office with Dr. Boo. We have been asked to see the patient in consultation for elevated troponins. Patient examined at the bedside in the emergency room. Patient presented to the hospital with a chief complaint of pain in his left shoulder. He states the pain radiated down his left arm. At the time of examination he reports having some pain in between his shoulder blades and in his neck. He denied having any chest pain or pressure. He denies having any shortness of breath. Patient states he started exercising about a month ago and has been feeling better overall so he decided to stop taking all of his cardiac medications about 3 weeks ago. The patient's blood pressure was found to be extremely elevated upon admission with a systolic in the 190s. DIAGNOSTICS: - EKG reveals sinus mechanism with PACs. No signs of acute ischemia.. - Chest xray possible nodular densities in the left lower lobe laterally versus artifact. - Laboratory data: WBC 8.9. Hemoglobin 11.2. Platelet count 293. Sodium 140. Potassium 4.3. BUN 22. Creatinine 1.06. Troponin 0.044. 0.040. - Current home cardiac medications include: None - Most recent echocardiogram obtained in August 2023 revealed ejection fraction 45 to 50%, severe MR, mild to moderate TR - Patient underwent Lexiscan stress test in December 2021 revealing partially rever sible mid anterior wall defect REVIEW OF SYSTEMS: At the time of my exam: CONSTITUTIONAL: Denies fever or chills. HEENT: Denies blurred vision, vision changes, or eye pain. Denies hemoptysis CARDIOVASCULAR: Denies chest pain. Denies orthopnea. Denies PND. Denies palpitations RESPIRATORY: Denies shortness of breath. GASTROINTESTINAL: Denies abdominal pain. Denies nausea or vomiting. HEMATOLOGIC: Denies bleeding disorders. GENITOURINARY: Denies any blood in urine. SKIN: Denies pruitis. Denies rash. PHYSICAL EXAM: VITAL SIGNS: Reviewed. GENERAL: Well-developed in no acute distress. HEENT: Head is normocephalic. Pupils are equal, round. Sclerae anicteric. Mucous membranes of the mouth are moist. Neck supple. No JVD or thyromegaly LUNGS: Respirations even and unlabored. Lungs essentially clear to auscultation bilaterally. HEART: Regular rate and rhythm. S1 and S2 heard. Systolic murmur. ABDOMEN: Soft. Nondistended. Nontender. EXTREMITIES: Normal range of motion. No clubbing or cyanosis. Peripheral pulses intact. No lower extremity edema NEUROLOGIC: Awake and alert. Oriented x 3. ASSESSMENT: Hypertensive emergency secondary to medication noncompliance Atypical chest discomfort with minimally elevated troponins, likely secondary to above Coronary artery disease with previous CABG x 4 vessels, 2020 Severe mitral regurgitation History of hypertension History of hyperlipidemia History of ischemic cardiomyopathy Medication noncompliance PLAN: Obtain 2D echo to assess cardiac structure and function Add aspirin 81 mg daily, atorvastatin 40 mg at night, amlodipine 5 mg daily, metoprolol tartrate 25 mg twice a day, and losartan hydrochlorothiazide 50-12.5 mg daily Medication compliance discussed with patient who verbalized understanding Continue to monitor blood pressure Further recommendations pending patient course Nurse practitioner note has been reviewed by physician. Signing provider agrees with the documented findings, assessment, and plan of care documented by BENCH PRECISION ASSEMBLER as a scribe. Past Medical History Past Medical History: Coronary Artery Disease (CAD), Cancer, GERD/Reflux, Hyperlipidemia, Hypertension, Myocardial Infarction ([place]), Prostate Disorder, Sleep Apnea/CPAP/BIPAP Additional Past Medical History / Comment(s): H&P scanned. No CPAP use, hx prostate cancer prior to 1999-had surgery & radiation, erectile dysfunction, BILATERAL PLEURAL EFFUSIONS POST CABG. Last Myocardial Infarction Date:: unknown History of Any Multi-Drug Resistant Organisms: None Reported Past Surgical History: Coronary Bypass/CABG, Heart Catheterization, Heart Catheterization With Stent, Prostate Surgery Additional Past Surgical History / Comment(s): Quadruple bypass, one cardiac stent, BILATERAL THORACENTESIS, prostatectomy. Past Anesthesia/Blood Transfusion Reactions: No Reported Reaction Date of Last Stent Placement:: unknown Past Psychological History: No Psychological Hx Reported Smoking Status: Never smoker Past Alcohol Use History: None Reported Past Drug Use History: None Reported - Past Family History Mother Family Medical History: No Reported History Additional Family Medical History / Comment(s): Multisystem organ failure, at age 93. Father Family Medical History: Cancer Additional Family Medical History / Comment(s): Colon cancer. Medications and Allergies Home Medications Medication Instructions Recorded Confirmed Type Aspirin 325 mg PO DAILY tab 02/10/21 02/12/24 Rx Metoprolol Succinate [Toprol XL] 50 mg PO DAILY 07/25/22 02/12/24 History Atorvastatin Calcium [Lipitor] 40 mg PO DAILY 02/12/24 02/12/24 History Clopidogrel [Plavix] 75 mg PO DAILY 02/12/24 02/12/24 History Fluticasone Nasal [place] [Flonase 2 spray EA NOSTRIL DAILY 02/12/24 02/12/24 History Nasal [place]] Loratadine [Claritin] 10 mg PO DAILY 02/12/24 02/12/24 History Mirabegron [Myrbetriq] 50 mg PO DAILY 02/12/24 02/12/24 History Allergies Allergy/AdvReac Type Severity Reaction Status Date / Time iodine Allergy Severe Rash/Hives,skin Verified 02/12/24 08:49 peeled shellfish derived [Shellfish] Allergy Rash/Hives Verified 02/12/24 08:49 Physical Exam Vitals: Vital Signs Temp Pulse Resp BP Pulse Ox 02/12/24 06:46 97.9 F 58 L 16 100 02/12/24 05:41 61 16 156/74 99 02/12/24 01:52 61 18 165/84 100 02/12/24 01:02 67 16 156/68 97 02/11/24 23:56 97.2 F L 71 20 191/79 100 Intake and Output 02/11/24 02/12/24 02/12/24 22:59 06:59 14:59 Other: Weight 97.522 kg Results 02/12/24 00:05 02/12/24 00:05 Cardiac Enzymes 02/12/24 02/12/24 02/12/24 Range/Units 00:05 00:05 06:06 AST 53 (17-59) U/L Troponin I 0.044 H* 0.040 H* (0.000-0.034) ng/mL Coagulation 02/12/24 Range/Units 00:05 PT 10.2 (10.0-12.5) sec APTT 26.4 (22.0-30.0) sec CBC 02/12/24 Range/Units 00:05 WBC 8.9 (3.8-10.6) k/uL RBC 4.01 L (4.30-5.90) m/uL Hgb 11.2 L (13.0-17.5) gm/dL Hct 36.1 L (39.0-53.0) % Plt Count 293 (150-450) k/uL Comprehensive Metabolic Panel 02/12/24 Range/Units 00:05 Sodium 140 (137-145) mmol/L Potassium 4.3 (3.5-5.1) mmol/L Chloride 109 H (98-107) mmol/L Carbon Dioxide 24 (22-30) mmol/L BUN 22 H (9-20) mg/dL Creatinine 1.06 (0.66-1.25) mg/dL Glucose 125 H (74-99) mg/dL Calcium 9.2 (8.4-10.2) mg/dL AST 53 (17-59) U/L ALT 71 H (4-49) U/L Alkaline Phosphatase 91 (38-126) U/L Total Protein 7.1 (6.3-8.2) g/dL Albumin 3.9 (3.5-5.0) g/dL Current Medications Generic Name Dose Route Start Last Admin Trade Name Freq PRN Reason Stop Dose Admin Aspirin 325 mg 02/13/24 09:00 Aspirin 325 Mg Tab PO DAILY [facility] Atorvastatin Calcium 80 mg 02/12/24 09:00 Atorvastatin 80 Mg Tab PO DAILY [facility] Morphine Sulfate 4 mg 02/12/24 01:47 02/12/24 01:49 Morphine Sulfate 4 Mg/Ml Syringe IVP 4 mg Q6HR PRN Administration Pain Nitroglycerin 0.4 mg 02/12/24 01:25 Nitroglycerin Sl Tabs 0.4 Mg Tab SUBLINGUAL Q5M PRN Chest Pain Intake and Output 02/11/24 02/12/24 02/12/24 22:59 06:59 14:59 Other: Weight 97.522 kg 02/12/24 00:05 02/12/24 00:05
--- NOTE | 2024-02-12 12:21 | P.HPIM ---
History of Present Illness H&P Date: 02/12/24 Chief Complaint: Chest pain This is an 84-year-old gentleman with past medical history significant for CAD, [place], prior stenting, CABG 2020, hypertension, hyperlipidemia, ischemic cardiomyopathy EF 45 to 50%, severe mitral regurg, mild to moderate tricuspid regurg morbid obesity, medication noncompliance and multiple other medical issues presented to the ER reporting nonexertional ,midsternal chest pain radiating to his neck posterior left shoulder blade and down left arm yesterday while sitting on the couch. Denies lightheadedness dizziness or focal deficits. Denies diaphoresis or shortness of breath. Reports he has not been taking any of his prescribed medications," for a few weeks". Reports he has increased his workout at home3-4 times a week over the last 2 months. Workout consists of walking on the treadmill and weight training. Denies chest pain during e xercising. Troponins on admission 0.044, 0.040. EKG reporting sinus with PACs. Chest x-ray reported possible nodular densities in the left lower lobe laterally versus artifact. On admission hypertensive, with systolic 190s. Afebrile, normal WBC, hemoglobin 11.2, platelets 293. Electrolytes within normal limits, BUN 22, creatinine at baseline 1.06. Review of Systems ROS Statement: Those systems with pertinent positive or pertinent negative responses have been documented in the HPI. ROS Other: All systems not noted in ROS Statement are negative. Past Medical History Past Medical History: Coronary Artery Disease (CAD), Cancer, GERD/Reflux, Hyperlipidemia, Hypertension, Myocardial Infarction ([place]), Prostate Disorder, Sleep Apnea/CPAP/BIPAP Additional Past Medical History / Comment(s): H&P scanned. No CPAP use, hx prostate cancer prior to 1999-had surgery & radiation, erectile dysfunction, BILATERAL PLEURAL EFFUSIONS POST CABG. Last Myocardial Infarction Date:: unknown History of Any Multi-Drug Resistant Organisms: None Reported Past Surgical History: Coronary Bypass/CABG, Heart Catheterization, Heart Catheterization With Stent, Prostate Surgery Additional Past Surgical History / Comment(s): Quadruple bypass, one cardiac stent, BILATERAL THORACENTESIS, prostatectomy. Past Anesthesia/Blood Transfusion Reactions: No Reported Reaction Date of Last Stent Placement:: unknown Past Psychological History: No Psychological Hx Reported Smoking Status: Never smoker Past Alcohol Use History: None Reported Past Drug Use History: None Reported - Past Family History Mother Family Medical History: No Reported History Additional Family Medical History / Comment(s): Multisystem organ failure, at age 93. Father Family Medical History: Cancer Additional Family Medical History / Comment(s): Colon cancer. Medications and Allergies Home Medications Medication Instructions Recorded Confirmed Type Aspirin 325 mg PO DAILY tab 02/10/21 02/12/24 Rx Metoprolol Succinate [Toprol XL] 50 mg PO DAILY 07/25/22 02/12/24 History Atorvastatin Calcium [Lipitor] 40 mg PO DAILY 02/12/24 02/12/24 History Clopidogrel [Plavix] 75 mg PO DAILY 02/12/24 02/12/24 History Fluticasone Nasal [place] [Flonase 2 spray EA NOSTRIL DAILY 02/12/24 02/12/24 History Nasal [place] [facility]] Loratadine [Claritin] 10 mg PO DAILY 02/12/24 02/12/24 History Mirabegron [Myrbetriq] 50 mg PO DAILY 02/12/24 02/12/24 History Allergies Allergy/AdvReac Type Severity Reaction Status Date / Time iodine Allergy Severe Rash/Hives,skin Verified 02/12/24 08:49 peeled shellfish derived [Shellfish] Allergy Rash/Hives Verified 02/12/24 08:49 Physical Exam Vitals: Vital Signs Temp Pulse Resp BP Pulse Ox 02/12/24 06:46 97.9 F 58 L 16 100 02/12/24 05:41 61 16 156/74 99 02/12/24 01:52 61 18 165/84 100 02/12/24 01:02 67 16 156/68 97 02/11/24 23:56 97.2 F L 71 20 191/79 100 Intake and Output 02/11/24 02/12/24 02/12/24 22:59 06:59 14:59 Other: Weight 97.522 kg PHYSICAL EXAM: VITAL SIGNS: [As above] GENERAL: Pleasant, alert and oriented x 3, sitting up on stretcher, no acute distress HEENT: Conjunctivae normal. eyes normal. NECK: No JVD. No thyroid enlargement. No LNs CARDIOVASCULAR: S1, S2 regular. Systolic murmur RESPIRATION: Unlabored, equal air entry, clear to auscultation, bilateral bases diminished. ABDOMEN: Obese, soft, nondistended, nontender . No guarding. no masses palpable. Positive Bowel sounds. LEGS: No edema. no swelling. NERVOUS SYSTEM: Cranial N 2-12 grossly normal. Moves all 4 limbs.No focal deficits. Strength and sensation grossly intact. Skin: Warm and dry, no rash Results CBC & Chem 7: 02/12/24 00:05 02/12/24 00:05 Labs: Abnormal Lab Results - Last 24 Hours (Table) 02/12/24 02/12/24 02/12/24 Range/Units 00:05 00:05 00:05 RBC 4.01 L (4.30-5.90) m/uL Hgb 11.2 L (13.0-17.5) gm/dL Hct 36.1 L (39.0-53.0) % Chloride 109 H (98-107) mmol/L BUN 22 H (9-20) mg/dL Glucose 125 H (74-99) mg/dL ALT 71 H (4-49) U/L Troponin I 0.044 H* (0.000-0.034) ng/mL 02/12/24 Range/Units 06:06 RBC (4.30-5.90) m/uL Hgb (13.0-17.5) gm/dL Hct (39.0-53.0) % Chloride (98-107) mmol/L BUN (9-20) mg/dL Glucose (74-99) mg/dL ALT (4-49) U/L Troponin I 0.040 H* (0.000-0.034) ng/mL Assessment and Plan Assessment: Chest pain, mildly elevated troponins Hypertensive emergency secondary to medication noncompliance CAD, history of [place], stenting, CABG 2020, Ischemic cardiomyopathy, history of Severe mitral regurgitation 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 Hypertension Hyperlipidemia Morbid Obesity, BMI 35 Obstructive sleep apnea, does not use CPAP at home Prostate cancer status post prostatectomy Medication noncompliance Plan: Continue on current medication regimen ,monitoring and symptomatic treatment. Echo pending. Cardiology consult in place, recommendations pending. Medication compliance reinforced. Social work consulted regarding medication noncompliance. The impression and plan of care has been dictated as directed. : I performed a history and examination of this patient, discussed the same with the dictator. I agree with the dictator's note ,documented as a scribe. Any additional findings or plans will be noted.
--- NOTE | 2024-02-12 16:57 | CA ---
Transthoracic Echo Report Name: Gregory Jaimes Age: 84 Gender: M : 1940 Exam Date: 02/12/2024 12:33 Exam Location: [facility] Ht (in): 66 Wt (lb): 215 Ordering Physician: Rosy Mcintosh Attending/Referring Phys: [id number], Dayna Telephone Interceptor Operator Nara Paulino RDCS Procedure CPT: Indications: LV function Cardiac Hx: Technical Quality: Contrast 1: Total Dose (mL): Contrast 2: Total Dose (mL): MEASUREMENTS (Male / Female) Normal Values 2D ECHO LV Diastolic Diameter PLAX 5.8 cm 4.2 - 5.9 / 3.9 - 5.3 cm LV Systolic Diameter PLAX 4.5 cm IVS Diastolic Thickness 1.3 cm 0.6 - 1.0 / 0.6 - 0.9 cm LVPW Diastolic Thickness 1.3 cm 0.6 - 1.0 / 0.6 - 0.9 cm LV Relative Wall Thickness 0.4 RV Internal Dim ED PLAX 2.1 cm LVOT Diameter 1.9 cm LA Systolic Diameter LX 4.9 cm 3.0 - 4.0 / 2.7 - 3.8 cm LV Diastolic Volume MOD BP 109.7 cm??? 67 - 155 / 56 - 104 cm??? LV Systolic Volume MOD BP 60.9 cm??? 22 - 58 / 19 - 49 cm??? LV Ejection Fraction MOD BP 44.5 % >= 55 % LV Cardiac Index MOD BP 1485.5 cm???/min???m??? LV Diastolic Volume MOD 4C 87.6 cm??? LV Systolic Volume MOD 4C 51.4 cm??? LV Ejection Fraction MOD 4C 41.3 % LV Cardiac Index MOD 4C 1100.5 cm???/min???m??? LV Diastolic Length 4C 7.2 cm LV Systolic Length 4C 7.0 cm LV Diastolic Volume MOD 2C 118.0 cm??? LV Systolic Volume MOD 2C 69.4 cm??? LV Ejection Fraction MOD 2C 41.2 % LV Cardiac Index MOD 2C 1479.3 cm???/min???m??? LV Diastolic Length 2C 8.5 cm LV Systolic Length 2C 7.5 cm M-MODE Aortic Root Diameter MM 2.7 cm LA Systolic Diameter MM 3.9 cm LA Ao Ratio MM 1.5 DOPPLER AV Peak Velocity 205.0 cm/s AV Peak Gradient 16.8 mmHg AV Mean Velocity 149.3 cm/s AV Mean Gradient 9.7 mmHg AV Velocity Time Integral 42.7 cm MR Peak Velocity 592.1 cm/s MR Peak Gradient 140.2 mmHg TR Peak Velocity 396.2 cm/s TR Peak Gradient 62.8 mmHg Right Ventricular Systolic Press 72.9 mmHg FINDINGS Left Ventricle Left ventricular ejection fraction is estimated at 40-45%. Mildly increased septal wall thickness. Mildly increased left ventricular systolic volume. Moderately decreased left ventricular ejection fraction. [place] hypokinetic. Hypokinetic septum. Right Ventricle Normal right ventricular size and function. Severe pulmonary hypertension. Right ventricular systolic pressure estimated at 73 mmhg. Right Atrium Mild right atrial dilatation. Left Atrium Moderately increased left atrial diameter. Mitral Valve Severe mitral regurgitation. Centrally directed mitral regurgitation jet. Mitral annular calcification. Thickened mitral valve without stenosis. Aortic Valve Mild aortic stenosis with a peak gradient of 17 mmHg and a mean gradient of 10 mmHg. No aortic regurgitation. Trileaflet aortic valve. Diffuse thickening of the aortic valve cusps with reduced excursion. Tricuspid Valve Mild tricuspid regurgitation. Pulmonic Valve Mild pulmonic regurgitation. Structurally normal pulmonic valve. Pericardium No pericardial effusion. Aorta Normal size aortic root and proximal ascending aorta. CONCLUSIONS Moderate LV dysfunction Apical hypokinesis Severe pulmonary hypertension Mild aortic stenosis Severe tricuspid regurgitation Previewed by: Dr. Reggie oBo MD (Electronically Signed) Final Date: 12 February 2024 16:56
[2024-02-12] MEDS: ATORVASTATIN 40 MG TAB PO SCH (20:17)
[2024-02-13] MEDS ORDERED: ASPIRIN 325 MG TAB PO SCH (09:00)
[2024-02-13] MEDS: ASPIRIN 81 MG PO SCH (09:11)
[2024-02-13] MEDS: amLODIPine 10 MG TAB PO SCH (09:11)
[2024-02-13] MEDS: LOSARTAN-HCTZ 50-12.5 MG 1 EACH TAB PO SCH (09:11)
--- NOTE | 2024-02-13 09:12 | P.PN ---
Subjective HISTORY OF PRESENT ILLNESS: This is a 84-year-old male with a past medical history significant for hypertension, hyperlipidemia, ischemic cardiomyopathy, coronary artery disease with previous CABG, and mitral regurgitation. Patient follows in the office with Dr. Boo. We have been asked to see the patient in consultation for elevated troponins. Patient examined at the bedside in the emergency room. Patient presented to the hospital with a chief complaint of pain in his left shoulder. He states the pain radiated down his left arm. At the time of examination he reports having some pain in between his shoulder blades and in his neck. He denied having any chest pain or pressure. He denies having any shortness of breath. Patient states he started exercising about a month ago and has been feeling better overall so he decided to stop taking all of his cardiac medications about 3 weeks ago. The patient's blood pressure was found to be extremely elevated upon admission with a systolic in the 190s. DIAGNOSTICS: - EKG reveals sinus mechanism with PACs. No signs of acute ischemia.. - Chest xray possible nodular densities in the left lower lobe laterally versus artifact. - Laboratory data: WBC 8.9. Hemoglobin 11.2. Platelet count 293. Sodium 140. Potassium 4.3. BUN 22. Creatinine 1.06. Troponin 0.044. 0.040. - Current home cardiac medications include: None - Most recent echocardiogram obtained in August 2023 revealed ejection fraction 45 to 50%, severe MR, mild to moderate TR - Patient underwent Lexiscan stress test in December 2021 revealing partially reversible mid anterior wall defect 02/13/2024 Patient examined this morning at the bedside. Patient remains in the emergency room. Patient states he did not sleep well last night and is uncomfortable and is hoping to get a room assignment soon. The patient's blood pressures remain elevated, although improved from yesterday. Blood pressure this morning 158/70. Patient continues to report chest discomfort this morning. He denies any shortness of breath. Echocardiogram completed revealing ejection fraction 40 to 45%, apex and septum hypokinetic, severe pulmonary hypertension, severe mitral regurgitation, mild aortic stenosis, and mild tricuspid regurgitation PHYSICAL EXAM: VITAL SIGNS: Reviewed. GENERAL: Well-developed in no acute distress. HEENT: Head is normocephalic. Pupils are equal, round. Sclerae anicteric. Mucous membranes of the mouth are moist. Neck supple. No JVD or thyromegaly LUNGS: Respirations even and unlabored. Lungs essentially clear to auscultation bilaterally. HEART: Regular rate and rhythm. S1 and S2 heard. Systolic murmur. ABDOMEN: Soft. Nondistended. Nontender. EXTREMITIES: Normal range of motion. No clubbing or cyanosis. Peripheral pulses intact. No lower extremity edema NEUROLOGIC: Awake and alert. Oriented x 3. ASSESSMENT: Hypertensive emergency secondary to medication noncompliance Atypical chest discomfort with minimally elevated troponins, likely secondary to above Coronary artery disease with previous CABG x 4 vessels, 2020 Severe mitral regurgitation Severe pulmonary hypertension History of hypertension History of hyperlipidemia History of ischemic cardiomyopathy Medication noncompliance PLAN: Continue current cardiac medications Increase amlodipine to 10 mg daily Increase losartanhydrochlorothiazide to 100 mg - 25 mg daily Continue to monitor blood pressure. If blood pressure remains elevated, will consider adding Aldactone and/or oral nitrate tomorrow Anticipate discharge home this afternoon versus tomorrow Further recommendations pending patient course Nurse practitioner note has been reviewed by physician. Signing provider agrees with the documented findings, assessment, and plan of care documented by COUNTER INTELLIGENCE AGENT as a scribe. Objective - Vital Signs Vital signs: Vital Signs Temp 97.9 F 02/12/24 06:46 Pulse 62 02/13/24 08:32 Resp 16 02/13/24 08:32 BP 158/70 02/13/24 08:32 Pulse Ox 97 02/13/24 08:32 FiO2 - Labs CBC & Chem 7: 02/12/24 00:05 02/12/24 00:05
[2024-02-13] MEDS ORDERED: NITROGLYCERIN SL TABS 0.4 MG TAB SUBLINGUAL PRN (09:42)
--- NOTE | 2024-02-13 09:56 | P.DS ---
Providers Date of admission: 02/12/24 01:25 Expected date of discharge: 02/13/24 Attending physician: Christian Mix MD Consults: 02/12/24 01:25 Consult Physician Urgent Consulting Provider: Coy Iglesias Consult Reason/Comments: nstemi Do you want consulting provider notified?: Yes Primary care physician: Kavya Khan [facility] Course: Final Diagnoses: Chest pain, mildly elevated troponins, suspect related to hypertension as per cardiology Hypertensive emergency secondary to medication noncompliance CAD, history of MD, stenting, CABG 2020, Ischemic cardiomyopathy, history of Severe mitral regurgitation 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 Hypertension Hyperlipidemia Morbid Obesity, BMI 35 Obstructive sleep apnea, does not use CPAP at home Prostate cancer status post prostatectomy Medication noncompliance Hospital course:This is an 84-year-old gentleman with past medical history significant for CAD, MD, prior stenting, CABG 2020, hypertension, hyperlipidemi a, ischemic cardiomyopathy EF 45 to 50%, severe mitral regurg, mild to moderate tricuspid regurg morbid obesity, medication noncompliance and multiple other medical issues presented to the ER reporting nonexertional ,midsternal chest pain radiating to his neck posterior left shoulder blade and down left arm yesterday while sitting on the couch. Denies lightheadedness dizziness or focal deficits. Denies diaphoresis or shortness of breath. Reports he has not been taking any of his prescribed medications," for a few weeks". Reports he has increased his workout at home3-4 times a week over the last 2 months. Workout consists of walking on the treadmill and weight training. Denies chest pain during exercising. Troponins on admission 0.044, 0.040. EKG reporting sinus with PACs.Chest x-ray reported possible nodular densities in the left lower lobe laterally versus artifact. On admission hypertensive, with systolic 190s. Afebrile, normal WBC, hemoglobin 11.2, platelets 293. Electrolytes within normal limits, BUN 22, creatinine at baseline 1.06. Evaluated by cardiology, systolic blood pressures elevated into the 150s this morning,antihypertensives further adjusted. Denies chest pain, palpitations or shortness of breath. Denies lightheadedness dizziness or focal deficits. Denies cough chills or congestion. Reports did not sleep well on the stretcher in ER and has left neck pain radiating to left shoulder and left arm. Denies numbness or tingling. Denies motor strength loss .echo reported EF 40 to 45%, apical hypokinesis, severe pulmonary hypertension, severe tricuspid regurgitation, mild aortic stenosis. cleared for discharge by cardiology this afternoon if blood pressures improve with recently adjusted medication regimen. Medication compliance reinforced. Patient will be discharged home today in a stable condition with guarded prognosis pending better control of blood pressure. PHYSICAL EXAM: VITAL SIGNS: Reviewed GENERAL: Pleasant, alert and oriented x 3, sitting up in chair, no conversational dyspnea, no acute distress HEENT: Normocephalic, atraumatic conjunctivae normal. eyes normal. NECK: Supple, no JVD. CARDIOVASCULAR: S1, S2 regular. Systolic murmur RESPIRATION: Unlabored, equal air entry, clear to auscultation. ABDOMEN: Obese, soft, nondistended, nontender . No guarding.+BS LEGS: No edema. no swelling. NERVOUS SYSTEM: Cranial N 2-12 grossly normal. Moves all 4 limbs.No focal deficits. Strength and sensation grossly intact. Skin: Warm and dry. The impression and plan of care has been dictated as directed. : I performed a history and examination of this patient, discussed the same with the dictator. I agree with the dictator's note ,documented as a scribe. Any additional findings or plans will be noted. Patient Condition at Discharge: Stable Plan - Discharge Summary Discharge Rx Participant: No New Discharge Prescriptions: New Metoprolol Tartrate [Lopressor] 25 mg PO BID #60 tab Nitroglycerin Sl Tabs [Nitrostat] 0.4 mg SUBLINGUAL Q5M PRN tab PRN Reason: Chest Pain Aspirin 81 mg PO DAILY tab Losartan-Hctz 50-12.5 mg [Hyzaar 50-12.5] 2 each PO DAILY #60 tab amLODIPine [Norvasc] 10 mg PO DAILY #30 tab Continue Clopidogrel [Plavix] 75 mg PO DAILY Mirabegron [Myrbetriq] 50 mg PO DAILY Loratadine [Claritin] 10 mg PO DAILY Fluticasone Nasal [place] [Flonase Nasal [place]] 2 spray EA NOSTRIL DAILY Atorvastatin Calcium [Lipitor] 40 mg PO DAILY Discontinued Aspirin 325 mg PO DAILY tab Metoprolol Succinate [Toprol XL] 50 mg PO DAILY Discharge Medication List Atorvastatin Calcium [Lipitor] 40 mg PO DAILY 02/12/24 [History] Clopidogrel [Plavix] 75 mg PO DAILY 02/12/24 [History] Fluticasone Nasal [place] [Flonase Nasal [place]] 2 spray EA NOSTRIL DAILY 02/12/24 [History] Loratadine [Claritin] 10 mg PO DAILY 02/12/24 [History] Mirabegron [Myrbetriq] 50 mg PO DAILY 02/12/24 [History] Aspirin 81 mg PO DAILY tab 02/13/24 [Rx] Losartan-Hctz 50-12.5 mg [Hyzaar 50-12.5] 2 each PO DAILY #60 tab 02/13/24 [Rx] Metoprolol Tartrate [Lopressor] 25 mg PO BID #60 tab 02/13/24 [Rx] Nitroglycerin Sl Tabs [Nitrostat] 0.4 mg SUBLINGUAL Q5M PRN tab 02/13/24 [Rx] amLODIPine [Norvasc] 10 mg PO DAILY #30 tab 02/13/24 [Rx] Follow up Appointment(s)/Referral(s): Christian Mix MD [STAFF PHYSICIAN] - 3 Days Ambulatory/Diagnostic Orders: Complete Blood Count w/diff [LAB.AMB] Time Frame: 3 Days, Location: None Selected
[2024-02-13 11:47] LABS: African American GFR (CKD) 84 (>60 ml/min/1.73 sqM); Anion Gap 8 mmol/L; Blood Urea Nitrogen 18 mg/dL (9-20); Calcium 9.2 mg/dL (8.4-10.2); Carbon Dioxide 25 mmol/L (22-30); Chloride 107 mmol/L (98-107); Glucose 96 mg/dL (74-99); Non-African American GFR(CKD) 73 (>60 ml/min/1.73 sqM); Potassium 4.6 mmol/L (3.5-5.1); Sodium 140 mmol/L (137-145)
[2024-02-13 16:05] LABS: Chol/HDL Ratio 4.81 Ratio; LDL Cholesterol,Calculated 106.4 mg/dL (0.0-131.0)
[2024-02-14] MEDS: ISOSORBIDE MONONITRATE ER 30 MG TAB.ER.24H PO SCH (09:41)
[2024-02-14] MEDS: SPIRONOLACTONE 25 MG TAB PO SCH (09:41)
--- NOTE | 2024-02-14 12:34 | P.PN ---
Subjective HISTORY OF PRESENT ILLNESS: This is a 84-year-old male with a past medical history significant for hypertension, hyperlipidemia, ischemic cardiomyopathy, coronary artery disease with previous CABG, and mitral regurgitation. Patient follows in the office with Dr. Boo. We have been asked to see the patient in consultation for elevated troponins. Patient examined at the bedside in the emergency room. Patient presented to the hospital with a chief complaint of pain in his left shoulder. He states the pain radiated down his left arm. At the time of examination he reports having some pain in between his shoulder blades and in his neck. He denied having any chest pain or pressure. He denies having any shortness of breath. Patient states he started exercising about a month ago and has been feeling better overall so he decided to stop taking all of his cardiac medications about 3 weeks ago. The patient's blood pressure was found to be extremely elevated upon admission with a systolic in the 190s. DIAGNOSTICS: - EKG reveals sinus mechanism with PACs. No signs of acute ischemia.. - Chest xray possible nodular densities in the left lower lobe laterally versus artifact. - Laboratory data: WBC 8.9. Hemoglobin 11.2. Platelet count 293. Sodium 140. Potassium 4.3. BUN 22. Creatinine 1.06. Troponin 0.044. 0.040. - Current home cardiac medications include: None - Most recent echocardiogram obtained in August 2023 revealed ejection fraction 45 to 50%, severe MR, mild to moderate TR - Patient underwent Lexiscan stress test in December 2021 revealing partially reversible mid anterior wall defect 02/13/2024 Patient examined this morning at the bedside. Patient remains in the emergency room. Patient states he did not sleep well last night and is uncomfortable and is hoping to get a room assignment soon. The patient's blood pressures remain elevated, although improved from yesterday. Blood pressure this morning 158/70. Patient continues to report chest discomfort this morning. He denies any shortness of breath. Echocardiogram completed revealing ejection fraction 40 to 45%, apex and septum hypokinetic, severe pulmonary hypertension, severe mitral regurgitation, mild aortic stenosis, and mild tricuspid regurgitation 02/14/2024 Patient examined this morning at the bedside. Patient continues to report mild chest discomfort along with pain in his left arm and throughout his neck. He also reports some radiation into his back. Denies any shortness of breath. Denies any dizziness or lightheadedness. Patient's blood pressures remain elevated this morning with a blood pressure of 180/70. PHYSICAL EXAM: VITAL SIGNS: Reviewed. GENERAL: Well-developed in no acute distress. HEENT: Head is normocephalic. Pupils are equal, round. Sclerae anicteric. Mucous membranes of the mouth are moist. Neck supple. No JVD or thyromegaly LUNGS: Respirations even and unlabored. Lungs essentially clear to auscultation bilaterally. HEART: Regular rate and rhythm. S1 and S2 heard. Systolic murmur. ABDOMEN: Soft. Nondistended. Nontender. EXTREMITIES: Normal range of motion. No clubbing or cyanosis. Peripheral pu lses intact. No lower extremity edema NEUROLOGIC: Awake and alert. Oriented x 3. ASSESSMENT: Hypertensive emergency secondary to medication noncompliance Atypical chest discomfort with minimally elevated troponins, likely secondary to above Coronary artery disease with previous CABG x 4 vessels, 2020 Severe mitral regurgitation Severe pulmonary hypertension History of hypertension History of hyperlipidemia History of ischemic cardiomyopathy Medication noncompliance PLAN: Continue current cardiac medications Add Aldactone 25 mg daily Add Imdur 30 mg daily Obtain renal artery duplex to assess for renal artery stenosis N.p.o. at midnight If patient continues to have chest discomfort, will plan for cardiac catheterization tomorrow with Dr. Boo Further recommendations pending patient course Nurse practitioner note has been reviewed by physician. Signing provider agrees with the documented findings, assessment, and plan of care documented by RESIDENTIAL DOOR INSTALLER as a scribe. Objective - Vital Signs Vital signs: Vital Signs Temp 97.8 F 02/14/24 11:24 Pulse 63 02/14/24 12:28 Resp 15 02/14/24 12:28 BP 125/72 02/14/24 12:28 Pulse Ox 99 02/14/24 12:28 FiO2 Intake & Output 02/13/24 02/14/24 02/14/24 18:59 06:59 18:59 Intake Total 360 520 Balance 360 520 Weight 97.522 kg Intake: Oral 360 520 Other: # Voids 2 2 - Labs CBC & Chem 7: 02/12/24 00:05 02/13/24 08:13 Labs: Abnormal Lab Results - Last 24 Hours (Table) 02/13/24 Range/Units 08:13 Triglycerides 173.00 H (0.00-149.00) mg/dL HDL Cholesterol 37.00 L (40.00-60.00) mg/dL
--- NOTE | 2024-02-15 08:14 | US ---
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
[2024-02-15] MEDS ORDERED: AMINOPHYLLINE 500 MG/20 ML VIAL IV PRN (11:26)
[2024-02-15] MEDS ORDERED: CAFFEINE CITRATE 60 MG/3 ML VIAL IV PRN (11:26)
[2024-02-15] MEDS ORDERED: REGADENOSON 0.4 MG/5 ML SYRINGE IV PRN (11:26)
--- NOTE | 2024-02-15 12:38 | P.PN ---
Subjective HISTORY OF PRESENT ILLNESS: This is a 84-year-old male with a past medical history significant for hypertension, hyperlipidemia, ischemic cardiomyopathy, coronary artery disease with previous CABG, and mitral regurgitation. Patient follows in the office with Dr. Boo. We have been asked to see the patient in consultation for elevated troponins. Patient examined at the bedside in the emergency room. Patient presented to the hospital with a chief complaint of pain in his left shoulder. He states the pain radiated down his left arm. At the time of examination he reports having some pain in between his shoulder blades and in his neck. He denied having any chest pain or pressure. He denies having any shortness of breath. Patient states he started exercising about a month ago and has been feeling better overall so he decided to stop taking all of his cardiac medications about 3 weeks ago. The patient's blood pressure was found to be extremely elevated upon admission with a systolic in the 190s. DIAGNOSTICS: - EKG reveals sinus mechanism with PACs. No signs of acute ischemia.. - Chest xray possible nodular densities in the left lower lobe laterally versus artifact. - Laboratory data: WBC 8.9. Hemoglobin 11.2. Platelet count 293. Sodium 140. Potassium 4.3. BUN 22. Creatinine 1.06. Troponin 0.044. 0.040. - Current home cardiac medications include: None - Most recent echocardiogram obtained in August 2023 revealed ejection fraction 45 to 50%, severe MR, mild to moderate TR - Patient underwent Lexiscan stress test in December 2021 revealing partially reversible mid anterior wall defect 02/13/2024 Patient examined this morning at the bedside. Patient remains in the emergency room. Patient states he did not sleep well last night and is uncomfortable and is hoping to get a room assignment soon. The patient's blood pressures remain elevated, although improved from yesterday. Blood pressure this morning 158/70. Patient continues to report chest discomfort this morning. He denies any shortness of breath. Echocardiogram completed revealing ejection fraction 40 to 45%, apex and septum hypokinetic, severe pulmonary hypertension, severe mitral regurgitation, mild aortic stenosis, and mild tricuspid regurgitation 02/14/2024 Patient examined this morning at the bedside. Patient continues to report mild chest discomfort along with pain in his left arm and throughout his neck. He also reports some radiation into his back. Denies any shortness of breath. Denies any dizziness or lightheadedness. Patient's blood pressures remain elevated this morning with a blood pressure of 180/70. 02/15/2024 Patient examined this morning at the bedside. Patient currently denies chest pain or pressure. He denies shortness of breath. Patient reports having some pain in his neck and left shoulder blade this morning. He states the pain is not worse with movement. Patient was up ambulating in the hallway today with no increase in his symptoms. Blood pressure has improved today with a systolic range between [id number]. Renal artery duplex negative for renal artery stenosis. PHYSICAL EXAM: VITAL SIGNS: Reviewed. GENERAL: Well-developed in no acute distress. HEENT: Head is normocephalic. Pupils are equal, round. Sclerae anicteric. Mucous membranes of the mouth are moist. Neck supple. No JVD or thyromegaly LUNGS: Respirations even and unlabored. Lungs essentially clear to auscultation bilaterally. HEART: Regular rate and rhythm. S1 and S2 heard. Systolic murmur. ABDOMEN: Soft. Nondistended. Nontender. EXTREMITIES: Normal range of motion. No clubbing or cyanosis. Peripheral pulses intact. No lower extremity edema NEUROLOGIC: Awake and alert. Oriented x 3. ASSESSMENT: Hypertensive emergency secondary to medication noncompliance Atypical chest discomfort with minimally elevated troponins, likely secondary to above Coronary artery disease with previous CABG x 4 vessels, 2020 Severe mitral regurgitation Severe pulmonary hypertension History of hypertension History of hyperlipidemia History of ischemic cardiomyopathy Medication noncompliance PLAN: Continue current cardiac medications Continue to monitor blood pressure Patient to undergo Lexiscan stress test today. If negative, he may be discharged home Further recommendations pending patient course Nurse practitioner note has been reviewed by physician. Signing provider agrees with the documented findings, assessment, and plan of care documented by VP OF TECHNOLOGY as a scribe. Objective - Vital Signs Vital signs: Vital Signs Temp 98.1 F 02/15/24 08:20 Pulse 75 02/15/24 08:20 Resp 17 02/15/24 08:20 BP 147/72 02/15/24 08:20 Pulse Ox 97 02/15/24 08:20 FiO2 Intake & Output 02/14/24 02/15/24 02/15/24 18:59 06:59 18:59 Intake Total 756 10 Balance 756 10 Weight 98.4 kg Intake: IV 10 Invasive Line 1 10 Oral 756 Other: Voiding Method Toilet Toilet # Voids 1 1 # Bowel Movements 1 - Labs CBC & Chem 7: 02/12/24 00:05 02/13/24 08:13
--- NOTE | 2024-02-15 15:00 | NM ---
EXAMINATION TYPE: NM stress lexiscan cardiolite DATE OF EXAM: 02/15/2024 COMPARISON: NONE CLINICAL INDICATION: Male, 84 years old with history of CP; TECHNIQUE: After the intravenous administration of 10.56 mCi Tc 99m Sestamibi - Cardiolite resting S PECT images acquired 48 minutes post injection. The patient received 0.4mg Lexiscan, 25.4 mCi Tc 99m Sestamibi - Stress images obtained [address] injection FINDINGS: Review of stress and rest SPECT images demonstrates a moderate size fixed defect involving the mid to apical anterolateral wall. There is some accentuation of the defect on stress corroborated on polar maps. Gated analysis shows mild global hypokinesis with an estimated left ventricular ejection fraction of 43 %. TID is calculated at 1.09, upper limits of normal. IMPRESSION: 1. 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 There m ay be small amount of noreen-infarct ischemia here corroborated on polar maps. Further evaluation as cl inically indicated. 2. Mild global hypokinesis with estimated LVEF of 43%.
[2024-02-15] MEDS ORDERED: ALPRAZolam 0.5 MG TAB PO PRN (15:50)
[2024-02-15] MEDS ORDERED: NITROGLYCERIN SL TABS 0.4 MG TAB SUBLINGUAL PRN (15:50)
[2024-02-15] MEDS ORDERED: ALPRAZolam 0.25 MG TAB PO PRN (15:50)
--- NOTE | 2024-02-15 17:31 | CA ---
Lexiscan Nuclear Stress Test Report Name: Gregory Jaimes Exam Date: 02/15/2024 12:45 Exam Location: [place] Stress Ht (in): 66 Wt (lb): 216 BSA: 2.07 Ordering Phys: Rosy Mcintosh NPC Referring Phys: ROSY MCINTOSH Technologist: VICENTE FLORES Age: 84 Gender: M : 1940 Procedure CPT: Indications: Reflex order-Stress test ICD-10 Codes: Patient History: CHEST PAIN, HTN, PRIOR PA, PRIOR CATH WITH STENT, HYPERCHOLESTEROLEMIA, CABG X 4 Medications: Meds past 24 hrs: Pretest Chest Pain: STRESS TEST Lexiscan Protocol Exercise Duration (min:sec): 01:[address] Depressions (mm): Angina Score: Ulloa Score: Resting HR (bpm): 61 Peak HR (bpm): 79 Resting BP (mmHg): 131 / 71 Peak BP (mmHg): 138 / 70 MPHR: 138 Target HR: 117 % MPHR: 57 METS: 1.0 Total Dose: Peak Dose: Atropine: Double Product: 56480 BP Response: Stress Termination: INFUSION COMPLETE Stress Symptoms: NO SYMPTOMS Stress Summary: ECG ANALYSIS Resting ECG: Normal sinus rhythm poor R-wave progression nonspecific ST-T wave changes Stress ECG: Patient was given intravenous Lexiscan as a protocol did not have chest pain or diagnostic ST segment depression CONCLUSIONS Inconclusive EKG part of the stress test due to baseline EKG abnormalities Part LAD portion of the stress test will be reported separately Dr. Reggie Boo MD (Electronically Signed) Final Date: 15 February 2024 17:31
[2024-02-16] MEDS: SODIUM CHLORIDE 0.9% 1,000 ML in EMPTY BAG 1 BAG IV SCH (00:40)
--- NOTE | 2024-02-16 05:19 | P.PN ---
Subjective Progress Note Date: 02/15/24 This is an 84-year-old gentleman with past medical history significant for CAD, MT, prior stenting, CABG 2020, hypertension, hyperlipidemia, ischemic cardiomyopathy EF 45 to 50%, severe mitral regurg, mild to moderate tricuspid regurg morbid obesity, medication noncompliance and multiple other medical i ssues presented to the ER reporting nonexertional ,midsternal chest pain radiating to his neck posterior left shoulder blade and down left arm yesterday while sitting on the couch. Denies lightheadedness dizziness or focal deficits. Denies diaphoresis or shortness of breath. Reports he has not been taking any of his prescribed medications," for a few weeks". Reports he has increased his workout at home3-4 times a week over the last 2 months. Workout consists of walking on the treadmill and weight training. Denies chest pain during exercising. Troponins on admission 0.044, 0.040. EKG reporting sinus with PACs.Chest x-ray reported possible nodular densities in the left lower lobe laterally versus artifact. On admission hypertensive, with systolic 190s. Afebrile, normal WBC, hemoglobin 11.2, platelets 293. Electrolytes within normal limits, BUN 22, creatinine at baseline 1.06. 02/15/2024 Patient is seen in follow-up being followed by cardiology and continues to report chest pain. Patient is scheduled for stress testing today and will await report and discuss with cardiology regarding discharge planning. If stress testing is abnormal per cardiology considering cardiac catheterization. Continue with current medications and importance of medication compliance. Patient is afebrile with no reports of shortness of breath. Currently n.p.o. although denies having nausea or vomiting today. Diet will be resumed once cleared by surgery Review of systems: Constitutional: No reports of fatigue, fever, or chills Cardiovascular: reports of severe intermittent chest pain, denies palpitations Respiratory: No reports of shortness of breath or cough GI: No reports of nausea, vomiting, or diarrhea : No reports of dysuria or retention Neurovascular: No reports of weakness or numbness All medications have been reviewed Physical exam: Gen: This is a 84-year-old male who is awake, alert and oriented x 3, well- developed, well-nourished, obese HEENT: Head is atraumatic, normocephalic. Pupils equal, round. Sclerae is anicteric. NECK: Supple. No JVD. No lymphadenopathy. No thyromegaly. LUNGS: Diminished breath sounds bilaterally otherwise clear to auscultation. No wheezes or rhonchi. No intercostal retractions. HEART: S1, S2 are muffled ABDOMEN: Soft. Obese bowel sounds are present. No masses. No tenderness. EXTREMITIES: No pedal edema. No calf tenderness. NEUROLOGICAL: Patient is awake, alert and oriented x3. Cranial nerves 2 through 12 are grossly intact. Assessment: Chest pain, mildly elevated troponins, concerns for abnormal stress testing scheduled for cardiac catheterization on 02/16/2024 Hypertensive emergency secondary to medication noncompliance, improving CAD, history of MT, stenting, CABG 2020 Ischemic cardiomyopathy, history of Severe mitral regurgitation 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 Hypertension Hyperlipidemia Obesity, BMI 35 Obstructive sleep apnea, does not use CPAP at home Prostate cancer status post prostatectomy Medication noncompliance GI prophylaxis DVT prophylaxis Full code Plan: Patient continues on telemetry monitoring with cardiology following. Stress test today with concerning areas of old infarct and a questionable area of concern and given patient's continued reported moderate to severe chest pain, cardiology will make n.p.o. at midnight and undergo cardiac catheterization on 02/16/2024 Repeat labs ordered for a.m. Continue with current cardiac medications Encouraged to increase activity as tolerated Will await cardiology report and clearance to discuss discharge planning Await cardiac catheterization Due to multiple complex medical issues, prognosis is guarded The impression and plan of care has been dictated by Kaela Voss, Nurse Practitioner as directed. Dr. Shalom MD I have performed a history and examination and MDM of this patient, discussed the same with the dictator, and agree with the dictator's assessment and plan as written ,documented as a scribe. Based on total visit time, I have performed more than 50% of the visit. Objective - Vital Signs Vital signs: Vital Signs Temp 98.1 F 02/15/24 08:20 Pulse 54 L 02/15/24 11:50 Resp 17 02/15/24 11:50 BP 122/58 02/15/24 11:50 Pulse Ox 98 02/15/24 11:50 FiO2 Intake & Output 02/14/24 02/15/24 02/15/24 18:59 06:59 18:59 Intake Total 756 10 Balance 756 10 Weight 98.4 kg Intake: IV 10 Invasive Line 1 10 Oral 756 Other: Voiding Method Toilet Toilet # Voids 1 1 # Bowel Movements 1 - Labs CBC & Chem 7: 02/12/24 00:05 02/13/24 08:13
[2024-02-16] MEDS: ASPIRIN 325 MG TAB PO ONE (05:47)
[2024-02-16] MEDS: ATORVASTATIN 80 MG TAB PO ONE (05:47)
[2024-02-16 06:14] LABS: Glucose,Whole Blood 110 mg/dL (70-110)
[2024-02-16 06:41] LABS: Basophils # (A) 0.1 k/uL (0-0.2); Basophils % (A) 1 %; Eosinophils # (A) 0.3 k/uL (0-0.7); Eosinophils % (A) 4 %; HCT 38.3 % (39.0-53.0); HGB 11.6 gm/dL (13.0-17.5); Hypochromasia Slight; Lymphocytes # (A) 1.9 k/uL (1.0-4.8); Lymphocytes % (A) 21 %; MCH 27.6 pg (25.0-35.0); MCHC 30.2 g/dL (31.0-37.0); MCV 91.2 fL (80.0-100.0); Monocytes # (A) 0.7 k/uL (0-1.0); Monocytes % (A) 7 %; Neutrophils # (A) 5.9 k/uL (1.3-7.7); Neutrophils % (A) 65 %; Platelet Count 296 k/uL (150-450); RBC 4.19 m/uL (4.30-5.90); RDW 13.2 % (11.5-15.5)
[2024-02-16 06:55] LABS: African American GFR (CKD) 47 (>60 ml/min/1.73 sqM); Anion Gap 7 mmol/L; Blood Urea Nitrogen 27 mg/dL (9-20); Calcium 9.5 mg/dL (8.4-10.2); Carbon Dioxide 28 mmol/L (22-30); Chloride 101 mmol/L (98-107); Glucose 108 mg/dL (74-99); Non-African American GFR(CKD) 40 (>60 ml/min/1.73 sqM); Potassium 4.4 mmol/L (3.5-5.1); Sodium 136 mmol/L (137-145)
[2024-02-16] MEDS ORDERED: HEPARIN SODIUM,PORCINE 10,000 UNIT in SODIUM CHLORIDE 0.9% 1,000 ML IRRIGATION PRN (07:00)
[2024-02-16] MEDS ORDERED: HEPARIN SODIUM,PORCINE (1 ML) 2,500 UNIT in SODIUM CHLORIDE 0.9% 250 ML IRRIGATION PRN (07:00)
--- NOTE | 2024-02-16 09:54 | P.PN ---
Subjective Progress Note Date: 02/16/24 Principal diagnosis: Chest discomfort and abnormal stress test The patient is a pleasant 84-year-old gentleman with a past medical history significant for coronary artery disease status post CABG in 2020 as well as ischemic cardiomyopathy and also valvular heart disease with mitral regurgitation and aortic stenosis and hypertension and dyslipidemia and pulmonary hypertension who was admitted to the hospital with hypertension emergency presented as a chest discomfort. He underwent myocardial perfusion imaging stress test and that revealed reversibility/ischemia. February 16, 2024 The patient was seen and evaluated this morning. The initial plan was to pursue with a heart catheterization later on today but unfortunately his GFR dropped down significantly. With that being said I am going to stop the losartan/hydrochlorothiazide and give the patient some IV fluid and repeat the kidney function tomorrow and tentatively planning to do the heart catheterization tomorrow. He continues to have atypical chest discomfort but no shortness of breath and no dizziness or lightheadedness and no feeling of heart racing or fluttering and no presyncope or syncope. The echo revealed impaired LV function with a EF between 40 to 45% with severe mitral regurgitation and mild aortic stenosis and severe pulmonary hypertension. The examination revealed regular rhythm with a systolic murmur and clear breathing sounds bilaterally and no edema was noted. Assessment Hypertension emergency which has improved Atypical chest discomfort associated with abnormal myocardial perfusion imaging stress test Coronary artery disease status post CABG Ischemic cardiomyopathy Acute renal failure Multiple comorbid conditions Plan DC losartan/hydrochlorothiazide Give the patient IV fluid and repeat the kidney function for tomorrow Tentatively plan to pursue with a heart catheterization tomorrow if the kidney function is stable and normalized Avoid any nephrotoxic medications Follow-up with the patient Objective - Vital Signs Vital signs: Vital Signs Temp 97.6 F 02/16/24 08:00 Pulse 64 02/16/24 08:00 Resp 17 02/16/24 08:00 BP 126/61 02/16/24 08:00 Pulse Ox 98 02/16/24 08:00 FiO2 Intake & Output 02/15/24 02/16/24 02/16/24 18:59 06:59 18:59 Intake Total 360 20 10 Balance 360 20 10 Weight 97.6 kg Intake: IV 20 10 Invasive Line 1 20 10 Oral 360 Other: Voiding Method Toilet Toilet Toilet # Voids 1 1 # Bowel Movements 1 - Labs CBC & Chem 7: 02/16/24 05:59 02/16/24 05:59 Labs: Abnormal Lab Results - Last 24 Hours (Table) 02/16/24 02/16/24 Range/Units 05:59 05:59 RBC 4.19 L (4.30-5.90) m/uL Hgb 11.6 L (13.0-17.5) gm/dL Hct 38.3 L (39.0-53.0) % MCHC 30.2 L (31.0-37.0) g/dL Sodium 136 L (137-145) mmol/L BUN 27 H (9-20) mg/dL Creatinine 1.58 H (0.66-1.25) mg/dL Glucose 108 H (74-99) mg/dL
--- NOTE | 2024-02-17 02:33 | P.PN ---
Subjective Progress Note Date: 02/16/24 This is an 84-year-old gentleman with past medical history significant for CAD, ID, prior stenting, CABG 2020, hypertension, hyperlipidemia, ischemic cardiomyopathy EF 45 to 50%, severe mitral regurg, mild to moderate tricuspid regurg morbid obesity, medication noncompliance and multiple other medical i ssues presented to the ER reporting nonexertional ,midsternal chest pain radiating to his neck posterior left shoulder blade and down left arm yesterday while sitting on the couch. Denies lightheadedness dizziness or focal deficits. Denies diaphoresis or shortness of breath. Reports he has not been taking any of his prescribed medications," for a few weeks". Reports he has increased his workout at home3-4 times a week over the last 2 months. Workout consists of walking on the treadmill and weight training. Denies chest pain during exercising. Troponins on admission 0.044, 0.040. EKG reporting sinus with PACs.Chest x-ray reported possible nodular densities in the left lower lobe laterally versus artifact. On admission hypertensive, with systolic 190s. Afebrile, normal WBC, hemoglobin 11.2, platelets 293. Electrolytes within normal limits, BUN 22, creatinine at baseline 1.06. 02/15/2024 Patient is seen in follow-up being followed by cardiology and continues to report chest pain. Patient is scheduled for stress testing today and will await report and discuss with cardiology regarding discharge planning. If stress testing is abnormal per cardiology considering cardiac catheterization. Continue with current medications and importance of medication compliance. Patient is afebrile with no reports of shortness of breath. Currently n.p.o. although denies having nausea or vomiting today. Diet will be resumed once cleared by surgery 02/16/2024 Patient is seen in follow-up today was scheduled for possible cardiac catheterization with cardiology following although kidney functions have worsened. Lisinopril/hydrochlorothiazide on hold and will give gentle hydration and follow-up on repeat labs with tentatively scheduled cath on 02/17/2024 if k idney functions have improved. Patient is afebrile with no reports of palpitations or shortness of breath. Patient continues to report intermittent chest pain with no significant improvement. Patient will be n.p.o. again at midnight and await repeat labs. Review of systems: Constitutional: No reports of fatigue, fever, or chills Cardiovascular: reports of continued intermittent chest pain, denies palpitations Respiratory: No reports of shortness of breath or cough GI: No reports of nausea, vomiting, or diarrhea : No reports of dysuria or retention Neurovascular: No reports of weakness or numbness All medications have been reviewed Physical exam: Gen: This is a 84-year-old male who is awake, alert and oriented x 3, well- developed, well-nourished, obese HEENT: Head is atraumatic, normocephalic. Pupils equal, round. Sclerae is anicteric. NECK: Supple. No JVD. No lymphadenopathy. No thyromegaly. LUNGS: Diminished breath sounds bilaterally otherwise clear to auscultation. No wheezes or rhonchi. No intercostal retractions. HEART: S1, S2 are muffled ABDOMEN: Soft. Obese bowel sounds are present. No masses. No tenderness. EXTREMITIES: No pedal edema. No calf tenderness. NEUROLOGICAL: Patient is awake, alert and oriented x3. Cranial nerves 2 through 12 are grossly intact. Assessment: Chest pain, mildly elevated troponins, concerns for abnormal stress testing scheduled for cardiac catheterization on 02/17/2024 Hypertensive emergency secondary to medication noncompliance, improving CAD, history of ID, stenting, CABG 2020 Ischemic cardiomyopathy, history of Severe mitral regurgitation 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 Hypertension Hyperlipidemia Obesity, BMI 35 Obstructive sleep apnea, does not use CPAP at home Prostate cancer status post prostatectomy Medication noncompliance GI prophylaxis DVT prophylaxis Full code Plan: Patient continues on telemetry monitoring with cardiology following. Stress test done with concerning areas of old infarct and a questionable area of concern and given patient's continued reported moderate to severe chest pain, cardiology following and planning to undergo cardiac catheterization on 02/17/2024 if kidney functions have improved. Continue holding lisinopril/hydrochlorothiazide and follow-up on repeat BMP as kidney function slightly worsened. Repeat labs ordered for a.m. Continue with current cardiac medications Encouraged to increase activity as tolerated Will await cardiology report and clearance to discuss discharge planning Await cardiac catheterization on 02/17/2024 if kidney functions have improved Due to multiple complex medical issues, prognosis is guarded The impression and plan of care has been dictated by Kaela Voss, Nurse Practitioner as directed. Dr. Shalom MD I have performed a history and examination and MDM of this patient, discussed the same with the dictator, and agree with the dictator's assessment and plan as written ,documented as a scribe. Based on total visit time, I have performed more than 50% of the visit. Objective - Vital Signs Vital signs: Vital Signs Temp 97.6 F 02/16/24 08:00 Pulse 68 02/16/24 11:10 Resp 48 H 02/16/24 11:10 BP 126/47 02/16/24 11:10 Pulse Ox 98 02/16/24 11:10 FiO2 Intake & Output 02/15/24 02/16/24 02/16/24 18:59 06:59 18:59 Intake Total 360 20 10 Balance 360 20 10 Weight 97.6 kg Intake: IV 20 10 Invasive Line 1 20 10 Oral 360 Other: Voiding Method Toilet Toilet Toilet # Voids 1 1 2 # Bowel Movements 1 - Labs CBC & Chem 7: 02/16/24 05:59 02/16/24 05:59 Labs: Abnormal Lab Results - Last 24 Hours (Table) 02/16/24 02/16/24 Range/Units 05:59 05:59 RBC 4.19 L (4.30-5.90) m/uL Hgb 11.6 L (13.0-17.5) gm/dL Hct 38.3 L (39.0-53.0) % MCHC 30.2 L (31.0-37.0) g/dL Sodium 136 L (137-145) mmol/L BUN 27 H (9-20) mg/dL Creatinine 1.58 H (0.66-1.25) mg/dL Glucose 108 H (74-99) mg/dL
[2024-02-17 06:03] LABS: Glucose,Whole Blood 107 mg/dL (70-110)
[2024-02-17 11:00] LABS: African American GFR (CKD) 64 (>60 ml/min/1.73 sqM); Anion Gap 7 mmol/L; Blood Urea Nitrogen 24 mg/dL (9-20); Calcium 8.9 mg/dL (8.4-10.2); Carbon Dioxide 26 mmol/L (22-30); Chloride 105 mmol/L (98-107); Glucose 100 mg/dL (74-99); Non-African American GFR(CKD) 55 (>60 ml/min/1.73 sqM); Potassium 4.4 mmol/L (3.5-5.1); Sodium 138 mmol/L (137-145)
--- NOTE | 2024-02-17 11:00 | P.PN ---
Subjective Progress Note Date: 02/17/24 Principal diagnosis: Chest discomfort and abnormal stress test The patient is a pleasant 84-year-old gentleman with a past medical history significant for coronary artery disease status post CABG in 2020 as well as ischemic cardiomyopathy and also valvular heart disease with mitral regurgitation and aortic stenosis and hypertension and dyslipidemia and pulmonary hypertension who was admitted to the hospital with hypertension emergency presented as a chest discomfort. He underwent myocardial perfusion imaging stress test and that revealed reversibility/ischemia. February 16, 2024 The patient was seen and evaluated this morning. The initial plan was to pursue with a heart catheterization later on today but unfortunately his GFR dropped down significantly. With that being said I am going to stop the losartan/hydrochlorothiazide and give the patient some IV fluid and repeat the kidney function tomorrow and tentatively planning to do the heart catheterization tomorrow. He continues to have atypical chest discomfort but no shortness of breath and no dizziness or lightheadedness and no feeling of heart racing or fluttering and no presyncope or syncope. The echo revealed impaired LV function with a EF between 40 to 45% with severe mitral regurgitation and mild aortic stenosis and severe pulmonary hypertension. The examination revealed regular rhythm with a systolic murmur and clear breathing sounds bilaterally and no edema was noted. February 17, 2024 The patient was seen and evaluated this morning. He continues to have the left upper chest/left shoulder discomfort which has not changed. We do not have blood work as of this morning. Otherwise no shortness of breath and no dizziness or lightheadedness and no feeling of any heart racing or fluttering. The blood pressure has been under good control on the current medical regimen. Currently he is not on any nephrotoxic medications. Will follow-up with the blood work this morning to make a decision about the heart catheterization in the next 24 to 48 hours. The examination revealed regular rhythm with a systolic murmur at the right and left upper sternal border with clear breathing sounds bilaterally and no edema was noted Assessment Hypertension emergency which has improved Atypical chest discomfort associated with abnormal myocardial perfusion imaging stress test Coronary artery disease status post CABG Ischemic cardiomyopathy Acute renal failure Multiple comorbid conditions Plan Continue the current medical regimen Avoid any nephrotoxic medications Proceed with a heart catheterization in the next 24 to 48 hours once the kidney function improved Objective - Vital Signs Vital signs: Vital Signs Temp 97.7 F 02/17/24 08:20 Pulse 69 02/17/24 08:20 Resp 18 04/21/24 08:20 BP 117/52 02/17/24 08:20 Pulse Ox 92 L 02/17/24 08:20 FiO2 Intake & Output 02/16/24 02/17/24 02/17/24 18:59 06:59 18:59 Intake Total 20 128 Balance 20 128 Weight 98.1 kg Intake: IV 20 10 Invasive Line 1 20 Invasive Line 2 10 Oral 118 Other: Voiding Method Toilet Toilet Toilet # Voids 2 2 2 - Labs CBC & Chem 7: 02/16/24 05:59 02/16/24 05:59
[2024-02-17] MEDS: ACETAMINOPHEN TAB 325 MG TAB PO PRN (11:49)
--- NOTE | 2024-02-17 17:01 | P.PN ---
Subjective Progress Note Date: 02/17/24 This is an 84-year-old gentleman with past medical history significant for CAD, RI, prior stenting, CABG 2020, hypertension, hyperlipidemia, ischemic cardiomyopathy EF 45 to 50%, severe mitral regurg, mild to moderate tricuspid regurg morbid obesity, medication noncompliance and multiple other medical i ssues presented to the ER reporting nonexertional ,midsternal chest pain radiating to his neck posterior left shoulder blade and down left arm yesterday while sitting on the couch. Denies lightheadedness dizziness or focal deficits. Denies diaphoresis or shortness of breath. Reports he has not been taking any of his prescribed medications," for a few weeks". Reports he has increased his workout at home3-4 times a week over the last 2 months. Workout consists of walking on the treadmill and weight training. Denies chest pain during exercising. Troponins on admission 0.044, 0.040. EKG reporting sinus with PACs.Chest x-ray reported possible nodular densities in the left lower lobe laterally versus artifact. On admission hypertensive, with systolic 190s. Afebrile, normal WBC, hemoglobin 11.2, platelets 293. Electrolytes within normal limits, BUN 22, creatinine at baseline 1.06. 02/15/2024 Patient is seen in follow-up being followed by cardiology and continues to report chest pain. Patient is scheduled for stress testing today and will await report and discuss with cardiology regarding discharge planning. If stress testing is abnormal per cardiology considering cardiac catheterization. Continue with current medications and importance of medication compliance. Patient is afebrile with no reports of shortness of breath. Currently n.p.o. although denies having nausea or vomiting today. Diet will be resumed once cleared by surgery 02/16/2024 Patient is seen in follow-up today was scheduled for possible cardiac catheterization with cardiology following although kidney functions have worsened. Lisinopril/hydrochlorothiazide on hold and will give gentle hydration and follow-up on repeat labs with tentatively scheduled cath on 02/17/2024 if k idney functions have improved. Patient is afebrile with no reports of palpitations or shortness of breath. Patient continues to report intermittent chest pain with no significant improvement. Patient will be n.p.o. again at midnight and await repeat labs. 02/17/2024 Patient is seen in follow-up today currently being followed by cardiology and had worsening kidney functions yesterday and was scheduled to undergo cardiac catheterization. Awaiting repeat labs with continued gentle IV hydration and will likely plan for cardiac catheterization in the next 24 hours. Patient is afebrile continues to report chest pain and heaviness and reporting occasional nausea with no reported vomiting. Patient encouraged to increase activity and get up out of the bed more often. Will continue current pain regimen and follow-up with cardiology regarding further testing. Follow-up BMP ordered for a.m. Review of systems: Constitutional: No reports of fatigue, fever, or chills Cardiovascular: reports of continued intermittent chest pain, denies palpitations Respiratory: No reports of shortness of breath or cough GI: reports of occasional nausea, vomiting, or diarrhea : No reports of dysuria or retention Neurovascular: No reports of weakness or numbness All medications have been reviewed Physical exam: Gen: This is a 84-year-old male who is awake, alert and oriented x 3, well- developed, well-nourished, obese HEENT: Head is atraumatic, normocephalic. Pupils equal, round. Sclerae is anic teric. NECK: Supple. No JVD. No lymphadenopathy. No thyromegaly. LUNGS: Diminished breath sounds bilaterally otherwise clear to auscultation. No wheezes or rhonchi. No intercostal retractions. HEART: S1, S2 are muffled ABDOMEN: Soft. Obese bowel sounds are present. No masses. No tenderness. EXTREMITIES: No pedal edema. No calf tenderness. NEUROLOGICAL: Patient is awake, alert and oriented x3. Cranial nerves 2 through 12 are grossly intact. Assessment: Chest pain, mildly elevated troponins, concerns for abnormal stress testing, tentatively scheduled for cardiac catheterization on 02/18/2024 Hypertensive emergency secondary to medication noncompliance, improving CAD, history of RI, stenting, CABG 2020 Ischemic cardiomyopathy, history of Severe mitral regurgitation 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 Hypertension Hyperlipidemia Obesity, BMI 35 Obstructive sleep apnea, does not use CPAP at home Prostate cancer status post prostatectomy Medication noncompliance GI prophylaxis DVT prophylaxis Full code Plan: Patient continues on telemetry monitoring with cardiology following. Stress test done with concerning areas of old infarct and a questionable area of concern and given patient's continued reported moderate to severe chest pain, cardiology following and planning to undergo cardiac catheterization once kidney functions are more stable. Labs from this morning are pending and will likely proceed with catheterization on 02/18/2024. Repeat labs ordered for a.m. Continue with current cardiac medications Encouraged to increase activity as tolerated Will await cardiology report and clearance to discuss discharge planning Await cardiac catheterization on 02/17/2024 if kidney functions have improved Due to multiple complex medical issues, prognosis is guarded The impression and plan of care has been dictated by Kaela Voss, Nurse Practitioner as directed. Dr. Shalom MD I have performed a history and examination and MDM of this patient, discussed the same with the dictator, and agree with the dictator's assessment and plan as written ,documented as a scribe. Based on total visit time, I have performed more than 50% of the visit. Objective - Vital Signs Vital signs: Vital Signs Temp 97.7 F 02/17/24 08:20 Pulse 67 02/17/24 11:45 Resp 17 02/17/24 11:45 BP 131/81 02/17/24 11:45 Pulse Ox 96 02/17/24 11:45 FiO2 Intake & Output 02/16/24 02/17/24 02/17/24 18:59 06:59 18:59 Intake Total 20 128 118 Balance 20 128 118 Weight 98.1 kg Intake: IV 20 10 Invasive Line 1 20 Invasive Line 2 10 Oral 118 118 Other: Voiding Method Toilet Toilet Toilet # Voids 2 2 2 - Labs CBC & Chem 7: 02/16/24 05:59 02/17/24 09:53 Labs: Abnormal Lab Results - Last 24 Hours (Table) 02/17/24 Range/Units 09:53 BUN 24 H (9-20) mg/dL Glucose 100 H (74-99) mg/dL
[2024-02-18 06:30] LABS: Glucose,Whole Blood 111 mg/dL (70-110)
[2024-02-18 08:20] VITALS: RESP 16
[2024-02-18] MEDS: ASPIRIN 81 MG PO STA (09:41)
[2024-02-18] MEDS: ATORVASTATIN 80 MG TAB PO STA (09:41)
--- NOTE | 2024-02-18 12:29 | P.PN ---
Subjective Progress Note Date: 02/18/24 Chest discomfort and abnormal stress test The patient is a pleasant 84-year-old gentleman with a past medical history significant for coronary artery disease status post CABG in 2020 as well as ischemic cardiomyopathy and also valvular heart disease with mitral regurgitation and aortic stenosis and hypertension and dyslipidemia and pulmonary hypertension who was admitted to the hospital with hypertension emergency presented as a chest discomfort. He underwent myocardial perfusion imaging stress test and that revealed reversibility/ischemia. February 16, 2024 The patient was seen and evaluated this morning. The initial plan was to pursue with a heart catheterization later on today but unfortunately his GFR dropped down significantly. With that being said I am going to stop the losartan/hydrochlorothiazide and give the patient some IV fluid and repeat the kidney function tomorrow and tentatively planning to do the heart catheterization tomorrow. He continues to have atypical chest discomfort but no shortness of breath and no dizziness or lightheadedness and no feeling of heart racing or fluttering and no presyncope or syncope. The echo revealed impaired LV function with a EF between 40 to 45% with severe mitral regurgitation and mild aortic stenosis and severe pulmonary hypertension. The examination revealed regular rhythm with a systolic murmur and clear breathing sounds bilaterally and no edema was noted. February 17, 2024 The patient was seen and evaluated this morning. He continues to have the left upper chest/left shoulder discomfort which has not changed. We do not have blood work as of this morning. Otherwise no shortness of breath and no dizziness or lightheadedness and no feeling of any heart racing or fluttering. The blood pressure has been under good control on the current medical regimen. Currently he is not on any nephrotoxic medications. Will follow-up with the blood work this morning to make a decision about the heart catheterization in the next 24 to 48 hours. The examination revealed regular rhythm with a systolic murmur at the right and left upper sternal border with clear breathing sounds bilaterally and no edema was noted 02/17 Patient is scheduled for cardiac catheterization today with Dr. Iglesias. Repeat blood work performed yesterday reveals BUN 24, creatinine 1.22. Repeat blood work ordered for tomorrow. Blood pressure 144/64, heart rate 63, pulse ox 96% on room air. Patient denies having any chest pain or chest pressure. Physical Examination Gen: This is an 84-year-old male in no acute distress HEENT: Head is atraumatic, normocephalic. Pupils equal, round. Sclerae is anicteric. LUNGS: Clear to auscultation. No wheezes or rhonchi. No intercostal retractions. HEART: Regular rate and rhythm. Systolic murmur. ABDOMEN: Soft. Bowel sounds are present. No masses. No tenderness. EXTREMITIES: No pedal edema. No calf tenderness. NEUROLOGICAL: Patient is awake, alert and oriented x3. Assessment Hypertension emergency which has improved Atypical chest discomfort associated with abnormal myocardial perfusion imaging stress test Coronary artery disease status post CABG Ischemic cardiomyopathy Acute renal failure Multiple comorbid conditions Plan Continue the current medical regimen Avoid any nephrotoxic medications Proceed with a heart catheterization today with Dr. Iglesias Nurse practitioner note has been reviewed, I agree with documented findings and plan of care. Patient was seen and examined. Objective - Vital Signs Vital signs: Vital Signs Temp 97.9 F 02/18/24 07:57 Pulse 63 02/18/24 08:00 Resp 16 02/18/24 08:00 BP 144/64 02/18/24 07:57 Pulse Ox 96 02/18/24 07:57 FiO2 Intake & Output 02/17/24 02/18/24 02/18/24 18:59 06:59 18:59 Intake Total 236 0 Balance 236 0 Intake: Oral 236 0 Other: Voiding Method Toilet Toilet Toilet # Voids 3 - Labs CBC & Chem 7: 02/16/24 05:59 02/17/24 09:53 Labs: Abnormal Lab Results - Last 24 Hours (Table) 02/17/24 02/18/24 Range/Units 09:53 06:28 BUN 24 H (9-20) mg/dL Glucose 100 H (74-99) mg/dL POC Glucose (mg/dL) 111 H (70-110) mg/dL
--- NOTE | 2024-02-18 16:54 | P.PN ---
Subjective Progress Note Date: 02/18/24 H&P Date: 02/12/24 Chief Complaint: Chest pain This is an 84-year-old gentleman with past medical history significant for CAD, DC, prior stenting, CABG 2020, hypertension, hyperlipidemia, ischemic cardiomyopathy EF 45 to 50%, severe mitral regurg, mild to moderate tricuspid regurg morbid obesity, medication noncompliance and multiple other medical issues presented to the ER reporting nonexertional ,midsternal chest pain radiating to his neck posterior left shoulder blade and down left arm yesterday while sitting on the couch. Denies lightheadedness dizziness or focal deficits. Denies diaphoresis or shortness of breath. Reports he has not been taking any of his prescribed medications," for a few weeks". Reports he has increased his workout at home3-4 times a week over the last 2 months. Workout consists of walking on the treadmill and weight training. Denies chest pain during exercising. Troponins on admission 0.044, 0.040. EKG reporting sinus with PACs.Chest x-ray reported possible nodular densities in the left lower lobe l aterally versus artifact. On admission hypertensive, with systolic 190s. Afebrile, normal WBC, hemoglobin 11.2, platelets 293. Electrolytes within normal limits, BUN 22, creatinine at baseline 1.06. 02/14/2024 sitting up in chair, blood pressure uncontrolled, ranging 180s over 70s ,asymptomatic. Denies chest pain palpitations or shortness of breath. Denies headache lightheadedness dizziness or focal deficits. Complains of neck pain. Antihypertensives further adjusted with the addition of Imdur and spironolactone. Patient will be discharged home later today in a stable condi tion with guarded prognosis pending improvement in blood pressure and final DC clearance as per cardiology. 02/14/2024 cancel discharge .continue monitoring overnight. If patient continues to have complaints of pain, cardiology considering cardiac catheterization, in a patient who has been noncompliant with his meds. The echo reported impaired LV function with a EF between 40 to 45%, moderate LV dysfunction, apical hypokinesis, severe pulmonary hypertension, mild aortic stenosis, severe tricuspid regurgitation. Reported chest pain, underwent a Lexiscan stress test, reported abnormal and patient was scheduled for a cardiac catheterization on Sunday but his GFR dropped to 40. Today bicarb 26, BUN 24, creatinine 1.22 with GFR increased to 64. patient is scheduled for cardiac catheterization today. Currently denies chest pain, palpitations or shortness of breath. Complains of neck pain. Objective - Vital Signs Vital signs: Vital Signs Temp 98.1 F 02/18/24 15:41 Pulse 69 02/18/24 15:41 Resp 16 02/18/24 15:41 BP 167/69 02/18/24 15:41 Pulse Ox 99 02/18/24 15:41 FiO2 Intake & Output 02/17/24 02/18/24 02/18/24 18:59 06:59 18:59 Intake Total 236 0 Balance 236 0 Intake: Oral 236 0 Other: Voiding Method Toilet Toilet Toilet # Voids 3 - Exam PHYSICAL EXAM: VITAL SIGNS: [As above] GENERAL: Pleasant, alert and oriented x 3, sitting up in chair. HEENT: Conjunctivae normal. eyes normal. NECK: Supple, no JVD. CARDIOVASCULAR: S1, S2 regular. Systolic murmur RESPIRATION: Unlabored, equal air entry, clear to auscultation, bilateral bases diminished. ABDOMEN: Obese, soft, nondistended, nontender . No guarding. no masses palpable. Positive Bowel sounds. LEGS: No edema. no swelling. NERVOUS SYSTEM: Cranial N 2-12 grossly normal.No focal deficits. Strength and sensation grossly intact. Skin: Warm and dry, no rash - Labs CBC & Chem 7: 02/16/24 05:59 02/17/24 09:53 Labs: Abnormal Lab Results - Last 24 Hours (Table) 02/18/24 Range/Units 06:28 POC Glucose (mg/dL) 111 H (70-110) mg/dL Assessment and Plan Assessment: Atypical chest pain, mildly elevated troponins, abnormal Lexiscan stress test, cardiac catheterization pending Hypertensive emergency secondary to medication noncompliance, improved Acute renal failure CAD, history of DC, stenting, CABG 2020, Ischemic cardiomyopathy, history of. EF 40 to 45% Severe pulmonary hypertension Mild aortic stenosis Severe tricuspid regurgitation Hypertension Hyperlipidemia Morbid Obesity, BMI 35 Obstructive sleep apnea, does not use CPAP at home Prostate cancer status post prostatectomy Medication noncompliance Plan: Continue on current medication regimen ,monitoring and symptomatic treatment. Cardiac catheterization pending. Avoid nephrotoxins. Close monitoring of renal function. The impression and plan of care has been dictated as directed. : I performed a history and examination of this patient, discussed the same with the dictator. I agree with the dictator's note ,documented as a scribe. Any additional findings or plans will be noted.
[2024-02-18] MEDS ORDERED: LIDOCAINE 1% INJ 10MG/ML (20 ML MDV) ONE (18:09)
[2024-02-18] MEDS ORDERED: HEPARIN SODIUM 1,000 UN/ML (10ML VL) ONE ×2 (18:23→20:06)
[2024-02-18] MEDS ORDERED: diphenhydrAMINE 50 MG/ML 1 ML VIAL ONE (18:23)
[2024-02-18] MEDS ORDERED: methylPREDNISolone SOD SUCCI 125 MG/2 ML VIAL ONE (18:23)
[2024-02-18] MEDS ORDERED: fentaNYL (PF) 50 MCG/ML 2 ML AMP ONE (18:23)
[2024-02-18] MEDS: diphenhydrAMINE 50 MG/ML 1 ML VIAL IVP ONE (18:25)
[2024-02-18] MEDS: methylPREDNISolone SOD SUCCI 125 MG/2 ML VIAL IVP ONE (18:25)
[2024-02-18] MEDS: fentaNYL (PF) 50 MCG/1 ML VIAL IVP ONE ×4 (18:29→18:59)
[2024-02-18] MEDS: MIDAZOLAM 2 MG/2 ML VIAL IVP ONE (18:29)
[2024-02-18] MEDS: HYDROmorphone 0.5 MG/0.5 ML SYRINGE IVP ONE (18:40)
[2024-02-18] MEDS: NITROGLYCERIN 1000MCG/10ML SYRINGE INTRACORON ONE ×3 (18:54→19:51)
[2024-02-18] MEDS ORDERED: VERAPAMIL 2.5 MG/ML 2 ML AMP ONE (19:19)
[2024-02-18] MEDS: HEPARIN SODIUM 1,000 UN/ML (10ML VL) IVP ONE ×2 (19:22→20:06)
[2024-02-18] MEDS ORDERED: hydrALAZINE HCL 20 MG/ML 1 ML VIAL ONE (19:22)
[2024-02-18] MEDS: hydrALAZINE HCL 20 MG/ML 1 ML VIAL IVP ONE (19:31)
[2024-02-18] MEDS ORDERED: niCARdipine 25 MG/10 ML VIAL ONE (19:34)
[2024-02-18] MEDS: PHENYLEPHRINE-0.9% NACL SYG 1,000 MCG/10 ML SYRINGE IVP ONE ×2 (19:41→19:50)
[2024-02-18] MEDS ORDERED: TICAGRELOR 90 MG TAB ONE (19:44)
[2024-02-18] MEDS: TICAGRELOR 90 MG TAB PO ONE (19:46)
[2024-02-18] MEDS: SODIUM CHLORIDE 0.9% 1,000 ML IV ONE (19:59)
[2024-02-18] MEDS ORDERED: NITROGLYCERIN SL TABS 0.4 MG TAB SUBLINGUAL PRN (20:03)
[2024-02-18] MEDS ORDERED: RX INFO: IV CONTRAST WAS GIVEN 1 EACH MISC MISCELLANE PRN (20:03)
[2024-02-18] MEDS ORDERED: ATROPINE SULFATE 0.1 MG/ML 10ML SYRINGE IV PRN (20:03)
[2024-02-18] MEDS ORDERED: ZOLPIDEM 5 MG TAB PO PRN (20:03)
[2024-02-18] MEDS ORDERED: MAG HYDROX/AL HYDROX/SIMETH 30 ML CUP PO PRN (20:03)
[2024-02-18] MEDS: IOPAMIDOL-370 100ML BTL INTRATHECA ONE (20:06)
--- NOTE | 2024-02-18 20:14 | P.PCN ---
Date of Procedure: 02/18/24 Operative Findings: CARDIAC CATHETERIZATION AND PERCUTANEOUS CORONARY INTERVENTION PERFORMING PHYSICIAN: Coy Iglesias MD, [facility] PROCEDURE PERFORMED: 1. Selective right and left coronary angiogram and FAULKNER to LAD angiogram and radial artery bypass to ramus intermedius and left circumflex angiogram as well as SVG to RCA angiogram 2. Left heart catheterization 3. Successful stenting of distal LCx using 2 seven 5 x 15 mm Xience CORI with an excellent angiographic results 4. Ultrasound-guided access of the right common femoral artery and selective right common femoral artery angiogram INDICATION: Acute non-ST relation myocardial infarction in this 84-year-old gentleman who is known to have coronary artery disease where he underwent in 2020 CABG x 3 with FAULKNER to LAD and radial artery to ramus intermedius and LCx as well as SVG to RCA. He underwent myocardial perfusion imaging stress test and that came in to be abnormal showing reversibility/ischemia and in the light of that a heart catheterization was advised. Also he was experiencing left upper chest discomfort and left arm discomfort COMPLICATION: None APPROACH: Right common femoral artery LEVEL OF SEDATION: Moderate with the sedation time off 82 minutes PROCEDURE DESCRIPTION: After obtaining informed consent the patient was brought to the cardiac Vehicle Operator. The right common femoral artery was cannulated using micropuncture technique under ultrasound guidance and micropuncture wire passed easily then I placed a 6 Gabonese 11 cm sheath at the right common femoral artery. Selective left and right coronary angiogram performed using JL 4 and JR4 catheters. Left heart catheterization was performed using the JR4 catheter which crossed the aortic valve then I did pullback across the valve. FAULKNER to LAD angiogram was performed using an IM catheter. SVG to OM angiogram was performed using an LCB catheter. SVG to RCA angiogram was performed using Yang right catheter. After that we decided to intervene on the distal left circumflex coronary artery. Anticoagulation was initiated using heparin with continuous ACT monitoring. Subsequently I did engage the graft to the left circumflex using an AL-1 guiding catheter. From the get go I did wired the left circumflex using 2 whisper wires. Subsequently I did predilatation using 2.5 mm balloon which was inflated multiple times in the distal left circumflex coronary artery. After that I advance 2.75 x 15 mm stent where the stent was positioned under [facility] and deployed after the tanesha wire was pulled out. Postdilatation was initially performed using 2.75 mm balloon and subsequently 3 mm balloon. Both balloons were noncompliant balloon. Both balloons were inflated under almost 20 maximiliano for 20 seconds. Final angiogram showed excellent angiographic results with BARBARA-3 flow with no dissection was identified. The patient tolerated the procedure very well. By the end I did selective right common femoral artery angiogram before we deployed the Angio-Seal groin closure device. SELECTIVE CORONARY ANGIOGRAM: The right coronary artery: Large-caliber vessel and a dominant vessel. The mid RCA has a focal lesion appears to be in the range of 60%. The RCA gives rise into a small PDA branch and large PLV branch. The PDA branch has intermediate to severe disease in the midportion Left main: Calcified with critical disease distally. The disease is involving the ostial left circumflex and LAD The left circumflex: Large caliber vessel and a codominant vessel. The proximal LCx has a critical lesion appears to be in the range of 80 to 90%. There is competitive flow was seen in the mid left circumflex coming from the radial artery bypass. The left anterior descending artery: The ostial and proximal LAD has critical disease as well. Going better flow was seen in the mid LAD coming from the FAULKNER. HEMODYNAMICS: The LVEDP was about 18 mmHg with no gradient was identified across aortic valve PCI OF THE []: [] CONCLUSION: 1. Critical disease involving the distal left main and proximal LAD and LCx 2. Patent FAULKNER to LAD with no disease involving the LAD distal to FAULKNER anastomosis 3. Patent radial artery bypass to the ramus intermedius and distal left circumflex coronary artery. The left circumflex distal to distal anastomosis has a critical lesion. I performed successful stenting of the distal left circumflex 4. Intermediate disease involving the mid right coronary artery appears to be in the range of 60%. 5. The SVG to PDA appears to be diseased and atrophic. 6. Mildly elevated left-sided filling pressure POSTPROCEDURE MANAGEMENT: 1. Dual antiplatelet therapy using aspirin and Brilinta for 12 month 2. Aggressive cholesterol control 3. Follow-up with the patient
[2024-02-18] MEDS: SODIUM CHLORIDE 0.9% 1,000 ML in EMPTY BAG 1 BAG IV SCH (20:50)
[2024-02-18] MEDS: TICAGRELOR 90 MG TAB PO SCH (20:51)
[2024-02-19 08:56] VITALS: TEMP 98.1
[2024-02-19 10:49] LABS: African American GFR (CKD) 70 (>60 ml/min/1.73 sqM); Anion Gap 10 mmol/L; Blood Urea Nitrogen 26 mg/dL (9-20); Calcium 9.6 mg/dL (8.4-10.2); Carbon Dioxide 22 mmol/L (22-30); Chloride 104 mmol/L (98-107); Glucose 186 mg/dL (74-99); Non-African American GFR(CKD) 61 (>60 ml/min/1.73 sqM); Potassium 4.4 mmol/L (3.5-5.1); Sodium 136 mmol/L (137-145)
[2024-02-19 12:00] VITALS: BP 156/63; PULSE 72; BMI 34.9
--- NOTE | 2024-02-19 12:58 | P.PN ---
Subjective Progress Note Date: 02/19/24 Chest discomfort and abnormal stress test The patient is a pleasant 84-year-old gentleman with a past medical history significant for coronary artery disease status post CABG in 2020 as well as ischemic cardiomyopathy and also valvular heart disease with mitral regurgitation and aortic stenosis and hypertension and dyslipidemia and pulmonary hypertension who was admitted to the hospital with hypertension emergency presented as a chest discomfort. He underwent myocardial perfusion imaging stress test and that revealed reversibility/ischemia. February 16, 2024 The patient was seen and evaluated this morning. The initial plan was to pursue with a heart catheterization later on today but unfortunately his GFR dropped down significantly. With that being said I am going to stop the losartan/hydrochlorothiazide and give the patient some IV fluid and repeat the kidney function tomorrow and tentatively planning to do the heart catheterization tomorrow. He continues to have atypical chest discomfort but no shortness of breath and no dizziness or lightheadedness and no feeling of heart racing or fluttering and no presyncope or syncope. The echo revealed impaired LV function with a EF between 40 to 45% with severe mitral regurgitation and mild aortic stenosis and severe pulmonary hypertension. The examination revealed regular rhythm with a systolic murmur and clear breathing sounds bilaterally and no edema was noted. February 17, 2024 The patient was seen and evaluated this morning. He continues to have the left upper chest/left shoulder discomfort which has not changed. We do not have blood work as of this morning. Otherwise no shortness of breath and no dizziness or lightheadedness and no feeling of any heart racing or fluttering. The blood pressure has been under good control on the current medical regimen. Currently he is not on any nephrotoxic medications. Will follow-up with the blood work this morning to make a decision about the heart catheterization in the next 24 to 48 hours. The examination revealed regular rhythm with a systolic murmur at the right and left upper sternal border with clear breathing sounds bilaterally and no edema was noted 02/17 Patient is scheduled for cardiac catheterization today with Dr. Iglesias. Repeat blood work performed yesterday reveals BUN 24, creatinine 1.22. Repeat blood work ordered for tomorrow. Blood pressure 144/64, heart rate 63, pulse ox 96% on room air. Patient denies having any chest pain or chest pressure. 02/18 Yesterday, patient underwent cardiac catheterization with Dr. Iglesias that revealed critical disease involving the distal left main and proximal LAD with known disease involving the LAD distal to FAULKNER anastomosis. Patent radial artery bypass to the ramus intermedius and distal left circumflex coronary artery. Left circumflex distal to anastomosis has a critical lesion. Patient underwent stenting of the distal left circumflex. There was also intermediate disease involving the mid right coronary artery at 60%. SVG to PDA appears to be disease and atrophic. Mildly elevated left-sided filling pressures. Patient is seen today in follow-up. He states he is feeling great. Right groin access sh ows no signs of hematoma. Blood pressure 161/56, heart rate 80, pulse ox 99% on room air. Repeat blood work reveals sodium 136, potassium 4.4, BUN 26 and creatinine 1.13. Physical Examination Gen: This is an 84-year-old male in no acute distress HEENT: Head is atraumatic, normocephalic. Pupils equal, round. Scler and circumflex. LUNGS: Clear to auscultation. No wheezes or rhonchi. No intercostal retractions. HEART: Regular rate and rhythm. Systolic murmur. ABDOMEN: Soft. Bowel sounds are present. No masses. No tenderness. EXTREMITIES: No pedal edema. No calf tenderness. NEUROLOGICAL: Patient is awake, alert and oriented x3. Assessment Hypertension emergency which has improved Atypical chest discomfort associated with abnormal myocardial perfusion imaging stress test status post stent of the distal left circumflex Coronary artery disease status post CABG Ischemic cardiomyopathy Acute renal failure Multiple comorbid conditions Plan Continue the current medical regimen, new prescriptions have been sent to his pharmacy. Patient is cleared for discharge from cardiology and may follow-up in the office with Dr. Iglesias in 1 to 2 weeks. Nurse practitioner note has been reviewed, I agree with documented findings and plan of care. Patient was seen and examined. Objective - Vital Signs Vital signs: Vital Signs Temp 98.1 F 02/19/24 08:31 Pulse 80 02/19/24 08:31 Resp 16 02/19/24 08:31 BP 161/56 02/19/24 08:31 Pulse Ox 99 02/19/24 08:31 FiO2 Intake & Output 02/18/24 02/19/24 02/19/24 18:59 06:59 18:59 Intake Total 784 300 360 Output Total 1200 Balance 784 -900 360 Intake: IV 784 300 Sodium Chloride 0.9% 1, 784 000 ml In Empty Bag 1 bag @ 1 ML/KG/HR 98.4 mls/hr IV .[id number] [facility] Rx#: [id number] Oral 360 Output: Urine 1200 Other: Voiding Method Toilet Toilet Toilet External Catheter # Voids 2 1 - Labs CBC & Chem 7: 02/16/24 05:59 02/19/24 08:49 Labs: Abnormal Lab Results - Last 24 Hours (Table) 02/19/24 Range/Units 08:49 Sodium 136 L (137-145) mmol/L BUN 26 H (9-20) mg/dL Glucose 186 H (74-99) mg/dL
--- NOTE | 2024-02-19 16:25 | P.DS ---
Providers Date of admission: 02/15/24 09:24 Expected date of discharge: 02/19/24 Attending physician: Christian Mix MD Consults: 02/12/24 01:25 Consult Physician Urgent Consulting Provider: Coy Iglesias Consult Reason/Comments: nstemi Do you want consulting provider notified?: Yes 02/18/24 20:03 Consult Physician Routine Consulting Provider: [facility] Consult Reason/Comments: Post Interventional Patient Do you want consulting provider notified?: Already Contacted Primary care physician: Kavya Khan Hospital Course: Final Diagnoses: Atypical chest pain, mildly elevated troponins, abnormal Lexiscan stress test, status post cardiac catheterization, stent of the distal left circumflex Hypertensive emergency secondary to medication noncompliance, improved Acute renal failure CAD, history of [place], stenting, CABG 2020, Ischemic cardiomyopathy, history of. Severe pulmonary hypertension Mild aortic stenosis Severe tricuspid regurgitation Hypertension Hyperlipidemia Morbid Obesity, BMI 35 Obstructive sleep apnea, does not use CPAP at home Prostate cancer status post prostatectomy Medication noncompliance Hospital course:This is an 84-year-old gentleman with past medical history significant for CAD, IL, prior stenting, CABG 2020, hypertension, hyperlipidemia, ischemic cardiomyopathy EF 45 to 50%, severe mitral regurg, mild to moderate tricuspid regurg morbid obesity, medication noncompliance and multiple other medical issues presented to the ER reporting nonexertional ,midsternal chest pain radiating to his neck posterior left shoulder blade and down left arm yesterday while sitting on the couch. Denies lightheadedness dizziness or focal deficits. Denies diaphoresis or shortness of breath. Reports he has not been taking any of his prescribed medications," for a few weeks". Reports he has increased his workout at home3-4 times a week over the last 2 months. Workout consists of walking on the treadmill and weight training. Denies chest pain during exercising. Troponins on admission 0.044, 0.040. EKG reporting sinus with PACs.Chest x-ray reported possible nodular densities in the left lower lobe laterally versus artifact. On admission hypertensive, with systolic 190s. Afebrile, normal WBC, hemoglobin 11.2, platelets 293. Electrolytes within normal limits, BUN 22, creatinine at baseline 1.06. 02/14/2024 sitting up in chair, blood pressure uncontrolled, ranging 180s over 70s ,asymptomatic. Denies chest pain palpitations or shortness of breath. Denies headache lightheadedness dizziness or focal deficits. Complains of neck pain. Antihypertensives further adjusted with the addition of Imdur and spironolactone. Patient will be discharged home later today in a stable condition with guarded prognosis pending improvement in blood pressure and final DC clearance as per cardiology. 02/14/2024 cancel discharge .continue monitoring overnight. If patient continues to have complaints of pain, cardiology considering cardiac catheterization, in a patient who has been noncompliant with his meds. The echo reported impaired LV function with a EF between 40 to 45%, moderate LV dysfunction, apical hypokinesis, severe pulmonary hypertension, mild aortic stenosis, severe tricuspid regurgitation. Reported chest pain, underwent a Lexiscan stress test, reported abnormal and then patient was scheduled for a cardiac catheterization on Sunday but his GFR dropped to 40. Today bicarb 26, BUN 24, creatinine 1.22 with GFR increased to 64. patient is scheduled for cardiac catheterization today. Currently denies chest pain, palpitations or shortness of breath. Complains of neck pain. Underwent cardiac catheterization yesterday reporting critical disease involving the distal left main and proximal LAD with known disease involving the LAD distal to FAULKNER anastomosis. Patent radial artery bypass to the ramus intermedius and distal left circumflex coronary artery. Left circumflex distal to anastomosis has a critical lesion. Patient underwent stenting of the distal left circumflex. There was also intermediate disease involving the mid right coronary artery at 60%. SVG to PDA appears to be disease and atrophic. Mildly elevated left-sided filling pressures. Tolerated procedure well. Patient reports he feels great and has no further pain, no neck pain. Denies chest pain, palpitations or shortness of breath.Maintaining O2 sats in the high 90s on room air. Electrolytes within normal limits, BUN 26, creatinine 1.3. Cleared by cardiology for discharge. Patient will be discharged home today in a stable condition with guarded prognosis. Medication compliance reinforced. The impression and plan of care has been dictated as directed. : I performed a history and examination of this patient, discussed the same with the dictator. I agree with the dictator's note ,documented as a scribe. Any additional findings or plans will be noted. Patient Condition at Discharge: Stable Plan - Discharge Summary Discharge Rx Participant: No New Discharge Prescriptions: New Metoprolol Tartrate [Lopressor] 25 mg PO BID #60 tab Nitroglycerin Sl Tabs [Nitrostat] 0.4 mg SUBLINGUAL Q5M PRN tab PRN Reason: Chest Pain Spironolactone [Aldactone] 25 mg PO DAILY #30 tab Isosorbide Mononitrate ER [Imdur] 30 mg PO DAILY #30 tab Pantoprazole [Protonix] 40 mg PO DAILY #30 tab Ticagrelor [Brilinta] 90 mg PO BID #180 tab Aspirin 81 mg PO DAILY tab Losartan-Hctz 50-12.5 mg [Hyzaar 50-12.5] 2 each PO DAILY #60 tab amLODIPine [Norvasc] 10 mg PO DAILY #30 tab Continue Clopidogrel [Plavix] 75 mg PO DAILY Mirabegron [Myrbetriq] 50 mg PO DAILY Loratadine [Claritin] 10 mg PO DAILY Fluticasone Nasal [place] [Flonase Nasal [place]] 2 spray EA NOSTRIL DAILY Atorvastatin Calcium [Lipitor] 40 mg PO DAILY Discontinued Aspirin 325 mg PO DAILY tab Metoprolol Succinate [Toprol XL] 50 mg PO DAILY Discharge Medication List Atorvastatin Calcium [Lipitor] 40 mg PO DAILY 02/12/24 [History] Clopidogrel [Plavix] 75 mg PO DAILY 02/12/24 [History] Fluticasone Nasal [place] [Flonase Nasal [place]] 2 spray EA NOSTRIL DAILY 02/12/24 [History] Loratadine [Claritin] 10 mg PO DAILY 02/12/24 [History] Mirabegron [Myrbetriq] 50 mg PO DAILY 02/12/24 [History] Aspirin 81 mg PO DAILY tab 02/13/24 [Rx] Losartan-Hctz 50-12.5 mg [Hyzaar 50-12.5] 2 each PO DAILY #60 tab 02/13/24 [Rx] Metoprolol Tartrate [Lopressor] 25 mg PO BID #60 tab 02/13/24 [Rx] Nitroglycerin Sl Tabs [Nitrostat] 0.4 mg SUBLINGUAL Q5M PRN tab 02/13/24 [Rx] amLODIPine [Norvasc] 10 mg PO DAILY #30 tab 02/13/24 [Rx] Isosorbide Mononitrate ER [Imdur] 30 mg PO DAILY #30 tab 02/14/24 [Rx] Spironolactone [Aldactone] 25 mg PO DAILY #30 tab 02/14/24 [Rx] Pantoprazole [Protonix] 40 mg PO DAILY #30 tab 02/15/24 [Rx] Ticagrelor [Brilinta] 90 mg PO BID #180 tab 02/19/24 [Rx] Follow up Appointment(s)/Referral(s): Christian Mix MD [STAFF PHYSICIAN] - 02/21/24 11:00 am Coy Iglesias MD [STAFF PHYSICIAN] - 02/27/24 2:30 pm Ambulatory/Diagnostic Orders: Complete Blood Count w/diff [LAB.AMB] Time Frame: 3 Days, Location: None Selected Patient Instructions/Handouts: Coronary Artery Disease (DC), Chest Pain (DC), Left Heart Catheterization (DC) Activity/Diet/Wound Care/Special Instructions: Activity limited until follow-up Follow-up with primary care provider on discharge Continue taking medications as prescribed Follow-up with cardiology outpatient Discharge Disposition: HOME SELF-CARE
== END 2024-02-19 16:08 | disposition home or self-care (01) | DRG 322 ==
LOC: EC 23:54 → 3SCARD 02-12 01:25 → INTOOBSV 02-12 01:25 → 3SCARD 02-12 02:02 → OBSVTOIN 02-15 09:24
PROVIDERS: ADMIT Family Medicine; ATTEND Family Medicine
PROC: B2131ZZ Fluoroscopy of Multiple Coronary Artery Bypass Grafts using Low Osmolar Contrast (ICD-10-PCS; 2024-02-18)
PROC: B2181ZZ Fluoroscopy of Left Internal Mammary Bypass Graft using Low Osmolar Contrast (ICD-10-PCS; 2024-02-18)
PROC: 027034Z Dilation of Coronary Artery, One Artery with Drug-eluting Intraluminal Device, Percutaneous Approach (ICD-10-PCS; principal; 2024-02-18 16:10)
PROC: 4A023N7 Measurement of Cardiac Sampling and Pressure, Left Heart, Percutaneous Approach (ICD-10-PCS; 2024-02-18 16:10)
PROC: B2111ZZ Fluoroscopy of Multiple Coronary Arteries using Low Osmolar Contrast (ICD-10-PCS; 2024-02-18 16:10)
DX: R07.89 Other chest pain (principal); I16.1 Hypertensive emergency; Q25.0 Patent ductus arteriosus; T82.867A Thrombosis due to cardiac prosthetic devices, implants and grafts, initial encounter; M79.602 Pain in left arm; I10 Essential (primary) hypertension; E66.01 Morbid (severe) obesity due to excess calories; I25.5 Ischemic cardiomyopathy; E78.5 Hyperlipidemia, unspecified; I25.10 Atherosclerotic heart disease of native coronary artery without angina pectoris; I25.2 Old myocardial infarction; Z79.01 Long term (current) use of anticoagulants; I08.1 Rheumatic disorders of both mitral and tricuspid valves; G47.33 Obstructive sleep apnea (adult) (pediatric); I08.3 Combined rheumatic disorders of mitral, aortic and tricuspid valves; I27.20 Pulmonary hypertension, unspecified; Z68.35 Body mass index [BMI] 35.0-35.9, adult; Z79.02 Long term (current) use of antithrombotics/antiplatelets; Z79.82 Long term (current) use of aspirin; Z79.899 Other long term (current) drug therapy; Z90.79 Acquired absence of other genital organ(s); Z91.148 Patient's other noncompliance with medication regimen for other reason; Z95.1 Presence of aortocoronary bypass graft; Z95.5 Presence of coronary angioplasty implant and graft; Y84.8 Other medical procedures as the cause of abnormal reaction of the patient, or of later complication, without mention of misadventure at the time of the procedure
CPT/HCPCS: 36415; 71046; 76937; 78452; 80048; 80053; 80061; 83735; 84484; 85025; 85379; 85610; 85730; 93005; 93017; 93306; 93459; 93975; 96374; 96376; 99291

== ENCOUNTER 2024-02-20 18:53 | Inpatient (IN) | payer MEDICARE ==
[2024-02-20 19:35] LABS: Basophils # (A) 0.1 k/uL (0-0.2); Basophils % (A) 1 %; Eosinophils # (A) 0.4 k/uL (0-0.7); Eosinophils % (A) 3 %; HCT 34.3 % (39.0-53.0); HGB 10.6 gm/dL (13.0-17.5); Hypochromasia Slight; Lymphocytes # (A) 3.3 k/uL (1.0-4.8); Lymphocytes % (A) 26 %; MCH 27.8 pg (25.0-35.0); MCHC 30.8 g/dL (31.0-37.0); MCV 90.2 fL (80.0-100.0); Mean Platelet Volume 7.7; Monocytes % (A) 7 %; Neutrophils # (A) 7.9 k/uL (1.3-7.7); Neutrophils % (A) 61 %; Platelet Count 328 k/uL (150-450); WBC 12.9 k/uL (3.8-10.6)
--- NOTE | 2024-02-20 19:37 | ED ---
General Adult HPI - General Chief complaint: Neck Pain/Injury Stated complaint: Neck Pain Source: patient, EMS Mode of arrival: EMS Limitations: no limitations - History of Present Illness Initial comments: Gregory is an 84 yo M with PMH of CAD s/p CABG and recent hospitalization with cardiac cath and stenting. Patient was admitted on 02/12 with chest left shoulder and left neck pain. Pain persisted throughout his hospitalization patient underwent cardiac testing including echo stress test and then cardiac catheterization on 02/17 PROCEDURE PERFORMED: 1. Selective right and left coronary angiogram and FAULKNER to LAD angiogram and radial artery bypass to ramus intermedius and left circumflex angiogram as well as SVG to RCA angiogram 2. Left heart catheterization 3. Successful stenting of distal LCx using 2 seven 5 x 15 mm Xience CORI with an excellent angiographic results Patient was pain-free throughout the day on the and discharged home patient states he did not take any medications upon returning home but did start his medications this morning not certain what the medications are but states he took what was prescribed. Patient states that this afternoon he began having the pain in his left shoulder and left neck again and decided to return to the ER. Patient has not exerted himself and does not believe the pain is exertional it did happen at rest. No associated diaphoresis or shortness of breath. - Related Data Home Medications Medication Instructions Recorded Confirmed Atorvastatin Calcium [Lipitor] 40 mg PO DAILY 02/12/24 02/20/24 Clopidogrel [Plavix] 75 mg PO DAILY 02/12/24 02/20/24 Fluticasone Nasal [place] [Flonase 2 spr EA NOSTRIL DAILY 02/12/24 02/20/24 Nasal [place]] Loratadine [Claritin] 10 mg PO DAILY 02/12/24 02/20/24 Mirabegron [Myrbetriq] 50 mg PO DAILY 02/12/24 02/20/24 Losartan-Hctz 50-12.5 mg [Hyzaar 2 tab PO DAILY 02/20/24 02/20/24 50-12.5] Nitroglycerin Sl Tabs [Nitrostat] 0.4 mg SL Q5M PRN 02/20/24 02/20/24 Previous Rx's Medication Instructions Recorded Aspirin 81 mg PO DAILY tab 02/13/24 Metoprolol Tartrate [Lopressor] 25 mg PO BID #60 tab 02/13/24 amLODIPine [Norvasc] 10 mg PO DAILY #30 tab 02/13/24 Isosorbide Mononitrate ER [Imdur] 30 mg PO DAILY #30 tab 02/14/24 Spironolactone [Aldactone] 25 mg PO DAILY #30 tab 02/14/24 Pantoprazole [Protonix] 40 mg PO DAILY #30 tab 02/15/24 Ticagrelor [Brilinta] 90 mg PO BID #180 tab 02/19/24 Allergies Allergy/AdvReac Type Severity Reaction Status Date / Time iodine Allergy Severe Rash/Hives,skin Verified 02/20/24 20:08 peeled shellfish derived [Shellfish] Allergy Rash/Hives Verified 02/20/24 20:08 Review of Systems ROS Statement: Those systems with pertinent positive or pertinent negative responses have been documented in the HPI. ROS Other: All systems not noted in ROS Statement are negative. Past Medical History Past Medical History: Coronary Artery Disease (CAD), Cancer, GERD/Reflux, Hyperlipidemia, Hypertension, Myocardial Infarction (NH), Prostate Disorder, Sleep Apnea/CPAP/BIPAP Additional Past Medical History / Comment(s): H&P scanned. No CPAP use, hx prostate cancer prior to 1999-had surgery & radiation, erectile dysfunction, BILATERAL PLEURAL EFFUSIONS POST CABG. Last Myocardial Infarction Date:: unknown History of Any Multi-Drug Resistant Organisms: None Reported Past Surgical History: Coronary Bypass/CABG, Heart Catheterization, Heart Catheterization With Stent, Prostate Surgery Additional Past Surgical History / Comment(s): Quadruple bypass, one cardiac chyna nt, BILATERAL THORACENTESIS, prostatectomy. Past Anesthesia/Blood Transfusion Reactions: No Reported Reaction Date of Last Stent Placement:: unknown Past Psychological History: No Psychological Hx Reported Smoking Status: Never smoker Past Alcohol Use History: None Reported Past Drug Use History: None Reported - Past Family History Mother Family Medical History: No Reported History Additional Family Medical History / Comment(s): Multisystem organ failure, at age 93. Father Family Medical History: Cancer Additional Family Medical History / Comment(s): Colon cancer. General Exam - General Exam Comments Initial Comments: Physical Exam GENERAL: Obese male, no acute distress patient is well-developed and well-nourished. Patient is nontoxic and well-hydrated and is in no distress. HENT: Normocephalic, Atraumatic. EYES: PERRL, EOMI PULMONARY: Unlabored respirations. No audible rales rhonchi or wheezing was noted. CARDIOVASCULAR: There is a regular rate and rhythm without any murmurs gallops or rubs. ABDOMEN: Soft and nontender SKIN: Skin is clear with no lesions or rashes and otherwise unremarkable. : Deferred NEUROLOGIC: Patient is alert and oriented x3. Moving all extremities spontaneously MUSCULOSKELETAL: Normal extremities with adequate strength and full range of motion. PSYCHIATRIC: Normal psychiatric evaluation. Limitations: no limitations Course Vital Signs 02/20/24 02/20/24 02/20/24 18:59 19:00 19:30 Temperature 98.1 F Pulse Rate 61 61 58 L Respiratory 18 16 18 Rate Blood Pressure 136/62 136/62 126/59 O2 Sat by Pulse 97 97 96 Oximetry 02/20/24 02/20/24 20:00 21:06 Temperature Pulse Rate 69 58 L Respiratory 17 16 Rate Blood Pressure 133/70 O2 Sat by Pulse 98 99 Oximetry EKG Findings - EKG Comments: EKG Findings:: EKG interpreted by me, EKG obtained due to complaint of left shoulder and neck pain EKG obtained at 1905 rate is 60 rhythm sinus with frequent PVCs, FL is 188 QRS 156 QTc [address] elevations or depressions no evidence of acute ischemia or infarction Medical Decision Making - Medical Decision Making Was pt. sent in by a medical professional or institution (, [facility], [employer], urgent care, hospital, or long-term...) When possible be specific @ -No Did you speak to anyone other than the patient for history (EMS, parent, family, police, friend...)? What history was obtained from this source @ -EMS Did you review nursing and triage notes (agree or disagree)? Why? @ -I reviewed and agree with nursing and triage notes Were old charts reviewed (outside hosp., previous admission, EMS record, old EKG, old radiological studies, urgent care reports/EKG's, long-term records)? Report findings @ -Previous admission notes, cardiac cath report were reviewed Differential Diagnosis (chest pain, altered mental status, abdominal pain women, abdominal pain men, vaginal bleeding, weakness, fever, dyspnea, syncope, head ache, dizziness, GI bleed, back pain, seizure, CVA, palpatations, mental health)? @ -Differential Chest Pain: Stable Angina, Unstable Angina, STEMI, NSTEMI Aortic Dissection, Pneumothorax, Musculoskeletal, Esophageal Spasm GERD, Cholecystitis, Pancreatitis, Zoster, this is not meant to be an all-inclusive list. EKG interpreted by me (3pts min.). @ -As above X-rays interpreted by me (1pt min.). @ -No focal consolidations no widened mediastinum no pneumothorax CT interpreted by me (1pt min.). @ -None done U/S interpreted by me (1pt. min.). @ -None done What testing was considered but not performed or refused? (CT, X-rays, U/S, labs)? Why? @ -Trending troponins will be performed during admission What meds were considered but not given or refused? Why? @ -None Did you discuss the management of the patient with other professionals (professionals i.e. , PA, [employer], lab, RT, psych nurse, social services specialist, salesforce trainer, teacher, infantry officer, nurse outreach case manager)? Give summary @ -Discussed with silk screen repairer Dr. Dias Was smoking cessation discussed for >3mins.? @ -No Was critical care preformed (if so, how long)? @ -No Were there social determinants of health that impacted care today? How? ( Homelessness, low income, unemployed, alcoholism, drug addiction, transportation, low edu. Level, literacy, decrease access to med. care, detention, rehab)? @ -No Was there de-escalation of care discussed even if they declined (Discuss DNR or withdrawal of care, Hospice)? DNR status @ -No What co-morbidities impacted this encounter? (DM, HTN, Smoking, COPD, CAD, Cancer, CVA, ARF, Chemo, Hep., AIDS, mental health diagnosis, sleep apnea, morbid obesity)? @ -CAD, obesity Was patient admitted / discharged? Hospital course, mention meds given and route, prescriptions, significant lab abnormalities, going to OR and other pertinent info. @ -Admit The patient was seen and evaluated patient with known coronary artery disease recent stenting presenting with recurrence of left shoulder and neck pain that he experienced during previous NSTEMI. Patient reports the pain is not as bad but is concerning. EKG is unremarkable troponin is significantly elevated uncertain if this is due to recent catheterization or ongoing ischemia, these results were discussed with Dr. Dias who recommended heparinization and trending troponins we will follow with the patient tomorrow. Undiagnosed new problem with uncertain prognosis? @ -No Drug Therapy requiring intensive monitoring for toxicity (Heparin, Nitro, Insulin, Cardizem)? @ -Yes, heparin Were any procedures done? @ -No Diagnosis/symptom? @ -Unstable angina Acute, or Chronic, or Acute on Chronic? @ -Default Uncomplicated (without systemic symptoms) or Complicated (systemic symptoms)? @ -Default Side effects of treatment? @ -No Exacerbation, Progression, or Severe Exacerbation? @ -No Poses a threat to life or bodily function? How? (Chest pain, USA, NH, pneumonia, PE, COPD, DKA, ARF, appy, cholecystitis, CVA, Diverticulitis, Homicidal, S uicidal, threat to staff... and all critical care pts) @ -No - Lab Data Result diagrams: 02/20/24 19:03 02/20/24 19:03 Lab Results 02/20/24 02/20/24 02/20/24 Range/Units 19:03 19:03 19:03 WBC 12.9 H (3.8-10.6) k/uL RBC 3.80 L (4.30-5.90) m/uL Hgb 10.6 L (13.0-17.5) gm/dL Hct 34.3 L (39.0-53.0) % MCV 90.2 (80.0-100.0) fL MCH 27.8 (25.0-35.0) pg MCHC 30.8 L (31.0-37.0) g/dL RDW 13.0 (11.5-15.5) % Plt Count 328 (150-450) k/uL MPV 7.7 Neutrophils % 61 % Lymphocytes % 26 % Monocytes % 7 % Eosinophils % 3 % Basophils % 1 % Neutrophils # 7.9 H (1.3-7.7) k/uL Lymphocytes # 3.3 (1.0-4.8) k/uL Monocytes # 1.0 (0-1.0) k/uL Eosinophils # 0.4 (0-0.7) k/uL Basophils # 0.1 (0-0.2) k/uL Hypochromasia Slight PT 10.2 (10.0-12.5) sec INR 0.9 (<1.2) APTT 24.3 (22.0-30.0) sec Sodium 139 (137-145) mmol/L Potassium 4.2 (3.5-5.1) mmol/L Chloride 107 (98-107) mmol/L Carbon Dioxide 25 (22-30) mmol/L Anion Gap 7 mmol/L BUN 29 H (9-20) mg/dL Creatinine 1.36 H (0.66-1.25) mg/dL Est GFR (CKD-EPI)AfAm 56 (>60 ml/min/1.73 sqM) Est GFR (CKD-EPI)NonAf 48 (>60 ml/min/1.73 sqM) Glucose 83 (74-99) mg/dL Calcium 9.8 (8.4-10.2) mg/dL Magnesium 2.0 (1.6-2.3) mg/dL Total Bilirubin 0.6 (0.2-1.3) mg/dL AST 58 (17-59) U/L ALT 34 (4-49) U/L Alkaline Phosphatase 92 (38-126) U/L Troponin I (0.000-0.034) ng/mL NT-Pro-B Natriuret Pep 1210 pg/mL Total Protein 7.0 (6.3-8.2) g/dL Albumin 3.9 (3.5-5.0) g/dL 02/20/24 Range/Units 19:03 WBC (3.8-10.6) k/uL RBC (4.30-5.90) m/uL Hgb (13.0-17.5) gm/dL Hct (39.0-53.0) % MCV (80.0-100.0) fL MCH (25.0-35.0) pg MCHC (31.0-37.0) g/dL RDW (11.5-15.5) % Plt Count (150-450) k/uL MPV Neutrophils % % Lymphocytes % % Monocytes % % Eosinophils % % Basophils % % Neutrophils # (1.3-7.7) k/uL Lymphocytes # (1.0-4.8) k/uL Monocytes # (0-1.0) k/uL Eosinophils # (0-0.7) k/uL Basophils # (0-0.2) k/uL Hypochromasia PT (10.0-12.5) sec INR (<1.2) APTT (22.0-30.0) sec Sodium (137-145) mmol/L Potassium (3.5-5.1) mmol/L Chloride (98-107) mmol/L Carbon Dioxide (22-30) mmol/L Anion Gap mmol/L BUN (9-20) mg/dL Creatinine (0.66-1.25) mg/dL Est GFR (CKD-EPI)AfAm (>60 ml/min/1.73 sqM) Est GFR (CKD-EPI)NonAf (>60 ml/min/1.73 sqM) Glucose (74-99) mg/dL Calcium (8.4-10.2) mg/dL Magnesium (1.6-2.3) mg/dL Total Bilirubin (0.2-1.3) mg/dL AST (17-59) U/L ALT (4-49) U/L Alkaline Phosphatase (38-126) U/L Troponin I 1.600 H* (0.000-0.034) ng/mL NT-Pro-B Natriuret Pep pg/mL Total Protein (6.3-8.2) g/dL Albumin (3.5-5.0) g/dL Disposition Clinical Impression: CAD (coronary artery disease), Acute non-ST elevation myocardial infarction (NSTEMI) Disposition: ADMITTED IP TO THIS HOSP Condition: Serious Is patient prescribed a controlled substance at d/c from ED?: No Referrals: Kavya Khan DO [Primary Care Provider] - 1-2 days
[2024-02-20 19:40] LABS: ALT 34 U/L (4-49); AST 58 U/L (17-59); African American GFR (CKD) 56 (>60 ml/min/1.73 sqM); Albumin 3.9 g/dL (3.5-5.0); Alkaline Phosphatase 92 U/L (38-126); Anion Gap 7 mmol/L; Blood Urea Nitrogen 29 mg/dL (9-20); Calcium 9.8 mg/dL (8.4-10.2); Carbon Dioxide 25 mmol/L (22-30); Chloride 107 mmol/L (98-107); Glucose 83 mg/dL (74-99); Non-African American GFR(CKD) 48 (>60 ml/min/1.73 sqM); Potassium 4.2 mmol/L (3.5-5.1); Sodium 139 mmol/L (137-145); Total Bilirubin 0.6 mg/dL (0.2-1.3)
[2024-02-20 19:44] LABS: INR 0.9 (<1.2); Partial Thromboplastin Time 24.3 sec (22.0-30.0); Prothrombin Time 10.2 sec (10.0-12.5)
[2024-02-20 19:49] LABS: NT-Pro-B-Type Natriuretic Pept 1210 pg/mL
[2024-02-20] MEDS ORDERED: NITROGLYCERIN SL TABS 0.4 MG TAB SUBLINGUAL PRN (20:33)
[2024-02-20] MEDS: HEPARIN SODIUM 1,000 UN/ML (10ML VL) IV ONE (21:10)
[2024-02-20] MEDS: HEPARIN SOD,PORK IN 0.45% NACL 25,000 UNIT in 0.45% NACL 1 250ML.BAG IV SCH (21:14)
--- NOTE | 2024-02-21 00:10 | XR ---
EXAMINATION TYPE: XR chest 2V DATE OF EXAM: 02/20/2024 7:55 PM CLINICAL INDICATION:Male, 84 years old with history of Chest Pain; [facility] COMPARISON: 02/12/2024 and 03/11/2021 chest x-rays TECHNIQUE: XR chest 2V. Frontal and lateral views of the chest.. FINDINGS: Lines/Tubes/Devices: Monitor leads over the chest. There are sternotomy wires and a left atrial appendage occlusion device . Heart/mediastinum: Heart size is stable, upper limits of normal. Mediastinum appears stable. Some th ickening along the right upper paratracheal stripe with mild bulging deformity, similar to before but is more conspicuous presently [could confirm cause with CTA chest when/if clinically appropriate]. P artially calcified aorta. Pulmonary vascularity: Not increased, Lungs/Pleura: There is no evidence of pleural effusion, focal consolidation, or pneumothorax. Suspec phil mild scarring or subsegmental atelectasis in the left lung base appears unchanged. Musculoskeletal: No acute osseous abnormality demonstrated in the limits of the exam. Remote mild de formities suggested in the inferior left rib cage. Mild degenerative changes of the spine and shoulde rs. Other findings: None. IMPRESSION: No acute findings, or significant interval change.
[2024-02-21] MEDS: ACETAMINOPHEN TAB 325 MG TAB PO STA (03:44)
[2024-02-21] MEDS: ASPIRIN 325 MG TAB PO SCH (08:24)
--- NOTE | 2024-02-21 08:58 | P.HPIM ---
History of Present Illness H&P Date: 02/21/24 Chief Complaint: Recurrent left neck and left shoulder blade pain This is an 84-year-old gentleman with past medical history significant for CAD, SD, prior stenting, CABG 2020, hypertension, hyperlipidemia, ischemic cardiomyopathy, medication noncompliance recently discharged status post cardiac catheterization, PCI of SVG to circumflex, presented to the ER with recurrence of his left neck and left shoulder blade pain. Denies associated shortness of breath, diaphoreses, nausea or vomiting. Denies lightheadedness, dizziness or focal deficits. Reports compliancy with his meds, states he took his medications beginning the next morning on the , after being discharged on 02/19/2024. troponin is elevated at 1.6, 1.6, 1.5. Bicarb 25, BUN 29, creatinine 1.36. Heparin drip initiated in the ER. Evaluated by cardiology with recommendations noted and appreciated. Review of Systems ROS Statement: Those systems with pertinent positive or pertinent negative responses have been documented in the HPI. ROS Other: All systems not noted in ROS Statement are negative. Past Medical History Past Medical History: Coronary Artery Disease (CAD), Cancer, GERD/Reflux, Hyperlipidemia, Hypertension, Myocardial Infarction (SD), Prostate Disorder, Sleep Apnea/CPAP/BIPAP Additional Past Medical History / Comment(s): H&P scanned. No CPAP use, hx prostate cancer prior to 1999-had surgery & radiation, erectile dysfunction, BILATERAL PLEURAL EFFUSIONS POST CABG. Last Myocardial Infarction Date:: unknown History of Any Multi-Drug Resistant Organisms: None Reported Past Surgical History: Coronary Bypass/CABG, Heart Catheterization, Heart Catheterization With Stent, Prostate Surgery Additional Past Surgical History / Comment(s): Quadruple bypass, one cardiac stent, BILATERAL THORACENTESIS, prostatectomy. Past Anesthesia/Blood Transfusion Reactions: No Reported Reaction Date of Last Stent Placement:: unknown Past Psychological History: No Psychological Hx Reported Smoking Status: Never smoker Past Alcohol Use History: None Reported Past Drug Use History: None Reported - Past Family History Mother Family Medical History: No Reported History Additional Family Medical History / Comment(s): Multisystem organ failure, at age 93. Father Family Medical History: Cancer Additional Family Medical History / Comment(s): Colon cancer. Medications and Allergies Home Medications Medication Instructions Recorded Confirmed Type Atorvastatin Calcium [Lipitor] 40 mg PO DAILY 02/12/24 02/20/24 History Clopidogrel [Plavix] 75 mg PO DAILY 02/12/24 02/20/24 History Fluticasone Nasal [place] [Flonase 2 spr EA NOSTRIL DAILY 02/12/24 02/20/24 History Nasal [place]] Loratadine [Claritin] 10 mg PO DAILY 02/12/24 02/20/24 History Mirabegron [Myrbetriq] 50 mg PO DAILY 02/12/24 02/20/24 History Aspirin 81 mg PO DAILY tab 02/13/24 02/20/24 Rx Metoprolol Tartrate [Lopressor] 25 mg PO BID #60 tab 02/13/24 02/20/24 Rx amLODIPine [Norvasc] 10 mg PO DAILY #30 tab 02/13/24 02/20/24 Rx Isosorbide Mononitrate ER [Imdur] 30 mg PO DAILY #30 tab 02/14/24 02/20/24 Rx Spironolactone [Aldactone] 25 mg PO DAILY #30 tab 02/14/24 02/20/24 Rx Pantoprazole [Protonix] 40 mg PO DAILY #30 tab 02/15/24 02/20/24 Rx Ticagrelor [Brilinta] 90 mg PO BID #180 tab 02/19/24 02/20/24 Rx Losartan-Hctz 50-12.5 mg [Hyzaar 2 tab PO DAILY 02/20/24 02/20/24 History 50-12.5] Nitroglycerin Sl Tabs [Nitrostat] 0.4 mg SL Q5M PRN 02/20/24 02/20/24 History Allergies Allergy/AdvReac Type Severity Reaction Status Date / Time iodine Allergy Severe Rash/Hives,skin Verified 02/20/24 20:08 peeled shellfish derived [Shellfish] Allergy Rash/Hives Verified 02/20/24 20:08 Physical Exam Vitals: Vital Signs Temp Pulse Resp BP Pulse Ox 02/21/24 07:42 97.4 F L 62 15 161/88 99 02/21/24 06:00 62 15 158/67 100 02/21/24 05:00 62 16 148/75 99 02/21/24 04:00 62 15 150/77 100 02/21/24 03:00 65 17 132/61 04/25/24 02:00 68 16 132/61 97 02/21/24 01:00 90 12 135/69 99 02/21/24 00:00 58 L 17 131/67 99 02/20/24 23:00 60 13 121/67 99 02/20/24 22:00 73 15 159/98 99 02/20/24 21:06 58 L 16 99 02/20/24 21:00 58 L 18 141/74 98 02/20/24 20:00 69 17 133/70 98 02/20/24 19:30 58 L 18 126/59 96 02/20/24 19:00 61 16 136/62 97 02/20/24 18:59 98.1 F 61 18 136/62 97 Intake and Output 02/20/24 02/21/24 02/21/24 22:59 06:59 14:59 Intake Total 89.312 0 Balance 89.312 0 Intake: Intake, IV Titration 89.312 0 Amount Heparin Sod,Pork in 0.45% 89.312 0 NaCl 25,000 unit In 0.45 % NaCl 1 250ml.bag @ 8.8 UNITS/KG/HR 9.979 mls/hr IV .Q24H [facility] Rx#: [id number] Other: Weight 113.398 kg 113.398 kg PHYSICAL EXAM: VITAL SIGNS: [As above] GENERAL: Pleasant, alert and oriented x 3, sitting up on stretcher. HEENT: Normocephalic ,conjunctivae normal. eyes normal. NECK: Supple, no JVD. CARDIOVASCULAR: S1, S2 regular. Systolic murmur RESPIRATION: Unlabored, equal air entry, clear to auscultation. ABDOMEN: soft, nondistended, nontender . No guarding. no masses palpable. Positive Bowel sounds. LEGS: No edema. no swelling. NERVOUS SYSTEM: Cranial N 2-12 grossly normal.No focal deficits. Skin: Warm and dry, no rash Results CBC & Chem 7: 02/20/24 19:03 02/20/24 19:03 Labs: Abnormal Lab Results - Last 24 Hours (Table) 02/20/24 02/20/24 02/20/24 Range/Units 19:03 19:03 19:03 WBC 12.9 H (3.8-10.6) k/uL RBC 3.80 L (4.30-5.90) m/uL Hgb 10.6 L (13.0-17.5) gm/dL Hct 34.3 L (39.0-53.0) % MCHC 30.8 L (31.0-37.0) g/dL Neutrophils # 7.9 H (1.3-7.7) k/uL APTT (22.0-30.0) sec BUN 29 H (9-20) mg/dL Creatinine 1.36 H (0.66-1.25) mg/dL Troponin I 1.600 H* (0.000-0.034) ng/mL 02/21/24 02/21/24 02/21/24 Range/Units 01:18 04:13 04:13 WBC (3.8-10.6) k/uL RBC (4.30-5.90) m/uL Hgb (13.0-17.5) gm/dL Hct (39.0-53.0) % MCHC (31.0-37.0) g/dL Neutrophils # (1.3-7.7) k/uL APTT 191.6 H* (22.0-30.0) sec BUN (9-20) mg/dL Creatinine (0.66-1.25) mg/dL Troponin I 1.670 H* 1.570 H* (0.000-0.034) ng/mL Thrombosis Risk Factor Assmnt - Choose All That Apply Each Factor Represents 1 point: History of prior major surgery (<1month) Thrombosis Risk Factor Assessment Total Risk Factor Score: 1 Thrombosis Risk Factor Assessment Level: Low Risk Assessment and Plan Assessment: Increased flat troponins suspect related to recent PCI with reoccurrence of atypical left neck, left shoulder blade pain, in a patient with recent NSTEMI, abnormal Lexiscan stress test, status post cardiac catheterization, stent of the distal left circumflex on 02/18/2024. CAD, history of SD, stenting, CABG 2020, Ischemic cardiomyopathy, history of. Severe pulmonary hypertension Mild aortic stenosis Severe mitral regurgitation Mild tricuspid regurgitation Hypertension Hyperlipidemia Morbid Obesity, BMI 35 Obstructive sleep apnea, does not use CPAP at home History of medication noncompliance Plan: Continue current medication regimen ,monitoring and symptomatic treatment. Evaluated by cardiology, recommendations noted. Patient to continue on heparin drip x 24 hours. Discharge planning in progress for tomorrow pending final DC recommendations and clearance per cardiology. The impression and plan of care has been dictated as directed. : I performed a history and examination of this patient, discussed the same with the dictator. I agree with the dictator's note ,documented as a scribe. Any additional findings or plans will be noted.
[2024-02-21 09:55] LABS: Chol/HDL Ratio 2.52 Ratio; LDL Cholesterol,Calculated 40.8 mg/dL (0.0-131.0)
--- NOTE | 2024-02-21 10:28 | P.CRDCN ---
History of Present Illness History of present illness: HISTORY OF PRESENT ILLNESS: This is a 84-year-old male with a past medical history significant for hypertension, hyperlipidemia, ischemic cardiomyopathy, coronary artery disease with previous CABG, and mitral regurgitation. Patient follows in the office with Dr. Boo. We have been asked to see the patient in consultation for elevated troponins. Patient had recent hospitalization with minimal elevated troponins and recommendations undergo heart catheterization. He did have acute kidney injury and therefore was monitored. At the time he was having some atypical left shoulder pain. He eventually underwent heart catheterization and underwent complex PCI of SVG to circumflex. He was feeling well the next day however that night, yesterday night he started having more left shoulder pain which has been a constant nagging 8 out of 10 shoulder pain. He denies any actual chest pain or pressure. No associated shortness breath, nausea or diaphoresis. Troponins elevated at 1.6, 1.6, 1.5. He therefore was placed on heparin drip. Creatinine is 1.3. REVIEW OF SYSTEMS: At the time of my exam: CONSTITUTIONAL: Denies fever or chills. HEENT: Denies blurred vision, vision changes, or eye pain. Denies hemoptysis CARDIOVASCULAR: Denies chest pain. Denies orthopnea. Denies PND. Denies palpitations RESPIRATORY: Denies shortness of breath. GASTROINTESTINAL: Denies abdominal pain. Denies nausea or vomiting. HEMATOLOGIC: Denies bleeding disorders. GENITOURINARY: Denies any blood in urine. SKIN: Denies pruitis. Denies rash. PHYSICAL EXAM: VITAL SIGNS: Reviewed. GENERAL: Well-developed in no acute distress. HEENT: Head is normocephalic. Pupils are equal, round. Sclerae anicteric. Mucous membranes of the mouth are moist. Neck supple. No JVD or thyromegaly LUNGS: Respirations even and unlabored. Lungs essentially clear to auscultation bilaterally. HEART: Regular rate and rhythm. S1 and S2 heard. Systolic murmur. ABDOMEN: Soft. Nondistended. Nontender. EXTREMITIES: Normal range of motion. No clubbing or cyanosis. Peripheral pulses intact. No lower extremity edema NEUROLOGIC: Awake and alert. Oriented x 3. ASSESSMENT: Non-STEMI, increased from prior admission more likely related to intervention with flat troponins and not as likely any new disease Atypical left shoulder not clearly angina and atypical given ongoing shoulder pain with flat troponins with minimally elevated troponins, likely secondary to above Coronary artery disease with previous CABG x 4 vessels, 2020, recent PCI SVG to circumflex Severe mitral regurgitation History of hypertension History of hyperlipidemia History of ischemic cardiomyopathy Medication noncompliance PLAN: continue with dual antiplatelet therapy Patient without any other significant targets for intervention and elevated troponins more likely related to infarct around the time of PCI with complex PCI. His shoulder pain is atypical and normal likely musculoskeletal or other. Attempt pain control and we will add morphine as well as Tylenol. Continue heparin drip for 24 hours. Given his age, multiple core morbidities, chronic kidney disease we will defer repeat heart catheterization unless having more significant angina. Check limited 2-D echo to ensure no significant problems after PCI. If stable possible discharge home in next 24-48 hours. Past Medical History Past Medical History: Coronary Artery Disease (CAD), Cancer, GERD/Reflux, Hyperlipidemia, Hypertension, Myocardial Infarction ([place]), Prostate Disorder, Sleep Apnea/CPAP/BIPAP Additional Past Medical History / Comment(s): H&P scanned. No CPAP use, hx prostate cancer prior to 1999-had surgery & radiation, erectile dysfunction, BILATERAL PLEURAL EFFUSIONS POST CABG. Last Myocardial Infarction Date:: unknown History of Any Multi-Drug Resistant Organisms: None Reported Past Surgical History: Coronary Bypass/CABG, Heart Catheterization, Heart Catheterization With Stent, Prostate Surgery Additional Past Surgical History / Comment(s): Quadruple bypass, one cardiac stent, BILATERAL THORACENTESIS, prostatectomy. Past Anesthesia/Blood Transfusion Reactions: No Reported Reaction Date of Last Stent Placement:: unknown Past Psychological History: No Psychological Hx Reported Smoking Status: Never smoker Past Alcohol Use History: None Reported Past Drug Use History: None Reported - Past Family History Mother Family Medical History: No Reported History Additional Family Medical History / Comment(s): Multisystem organ failure, at age 93. Father Family Medical History: Cancer Additional Family Medical History / Comment(s): Colon cancer. Medications and Allergies Home Medications Medication Instructions Recorded Confirmed Type Atorvastatin Calcium [Lipitor] 40 mg PO DAILY 02/12/24 02/20/24 History Clopidogrel [Plavix] 75 mg PO DAILY 02/12/24 02/20/24 History Fluticasone Nasal [place] [Flonase 2 spr EA NOSTRIL DAILY 02/12/24 02/20/24 History Nasal [place]] Loratadine [Claritin] 10 mg PO DAILY 02/12/24 02/20/24 History Mirabegron [Myrbetriq] 50 mg PO DAILY 02/12/24 02/20/24 History Aspirin 81 mg PO DAILY tab 02/13/24 02/20/24 Rx Metoprolol Tartrate [Lopressor] 25 mg PO BID #60 tab 02/13/24 02/20/24 Rx amLODIPine [Norvasc] 10 mg PO DAILY #30 tab 02/13/24 02/20/24 Rx Isosorbide Mononitrate ER [Imdur] 30 mg PO DAILY #30 tab 02/14/24 02/20/24 Rx Spironolactone [Aldactone] 25 mg PO DAILY #30 tab 02/14/24 02/20/24 Rx Pantoprazole [Protonix] 40 mg PO DAILY #30 tab 02/15/24 02/20/24 Rx Ticagrelor [Brilinta] 90 mg PO BID #180 tab 02/19/24 02/20/24 Rx Losartan-Hctz 50-12.5 mg [Hyzaar 2 tab PO DAILY 02/20/24 02/20/24 History 50-12.5] Nitroglycerin Sl Tabs [Nitrostat] 0.4 mg SL Q5M PRN 02/20/24 02/20/24 History Allergies Allergy/AdvReac Type Severity Reaction Status Date / Time iodine Allergy Severe Rash/Hives,skin Verified 02/20/24 20:08 peeled shellfish derived [Shellfish] Allergy Rash/Hives Verified 02/20/24 20:08 Physical Exam Vitals: Vital Signs Temp Pulse Resp BP Pulse Ox 02/21/24 07:42 97.4 F L 62 15 161/88 99 02/21/24 06:00 62 15 158/67 100 02/21/24 05:00 62 16 148/75 99 02/21/24 04:00 62 15 150/77 100 02/21/24 03:00 65 17 132/61 02/21/24 02:00 68 16 132/61 97 02/21/24 01:00 90 12 135/69 99 02/21/24 00:00 58 L 17 131/67 99 02/20/24 23:00 60 13 121/67 99 02/20/24 22:00 73 15 159/98 99 02/20/24 21:06 58 L 16 99 02/20/24 21:00 58 L 18 141/74 98 02/20/24 20:00 69 17 133/70 98 02/20/24 19:30 58 L 18 126/59 96 02/20/24 19:00 61 16 136/62 97 02/20/24 18:59 98.1 F 61 18 136/62 97 Intake and Output 02/20/24 02/21/24 02/21/24 22:59 06:59 14:59 Intake Total 89.312 0 Balance 89.312 0 Intake: Intake, IV Titration 89.312 0 Amount Heparin Sod,Pork in 0.45% 89.312 0 NaCl 25,000 unit In 0.45 % NaCl 1 250ml.bag @ 8.8 UNITS/KG/HR 9.979 mls/hr IV .Q24H [facility] Rx#: [id number] Other: Weight 113.398 kg 113.398 kg Results 02/20/24 19:03 02/20/24 19:03 Cardiac Enzymes 02/20/24 02/20/24 02/21/24 Range/Units 19:03 19:03 01:18 AST 58 (17-59) U/L Troponin I 1.600 H* 1.670 H* (0.000-0.034) ng/mL 02/21/24 Range/Units 04:13 AST (17-59) U/L Troponin I 1.570 H* (0.000-0.034) ng/mL Coagulation 02/20/24 02/21/24 Range/Units 19:03 04:13 PT 10.2 (10.0-12.5) sec APTT 24.3 191.6 H* (22.0-30.0) sec Lipids 02/21/24 Range/Units 04:13 Triglycerides 104.00 (0.00-149.00) mg/dL Cholesterol 102.00 (0.00-200.00) mg/dL HDL Cholesterol 40.40 (40.00-60.00) mg/dL Cholesterol/HDL Ratio 2.52 Ratio CBC 02/20/24 Range/Units 19:03 WBC 12.9 H (3.8-10.6) k/uL RBC 3.80 L (4.30-5.90) m/uL Hgb 10.6 L (13.0-17.5) gm/dL Hct 34.3 L (39.0-53.0) % Plt Count 328 (150-450) k/uL Comprehensive Metabolic Panel 02/20/24 Range/Units 19:03 Sodium 139 (137-145) mmol/L Potassium 4.2 (3.5-5.1) mmol/L Chloride 107 (98-107) mmol/L Carbon Dioxide 25 (22-30) mmol/L BUN 29 H (9-20) mg/dL Creatinine 1.36 H (0.66-1.25) mg/dL Glucose 83 (74-99) mg/dL Calcium 9.8 (8.4-10.2) mg/dL AST 58 (17-59) U/L ALT 34 (4-49) U/L Alkaline Phosphatase 92 (38-126) U/L Total Protein 7.0 (6.3-8.2) g/dL Albumin 3.9 (3.5-5.0) g/dL Current Medications Generic Name Dose Route Start Last Admin Trade Name Freq PRN Reason Stop Dose Admin Aspirin 325 mg 02/21/24 09:00 02/21/24 08:24 Aspirin 325 Mg Tab PO 325 mg DAILY ELISA Administration Heparin Sodium/Sodium Chloride 250 mls @ 9.979 mls/hr 02/20/24 20:45 02/21/24 07:32 25,000 unit/ Sodium Chloride IV 5.8 units/kg/hr .Q24H ELISA 6.577 mls/hr Titration Protocol 8.8 UNITS/KG/HR Nitroglycerin 0.4 mg 02/20/24 20:33 Nitroglycerin Sl Tabs 0.4 Mg Tab SUBLINGUAL Q5M PRN Chest Pain Intake and Output 02/20/24 02/21/24 02/21/24 22:59 06:59 14:59 Intake Total 89.312 0 Balance 89.312 0 Intake: Intake, IV Titration 89.312 0 Amount Heparin Sod,Pork in 0.45% 89.312 0 NaCl 25,000 unit In 0.45 % NaCl 1 250ml.bag @ 8.8 UNITS/KG/HR 9.979 mls/hr IV .Q24H [facility] Rx#: [id number] Other: Weight 113.398 kg 113.398 kg 02/20/24 19:03 04/24/24 19:03
[2024-02-21] MEDS: TICAGRELOR 90 MG TAB PO SCH (12:02)
[2024-02-21] MEDS: ACETAMINOPHEN TAB 325 MG TAB PO PRN (20:06)
[2024-02-21] MEDS: MORPHINE SULFATE 4 MG/ML SYRINGE IVP PRN (23:48)
--- NOTE | 2024-02-22 07:43 | CA ---
Transthoracic Echo Report Name: Gregory Jaimes Age: 84 Gender: M : 1940 Exam Date: 02/21/2024 11:11 Exam Location: [place] [facility] Ht (in): 71 Wt (lb): 250 Ordering Physician: Roly Alarcon DO ([id number]) Attending/Referring Phys: Reggie Boo MD ([id number]) Stock Cutter Nara Paulino RDCS Procedure CPT: Indications: re: s/p PCI nstemi Cardiac Hx: limited study Technical Quality: Good Contrast 1: Total Dose (mL): Contrast 2: Total Dose (mL): MEASUREMENTS (Male / Female) Normal Values 2D ECHO RV Internal Dim ED PLAX 3.6 cm DOPPLER AV Peak Velocity 218.1 cm/s AV Peak Gradient 19.0 mmHg AV Mean Velocity 151.8 cm/s AV Mean Gradient 10.9 mmHg AV Velocity Time Integral 47.6 cm FINDINGS Left Ventricle Left ventricular ejection fraction is estimated at 40-45 %. Mildly reduced global left ventricular systolic function. Global left ventricular hypokinesis. Right Ventricle Right Atrium Left Atrium Mitral Valve Mild mitral regurgitation. Aortic Valve Mild aortic stenosis with a peak gradient of 21 mmHg and a mean gradient of 11 mmHg. Tricuspid Valve Trace to mild tricuspid regurgitation. Pulmonic Valve Trace pulmonic regurgitation. Pericardium Small pericardial effusion by LV Aorta CONCLUSIONS Reduced LV systolic function Mild aortic stenosis Previewed by: Dr. Andre Deutsch MD (Electronically Signed) Final Date: 22 February 2024 07:42
[2024-02-22] MEDS: RANOLAZINE 500 MG TAB.ER.12H PO SCH (10:59)
[2024-02-22] MEDS: NITROGLYCERIN OINT 1 INCH/GM PACKET TOPICAL SCH (10:59)
[2024-02-22] MEDS: HEPARIN SODIUM,PORCINE 5,000 UNIT/ML 1 ML VIAL SQ SCH (15:22)
[2024-02-22 18:21] VITALS: BMI 34.8
--- NOTE | 2024-02-22 22:36 | PN ---
PROGRESS NOTE SUBJECTIVE: This is an 84-year-old gentleman, who is admitted to hospital with non ST-segment elevation MT. He underwent a limited echocardiogram that showed that he has mild LV dysfunction with an ejection fraction of 40% to 45% with mild aortic stenosis. At the time of my evaluation this morning, he appears chest pain-free. He has known CAD and had prior bypass surgery and had PCI of the venous graft to the circumflex coronary artery. He has chronic renal insufficiency. Hence, it was decided to treat him with optimal medical therapy and consider invasive angiography only as a last resort. At the time of my evaluation, the patient appears comfortable at rest, chest pain-free, and hemodynamically stable. PHYSICAL EXAMINATION: GENERAL: Comfortable. VITAL SIGNS: Stable. CHEST: Good air entry bilaterally. HEART: Reveals first and second heart sounds. No gallop. EXTREMITIES: Did not reveal any edema. Peripheral pulses are felt. The patient is on aspirin, I am adding nitro paste and Ranexa and continue the Brilinta that he is on. We will resume the beta ari that he was on at home and the losartan. I will stop the heparin and start him on subcu heparin. MMODL / IJN: [id number] /
[2024-02-23 06:16] VITALS: RESP 16
[2024-02-23 09:44] VITALS: TEMP 98
[2024-02-23] MEDS: ISOSORBIDE MONONITRATE ER 30 MG TAB.ER.24H PO SCH (09:48)
[2024-02-23] MEDS: METOPROLOL TARTRATE 25 MG TAB PO SCH (09:48)
--- NOTE | 2024-02-23 11:08 | P.PN ---
Subjective Progress Note Date: 02/23/24 HISTORY OF PRESENT ILLNESS: This is a 84-year-old male with a past medical history significant for hype rtension, hyperlipidemia, ischemic cardiomyopathy, coronary artery disease with previous CABG, and mitral regurgitation. Patient follows in the office with Dr. Boo. We have been asked to see the patient in consultation for elevated troponins. Patient had recent hospitalization with minimal elevated troponins and recommendations undergo heart catheterization. He did have acute kidney injury and therefore was monitored. At the time he was having some atypical left shoulder pain. He eventually underwent heart catheterization and underwent complex PCI of SVG to circumflex. He was feeling well the next day however that night, yesterday night he started having more left shoulder pain which has been a constant nagging 8 out of 10 shoulder pain. He denies any actual chest pain or pressure. No associated shortness breath, nausea or diaphoresis. Troponins elevated at 1.6, 1.6, 1.5. He therefore was placed on heparin drip. Creatinine is 1.3. 02/22 Limited echocardiogram reveals EF of 40 to 45%, mild aortic stenosis. Results of the echocardiogram reviewed with the patient. Patient denies having any chest pain at this time, no shortness of breath lightheadedness or dizziness. Yesterday, heparin drip was discontinued and patient was started on subcu as well as started on Ranexa. Blood pressure 121/73, heart rate in the 70s and 80s. PHYSICAL EXAM: VITAL SIGNS: Reviewed. GENERAL: Well-developed in no acute distress. HEENT: Head is normocephalic. Pupils are equal, round. Sclerae anicteric. Mucous membranes of the mouth are moist. Neck supple. No JVD or thyromegaly LUNGS: Respirations even and unlabored. Lungs essentially clear to auscultation bilaterally. HEART: Regular rate and rhythm. S1 and S2 heard. Systolic murmur. ABDOMEN: Soft. Nondistended. Nontender. EXTREMITIES: Normal range of motion. No clubbing or cyanosis. Peripheral pulses intact. No lower extremity edema NEUROLOGIC: Awake and alert. Oriented x 3. ASSESSMENT: Non-STEMI, increased from prior admission more likely related to intervention with flat troponins and not as likely any new disease Atypical left shoulder not clearly angina and atypical given ongoing shoulder pain with flat troponins with minimally elevated troponins, likely secondary to above Coronary artery disease with previous CABG x 4 vessels, 2020, recent PCI SVG to circumflex Severe mitral regurgitation History of hypertension History of hyperlipidemia History of ischemic cardiomyopathy Medication noncompliance PLAN: Continue current cardiac medications Patient is cleared for discharge from cardiology and may follow-up with Dr. Reis in 1 to 2 weeks. Nurse practitioner note has been reviewed, I agree with documented findings and plan of care. Patient was seen and examined. Objective - Vital Signs Vital signs: Vital Signs Temp 98.0 F 02/23/24 08:53 Pulse 86 02/23/24 08:53 Resp 16 02/23/24 08:53 BP 121/73 02/23/24 08:53 Pulse Ox 98 02/23/24 08:53 FiO2 Intake & Output 02/22/24 02/23/24 02/23/24 18:59 06:59 18:59 Intake Total 1198 240 Balance 1198 240 Weight 113.398 kg Intake: Oral 1198 240 Other: Voiding Method Toilet Toilet Toilet Diaper Diaper Diaper # Voids 1 - Labs CBC & Chem 7: 02/20/24 19:03 02/20/24 19:03 Labs: Abnormal Lab Results - Last 24 Hours (Table) 02/22/24 Range/Units 11:59 APTT 56.0 H (22.0-30.0) sec
[2024-02-23 12:26] VITALS: BP 103/53; PULSE 63
--- NOTE | 2024-02-23 12:42 | P.DS ---
Providers Date of admission: 02/20/24 20:39 Expected date of discharge: 02/23/24 Attending physician: Christian Mix MD Consults: 02/20/24 20:33 Consult Physician Urgent Consulting Provider: Coy Iglesias Consult Reason/Comments: elevated trop Do you want consulting provider notified?: Already Contacted Primary care physician: Kavya Khan [facility] Course: * 84-year-old gentleman with past medical history significant for CAD, CO, prior stenting, CABG 2020, hypertension, hyperlipidemia, ischemic cardiomyopathy, medication noncompliance recently discharged status post card iac catheterization, PCI of SVG to circumflex, presented to the ER with recurrence of his left neck and left shoulder blade pain. * Reports compliancy with his meds, states he took his medications beginning the next morning on the , after being discharged on 02/19/2024. troponin is elevated at 1.6, 1.6, 1.5. Bicarb 25, BUN 29, creatinine 1.36. * Heparin drip initiated in the ER. Evaluated by cardiology with recommendations noted and appreciated. * Patient was obtained from cardiology. Dr Murray assumed care on 02/23/24, medical management was recommended by cardiology, patient was maintained on Plavix per cardiology recommendations and prescription for Brilinta was discontinued. Patient to follow-up with cardiology as outpatient. Patient discharged on aspirin, Lipitor, Plavix, Imdur Ranexa started as well and prescription provided. At 1 point patient was on IV heparin which was discontinued per cardiology recommendation * Echocardiogram was completed which showed patient had ejection fraction of 40 to 45% mild aortic stenosis was noted PHYSICAL EXAMINATION: GENERAL: The patient is alert and oriented x3, not in any acute distress. Well developed, well nourished. HEENT: Pupils are round and equally reacting to light. EOMI. No scleral icterus. No conjunctival pallor. Normocephalic, atraumatic. No pharyngeal erythema. No thyromegaly. CARDIOVASCULAR: S1 and S2 present. No murmurs, rubs, or gallops. PULMONARY: Chest is clear to auscultation, no wheezing or crackles. ABDOMEN: Soft, nontender, nondistended, normoactive bowel sounds. No palpable organomegaly. MUSCULOSKELETAL: No joint swelling or deformity. EXTREMITIES: No cyanosis, clubbing, or pedal edema. NEUROLOGICAL: Gross neurological examination did not reveal any focal deficits. SKIN: No rashes. Assessment and plan * Non-ST elevated CO with coronary artery disease * History of CABG * Mitral regurgitation * History of hypertension * History of hyperlipidemia * Ischemic cardiomyopathy * Patient was seen and cleared by cardiology recommendation is to continue aspirin and Plavix, continue Lipitor * IV heparin was discontinued, follow-up echocardiogram completed. Patient cleared for discharge on 02/23/2024 * Patient was started on Ranexa in addition to Imdur, prescription provided rest of home medications remain the same * Outpatient follow-up with cardiology and primary care recommend Patient Condition at Discharge: Stable Plan - Discharge Summary New Discharge Prescriptions: New Ranolazine [Ranexa] 500 mg PO Q12HR 60 Days #30 tab Continue Clopidogrel [Plavix] 75 mg PO DAILY Mirabegron [Myrbetriq] 50 mg PO DAILY Metoprolol Tartrate [Lopressor] 25 mg PO BID #60 tab Spironolactone [Aldactone] 25 mg PO DAILY #30 tab Isosorbide Mononitrate ER [Imdur] 30 mg PO DAILY #30 tab Pantoprazole [Protonix] 40 mg PO DAILY #30 tab Losartan-Hctz 50-12.5 mg [Hyzaar 50-12.5] 2 tab PO DAILY Loratadine [Claritin] 10 mg PO DAILY Fluticasone Nasal [place] [Flonase Nasal [place]] 2 spr EA NOSTRIL DAILY Atorvastatin Calcium [Lipitor] 40 mg PO DAILY Aspirin 81 mg PO DAILY tab amLODIPine [Norvasc] 10 mg PO DAILY #30 tab Nitroglycerin Sl Tabs [Nitrostat] 0.4 mg SL Q5M PRN PRN Reason: Chest Pain Discontinued Ticagrelor [Brilinta] 90 mg PO BID #180 tab Discharge Medication List Atorvastatin Calcium [Lipitor] 40 mg PO DAILY 02/12/24 [History] Clopidogrel [Plavix] 75 mg PO DAILY 02/12/24 [History] Fluticasone Nasal [place] [Flonase Nasal [place]] 2 spr EA NOSTRIL DAILY 02/12/24 [History] Loratadine [Claritin] 10 mg PO DAILY 02/12/24 [History] Mirabegron [Myrbetriq] 50 mg PO DAILY 02/12/24 [History] Aspirin 81 mg PO DAILY tab 02/13/24 [Rx] Metoprolol Tartrate [Lopressor] 25 mg PO BID #60 tab 02/13/24 [Rx] amLODIPine [Norvasc] 10 mg PO DAILY #30 tab 02/13/24 [Rx] Isosorbide Mononitrate ER [Imdur] 30 mg PO DAILY #30 tab 02/14/24 [Rx] Spironolactone [Aldactone] 25 mg PO DAILY #30 tab 02/14/24 [Rx] Pantoprazole [Protonix] 40 mg PO DAILY #30 tab 02/15/24 [Rx] Losartan-Hctz 50-12.5 mg [Hyzaar 50-12.5] 2 tab PO DAILY 02/20/24 [History] Nitroglycerin Sl Tabs [Nitrostat] 0.4 mg SL Q5M PRN 02/20/24 [History] Ranolazine [Ranexa] 500 mg PO Q12HR 60 Days #30 tab 02/23/24 [Rx] Follow up Appointment(s)/Referral(s): Kavya Khan DO [Primary Care Provider] - 1-2 days (Office is closed at this time; please call [facility] on Sunday to schedule appointment. ) Reggie Boo MD [STAFF PHYSICIAN] - 02/28/24 2:15 pm Patient Instructions/Handouts: Heart Attack (DC) Discharge Disposition: HOME SELF-CARE
[2024-02-24] MEDS ORDERED: ATORVASTATIN 40 MG TAB PO SCH (09:00)
[2024-02-24] MEDS ORDERED: ASPIRIN 81 MG PO SCH (09:00)
[2024-02-24] MEDS ORDERED: LOSARTAN-HCTZ 50-12.5 MG 1 EACH TAB PO SCH (09:00)
[2024-02-24] MEDS ORDERED: CLOPIDOGREL 75 MG TAB PO SCH (09:00)
== END 2024-02-23 13:03 | disposition home or self-care (01) | DRG 282 ==
LOC: EC 18:53 → 3SCARD 20:39
PROVIDERS: ADMIT Family Medicine; ATTEND Family Medicine
DX: I21.4 Non-ST elevation (NSTEMI) myocardial infarction (principal); I25.5 Ischemic cardiomyopathy; I27.20 Pulmonary hypertension, unspecified; M25.512 Pain in left shoulder; I25.10 Atherosclerotic heart disease of native coronary artery without angina pectoris; E11.22 Type 2 diabetes mellitus with diabetic chronic kidney disease; E66.01 Morbid (severe) obesity due to excess calories; Z68.35 Body mass index [BMI] 35.0-35.9, adult; G47.33 Obstructive sleep apnea (adult) (pediatric); E78.5 Hyperlipidemia, unspecified; I25.2 Old myocardial infarction; I12.9 Hypertensive chronic kidney disease with stage 1 through stage 4 chronic kidney disease, or unspecified chronic kidney disease; K21.9 Gastro-esophageal reflux disease without esophagitis; Z79.02 Long term (current) use of antithrombotics/antiplatelets; Z79.82 Long term (current) use of aspirin; Z79.899 Other long term (current) drug therapy; Z91.148 Patient's other noncompliance with medication regimen for other reason; Z95.1 Presence of aortocoronary bypass graft; Z95.5 Presence of coronary angioplasty implant and graft; Z91.041 Radiographic dye allergy status; Z91.013 Allergy to seafood; I34.0 Nonrheumatic mitral (valve) insufficiency; N18.9 Chronic kidney disease, unspecified
CPT/HCPCS: 36415; 71046; 80053; 80061; 83735; 83880; 84484; 85025; 85610; 85730; 93005; 93308; 96365; 96366; 99285

== ENCOUNTER 2024-03-09 17:01 | Emergency (ER) | payer MEDICARE ==
--- NOTE | 2024-03-09 17:23 | ED ---
Dizziness HPI - General Source: patient, family, RN notes reviewed Mode of arrival: wheelchair Limitations: no limitations <Nicky Pappas - Last Filed: 03/09/24 17:22> - History of Present Illness MD Complaint: lightheadedness Onset/Timin -: hour(s) Timing: gradual onset Description: lightheadedness History of Same: Yes History of Trauma: No Severity: moderate Improves With: nothing Worsens With: movement <Ceasar Ludwig - Last Filed: 03/09/24 21:46> - General Chief Complaint: Dizziness Stated Complaint: Syncope, vomitting -1 stint Time Seen by Provider: 03/09/24 17:22 - History of Present Illness Initial Comments: Note: 84-year-old male presenting to the ER with a chief complaint of dizziness. states earlier today while eating lunch he started to have a blank stare. She states he then had an episode of emesis. Patient was seen by EMS but refused transportation to the hospital. reports about getting out of the car today he was very unstable. She states he also had more episodes of emesis. Patient does have a known cardiac history. Patient denies any chest pain, shortness of breath, fevers, cough, congestion. (Nicky Pappas) This patient is an 84-year-old man here to have evaluation after syncopal episode. The patient states that he was eating "a vile sub" when the episode came on. He was feeling lightheaded. He states that he vomited and then must have passed out. He does not recall entire episode. He states that his medications do make him feel lightheaded for about an hour after taking them and he was feeling that way. There was no chest pain. No dyspnea. (Ceasar Ludwig) - Related Data Home Medications Medication Instructions Recorded Confirmed Atorvastatin Calcium [Lipitor] 40 mg PO DAILY 02/12/24 03/09/24 Clopidogrel [Plavix] 75 mg PO DAILY 02/12/24 03/09/24 Fluticasone Nasal [place] [Flonase 2 spr EA NOSTRIL DAILY 02/12/24 03/09/24 Nasal [place]] Loratadine [Claritin] 10 mg PO DAILY 02/12/24 03/09/24 Mirabegron [Myrbetriq] 50 mg PO DAILY 02/12/24 03/09/24 Losartan-Hctz 50-12.5 mg [Hyzaar 2 tab PO DAILY 02/20/24 03/09/24 50-12.5] Nitroglycerin Sl Tabs [Nitrostat] 0.4 mg SL Q5M PRN 02/20/24 03/09/24 Cyclobenzaprine [Flexeril] 5 mg PO HS 03/09/24 03/09/24 Previous Rx's Medication Instructions Recorded Aspirin 81 mg PO DAILY tab 02/13/24 Metoprolol Tartrate [Lopressor] 25 mg PO BID #60 tab 02/13/24 amLODIPine [Norvasc] 10 mg PO DAILY #30 tab 02/13/24 Isosorbide Mononitrate ER [Imdur] 30 mg PO DAILY #30 tab 02/14/24 Spironolactone [Aldactone] 25 mg PO DAILY #30 tab 02/14/24 Pantoprazole [Protonix] 40 mg PO DAILY #30 tab 02/15/24 Ranolazine [Ranexa] 500 mg PO Q12HR 60 Days #30 tab 02/23/24 Allergies Allergy/AdvReac Type Severity Reaction Status Date / Time iodine Allergy Severe Rash/Hives,skin Verified 03/09/24 17:19 peeled shellfish derived [Shellfish] Allergy Rash/Hives Verified 03/09/24 17:19 Review of Systems ROS Other: All systems not noted in ROS Statement are negative. <Nicky Pappas - Last Filed: 03/09/24 17:22> ROS Other: All systems not noted in ROS Statement are negative. Constitutional: Reports: chills, weakness. Denies: fever Respiratory: Denies: cough, dyspnea Cardiovascular: Reports: as per HPI, syncope (Lightheadedness after taking medication). Denies: chest pain, palpitations, edema Gastrointestinal: Reports: nausea, vomiting. Denies: abdominal pain, diarrhea, hematemesis Genitourinary: Denies: dysuria, hematuria Musculoskeletal: Denies: back pain Skin: Denies: rash Neurological: Denies: headache, weakness, numbness, confusion <Ceasar Ludwig - Last Filed: 03/09/24 21:46> ROS Statement: Those systems with pertinent positive or pertinent negative responses have been documented in the HPI. Past Medical History Past Medical History: Coronary Artery Disease (CAD), Cancer, GERD/Reflux, Hyperlipidemia, Hypertension, Myocardial Infarction (ME), Prostate Disorder, Sleep Apnea/CPAP/BIPAP Additional Past Medical History / Comment(s): H&P scanned. No CPAP use, hx prostate cancer prior to 1999-had surgery & radiation, erectile dysfunction, BILATERAL PLEURAL EFFUSIONS POST CABG. Last Myocardial Infarction Date:: unknown History of Any Multi-Drug Resistant Organisms: None Reported Past Surgical History: Coronary Bypass/CABG, Heart Catheterization, Heart Nasreen terization With Stent, Prostate Surgery Additional Past Surgical History / Comment(s): Quadruple bypass, one cardiac stent, BILATERAL THORACENTESIS, prostatectomy. Past Anesthesia/Blood Transfusion Reactions: No Reported Reaction Date of Last Stent Placement:: unknown Past Psychological History: No Psychological Hx Reported Smoking Status: Never smoker Past Alcohol Use History: None Reported Past Drug Use History: None Reported - Past Family History Mother Family Medical History: No Reported History Additional Family Medical History / Comment(s): Multisystem organ failure, at age 93. Father Family Medical History: Cancer Additional Family Medical History / Comment(s): Colon cancer. <Nicky Pappas - Last Filed: 03/09/24 17:22> General Exam Limitations: no limitations <Nicky Pappas - Last Filed: 03/09/24 17:22> Limitations: no limitations General appearance: alert, in no apparent distress Head exam: Present: atraumatic, normocephalic Eye exam: Present: normal appearance. Absent: scleral icterus, conjunctival injection Neck exam: Present: normal inspection Respiratory exam: Present: normal lung sounds bilaterally. Absent: respiratory distress, wheezes, rales, rhonchi, stridor, accessory muscle use Cardiovascular Exam: Present: regular rate, normal rhythm, normal heart sounds. Absent: systolic murmur, diastolic murmur, rubs, gallop GI/Abdominal exam: Present: soft. Absent: distended, tenderness, guarding, rebound, rigid, mass Extremities exam: Present: normal inspection, normal capillary refill. Absent: pedal edema, calf tenderness Back exam: Present: normal inspection. Absent: CVA tenderness (R), CVA tenderness (L) Neurological exam: Present: alert Skin exam: Present: warm, dry, intact, normal color. Absent: rash <Ceasar Ludwig - Last Filed: 03/09/24 21:46> - General Exam Comments Initial Comments: Visual Physical Exam Vital signs reviewed General: Well-appearing, nontoxic, no acute distress. Head: Normocephalic, atraumatic Eyes: PERRLA, EOMI ENT: Airway patent Chest: Nonlabored breathing Skin: No visual rash, normal skin tone Neuro: Alert and oriented 3 Musculoskeletal: No gross abnormalities (Nicky Pappas) Course Vital Signs 03/09/24 03/09/24 03/09/24 17:13 18:00 18:18 Temperature 97.9 F Pulse Rate 60 60 55 L Respiratory 16 18 18 Rate Blood Pressure 101/48 102/55 102/55 O2 Sat by Pulse 100 96 98 Oximetry 03/09/24 19:26 Temperature Pulse Rate 61 Respiratory 17 Rate Blood Pressure 110/56 O2 Sat by Pulse 98 Oximetry EKG Findings - EKG Results: EKG: interpreted by ERMD, sinus rhythm (60 bpm) - Blocks, [place], Hypertrophy, ST Abn: AV and intraventricular conduction: intraventricular conduction delay QRS axis and voltage: left axis deviation (-30 to -90) Chamber hypertrophy or enlargement: only voltage criteria for left ventricular hypertrophy - ME, Pacemaker, Normal: Myocardial infarction: septal ME (old age or indeterminate) <Ceasar Ludwig - Last Filed: 03/09/24 21:46> Medical Decision Making <Nicky Pappas - Last Filed: 03/09/24 17:22> - Lab Data Result diagrams: 03/09/24 17:50 03/09/24 17:50 <Ceasar Ludwig - Last Filed: 03/09/24 21:46> - Medical Decision Making I performed the quick note portion of this chart. Electronically signed by Nicky Pappas PA-C (Nicky Pappas) - Lab Data Lab Results 03/09/24 03/09/24 03/09/24 Range/Units 17:50 17:50 17:50 WBC 13.6 H (3.8-10.6) k/uL RBC 3.14 L (4.30-5.90) m/uL Hgb 9.0 L D (13.0-17.5) gm/dL Hct 28.6 L (39.0-53.0) % MCV 91.0 (80.0-100.0) fL MCH 28.7 (25.0-35.0) pg MCHC 31.6 (31.0-37.0) g/dL RDW 14.0 (11.5-15.5) % Plt Count 376 (150-450) k/uL MPV 8.0 Neutrophils % 75 % Lymphocytes % 17 % Monocytes % 5 % Eosinophils % 1 % Basophils % 1 % Neutrophils # 10.2 H (1.3-7.7) k/uL Lymphocytes # 2.3 (1.0-4.8) k/uL Monocytes # 0.7 (0-1.0) k/uL Eosinophils # 0.2 (0-0.7) k/uL Basophils # 0.1 (0-0.2) k/uL Hypochromasia Slight Sodium 138 (137-145) mmol/L Potassium 5.0 (3.5-5.1) mmol/L Chloride 107 (98-107) mmol/L Carbon Dioxide 18 L (22-30) mmol/L Anion Gap 13 mmol/L BUN 61 H (9-20) mg/dL Creatinine 2.90 H (0.66-1.25) mg/dL Est GFR (CKD-EPI)AfAm 22 (>60 ml/min/1.73 sqM) Est GFR (CKD-EPI)NonAf 19 (>60 ml/min/1.73 sqM) Glucose 142 H (74-99) mg/dL Plasma Lactic Acid Mannie (0.7-2.0) mmol/L Calcium 9.4 (8.4-10.2) mg/dL Magnesium (1.6-2.3) mg/dL Total Bilirubin 0.8 (0.2-1.3) mg/dL AST 26 (17-59) U/L ALT 19 (4-49) U/L Alkaline Phosphatase 90 (38-126) U/L Troponin I 0.038 H* (0.000-0.034) ng/mL Total Protein 7.5 (6.3-8.2) g/dL Albumin 4.3 (3.5-5.0) g/dL 03/09/24 03/09/24 03/09/24 Range/Units 17:50 17:50 20:30 WBC (3.8-10.6) k/uL RBC (4.30-5.90) m/uL Hgb (13.0-17.5) gm/dL Hct (39.0-53.0) % MCV (80.0-100.0) fL MCH (25.0-35.0) pg MCHC (31.0-37.0) g/dL RDW (11.5-15.5) % Plt Count (150-450) k/uL MPV Neutrophils % % Lymphocytes % % Monocytes % % Eosinophils % % Basophils % % Neutrophils # (1.3-7.7) k/uL Lymphocytes # (1.0-4.8) k/uL Monocytes # (0-1.0) k/uL Eosinophils # (0-0.7) k/uL Basophils # (0-0.2) k/uL Hypochromasia Sodium (137-145) mmol/L Potassium (3.5-5.1) mmol/L Chloride (98-107) mmol/L Carbon Dioxide (22-30) mmol/L Anion Gap mmol/L BUN (9-20) mg/dL Creatinine (0.66-1.25) mg/dL Est GFR (CKD-EPI)AfAm (>60 ml/min/1.73 sqM) Est GFR (CKD-EPI)NonAf (>60 ml/min/1.73 sqM) Glucose (74-99) mg/dL Plasma Lactic Acid Mannie 1.7 (0.7-2.0) mmol/L Calcium (8.4-10.2) mg/dL Magnesium 2.2 (1.6-2.3) mg/dL Total Bilirubin (0.2-1.3) mg/dL AST (17-59) U/L ALT (4-49) U/L Alkaline Phosphatase (38-126) U/L Troponin I 0.028 (0.000-0.034) ng/mL Total Protein (6.3-8.2) g/dL Albumin (3.5-5.0) g/dL Disposition <Nicky Pappas - Last Filed: 03/09/24 17:22> Is patient prescribed a controlled substance at d/c from ED?: No <Ceasar Ludwig - Last Filed: 03/09/24 21:46> Clinical Impression: Syncope, Dehydration Disposition: HOME SELF-CARE Condition: Good Instructions (If sedation given, give patient instructions): Dehydration (ED), Syncope (ED) Additional Instructions: As we discussed follow-up to have your creatinine rechecked in 2 to 3 days. Referrals: Kavya Khan DO [Primary Care Provider] - 1-2 days
[2024-03-09 17:35] VITALS: TEMP 97.9
[2024-03-09 18:04] LABS: Basophils # (A) 0.1 k/uL (0-0.2); Basophils % (A) 1 %; Eosinophils # (A) 0.2 k/uL (0-0.7); Eosinophils % (A) 1 %; HCT 28.6 % (39.0-53.0); Hypochromasia Slight; Lymphocytes # (A) 2.3 k/uL (1.0-4.8); Lymphocytes % (A) 17 %; MCH 28.7 pg (25.0-35.0); MCHC 31.6 g/dL (31.0-37.0); Monocytes # (A) 0.7 k/uL (0-1.0); Monocytes % (A) 5 %; Neutrophils # (A) 10.2 k/uL (1.3-7.7); Neutrophils % (A) 75 %; Platelet Count 376 k/uL (150-450); RBC 3.14 m/uL (4.30-5.90); WBC 13.6 k/uL (3.8-10.6)
[2024-03-09 18:11] LABS: ALT 19 U/L (4-49); African American GFR (CKD) 22 (>60 ml/min/1.73 sqM); Albumin 4.3 g/dL (3.5-5.0); Anion Gap 13 mmol/L; Blood Urea Nitrogen 61 mg/dL (9-20); Calcium 9.4 mg/dL (8.4-10.2); Carbon Dioxide 18 mmol/L (22-30); Chloride 107 mmol/L (98-107); Glucose 142 mg/dL (74-99); Non-African American GFR(CKD) 19 (>60 ml/min/1.73 sqM); Sodium 138 mmol/L (137-145); Total Bilirubin 0.8 mg/dL (0.2-1.3); Total Protein 7.5 g/dL (6.3-8.2)
[2024-03-09] MEDS: SODIUM CHLORIDE 0.9% 500 ML 500 ML IV STA ×2 (18:18→19:42)
[2024-03-09 18:19] LABS: AST 26 U/L (17-59); Alkaline Phosphatase 90 U/L (38-126)
--- NOTE | 2024-03-09 18:29 | XR ---
EXAMINATION TYPE: XR chest 2V DATE OF EXAM: 03/09/2024 6:09 PM CLINICAL INDICATION:Male, 84 years old with history of dizziness; COMPARISON: Chest radiographs from 02/20/2024. TECHNIQUE: XR chest 2V Frontal and lateral views of the chest. FINDINGS: Lungs/Pleura: There is no evidence of pleural effusion, focal consolidation, or pneumothorax. Pulmonary vascularity: Unremarkable. Heart/mediastinum: Cardiomediastinal silhouette is unremarkable. Atherosclerotic calcifications are seen in the aorta. Left atrial appendage occlusion device is present. Musculoskeletal: Degenerative changes of the shoulder joints. Other findings: None Lines/Tubes: IMPRESSION: No acute cardiopulmonary disease/process.
[2024-03-09 22:23] VITALS: BP 127/94; PULSE 65; RESP 18
== END 2024-03-09 22:13 | disposition home or self-care (01) ==
LOC: EC 17:01
DX: E86.0 Dehydration (principal); R55 Syncope and collapse; Z91.013 Allergy to seafood; Z88.8 Allergy status to other drugs, medicaments and biological substances
CPT/HCPCS: 36415; 71046; 80053; 83605; 83735; 84484; 85025; 93005; 96360; 96361; 99284

== ENCOUNTER 2024-08-06 12:04 | Observation (INO) | payer MEDICARE ==
[2024-08-06 12:43] LABS: Basophils % (A) 0 %; Eosinophils # (A) 0.3 k/uL (0-0.7); Eosinophils % (A) 2 %; HCT 32.3 % (39.0-53.0); HGB 9.9 gm/dL (13.0-17.5); Hypochromasia Marked; Lymphocytes # (A) 4.2 k/uL (1.0-4.8); Lymphocytes % (A) 30 %; MCH 27.9 pg (25.0-35.0); MCHC 30.6 g/dL (31.0-37.0); MCV 91.3 fL (80.0-100.0); Mean Platelet Volume 7.3; Monocytes % (A) 7 %; Neutrophils # (A) 8.2 k/uL (1.3-7.7); Neutrophils % (A) 59 %; Platelet Count 382 k/uL (150-450); RBC 3.54 m/uL (4.30-5.90); RDW 14.5 % (11.5-15.5); WBC 13.9 k/uL (3.8-10.6)
--- NOTE | 2024-08-06 12:43 | ED ---
General Adult HPI - General Chief complaint: Syncope Stated complaint: syncope Time Seen by Provider: 08/06/24 12:06 Source: patient, EMS, RN notes reviewed, old records reviewed Mode of arrival: EMS - History of Present Illness Initial comments: 84-year-old male presenting with syncopal episode while eating breakfast. Patient has had multiple episodes including recent episode at outside hospital. Patient states he feels fine. Denies chest pain or dyspnea. Denies fever. Denies vomiting or diaphoresis. No diarrhea. Patient states he was seen by his echocardiographer yesterday and they placed a monitor. Uncertain of the results during the episode. - Related Data Home Medications Medication Instructions Recorded Confirmed Atorvastatin Calcium [Lipitor] 40 mg PO DAILY 02/12/24 08/06/24 Clopidogrel [Plavix] 75 mg PO DAILY 02/12/24 08/06/24 Fluticasone Nasal [place] [Flonase 2 spr EA NOSTRIL DAILY PRN 02/12/24 08/06/24 Nasal [place]] Loratadine [Claritin] 10 mg PO DAILY 02/12/24 08/06/24 Mirabegron [Myrbetriq] 50 mg PO DAILY 02/12/24 08/06/24 Losartan-Hctz 50-12.5 mg [Hyzaar 1 tab PO DAILY 02/20/24 08/06/24 50-12.5] Nitroglycerin Sl Tabs [Nitrostat] 0.4 mg SL Q5M PRN 02/20/24 08/06/24 Gabapentin 300 mg PO HS 08/06/24 08/06/24 Isosorbide Mononitrate ER [Imdur] 60 mg PO DAILY 08/06/24 08/06/24 Previous Rx's Medication Instructions Recorded Aspirin 81 mg PO DAILY tab 02/13/24 Metoprolol Tartrate [Lopressor] 25 mg PO BID #60 tab 02/13/24 amLODIPine [Norvasc] 10 mg PO DAILY #30 tab 02/13/24 Spironolactone [Aldactone] 25 mg PO DAILY #30 tab 02/14/24 Pantoprazole [Protonix] 40 mg PO DAILY #30 tab 02/15/24 Ranolazine [Ranexa] 500 mg PO Q12HR 60 Days #30 tab 02/23/24 Allergies Allergy/AdvReac Type Severity Reaction Status Date / Time iodine Allergy Severe Rash/Hives,skin Verified 08/06/24 14:28 peeled shellfish derived [Shellfish] Allergy Rash/Hives Verified 08/06/24 14:28 Review of Systems ROS Statement: Those systems with pertinent positive or pertinent negative responses have been documented in the HPI. ROS Other: All systems not noted in ROS Statement are negative. Past Medical History Past Medical History: Coronary Artery Disease (CAD), Cancer, GERD/Reflux, Hyperlipidemia, Hypertension, Myocardial Infarction (PA), Prostate Disorder, Sleep Apnea/CPAP/BIPAP Additional Past Medical History / Comment(s): H&P scanned. No CPAP use, hx prostate cancer prior to 1999-had surgery & radiation, erectile dysfunction, BILATERAL PLEURAL EFFUSIONS POST CABG. Last Myocardial Infarction Date:: unknown History of Any Multi-Drug Resistant Organisms: None Reported Past Surgical History: Coronary Bypass/CABG, Heart Catheterization, Heart Catheterization With Stent, Prostate Surgery Additional Past Surgical History / Comment(s): Quadruple bypass, one cardiac stent, BILATERAL THORACENTESIS, prostatectomy. Past Anesthesia/Blood Transfusion Reactions: No Reported Reaction Date of Last Stent Placement:: unknown Past Psychological History: No Psychological Hx Reported Smoking Status: Never smoker Past Alcohol Use History: None Reported Past Drug Use History: None Reported - Past Family History Mother Family Medical History: No Reported History Additional Family Medical History / Comment(s): Multisystem organ failure, at age 93. Father Family Medical History: Cancer Additional Family Medical History / Comment(s): Colon cancer. General Exam General appearance: alert, in no apparent distress Head exam: Present: atraumatic, normocephalic Eye exam: Present: normal appearance, PERRL ENT exam: Present: normal exam Neck exam: Present: normal inspection. Absent: tenderness, meningismus Respiratory exam: Present: normal lung sounds bilaterally. Absent: respiratory distress, wheezes Cardiovascular Exam: Present: bradycardia, irregular rhythm GI/Abdominal exam: Present: soft. Absent: distended, tenderness, guarding Extremities exam: Present: normal inspection, normal capillary refill. Absent: pedal edema Neurological exam: Present: alert, oriented X3, CN II-XII intact. Absent: motor sensory deficit Psychiatric exam: Present: normal affect, normal mood Skin exam: Present: warm, dry, intact. Absent: cyanosis, diaphoretic Course Vital Signs 08/06/24 08/06/24 12:06 13:41 Temperature 97.8 F Pulse Rate 58 L 53 L Respiratory 18 16 Rate Blood Pressure 125/53 120/56 O2 Sat by Pulse 97 96 Oximetry Medical Decision Making - Medical Decision Making Was pt. sent in by a medical professional or institution (SUMANTH Finley, PROGRAM DIRECTOR/MORNING SHOW HOST, urgent care, hospital, or intermediate...) When possible be specific @ -No Did you speak to anyone other than the patient for history (EMS, parent, family, police, friend...)? What history was obtained from this source @ -No Did you review nursing and triage notes (agree or disagree)? Why? @ -I reviewed and agree with nursing and triage notes Were old charts reviewed (outside hosp., previous admission, EMS record, old EKG, old radiological studies, urgent care reports/EKG's, intermediate records)? Report findings @ -No old charts were reviewed Differential Syncope: Valvular disease, hypertrophic cardiomyopathy, pulmonary embolism, tamponade, tachycardia, bradycardia, PA, hypovolemia, hemorrhage, dissection, anemia, intracranial hemorrhage, seizure, hypoglycemia, carbon monoxide poisoning, this is not meant to be an all-inclusive list. EKG interpreted by me (3pts min.). @ -Sinus rhythm rate of 55 sinus arrhythmia QRS duration 149, QTc [address] segment elevation. X-rays interpreted by me (1pt min.). @' Chest x-ray negative for acute cardiopulmonary process CT interpreted by me (1pt min.). @ -None done U/S interpreted by me (1pt. min.). @ -None done What testing was considered but not performed or refused? (CT, X-rays, U/S, labs)? Why? @ -None What meds were considered but not given or refused? Why? @ -None Did you discuss the management of the patient with other professionals (shantell romo i.e. SUMANTH Finley, PROGRAM DIRECTOR/MORNING SHOW HOST, lab, RT, psych nurse, social group worker, supervisor smoke control, teacher, retail loan officer, supervisor case loading)? Give summary @ -[Dr. Mix Was smoking cessation discussed for >3mins.? @ -No Was critical care preformed (if so, how long)? @ -No Were there social determinants of health that impacted care today? How? (Homelessness, low income, unemployed, alcoholism, drug addiction, transportation, low edu. Level, literacy, decrease access to med. care, fdc, rehab)? @ -No Was there de-escalation of care discussed even if they declined (Discuss DNR or withdrawal of care, Hospice)? DNR status @ -No What co-morbidities impacted this encounter? (DM, HTN, Smoking, COPD, CAD, Cancer, CVA, ARF, Chemo, Hep., AIDS, mental health diagnosis, sleep apnea, morbid obesity)? @ -Coronary artery disease, [id number] Was patient admitted / discharged? Hospital course, mention meds given and r oute, prescriptions, significant lab abnormalities, going to OR and other pertinent info. @ 84 male presenting with syncopal episode. This is a recurrent problem for this patient. Patient has a monitor placed by cardiology he states this was placed yesterday. Patient has no complaints at this time. Patient has chronic stable anemia, mild leukocytosis, chronic kidney disease which is at baseline. Troponin is negative. Patient will be observed overnight for telemetry, echo, cardiology consultation. Case discussed with Dr. Mix who will admit. Undiagnosed new problem with uncertain prognosis? @ -No Drug Therapy requiring intensive monitoring for toxicity (Heparin, Nitro, Insulin, Cardizem)? @ -No Were any procedures done? @ -No Diagnosis/symptom? @ -Syncope, bradycardia Acute, or Chronic, or Acute on Chronic? @ -[Acute Uncomplicated (without systemic symptoms) or Complicated (systemic symptoms)? @ -Default Side effects of treatment? @ -No Exacerbation, Progression, or Severe Exacerbation? @ -No Poses a threat to life or bodily function? How? (Chest pain, USA, PA, pneumonia, PE, COPD, DKA, ARF, appy, cholecystitis, CVA, Diverticulitis, Homicidal, Suicidal, threat to staff... and all critical care pts) @ -Syncope, arrhythmia, bradycardia] - Lab Data Result diagrams: 08/06/24 12:37 08/06/24 12:37 Lab Results 08/06/24 08/06/24 08/06/24 Range/Units 12:37 12:37 12:37 WBC 13.9 H (3.8-10.6) k/uL RBC 3.54 L (4.30-5.90) m/uL Hgb 9.9 L (13.0-17.5) gm/dL Hct 32.3 L (39.0-53.0) % MCV 91.3 (80.0-100.0) fL MCH 27.9 (25.0-35.0) pg MCHC 30.6 L (31.0-37.0) g/dL RDW 14.5 (11.5-15.5) % Plt Count 382 (150-450) k/uL MPV 7.3 Neutrophils % 59 % Lymphocytes % 30 % Monocytes % 7 % Eosinophils % 2 % Basophils % 0 % Neutrophils # 8.2 H (1.3-7.7) k/uL Lymphocytes # 4.2 (1.0-4.8) k/uL Monocytes # 1.0 (0-1.0) k/uL Eosinophils # 0.3 (0-0.7) k/uL Basophils # 0.0 (0-0.2) k/uL Hypochromasia Marked PT 10.3 (10.0-12.5) sec INR 0.9 (<1.2) APTT 21.4 L (22.0-30.0) sec Sodium 138 (137-145) mmol/L Potassium 4.1 (3.5-5.1) mmol/L Chloride 99 (98-107) mmol/L Carbon Dioxide 32 H (22-30) mmol/L Anion Gap 7 mmol/L BUN 31 H (9-20) mg/dL Creatinine 1.63 H (0.66-1.25) mg/dL Est GFR (CKD-EPI)AfAm 45 (>60 ml/min/1.73 sqM) Est GFR (CKD-EPI)NonAf 39 (>60 ml/min/1.73 sqM) Glucose 155 H (74-99) mg/dL Calcium 9.5 (8.4-10.2) mg/dL Total Bilirubin 0.9 (0.2-1.3) mg/dL AST 22 (17-59) U/L ALT 19 (4-49) U/L Alkaline Phosphatase 69 (38-126) U/L Troponin I (0.000-0.034) ng/mL Total Protein 6.9 (6.3-8.2) g/dL Albumin 4.0 (3.5-5.0) g/dL 08/06/24 Range/Units 12:37 WBC (3.8-10.6) k/uL RBC (4.30-5.90) m/uL Hgb (13.0-17.5) gm/dL Hct (39.0-53.0) % MCV (80.0-100.0) fL MCH (25.0-35.0) pg MCHC (31.0-37.0) g/dL RDW (11.5-15.5) % Plt Count (150-450) k/uL MPV Neutrophils % % Lymphocytes % % Monocytes % % Eosinophils % % Basophils % % Neutrophils # (1.3-7.7) k/uL Lymphocytes # (1.0-4.8) k/uL Monocytes # (0-1.0) k/uL Eosinophils # (0-0.7) k/uL Basophils # (0-0.2) k/uL Hypochromasia PT (10.0-12.5) sec INR (<1.2) APTT (22.0-30.0) sec Sodium (137-145) mmol/L Potassium (3.5-5.1) mmol/L Chloride (98-107) mmol/L Carbon Dioxide (22-30) mmol/L Anion Gap mmol/L BUN (9-20) mg/dL Creatinine (0.66-1.25) mg/dL Est GFR (CKD-EPI)AfAm (>60 ml/min/1.73 sqM) Est GFR (CKD-EPI)NonAf (>60 ml/min/1.73 sqM) Glucose (74-99) mg/dL Calcium (8.4-10.2) mg/dL Total Bilirubin (0.2-1.3) mg/dL AST (17-59) U/L ALT (4-49) U/L Alkaline Phosphatase (38-126) U/L Troponin I 0.013 (0.000-0.034) ng/mL Total Protein (6.3-8.2) g/dL Albumin (3.5-5.0) g/dL Disposition Clinical Impression: Syncope, Bradycardia Disposition: ADMITTED IP TO THIS HOSP Condition: Stable Is patient prescribed a controlled substance at d/c from ED?: No Referrals: Kavya Khan DO [Primary Care Provider] - 1-2 days Time of Disposition: 15:06
[2024-08-06 13:07] LABS: INR 0.9 (<1.2); Partial Thromboplastin Time 21.4 sec (22.0-30.0); Prothrombin Time 10.3 sec (10.0-12.5)
[2024-08-06 13:16] LABS: ALT 19 U/L (4-49); AST 22 U/L (17-59); African American GFR (CKD) 45 (>60 ml/min/1.73 sqM); Alkaline Phosphatase 69 U/L (38-126); Anion Gap 7 mmol/L; Blood Urea Nitrogen 31 mg/dL (9-20); Calcium 9.5 mg/dL (8.4-10.2); Carbon Dioxide 32 mmol/L (22-30); Chloride 99 mmol/L (98-107); Glucose 155 mg/dL (74-99); Non-African American GFR(CKD) 39 (>60 ml/min/1.73 sqM); Potassium 4.1 mmol/L (3.5-5.1); Sodium 138 mmol/L (137-145); Total Bilirubin 0.9 mg/dL (0.2-1.3); Total Protein 6.9 g/dL (6.3-8.2)
--- NOTE | 2024-08-06 13:22 | XR ---
EXAMINATION TYPE: XR chest 2V DATE OF EXAM: 08/06/2024 COMPARISON: 03/09/2024 HISTORY: 84-year-old male with syncope TECHNIQUE: AP and lateral views FINDINGS: There is a generator device projecting at the anterior left mid chest. Median sternotomy wires and po st-CABG clips. Heart is borderline enlarged. Strandy atelectasis at the left base. No consolidation o r pleural effusion seen. IMPRESSION: Post CABG changes. Borderline cardiomegaly. Strandy atelectasis at the left base. Otherwise, no defin ite acute process. [facility], , 08/06/2024 1:20 PM
[2024-08-06] MEDS: SODIUM CHLORIDE 0.9% 500 ML 500 ML IV STA (13:38)
[2024-08-06] MEDS ORDERED: NALOXONE 0.4 MG/ML 1 ML VIAL IV PRN (14:58)
[2024-08-06] MEDS: SODIUM CHLORIDE 0.9% 1,000 ML IV SCH (15:55)
[2024-08-07] MEDS ORDERED: FLUTICASONE NASAL 50MCG/SPRAY 16GM BTL EA NOSTRIL PRN (09:56)
[2024-08-07] MEDS ORDERED: NITROGLYCERIN SL TABS 0.4 MG TAB SUBLINGUAL PRN (09:56)
[2024-08-07] MEDS: amLODIPine 5 MG TAB PO SCH (10:25)
[2024-08-07] MEDS: ATORVASTATIN 40 MG TAB PO SCH (10:25)
[2024-08-07] MEDS: SPIRONOLACTONE 25 MG TAB PO SCH (10:25)
[2024-08-07] MEDS: LOSARTAN-HCTZ 50-12.5 MG 1 EACH TAB PO SCH (10:25)
[2024-08-07] MEDS: RANOLAZINE 500 MG TAB.ER.12H PO SCH (10:25)
[2024-08-07] MEDS: CLOPIDOGREL 75 MG TAB PO SCH (10:25)
[2024-08-07] MEDS: ISOSORBIDE MONONITRATE ER 60 MG TAB.ER.24H PO SCH (10:25)
[2024-08-07] MEDS: ASPIRIN 81 MG PO SCH (10:25)
[2024-08-07] MEDS: LORATADINE 10 MG TAB PO SCH (10:25)
[2024-08-07] MEDS: PANTOPRAZOLE 40 MG TABLET PO SCH (10:25)
--- NOTE | 2024-08-07 11:34 | P.HPIM ---
History of Present Illness H&P Date: 08/07/24 Chief Complaint: Syncope This is an 84-year-old gentleman with past medical history significant for recent NSTEMI with stent of the distal left circumflex on 02/18/2024,CAD, [place], CABG 2020, hypertension, hyperlipidemia, ischemic cardiomyopathy, mitral regurgitation, medication noncompliance presented to the ER ,after seen by his product promoter sales person yesterday, monitor placed ,with complaints of syncope while he was eating breakfast. He reports near syncopal spells intermittently throughout the last couple months .vague historian. His nausea vomiting or diarrhea. Denies chest pain, palpitations or shortness of breath. History of neck pain -denies neck pain reports resolved, after receiving injections and muscle relaxants outpatient with PCP.Echo 02/19 reported EF of 40 to 45%, mild aortic stenosis. Chest x-ray reported post CABG changes, borderline cardiomegaly, strandy atelectasis left base. Troponin negative x 1, EKG sinus, afebrile, WBC 13.9, hemoglobin 9.9, platelets 382, INR 0.9, sodium 138, potassium 4.1, bicarb 32, BUN 31, creatinine 1.63, baseline creat 1.1-1.3, glucose 155. Maintained on IV fluid hydration. Review of Systems ROS Statement: Those systems with pertinent positive or pertinent negative responses have been documented in the HPI. ROS Other: All systems not noted in ROS Statement are negative. Past Medical History Past Medical History: Coronary Artery Disease (CAD), Cancer, GERD/Reflux, Hyperlipidemia, Hypertension, Myocardial Infarction ([place]), Prostate Disorder, Sleep Apnea/CPAP/BIPAP Additional Past Medical History / Comment(s): H&P scanned. No CPAP use, hx prostate cancer prior to 1999-had surgery & radiation, erectile dysfunction, BILATERAL PLEURAL EFFUSIONS POST CABG. Last Myocardial Infarction Date:: unknown History of Any Multi-Drug Resistant Organisms: None Reported Past Surgical History: Coronary Bypass/CABG, Heart Catheterization, Heart Catheterization With Stent, Prostate Surgery Additional Past Surgical History / Comment(s): Quadruple bypass, one cardiac stent, BILATERAL THORACENTESIS, prostatectomy. Past Anesthesia/Blood Transfusion Reactions: No Reported Reaction Date of Last Stent Placement:: unknown Past Psychological History: No Psychological Hx Reported Smoking Status: Never smoker Past Alcohol Use History: None Reported Past Drug Use History: None Reported - Past Family History Mother Family Medical History: No Reported History Additional Family Medical History / Comment(s): Multisystem organ failure, at age 93. Father Family Medical History: Cancer Additional Family Medical History / Comment(s): Colon cancer. Medications and Allergies Home Medications Medication Instructions Recorded Confirmed Type Atorvastatin Calcium [Lipitor] 40 mg PO DAILY 02/12/24 08/06/24 History Clopidogrel [Plavix] 75 mg PO DAILY 02/12/24 08/06/24 History Fluticasone Nasal [place] [Flonase 2 spr EA NOSTRIL DAILY PRN 02/12/24 08/06/24 History Nasal [place]] Loratadine [Claritin] 10 mg PO DAILY 02/12/24 08/06/24 History Mirabegron [Myrbetriq] 50 mg PO DAILY 02/12/24 08/06/24 History Aspirin 81 mg PO DAILY tab 02/13/24 08/06/24 Rx Metoprolol Tartrate [Lopressor] 25 mg PO BID #60 tab 02/13/24 08/06/24 Rx amLODIPine [Norvasc] 10 mg PO DAILY #30 tab 02/13/24 08/06/24 Rx Spironolactone [Aldactone] 25 mg PO DAILY #30 tab 02/14/24 08/06/24 Rx Pantoprazole [Protonix] 40 mg PO DAILY #30 tab 02/15/24 08/06/24 Rx Losartan-Hctz 50-12.5 mg [Hyzaar 1 tab PO DAILY 02/20/24 08/06/24 History 50-12.5] Nitroglycerin Sl Tabs [Nitrostat] 0.4 mg SL Q5M PRN 02/20/24 08/06/24 History Ranolazine [Ranexa] 500 mg PO Q12HR 60 Days #30 tab 02/23/24 08/06/24 Rx Gabapentin 300 mg PO HS 08/06/24 08/06/24 History Isosorbide Mononitrate ER [Imdur] 60 mg PO DAILY 08/06/24 08/06/24 History Allergies Allergy/AdvReac Type Severity Reaction Status Date / Time iodine Allergy Severe Rash/Hives,skin Verified 08/06/24 14:28 peeled shellfish derived [Shellfish] Allergy Rash/Hives Verified 08/06/24 14:28 Physical Exam Vitals: Vital Signs Temp Pulse Pulse Resp BP BP Pulse Ox 08/07/24 04:04 97.9 F 62 14 119/65 97 08/07/24 02:13 97.7 F 62 14 129/71 99 08/07/24 01:37 62 16 123/57 08/06/24 21:26 61 16 116/60 08/06/24 19:53 53 L 20 133/64 08/06/24 15:58 50 L 14 132/68 96 08/06/24 13:41 53 L 16 120/56 96 08/06/24 12:06 97.8 F 58 L 18 125/53 97 Intake and Output 08/06/24 08/07/24 08/07/24 22:59 06:59 14:59 Intake Total 120 Output Total 300 Balance -300 120 Intake: Oral 120 Output: Urine 300 Other: Voiding Method Toilet Urinal Weight 99.79 kg VITAL SIGNS: [As above] GENERAL: Pleasant, alert and oriented x 3, sitting up in bed, no acute distress HEENT: Normocephalic ,conjunctivae normal. eyes normal. NECK: Supple, no JVD. CARDIOVASCULAR: S1, S2 regular. Systolic murmur RESPIRATION: Unlabored, equal air entry, clear to auscultation. ABDOMEN: soft, nondistended, nontender . No guarding. no masses palpable. Positive Bowel sounds. LEGS: No edema. no swelling. NERVOUS SYSTEM: Cranial N 2-12 grossly normal.No focal deficits. Skin: Warm and dry, no rash Results CBC & Chem 7: 08/06/24 12:37 08/06/24 12:37 Labs: Abnormal Lab Results - Last 24 Hours (Table) 08/06/24 08/06/24 08/06/24 Range/Units 12:37 12:37 12:37 WBC 13.9 H (3.8-10.6) k/uL RBC 3.54 L (4.30-5.90) m/uL Hgb 9.9 L (13.0-17.5) gm/dL Hct 32.3 L (39.0-53.0) % MCHC 30.6 L (31.0-37.0) g/dL Neutrophils # 8.2 H (1.3-7.7) k/uL APTT 21.4 L (22.0-30.0) sec Carbon Dioxide 32 H (22-30) mmol/L BUN 31 H (9-20) mg/dL Creatinine 1.63 H (0.66-1.25) mg/dL Glucose 155 H (74-99) mg/dL Thrombosis Risk Factor Assmnt - Choose All That Apply Any of the Below Risk Factors Present?: Yes Each Factor Represents 1 point: Obesity (BMI >25) Other Risk Factors: Yes Each Risk Factor Represents 3 Points: Age 75 years or older Other congenital or acquired thrombophilia - If yes, enter type in comment: No Thrombosis Risk Factor Assessment Total Risk Factor Score: 4 Thrombosis Risk Factor Assessment Level: Moderate Risk Assessment and Plan Assessment: Syncope, workup in progress Atelectasis Acute on chronic renal failure,Stage III, GFR 45 recent NSTEMI,stent of the distal left circumflex on 02/18/2024. CAD, history of [place], stenting, CABG 2020, Ischemic cardiomyopathy, history of. Severe pulmonary hypertension Mild aortic stenosis Severe mitral regurgitation Mild tricuspid regurgitation Hypertension Hyperlipidemia Morbid Obesity, BMI 35 Obstructive sleep apnea, does not use CPAP at home History of medication noncompliance Plan: Continue on current medication regimen ,monitoring and symptomatic treatment. Echocardiogram and carotid ultrasound ordered. Cardiology consult in place. Orthostatic vitals ordered. Aggressive pulmonary toileting with incentive spirometer ordered. The impression and plan of care has been dictated as directed. : I performed a history and examination of this patient, discussed the same with the dictator. I agree with the dictator's note ,documented as a scribe. Any additional findings or plans will be noted.
--- NOTE | 2024-08-07 11:54 | CA ---
Transthoracic Echo Report Name: Gregory Jaimes Age: 84 Gender: M : 1940 Exam Date: 08/07/2024 10:56 Exam Location: [facility] Ht (in): 66 Wt (lb): 220 Ordering Physician: Adolfo Riley MD Attending/Referring Phys: Family Specialist Yaritza Claudio RDCS Procedure CPT: Indications: Syncope Cardiac Hx: Technical Quality: Fair Contrast 1: Total Dose (mL): Contrast 2: Total Dose (mL): MEASUREMENTS (Male / Female) Normal Values 2D ECHO LV Diastolic Diameter PLAX 3.4 cm 4.2 - 5.9 / 3.9 - 5.3 cm LV Systolic Diameter PLAX 2.4 cm IVS Diastolic Thickness 1.3 cm 0.6 - 1.0 / 0.6 - 0.9 cm LVPW Diastolic Thickness 1.7 cm 0.6 - 1.0 / 0.6 - 0.9 cm LV Relative Wall Thickness 0.9 RV Internal Dim ED PLAX 4.4 cm LA Volume 67.8 cm??? 18 - 58 / 22 - 52 cm??? LA Volume Index 30.9 cm???/m??? 16 - 28 cm???/m??? M-MODE Aortic Root Diameter MM 2.8 cm LA Systolic Diameter MM 4.8 cm LA Ao Ratio MM 1.7 AV Cusp Separation MM 1.5 cm DOPPLER AV Peak Velocity 276.9 cm/s AV Peak Gradient 30.7 mmHg AV Mean Velocity 189.8 cm/s AV Mean Gradient 16.4 mmHg AV Velocity Time Integral 53.3 cm LVOT Peak Velocity 152.3 cm/s LVOT Peak Gradient 9.3 mmHg LVOT Velocity Time Integral 31.3 cm MV Area PHT 3.4 cm??? Mitral E Point Velocity 78.8 cm/s Mitral A Point Velocity 102.1 cm/s Mitral E to A Ratio 0.8 MV Deceleration Time 226.4 ms MV E' Velocity 4.9 cm/s Mitral E to MV E' Ratio 16.2 TR Peak Velocity 297.1 cm/s TR Peak Gradient 35.3 mmHg Right Ventricular Systolic Press 38.7 mmHg FINDINGS Left Ventricle Moderately increased left ventricular wall thickness. Left ventricular cavity size normal. Normal left ventricular systolic function with no obvious regional wall motion abnormalities. Left ventricular ejection fraction is estimated at 55 %.grade 2 diastolic dysfunction. Right Ventricle Right ventricular dilatation. Mild pulmonary hypertension. Right Atrium Normal right atrial size. Left Atrium Mildly increased left atrial volume. Mildly increased left atrial area. Mitral Valve Structurally normal mitral valve. Mild mitral annular calcification. Moderate mitral regurgitation. Aortic Valve Trileaflet aortic valve. Mild aortic stenosis with a peak gradient of 31 mmHg and a mean gradient of 16mmHg. Trace aortic regurgitation. Tricuspid Valve Structurally normal tricuspid valve. [id number] tricuspid regurgitation. Pulmonic Valve Structurally normal pulmonic valve. Pericardium No pericardial effusion. Aorta Normal size aortic root and proximal ascending aorta. CONCLUSIONS 1. Normal left ventricular size and systolic function 2. Moderate mitral with [id number] tricuspid regurgitation and mild pulmonary hypertension 3. Mild aortic stenosis Previewed by: Dr. Keith Smith MD (Electronically Signed) Final Date: 07 August 2024 11:54
--- NOTE | 2024-08-07 12:33 | US ---
EXAMINATION TYPE: US carotid duplex BILAT DATE OF EXAM: 08/07/2024 COMPARISON: NONE CLINICAL INDICATION: Male, 84 years old with history of syncope; TECHNIQUE: Grayscale, color Doppler and spectral Doppler evaluation of the bilateral carotid systems and vertebral arteries. Indirect Doppler criteria was utilized. FINDINGS: EXAM MEASUREMENTS: RIGHT: Peak Systolic Velocity (PSV) cm/sec ----- Right CCA: 99 ----- Right ICA: 93 ----- Right ECA: 120 ICA/CCA ratio: 0.9 RIGHT: End Diastole cm/sec ----- Right CCA: 20 ----- Right ICA: 19 ----- Right ECA: 9 LEFT: Peak Systolic Velocity (PSV) cm/sec ----- Left CCA: 79 ----- Left ICA: 106 ----- Left ECA: 4 ICA/CCA ratio: 1.3 LEFT: End Diastole cm/sec ----- Left CCA: 12 ----- Left ICA: 18 ----- Left ECA: 4 VERTEBRALS (direction of flow): Right Vertebral: Antegrade Left Vertebral: Antegrade Rhythm: Arrhythmia TEMPERATURE REGULATOR NOTES: Intimal thickening seen bilateral CCAs, plaque seen bilateral ICAs, no elevated ve locities seen. IMPRESSION: 1. Mild to moderate atherosclerotic change at the bifurcations but without hemodynamically significan t internal carotid artery stenosis on either side. 2. Note that the cutting tool sharpener indicates an aberrant cardiac rhythm during the scan. Criteria for Assigning % of Stenosis / Diameter reduction (Estimation based on the indirect measurements of the internal carotid artery velocities (ICA PSV). 1. Normal (no stenosis)=ICA PSV < 125 cm/s: ratio < 2.0: ICA EDV<40 cm/s. 2. Less than 50% stenosis=ICA PSV < 125 cm/s: ratio < 2.0: ICA EDV<40 cm/s. 3. 50 to 69% stenosis=ICA PSV of 125 to 230 cm/s: ration 2.0 ? 4.0: ICA EDV 40-100 cm/s. 4. Greater than 70% stenosis to near occlusion= ICA PSV > 230 cm/s: ratio > 4.0: ICA EDV > 100 cm/s. 5. Near occlusion= ICA PSV velocities may be low or undetectable: variable ratio and ICA EDV. 6. Total occlusion=unable to detect flow. [facility], , 08/07/2024 12:31 PM
--- NOTE | 2024-08-07 12:53 | P.CRDCN ---
History of Present Illness Consult date: 08/07/24 History of present illness: - . HPI: [This is a 84-year-old gentleman with a known history of CAD prior [place], bypass surgery with good recovery of LV function. He has hypertension hyperlipidemia mitral regurgitation. He was recently seen by Dr. Boo in the office and was placed on a event monitor last week. This was because he had an episode of near syncope. He came into the hospital today also with another episode of what seems to be syncope. He is not a good historian. He was having breakfast. Patient is not able to give me a good history but however he is serious while he was eating he felt good and suddenly he passed out he lost control of bladder which was transient then he felt fine afterwards and came into the hospital. Similar episode occurred in the past as well. After arrival he is in sinus rhythm with some blocked PACs no evidence of any bradycardia rhythm is sinus with IVCD hemodynamically stable no tacky or bradycardia arrhythmia since his visit to the hospital yesterday.]. RELEVANT PAST MEDICAL HISTORY: [CAD with prior bypass surgery in 2020 and stenting in January of this year of circumflex distal to the previous bypass]. MEDICATIONS: [This includes Aldactone Plavix atorvastatin metoprolol losartan Imdur amlodipine and ranolazine. He also takes aspirin 81 mg daily.] ALLERGIES: [Iodine and shellfish]. REVIEW OF SYSTEMS: [No chest pain or shortness of breath episodes of syncope details are rather sketchy no obvious injury]. PHYSICIAL EXAM: [Vitals are stable no JVD, soft left carotid bruit, S1-S2 with a short systolic murmur at the base second heart sound is preserved lungs are clear abdomen is soft nontender lower EXTR reveal diminished pulses. No central nervous system deficits]. IMPRESSION: 1. [Syncope cannot exclude seizure]. 2. [Stable CAD with previous bypass surgery and PCI]. 3. [Hypertension]. 4. [Hypercholesterolemia]. 5. []. RECOMMENDATIONS: [Will continue telemetry for 24 hours obtain echocardiogram carotid Doppler and discontinue metoprolol and check a TSH level based on clinical progress will make further recommendations I will check the event monitor information as well. Discussed my thoughts with the patient in detail]. Past Medical History Past Medical History: Coronary Artery Disease (CAD), Cancer, GERD/Reflux, Hyperlipidemia, Hypertension, Myocardial Infarction ([place]), Prostate Disorder, Sleep Apnea/CPAP/BIPAP Additional Past Medical History / Comment(s): H&P scanned. No CPAP use, hx prostate cancer prior to 1999-had surgery & radiation, erectile dysfunction, BILATERAL PLEURAL EFFUSIONS POST CABG. Last Myocardial Infarction Date:: unknown History of Any Multi-Drug Resistant Organisms: None Reported Past Surgical History: Coronary Bypass/CABG, Heart Catheterization, Heart Catheterization With Stent, Prostate Surgery Additional Past Surgical History / Comment(s): Quadruple bypass, one cardiac stent, BILATERAL THORACENTESIS, prostatectomy. Past Anesthesia/Blood Transfusion Reactions: No Reported Reaction Date of Last Stent Placement:: unknown Past Psychological History: No Psychological Hx Reported Smoking Status: Never smoker Past Alcohol Use History: None Reported Past Drug Use History: None Reported - Past Family History Mother Family Medical History: No Reported History Additional Family Medical History / Comment(s): Multisystem organ failure, at age 93. Father Family Medical History: Cancer Additional Family Medical History / Comment(s): Colon cancer. Medications and Allergies Home Medications Medication Instructions Recorded Confirmed Type Atorvastatin Calcium [Lipitor] 40 mg PO DAILY 02/12/24 08/06/24 History Clopidogrel [Plavix] 75 mg PO DAILY 02/12/24 08/06/24 History Fluticasone Nasal [place] [Flonase 2 spr EA NOSTRIL DAILY PRN 02/12/24 08/06/24 History Nasal [place]] Loratadine [Claritin] 10 mg PO DAILY 02/12/24 08/06/24 History Mirabegron [Myrbetriq] 50 mg PO DAILY 02/12/24 08/06/24 History Aspirin 81 mg PO DAILY tab 02/13/24 08/06/24 Rx Metoprolol Tartrate [Lopressor] 25 mg PO BID #60 tab 02/13/24 08/06/24 Rx amLODIPine [Norvasc] 10 mg PO DAILY #30 tab 02/13/24 08/06/24 Rx Spironolactone [Aldactone] 25 mg PO DAILY #30 tab 02/14/24 08/06/24 Rx Pantoprazole [Protonix] 40 mg PO DAILY #30 tab 02/15/24 08/06/24 Rx Losartan-Hctz 50-12.5 mg [Hyzaar 1 tab PO DAILY 02/20/24 08/06/24 History 50-12.5] Nitroglycerin Sl Tabs [Nitrostat] 0.4 mg SL Q5M PRN 02/20/24 08/06/24 History Ranolazine [Ranexa] 500 mg PO Q12HR 60 Days #30 tab 02/23/24 08/06/24 Rx Gabapentin 300 mg PO HS 08/06/24 08/06/24 History Isosorbide Mononitrate ER [Imdur] 60 mg PO DAILY 08/06/24 08/06/24 History Allergies Allergy/AdvReac Type Severity Reaction Status Date / Time iodine Allergy Severe Rash/Hives,skin Verified 08/06/24 14:28 peeled shellfish derived [Shellfish] Allergy Rash/Hives Verified 08/06/24 14:28 Physical Exam Vitals: Vital Signs Temp Pulse Pulse Resp BP BP Pulse Ox 08/07/24 12:00 81 18 107/62 99 08/07/24 08:00 98.2 F 72 18 128/73 100 08/07/24 04:04 97.9 F 62 14 119/65 97 08/07/24 02:13 97.7 F 62 14 129/71 99 08/07/24 01:37 62 16 123/57 08/06/24 21:26 61 16 116/60 08/06/24 19:53 53 L 20 133/64 08/06/24 15:58 50 L 14 132/68 96 08/06/24 13:41 53 L 16 120/56 96 Intake and Output 08/06/24 08/07/24 08/07/24 22:59 06:59 14:59 Intake Total 120 Output Total 300 Balance -300 120 Intake: Oral 120 Output: Urine 300 Other: Voiding Method Toilet Urinal Weight 99.79 kg Results 08/06/24 12:37 08/06/24 12:37 Cardiac Enzymes 08/06/24 08/06/24 Range/Units 12:37 12:37 AST 22 (17-59) U/L Troponin I 0.013 (0.000-0.034) ng/mL Coagulation 08/06/24 Range/Units 12:37 PT 10.3 (10.0-12.5) sec APTT 21.4 L (22.0-30.0) sec Comprehensive Metabolic Panel 08/06/24 Range/Units 12:37 Sodium 138 (137-145) mmol/L Potassium 4.1 (3.5-5.1) mmol/L Chloride 99 (98-107) mmol/L Carbon Dioxide 32 H (22-30) mmol/L BUN 31 H (9-20) mg/dL Creatinine 1.63 H (0.66-1.25) mg/dL Glucose 155 H (74-99) mg/dL Calcium 9.5 (8.4-10.2) mg/dL AST 22 (17-59) U/L ALT 19 (4-49) U/L Alkaline Phosphatase 69 (38-126) U/L Total Protein 6.9 (6.3-8.2) g/dL Albumin 4.0 (3.5-5.0) g/dL Current Medications Generic Name Dose Route Start Last Admin Trade Name Freq PRN Reason Stop Dose Admin Amlodipine Besylate 5 mg 08/07/24 10:00 08/07/24 10:25 Amlodipine 5 Mg Tab PO 5 mg DAILY ELISA Administration Aspirin 81 mg 08/07/24 10:00 08/07/24 10:25 Aspirin 81 Mg PO 81 mg DAILY ELISA Administration Atorvastatin Calcium 40 mg 08/07/24 10:00 08/07/24 10:25 Atorvastatin 40 Mg Tab PO 40 mg DAILY ELISA Administration Clopidogrel Bisulfate 75 mg 08/07/24 10:00 08/07/24 10:25 Clopidogrel 75 Mg Tab PO 75 mg DAILY ELISA Administration Fluticasone Propionate 2 spray 08/07/24 09:56 Fluticasone Nasal 50mcg/[place] 16gm Btl EA NOSTRIL DAILY PRN Congestion Gabapentin 300 mg 08/07/24 21:00 Gabapentin 300 Mg Cap PO HS ELISA HCTZ/Losartan Potassium 1 each 08/07/24 10:00 08/07/24 10:25 Losartan-Hctz 50-12.5 Mg 1 Each Tab PO 1 each DAILY ELISA Administration Sodium Chloride 1,000 mls @ 75 mls/hr 08/06/24 15:00 08/07/24 10:29 Saline 0.9% IV 75 mls/hr .[id number] ELISA Administration Isosorbide Mononitrate 60 mg 08/07/24 10:00 08/07/24 10:25 Isosorbide Mononitrate Er 60 Mg Tab.Er.24h PO 60 mg DAILY ELISA Administration Loratadine 10 mg 08/07/24 10:00 08/07/24 10:25 Loratadine 10 Mg Tab PO 10 mg DAILY ELISA Administration Naloxone HCl 0.2 mg 08/06/24 14:58 Naloxone 0.4 Mg/Ml 1 Ml Vial IV Q2M PRN Opioid Reversal Nitroglycerin 0.4 mg 08/07/24 09:56 Nitroglycerin Sl Tabs 0.4 Mg Tab SUBLINGUAL Q5M PRN Chest Pain Pantoprazole Sodium 40 mg 08/07/24 10:00 08/07/24 10:25 Pantoprazole 40 Mg Tablet PO 40 mg DAILY@0730 ELISA Administration Ranolazine 500 mg 08/07/24 10:00 08/07/24 10:25 Ranolazine 500 Mg Tab.Er.12h PO 500 mg Q12HR ELISA Administration Spironolactone 25 mg 08/07/24 10:00 08/07/24 10:25 Spironolactone 25 Mg Tab PO 25 mg DAILY ELISA Administration Intake and Output 08/06/24 08/07/24 08/07/24 22:59 06:59 14:59 Intake Total 120 Output Total 300 Balance -300 120 Intake: Oral 120 Output: Urine 300 Other: Voiding Method Toilet Urinal Weight 99.79 kg 08/06/24 12:37 08/06/24 12:37
[2024-08-07] MEDS: GABAPENTIN 300 MG CAP PO SCH (20:32)
[2024-08-08 04:19] VITALS: TEMP 98.1
[2024-08-08 09:38] VITALS: RESP 18
--- NOTE | 2024-08-08 10:49 | P.PN ---
Subjective Progress Note Date: 08/08/24 HPI: Since his admission I have reviewed the telemetry he has sinus rhythm sinus bradycardia rates up to mid 40s when asleep otherwise frequent PACs. There is no significant tacky or bradycardia arrhythmia to explain his symptoms of syncope. He has a 7-day Holter monitor which she will return on the and I am recommending that we can increase activity discharge him and see Dr. Reis the week of August 18. Patient's carotid Doppler did not reveal any significant abnormalities and he has no orthostatic changes.. PHYSICIAL EXAM: Vitals are stable no JVD soft left carotid bruit S1-S2 with a short systolic murmur at the base second heart sound is preserved lungs are clear abdomen is soft nontender lower EXTR with reveal diminished pulses Central nervous system is normal. IMPRESSION: 1. Syncope cannot exclude seizure. 2. Stable CAD with previous bypass and PCI. 3. Benign hypertension. 4. Hypercholesterolemia. 5.. RECOMMENDATIONS: Discharge on current therapy no beta-ari continue 7-day Holter which she will return on the and see Dr. Reis week of August 18. Objective - Vital Signs Vital signs: Vital Signs Temp 98.1 F 08/08/24 08:00 Pulse 73 08/08/24 08:00 Resp 18 08/08/24 08:00 BP 124/75 08/08/24 08:00 Pulse Ox 98 08/08/24 08:00 FiO2 Intake & Output 08/07/24 08/08/24 08/08/24 18:59 06:59 18:59 Intake Total 360 1225 350 Balance 360 1225 350 Weight 100.3 kg Intake: IV 10 Invasive Line 2 10 Intake, IV Titration 675 Amount Sodium Chloride 0.9% 1, 675 000 ml @ 75 mls/hr IV . [id number] ELISA Rx#:[id number] Oral 360 540 350 Other: Voiding Method Toilet Urinal # Voids 2 1 - Labs CBC & Chem 7: 08/06/24 12:37 08/06/24 12:37
[2024-08-08 13:59] VITALS: BP 122/66; PULSE 70
--- NOTE | 2024-08-08 15:09 | P.DS ---
Providers Date of admission: 08/06/24 15:00 Expected date of discharge: 08/08/24 Attending physician: Christian Mix MD Consults: 08/06/24 14:58 Consult Physician Routine Consulting Provider: Reggie Boo Consult Reason/Comments: SYncope Do you want consulting provider notified?: Yes Primary care physician: Kavya Khan [facility] Course: Final Diagnoses: Syncope, evaluated by cardiology, beta-ari discontinued, recommending continuing 7-day Holter and following up with Dr. Boo in 2-weeks Atelectasis Acute on chronic renal failure,Stage III, GFR 45 recent NSTEMI,stent of the distal left circumflex on 02/18/2024. CAD, history of CO, stenting, CABG 2020, Ischemic cardiomyopathy, history of. Severe pulmonary hypertension Mild aortic stenosis Severe mitral regurgitation Mild tricuspid regurgitation Hypertension Hyperlipidemia Morbid Obesity, BMI 35 Obstructive sleep apnea, does not use CPAP at home History of medication noncompliance Hospital course:This is an 84-year-old gentleman with past medical history significant for recent NSTEMI with stent of the distal left circumflex on 02/18/2024,CAD, CO, CABG 2020, hypertension, hyperlipidemia, ischemic cardi omyopathy, mitral regurgitation, medication noncompliance presented to the ER ,after seen by his resident care provider yesterday, monitor placed ,with complaints of syncope while he was eating breakfast. He reports near syncopal spells intermittently throughout the last couple months .vague historian. His nausea vomiting or diarrhea. Denies chest pain, palpitations or shortness of breath. History of neck pain -denies neck pain reports resolved, after receiving injections and muscle relaxants outpatient with PCP.Echo 02/19 reported EF of 40 to 45%, mild aortic stenosis. Chest x-ray reported post CABG changes, borderline cardiomegaly, strandy atelectasis left base. Troponin negative x 1, EKG sinus, afebrile, WBC 13.9, hemoglobin 9.9, platelets 382, INR 0.9, sodium 138, potassium 4.1, bicarb 32, BUN 31, creatinine 1.63, baseline creat 1.1-1.3, glucose 155. Maintained on IV fluid hydration. Evaluated by cardiology, reporting no orthostatic changes, telemetry reviewed- sinus rhythm, sinus bradycardia rates up into the mid 40s when sleeping, no significant tacky or bradycardia arrhythmia,carotid Doppler reported no hemodynamic significant carotid stenosis. Echo reported normal LV function, moderate mitral and mild to moderate tricuspid regurgitation and mild pulmonary hypertension, mild aortic stenosis. Significant clinical improvement. Sitting up in chair, eating breakfast, denies chest pain, palpitations or shortness of breath. Denies lightheadedness, dizziness or focal deficits. Eager for discharge/requesting to go home. Patient has been cleared by cardiology for discharge home. Patient will be discharged home today in a stable condition with guarded prognosis. The impression and plan of care has been dictated as directed. : I performed a history and examination of this patient, discussed the same with the dictator. I agree with the dictator's note ,documented as a scribe. Any additional findings or plans will be noted. Patient Condition at Discharge: Stable Plan - Discharge Summary New Discharge Prescriptions: Continue Clopidogrel [Plavix] 75 mg PO DAILY Mirabegron [Myrbetriq] 50 mg PO DAILY Spironolactone [Aldactone] 25 mg PO DAILY #30 tab Pantoprazole [Protonix] 40 mg PO DAILY #30 tab Losartan-Hctz 50-12.5 mg [Hyzaar 50-12.5] 1 tab PO DAILY Ranolazine [Ranexa] 500 mg PO Q12HR 60 Days #30 tab Gabapentin 300 mg PO HS Loratadine [Claritin] 10 mg PO DAILY Fluticasone Nasal [place] [Flonase Nasal [place]] 2 spr EA NOSTRIL DAILY PRN PRN Reason: Congestion Atorvastatin Calcium [Lipitor] 40 mg PO DAILY Aspirin 81 mg PO DAILY tab amLODIPine [Norvasc] 10 mg PO DAILY #30 tab Nitroglycerin Sl Tabs [Nitrostat] 0.4 mg SL Q5M PRN PRN Reason: Chest Pain Isosorbide Mononitrate ER [Imdur] 60 mg PO DAILY Discontinued Metoprolol Tartrate [Lopressor] 25 mg PO BID #60 tab Discharge Medication List Atorvastatin Calcium [Lipitor] 40 mg PO DAILY 02/12/24 [History] Clopidogrel [Plavix] 75 mg PO DAILY 02/12/24 [History] Fluticasone Nasal [place] [Flonase Nasal [place]] 2 spr EA NOSTRIL DAILY PRN 02/12/24 [History] Loratadine [Claritin] 10 mg PO DAILY 02/12/24 [History] Mirabegron [Myrbetriq] 50 mg PO DAILY 02/12/24 [History] Aspirin 81 mg PO DAILY tab 02/13/24 [Rx] amLODIPine [Norvasc] 10 mg PO DAILY #30 tab 02/13/24 [Rx] Spironolactone [Aldactone] 25 mg PO DAILY #30 tab 02/14/24 [Rx] Pantoprazole [Protonix] 40 mg PO DAILY #30 tab 02/15/24 [Rx] Losartan-Hctz 50-12.5 mg [Hyzaar 50-12.5] 1 tab PO DAILY 02/20/24 [History] Nitroglycerin Sl Tabs [Nitrostat] 0.4 mg SL Q5M PRN 02/20/24 [History] Ranolazine [Ranexa] 500 mg PO Q12HR 60 Days #30 tab 02/23/24 [Rx] Gabapentin 300 mg PO HS 08/06/24 [History] Isosorbide Mononitrate ER [Imdur] 60 mg PO DAILY 08/06/24 [History] Follow up Appointment(s)/Referral(s): Christian Mix MD [STAFF PHYSICIAN] - 08/11/24 11:15 am (Your appointment will be with Judi in [facility]'s office. ) Reggie Boo MD [STAFF PHYSICIAN] - 08/18/24 10:30 am Activity/Diet/Wound Care/Special Instructions: No beta-ari, continue 7-day Holter and follow-up with cardiology as advised Discharge Disposition: HOME SELF-CARE
== END 2024-08-08 14:15 | disposition home or self-care (01) ==
LOC: EC 12:04 → 3SCARD 15:00 → INTOOBSV 15:00 → 3SCARD 17:08 → UNDODISIN 08-08 14:15
PROVIDERS: ADMIT Family Medicine; ATTEND Family Medicine
DX: R55 Syncope and collapse (principal); J98.11 Atelectasis; N17.9 Acute kidney failure, unspecified; I12.9 Hypertensive chronic kidney disease with stage 1 through stage 4 chronic kidney disease, or unspecified chronic kidney disease; N18.30 Chronic kidney disease, stage 3 unspecified; I08.3 Combined rheumatic disorders of mitral, aortic and tricuspid valves; I25.5 Ischemic cardiomyopathy; I27.20 Pulmonary hypertension, unspecified; I25.10 Atherosclerotic heart disease of native coronary artery without angina pectoris; I25.2 Old myocardial infarction; E66.01 Morbid (severe) obesity due to excess calories; E78.5 Hyperlipidemia, unspecified; G47.33 Obstructive sleep apnea (adult) (pediatric); K21.9 Gastro-esophageal reflux disease without esophagitis; Z68.35 Body mass index [BMI] 35.0-35.9, adult; Z79.02 Long term (current) use of antithrombotics/antiplatelets; Z79.82 Long term (current) use of aspirin; Z79.899 Other long term (current) drug therapy; Z91.148 Patient's other noncompliance with medication regimen for other reason; Z95.1 Presence of aortocoronary bypass graft; Z95.5 Presence of coronary angioplasty implant and graft
CPT/HCPCS: 96360; 96361; 99285; 36415; 93005; 93306; 80053; 84443; 83735; 84484; 85025; 85610; 85730; 71046; 93880; G0378 ×3

== ENCOUNTER 2024-08-30 12:26 | Emergency (ER) | payer MEDICARE ==
[2024-08-30 12:33] VITALS: RESP 18
[2024-08-30 12:34] VITALS: TEMP 97.6
--- NOTE | 2024-08-30 13:00 | ED ---
General Adult HPI - General Chief complaint: Dizziness Stated complaint: Syncope Time Seen by Provider: 08/30/24 12:43 Source: patient, family, EMS, RN notes reviewed, old records reviewed Mode of arrival: EMS Limitations: no limitations - History of Present Illness Initial comments: 84 presents after presyncopal episode. Patient believes this is attributed to his medication. He states he had a recent admission with similar event and this has happened at least 4 times in the past year. He denies chest pain or dyspnea. Denies injury. No fall. He states he had 1 glass of water and had eaten this morning. - Related Data Home Medications Medication Instructions Recorded Confirmed Atorvastatin Calcium [Lipitor] 40 mg PO DAILY 02/12/24 08/30/24 Clopidogrel [Plavix] 75 mg PO DAILY 02/12/24 08/30/24 Fluticasone Nasal [place] [Flonase 2 spr EA NOSTRIL DAILY PRN 02/12/24 08/30/24 Nasal [place]] Loratadine [Claritin] 10 mg PO DAILY 02/12/24 08/30/24 Mirabegron [Myrbetriq] 50 mg PO DAILY 02/12/24 08/30/24 Losartan-Hctz 50-12.5 mg [Hyzaar 1 tab PO DAILY 02/20/24 08/30/24 50-12.5] Nitroglycerin Sl Tabs [Nitrostat] 0.4 mg SL Q5M PRN 02/20/24 08/30/24 Gabapentin 300 mg PO HS 08/06/24 08/30/24 Isosorbide Mononitrate ER [Imdur] 60 mg PO DAILY 08/06/24 08/30/24 Previous Rx's Medication Instructions Recorded Aspirin 81 mg PO DAILY tab 02/13/24 amLODIPine [Norvasc] 10 mg PO DAILY #30 tab 02/13/24 Pantoprazole [Protonix] 40 mg PO DAILY #30 tab 02/15/24 Ranolazine [Ranexa] 500 mg PO Q12HR 60 Days #30 tab 02/23/24 Allergies Allergy/AdvReac Type Severity Reaction Status Date / Time iodine Allergy Severe Rash/Hives,skin Verified 08/30/24 13:34 peeled shellfish derived [Shellfish] Allergy Rash/Hives Verified 08/30/24 13:34 Review of Systems ROS Statement: Those systems with pertinent positive or pertinent negative responses have been documented in the HPI. ROS Other: All systems not noted in ROS Statement are negative. Past Medical History Past Medical History: Coronary Artery Disease (CAD), Cancer, GERD/Reflux, Hyperlipidemia, Hypertension, Myocardial Infarction (VA), Prostate Disorder, Sleep Apnea/CPAP/BIPAP Additional Past Medical History / Comment(s): H&P scanned. No CPAP use, hx prostate cancer prior to 1999-had surgery & radiation, erectile dysfunction, BILATERAL PLEURAL EFFUSIONS POST CABG. Last Myocardial Infarction Date:: unknown History of Any Multi-Drug Resistant Organisms: None Reported Past Surgical History: Coronary Bypass/CABG, Heart Catheterization, Heart Catheterization With Stent, Prostate Surgery Additional Past Surgical History / Comment(s): Quadruple bypass, one cardiac stent, BILATERAL THORACENTESIS, prostatectomy. Past Anesthesia/Blood Transfusion Reactions: No Reported Reaction Date of Last Stent Placement:: unknown Past Psychological History: No Psychological Hx Reported Smoking Status: Never smoker Past Alcohol Use History: None Reported Past Drug Use History: None Reported - Past Family History Mother Family Medical History: No Reported History Additional Family Medical History / Comment(s): Multisystem organ failure, at age 93. Father Family Medical History: Cancer Additional Family Medical History / Comment(s): Colon cancer. General Exam Limitations: no limitations General appearance: alert, in no apparent distress Head exam: Present: atraumatic, normocephalic Eye exam: Present: normal appearance, PERRL ENT exam: Present: normal exam Neck exam: Present: normal inspection. Absent: tenderness, meningismus Respiratory exam: Present: normal lung sounds bilaterally. Absent: respiratory distress Cardiovascular Exam: Present: regular rate, normal rhythm GI/Abdominal exam: Present: soft. Absent: distended, tenderness Neurological exam: Present: alert, oriented X3, CN II-XII intact. Absent: motor sensory deficit Psychiatric exam: Present: normal affect, normal mood Skin exam: Present: warm, dry, intact. Absent: cyanosis, diaphoretic Course Vital Signs 08/30/24 12:28 Temperature 97.6 F Pulse Rate 67 Respiratory 18 Rate Blood Pressure 107/51 O2 Sat by Pulse 94 L Oximetry - Reevaluation(s) Reevaluation #1: 08/30/24 14:00 Reevaluated, awake alert with stable vitals. He is adamant that he will not be admitted and is requesting discharge. I will agree with his request. Medical Decision Making - Medical Decision Making Was pt. sent in by a medical professional or institution ([facility] Finley, [facility], urgent care, hospital, or detention...) When possible be specific @ -No Did you speak to anyone other than the patient for history (EMS, parent, family, police, friend...)? What history was obtained from this source @ -No Did you review nursing and triage notes (agree or disagree)? Why? @ -I reviewed and agree with nursing and triage notes Were old charts reviewed (outside hosp., previous admission, EMS record, old EKG, old radiological studies, urgent care reports/EKG's, detention records)? Report findings @ -No old charts were reviewed Differential Diagnosis (chest pain, altered mental status, abdominal pain women, abdominal pain men, vaginal bleeding, weakness, fever, dyspnea, syncope, headache, dizziness, GI bleed, back pain, seizure, CVA, palpatations, mental health, musculoskeletal)? @ -Not applicable EKG interpreted by me (3pts min.). @ -Sinus rhythm with left axis, left bundle branch block, rate of 67, IL interval 203, QRS duration 153, QTc [address] segment elevation. X-rays interpreted by me (1pt min.). @ -None done CT interpreted by me (1pt min.). @ -None done U/S interpreted by me (1pt. min.). @ -None done What testing was considered but not performed or refused? (CT, X-rays, U/S, labs)? Why? @ -None What meds were considered but not given or refused? Why? @ -None Did you discuss the management of the patient with other professionals (professionals i.e. SUMANTH Finley, [facility] MOLDER, lab, RT, psych nurse, social staff worker, candy spreader helper, teacher, emergency communications officer, supportive employment case manager)? Give summary @ -No Was smoking cessation discussed for >3mins.? @ -No Was critical care preformed (if so, how long)? @ -No Were there social determinants of health that impacted care today? How? (Homelessness, low income, unemployed, alcoholism, drug addiction, transportation, low edu. Level, literacy, decrease access to med. care, retirement, rehab)? @ -No Was there de-escalation of care discussed even if they declined (Discuss DNR or withdrawal of care, Hospice)? DNR status @ -No What co-morbidities impacted this encounter? (DM, HTN, Smoking, COPD, CAD, Cancer, CVA, ARF, Chemo, Hep., AIDS, mental health diagnosis, sleep apnea, morbid obesity)? @ -Hypertension, chronic kidney disease, coronary artery disease Was patient admitted / discharged? Hospital course, mention meds given and route, prescriptions, significant lab abnormalities, going to OR and other pertinent info. @ -84-year-old male with brief syncopal episode, no injury, no associated symptoms. This is a recurrent issue for this patient. Patient feels fine at the time my evaluation without complaint and wishes to be discharged he does agree with basic lab testing which is stable for this patient, chronic anemia, chronic kidney disease. EKG is sinus. Patient reevaluated and is eager for discharge. We did discuss medication change. He will reduce his Norvasc from 10 mg to 5 mg and follow closely with his primary care provider or pricing specialist. Monitor blood pressure at home. Undiagnosed new problem with uncertain prognosis? @ -No Drug Therapy requiring intensive monitoring for toxicity (Heparin, Nitro, Insulin, Cardizem)? @ -No Were any procedures done? @ -No Diagnosis/symptom? @ -Syncope Acute, or Chronic, or Acute on Chronic? @ -acute Uncomplicated (without systemic symptoms) or Complicated (systemic symptoms)? @ -Default Side effects of treatment? @ -No Exacerbation, Progression, or Severe Exacerbation? @ -No Poses a threat to life or bodily function? How? (Chest pain, [place], [place], pneumonia, PE, COPD, DKA, ARF, appy, cholecystitis, CVA, Diverticulitis, Homicidal, Suicidal, threat to staff... and all critical care pts) @ -moderate risk - Lab Data Result diagrams: 08/30/24 13:03 08/30/24 13:03 Lab Results 08/30/24 08/30/24 Range/Units 13:03 13:03 WBC 8.3 (3.8-10.6) k/uL RBC 3.21 L (4.30-5.90) m/uL Hgb 9.1 L (13.0-17.5) gm/dL Hct 29.3 L (39.0-53.0) % MCV 91.1 (80.0-100.0) fL MCH 28.2 (25.0-35.0) pg MCHC 30.9 L (31.0-37.0) g/dL RDW 14.0 (11.5-15.5) % Plt Count 353 (150-450) k/uL MPV 7.2 Neutrophils % 64 % Lymphocytes % 25 % Monocytes % 6 % Eosinophils % 4 % Basophils % 1 % Neutrophils # 5.2 (1.3-7.7) k/uL Lymphocytes # 2.0 (1.0-4.8) k/uL Monocytes # 0.5 (0-1.0) k/uL Eosinophils # 0.3 (0-0.7) k/uL Basophils # 0.1 (0-0.2) k/uL Hypochromasia Moderate Sodium 137 (137-145) mmol/L Potassium 4.3 (3.5-5.1) mmol/L Chloride 106 (98-107) mmol/L Carbon Dioxide 27 (22-30) mmol/L Anion Gap 4 mmol/L BUN 23 H (9-20) mg/dL Creatinine 1.69 H (0.66-1.25) mg/dL Est GFR (CKD-EPI)AfAm 43 (>60 ml/min/1.73 sqM) Est GFR (CKD-EPI)NonAf 37 (>60 ml/min/1.73 sqM) Glucose 146 H (74-99) mg/dL Calcium 8.2 L (8.4-10.2) mg/dL Total Bilirubin 0.6 (0.2-1.3) mg/dL AST 24 (17-59) U/L ALT 13 (4-49) U/L Alkaline Phosphatase 83 (38-126) U/L Total Protein 6.1 L (6.3-8.2) g/dL Albumin 3.5 (3.5-5.0) g/dL Disposition Clinical Impression: Syncope Disposition: HOME SELF-CARE Condition: Fair Instructions (If sedation given, give patient instructions): Syncope (ED) Additional Instructions: PLease Reduce your amlodipine dose from 10 mg to 5 mg daily, please monitor your blood pressure closely and follow-up with your primary care provider and pricing specialist. Is patient prescribed a controlled substance at d/c from ED?: No Referrals: Kavya Khan DO [Primary Care Provider] - 1-2 days Time of Disposition: 14:06
[2024-08-30 13:22] LABS: Basophils # (A) 0.1 k/uL (0-0.2); Basophils % (A) 1 %; Eosinophils # (A) 0.3 k/uL (0-0.7); Eosinophils % (A) 4 %; HCT 29.3 % (39.0-53.0); HGB 9.1 gm/dL (13.0-17.5); Hypochromasia Moderate; Lymphocytes % (A) 25 %; MCH 28.2 pg (25.0-35.0); MCHC 30.9 g/dL (31.0-37.0); MCV 91.1 fL (80.0-100.0); Mean Platelet Volume 7.2; Monocytes # (A) 0.5 k/uL (0-1.0); Monocytes % (A) 6 %; Neutrophils # (A) 5.2 k/uL (1.3-7.7); Neutrophils % (A) 64 %; Platelet Count 353 k/uL (150-450); RBC 3.21 m/uL (4.30-5.90); WBC 8.3 k/uL (3.8-10.6)
[2024-08-30 13:51] LABS: ALT 13 U/L (4-49); AST 24 U/L (17-59); African American GFR (CKD) 43 (>60 ml/min/1.73 sqM); Albumin 3.5 g/dL (3.5-5.0); Alkaline Phosphatase 83 U/L (38-126); Anion Gap 4 mmol/L; Blood Urea Nitrogen 23 mg/dL (9-20); Calcium 8.2 mg/dL (8.4-10.2); Carbon Dioxide 27 mmol/L (22-30); Chloride 106 mmol/L (98-107); Glucose 146 mg/dL (74-99); Non-African American GFR(CKD) 37 (>60 ml/min/1.73 sqM); Potassium 4.3 mmol/L (3.5-5.1); Sodium 137 mmol/L (137-145); Total Bilirubin 0.6 mg/dL (0.2-1.3); Total Protein 6.1 g/dL (6.3-8.2)
[2024-08-30 14:43] VITALS: BP 115/70; PULSE 66
== END 2024-08-30 14:42 | disposition home or self-care (01) ==
LOC: EC 12:26
DX: R55 Syncope and collapse (principal); Z91.041 Radiographic dye allergy status; Z91.013 Allergy to seafood; Z95.1 Presence of aortocoronary bypass graft; Z95.5 Presence of coronary angioplasty implant and graft
CPT/HCPCS: 36415; 80053; 85025; 93005; 99284

== ENCOUNTER 2025-05-16 14:09 | Observation (INO) | payer MEDICARE ==
[2025-05-16 14:18] LABS: Glucose,Whole Blood 196 mg/dL (70-110)
[2025-05-16 14:36] LABS: Basophils # (A) 0.11 10*3/uL (0.00-0.10); Basophils % (A) 1.1 %; Eosinophils # (A) 0.29 10*3/uL (0.04-0.35); Eosinophils % (A) 2.9 %; HCT 34.4 % (39.6-50.0); HGB 11.0 g/dL (13.0-17.0); Lymphocytes # (A) 3.09 10*3/uL (0.90-5.00); Lymphocytes % (A) 30.9 %; MCH 27.9 pg (27.0-32.0); MCHC 32.0 g/dL (32.0-37.0); MCV 87.3 fL (80.0-97.0); Monocytes # (A) 0.72 10*3/uL (0.20-1.00); Monocytes % (A) 7.2 %; Neutrophils # (A) 5.69 10*3/uL (1.80-7.70); Neutrophils % (A) 57.0 %; Platelet Count 334 10*3/uL (140-440); RBC 3.94 10*6/uL (4.40-5.60); RDW 13.2 % (11.5-14.5); WBC 9.99 10*3/uL (4.50-10.00)
[2025-05-16 14:40] LABS: ALT 26 U/L (4-49); AST 34 U/L (17-59); African American GFR (CKD) 44 (>60 ml/min/1.73 sqM); Albumin 4.2 g/dL (3.5-5.0); Alkaline Phosphatase 122 U/L (38-126); Anion Gap 10 mmol/L; Blood Urea Nitrogen 17 mg/dL (9-20); Calcium 10.6 mg/dL (8.4-10.2); Carbon Dioxide 26 mmol/L (22-30); Chloride 101 mmol/L (98-107); Glucose 182 mg/dL (74-99); Non-African American GFR(CKD) 38 (>60 ml/min/1.73 sqM); Potassium 4.5 mmol/L (3.5-5.1); Sodium 137 mmol/L (137-145); Total Protein 7.5 g/dL (6.3-8.2)
[2025-05-16 14:50] LABS: INR 0.9 (<1.2); Partial Thromboplastin Time 22.2 sec (22.0-30.0); Prothrombin Time 10.1 sec (10.0-12.5)
[2025-05-16] MEDS ORDERED: HEPARIN SODIUM 1,000 UN/ML (10ML VL) IV PRN (14:53)
--- NOTE | 2025-05-16 14:53 | ED ---
General Adult HPI - General Chief complaint: Syncope Stated complaint: Syncope/Afib Time Seen by Provider: 05/16/25 14:18 Source: patient, EMS Mode of arrival: EMS Limitations: no limitations - History of Present Illness Initial comments: Dictation was produced using [employer] dictation software. please excuse any grammatical, word or spelling errors. Chief Complaint: 85-year-old male with history of bypass presents emergency department with presyncope History of Present Illness: Patient is an 85-year-old male with history of CABG. States that he was in line for approximately 1 hour to go on [place] all of a sudden he started to feel lightheaded and had to lay down. EMS was called. EMS placed patient on the monitor and patient was noted to be in narrow complex irregular rhythm suspicious for A-fib. Patient [place] any history of A-fi b. Has been in the emergency department symptoms have resolved. States that his symptoms lasted for approximately 1 hour. Patient is currently feels at baseline at the bedside The ROS documented in this emergency department record has been reviewed and confirmed by me. Those systems with pertinent positive or negative responses have been documented in the HPI. All other systems are other negative and/or noncontributory. - Related Data Home Medications Medication Instructions Recorded Confirmed Atorvastatin Calcium [Lipitor] 40 mg PO DAILY 02/12/24 12/08/24 Clopidogrel [Plavix] 75 mg PO DAILY 02/12/24 12/08/24 Loratadine [Claritin] 10 mg PO DAILY 02/12/24 12/08/24 Mirabegron [Myrbetriq] 50 mg PO DAILY PRN 02/12/24 12/08/24 Nitroglycerin Sl Tabs [Nitrostat] 0.4 mg SL Q5M PRN 02/20/24 12/08/24 Previous Rx's Medication Instructions Recorded Aspirin 81 mg PO DAILY tab 02/13/24 Dapagliflozin Propanediol [Farxiga] 10 mg PO DAILY #30 tab 12/10/24 Losartan [Cozaar] 25 mg PO DAILY 30 Days #30 tab 12/10/24 amLODIPine [Norvasc] 5 mg PO DAILY 30 Days #30 tab 12/10/24 carvediloL [Coreg] 3.125 mg PO BID #180 tablet 12/10/24 Allergies Allergy/AdvReac Type Severity Reaction Status Date / Time iodine Allergy Severe Rash/Hives,skin Verified 05/16/25 14:19 peeled Penicillins Allergy Rash/Hives Verified 05/16/25 14:19 shellfish derived [Shellfish] Allergy Rash/Hives Verified 05/16/25 14:19 Review of Systems ROS Statement: Those systems with pertinent positive or pertinent negative responses have been documented in the HPI. ROS Other: All systems not noted in ROS Statement are negative. Past Medical History Past Medical History: Asthma, Coronary Artery Disease (CAD), Cancer, GERD/Reflux, Hyperlipidemia, Hypertension, Myocardial Infarction ([place]), Prostate Disorder, Sleep Apnea/CPAP/BIPAP Additional Past Medical History / Comment(s): H&P scanned. No CPAP use, hx prostate cancer prior to 1999-had surgery & radiation, erectile dysfunction, BILATERAL PLEURAL EFFUSIONS POST CABG. Last Myocardial Infarction Date:: unknown History of Any Multi-Drug Resistant Organisms: None Reported Past Surgical History: Coronary Bypass/CABG, Heart Catheterization, Heart Catheterization With Stent, Prostate Surgery Additional Past Surgical History / Comment(s): Quadruple bypass, one cardiac stent, BILATERAL THORACENTESIS, prostatectomy. Past Anesthesia/Blood Transfusion Reactions: No Reported Reaction Date of Last Stent Placement:: unknown Past Psychological History: No Psychological Hx Reported Smoking Status: Never smoker Past Alcohol Use History: None Reported Past Drug Use History: None Reported - Past Family History Mother Family Medical History: No Reported History Additional Family Medical History / Comment(s): Multisystem organ failure, at age 93. Father Family Medical History: Cancer Additional Family Medical History / Comment(s): Colon cancer. General Exam - General Exam Comments Initial Comments: PHYSICAL EXAM: General Impression: Alert and oriented x3, not in acute distress HEENT: Normocephalic atraumatic, extra-ocular movements intact, pupils equal and reactive to light bilaterally, mucous membranes moist. Cardiovascular: Heart regular rate and rhythm Chest: Able to complete full sentences, no retractions, no tachypnea Abdomen: abdomen soft, non-tender, non-distended, no organomegaly Musculoskeletal: Pulses present and equal in all extremities, no peripheral edema Motor: no focal deficits noted Neurological: CN II-XII grossly intact, no focal motor or sensory deficits noted Skin: Intact with no visualized rashes Psych: Normal affect and mood Limitations: no limitations Course Vital Signs 05/16/25 05/16/25 14:14 15:09 Temperature 98.0 F Pulse Rate 84 Pulse Rate [ 89 Manager Quantitative ] Respiratory 16 Rate Blood Pressure 114/98 O2 Sat by Pulse 96 Oximetry EKG Findings - EKG Comments: EKG Findings:: My EKG interpretation: Ventricular rate 91, A-fib, QRS 130, QTc 436. No CO prolongation, no QTC prolongation, no ST or T-wave changes noted. Medical Decision Making - Medical Decision Making Was pt. sent in by a medical professional or institution (, PA, DEPUTY COURT CLERK, urgent care, hospital, or halfway...) When possible be specific @ -No Did you speak to anyone other than the patient for history (EMS, parent, family, police, friend...)? What history was obtained from this source @ -EMS as described above Did you review nursing and triage notes (agree or disagree)? Why? @ -I reviewed and agree with nursing and triage notes Were old charts reviewed (outside hosp., previous admission, EMS record, old EKG, old radiological studies, urgent care reports/EKG's, halfway records)? Report findings @ -No old charts were reviewed Differential Diagnosis (chest pain, altered mental status, abdominal pain women, abdominal pain men, vaginal bleeding, musculoskeletal, weakness, fever, dyspnea, syncope, headache, dizziness, GI bleed, back pain, seizure, CVA, palpatations, mental health)? @ -Differential Syncope: Valvular disease, hypertrophic cardiomyopathy, pulmonary embolism, tamponade, tachycardia, bradycardia, TN, hypovolemia, hemorrhage, dissection, anemia, intracranial hemorrhage, seizure, hypoglycemia, carbon monoxide poisoning, this is not meant to be an all-inclusive list. EKG interpreted by me (3pts min.). @ -See above X-rays interpreted by me (1pt min.). @ -Chest x-ray shows no acute processes CT interpreted by me (1pt min.). @ -None done U/S interpreted by me (1pt. min.). @ -None done What testing was considered but not performed or refused? (CT, X-rays, U/S, labs)? Why? @ -None What meds were considered but not given or refused? Why? @ -None Was smoking cessation discussed for >3mins.? @ -No Were there social determinants of health that impacted care today? How? (Homelessness, low income, unemployed, alcoholism, drug addiction, transpo rtation, low edu. Level, literacy, decrease access to med. care, custodial, rehab)? @ -No Was there de-escalation of care discussed even if they declined (Discuss DNR or withdrawal of care, Hospice)? DNR status @ -No What co-morbidities impacted this encounter? (DM, HTN, Smoking, COPD, CAD, Cancer, CVA, ARF, Chemo, Hep., AIDS, mental health diagnosis, sleep apnea, morbid obesity)? @ -None Was patient admitted / discharged? Hospital course, mention meds given and route, prescriptions, significant lab abnormalities, going to OR and other pertinent info. @ -85-year-old male presents to the emergency department with syncopal episode. EMS states that patient appeared to be in A-fib with RVR. Vital signs at the bedside stable. Patient denies any symptoms at the bedside. EKG shows A-fib that is rate controlled. Laboratory evaluation is unremarkable. Patient started on anticoagulation medication. Will be admitted consultation to cardiology. Case discussed with hospitalist for admission Did you discuss the management of the patient with other professionals (professionals i.e. , PA, DEPUTY COURT CLERK, lab, RT, psych nurse, transition social worker, criminal defense lawyer, teacher, ski patrol officer, lining caser)? Give summary @ -See above Was critical care preformed (if so, how long)? @ -Yes, 33 minutes Undiagnosed new problem with uncertain prognosis? @ -No Drug Therapy requiring intensive monitoring for toxicity (Heparin, Nitro, Insulin, Cardizem)? @ -No Were any procedures done? @ -No Diagnosis/symptom? Acute, or Chronic, or Acute on Chronic? Uncomplicated (without systemic symptoms) or Complicated (systemic symptoms)? @ -New onset A-fib Side effects of treatment? @ -No Exacerbation, Progression, or Severe Exacerbation? @ -No Poses a threat to life or bodily function? How? (Chest pain, [place], [place], pneumonia, PE, COPD, DKA, ARF, appy, cholecystitis, CVA, Diverticulitis, Homicidal, Suicidal, threat to staff... and all critical care pts) @ -yes - Lab Data Result diagrams: 05/16/25 14:31 05/16/25 14:31 Lab Results 05/16/25 05/16/25 05/16/25 Range/Units 14:17 14:31 14:31 WBC 9.99 (4.50-10.00) 10*3/uL RBC 3.94 L (4.40-5.60) 10*6/uL Hgb 11.0 L (13.0-17.0) g/dL Hct 34.4 L (39.6-50.0) % MCV 87.3 (80.0-97.0) fL MCH 27.9 (27.0-32.0) pg MCHC 32.0 (32.0-37.0) g/dL Plt Count 334 (140-440) 10*3/uL MPV 9.7 (9.5-12.2) fL Immature Gran % (Auto) 0.9 % Neutrophils % 57.0 % Lymphocytes % 30.9 % Monocytes % 7.2 % Eosinophils % 2.9 % Basophils % 1.1 % Immature Gran # 0.09 H (0.00-0.04) 10*3/uL Neutrophils # 5.69 (1.80-7.70) 10*3/uL Lymphocytes # 3.09 (0.90-5.00) 10*3/uL Monocytes # 0.72 (0.20-1.00) 10*3/uL Eosinophils # 0.29 (0.04-0.35) 10*3/uL Basophils # 0.11 H (0.00-0.10) 10*3/uL PT 10.1 (10.0-12.5) sec INR 0.9 (<1.2) APTT 22.2 (22.0-30.0) sec Sodium (137-145) mmol/L Potassium (3.5-5.1) mmol/L Chloride (98-107) mmol/L Carbon Dioxide (22-30) mmol/L Anion Gap mmol/L BUN (9-20) mg/dL Creatinine (0.66-1.25) mg/dL Est GFR (CKD-EPI)AfAm (>60 ml/min/1.73 sqM) Est GFR (CKD-EPI)NonAf (>60 ml/min/1.73 sqM) Glucose (74-99) mg/dL POC Glucose (mg/dL) 196 H (70-110) mg/dL POC Glu Parts Runner ID [place] Calcium (8.4-10.2) mg/dL Total Bilirubin (0.2-1.3) mg/dL AST (17-59) U/L ALT (4-49) U/L Alkaline Phosphatase (38-126) U/L Troponin I (0.000-0.034) ng/mL Total Protein (6.3-8.2) g/dL Albumin (3.5-5.0) g/dL 05/16/25 05/16/25 Range/Units 14:31 14:31 WBC (4.50-10.00) 10*3/uL RBC (4.40-5.60) 10*6/uL Hgb (13.0-17.0) g/dL Hct (39.6-50.0) % MCV (80.0-97.0) fL MCH (27.0-32.0) pg MCHC (32.0-37.0) g/dL Plt Count (140-440) 10*3/uL MPV (9.5-12.2) fL Immature Gran % (Auto) % Neutrophils % % Lymphocytes % % Monocytes % % Eosinophils % % Basophils % % Immature Gran # (0.00-0.04) 10*3/uL Neutrophils # (1.80-7.70) 10*3/uL Lymphocytes # (0.90-5.00) 10*3/uL Monocytes # (0.20-1.00) 10*3/uL Eosinophils # (0.04-0.35) 10*3/uL Basophils # (0.00-0.10) 10*3/uL PT (10.0-12.5) sec INR (<1.2) APTT (22.0-30.0) sec Sodium 137 (137-145) mmol/L Potassium 4.5 (3.5-5.1) mmol/L Chloride 101 (98-107) mmol/L Carbon Dioxide 26 (22-30) mmol/L Anion Gap 10 mmol/L BUN 17 (9-20) mg/dL Creatinine 1.65 H (0.66-1.25) mg/dL Est GFR (CKD-EPI)AfAm 44 (>60 ml/min/1.73 sqM) Est GFR (CKD-EPI)NonAf 38 (>60 ml/min/1.73 sqM) Glucose 182 H (74-99) mg/dL POC Glucose (mg/dL) (70-110) mg/dL POC Glu Parts Runner ID Calcium 10.6 H (8.4-10.2) mg/dL Total Bilirubin 0.7 (0.2-1.3) mg/dL AST 34 (17-59) U/L ALT 26 (4-49) U/L Alkaline Phosphatase 122 (38-126) U/L Troponin I 0.025 (0.000-0.034) ng/mL Total Protein 7.5 (6.3-8.2) g/dL Albumin 4.2 (3.5-5.0) g/dL Disposition Clinical Impression: New onset a-fib Disposition: ADMITTED IP TO THIS HOSP Condition: Fair Referrals: Kavya Khan DO [Primary Care Provider] - 1-2 days Decision Time: 15:38
--- NOTE | 2025-05-16 15:08 | XR ---
EXAMINATION TYPE: XR chest 2V DATE OF EXAM: 05/16/2025 2:55 PM COMPARISON: Chest radiograph 12/07/2024. CLINICAL INDICATION: Male, 85 years old with history of syncope; [facility] TECHNIQUE: XR chest 2V Frontal and lateral views of the chest. FINDINGS: Lungs/Pleura: There is no evidence of pleural effusion, focal consolidation, or pneumothorax. Pulmonary vascularity: Unremarkable. Heart/mediastinum: Cardiomegaly. Median sternotomy wires. Atrial appendage occlusion device. Musculoskeletal: No acute osseous pathology. Other findings: None IMPRESSION: No acute cardiopulmonary disease/process. [facility], , 05/16/2025 3:06 PM
[2025-05-16] MEDS: HEPARIN SODIUM 1,000 UN/ML (10ML VL) IV ONE (15:25)
[2025-05-16] MEDS: HEPARIN SOD,PORK IN 0.45% NACL 25,000 UNIT in 0.45% NACL 1 250ML.BAG IV SCH (15:26)
[2025-05-16] MEDS ORDERED: NALOXONE 0.4 MG/ML 1 ML VIAL IV PRN (15:28)
[2025-05-16] MEDS: SODIUM CHLORIDE 0.9% 1,000 ML IV SCH (16:45)
[2025-05-17] MEDS ORDERED: GABAPENTIN 300 MG CAP PO PRN (07:13)
[2025-05-17 07:43] LABS: Basophils # (A) 0.11 10*3/uL (0.00-0.10); Basophils % (A) 1.1 %; Eosinophils # (A) 0.38 10*3/uL (0.04-0.35); Eosinophils % (A) 3.7 %; HCT 33.7 % (39.6-50.0); HGB 10.5 g/dL (13.0-17.0); Lymphocytes # (A) 3.31 10*3/uL (0.90-5.00); Lymphocytes % (A) 32.2 %; MCH 27.6 pg (27.0-32.0); MCHC 31.2 g/dL (32.0-37.0); MCV 88.7 fL (80.0-97.0); Monocytes # (A) 0.79 10*3/uL (0.20-1.00); Monocytes % (A) 7.7 %; Neutrophils # (A) 5.65 10*3/uL (1.80-7.70); Neutrophils % (A) 54.8 %; Platelet Count 327 10*3/uL (140-440); RBC 3.80 10*6/uL (4.40-5.60); RDW 13.5 % (11.5-14.5); WBC 10.29 10*3/uL (4.50-10.00)
[2025-05-17 07:58] LABS: ALT 24 U/L (4-49); AST 35 U/L (17-59); African American GFR (CKD) 63 (>60 ml/min/1.73 sqM); Albumin 4.0 g/dL (3.5-5.0); Albumin/Globulin Ratio 1.3; Alkaline Phosphatase 133 U/L (38-126); Anion Gap 11 mmol/L; Blood Urea Nitrogen 20 mg/dL (9-20); Calcium 9.7 mg/dL (8.4-10.2); Carbon Dioxide 23 mmol/L (22-30); Chloride 103 mmol/L (98-107); Globulin 3.1 g/dL; Glucose 142 mg/dL (74-99); Non-African American GFR(CKD) 55 (>60 ml/min/1.73 sqM); Potassium 4.2 mmol/L (3.5-5.1); Sodium 137 mmol/L (137-145); Total Protein 7.1 g/dL (6.3-8.2)
[2025-05-17] MEDS: prednisoLONE ACETATE 1% OPHTH DROPS 5 ML BTL LEFT EYE SCH (09:41)
[2025-05-17] MEDS: KETOROLAC 0.5% OPHTH DROPS 5 ML BTL LEFT EYE SCH (09:42)
[2025-05-17] MEDS: LOSARTAN-HCTZ 50-12.5 MG 1 EACH TAB PO SCH (09:42)
[2025-05-17] MEDS: LORATADINE 10 MG TAB PO SCH (09:42)
[2025-05-17] MEDS: ATORVASTATIN 40 MG TAB PO SCH (09:42)
[2025-05-17] MEDS: FLUTICASONE NASAL 50MCG/SPRAY 16GM BTL EA NOSTRIL SCH (09:42)
[2025-05-17] MEDS: OFLOXACIN 0.3% OPHTH DROPS 5 ML BOTTLE LEFT EYE SCH (09:42)
--- NOTE | 2025-05-17 11:12 | P.CRDCN ---
History of Present Illness Consult date: 05/17/25 Requesting physician: Brisa Rausch Reason for Consult (text): new onset afib Chief complaint: Dizziness, nausea, near syncope History of present illness: This is a pleasant 85-year-old gentleman patient of Dr. Boo with past medical history of hypertension, hyperlipidemia, CAD with prior CABG in January 2021, stenting of the distal left circumflex in 2019 for, ischemic cardiomyopathy with ejection fraction of 35 to 40%, mitral regurgitation. Presented to the hospital with complaints of "heat stroke". He was standing in the sun yesterday for about an hour waiting to board the [employer] when he suddenly became quite dizzy, nauseous and felt like he was going to pass out. He sat down and symptoms improved. EMS was called and there was question of possible atrial fibrillation on the rhythm strips done by them. EKG in the emergency department read out as atrial fibrillation however upon review shows sinus mechanism with frequent PACs. He has been initiated on IV heparin. Diagnostics -EKG: Sinus mechanism with PACs -Chest x-ray: No acute cardiopulmonary disease/process -Laboratory studies: White blood cell count 9.99, hemoglobin 11, sodium 137, potassium 4.5, BUN 17, creatinine 1.65 which is down to 1.22 this morning, troponin 0.025. -Home cardiac medications: Amlodipine 5 mg p.o. daily, losartan hydrochlorothiazide 50-12.5 mg 1 tablet daily, Plavix 75 mg p.o. daily, atorv astatin 40 mg p.o. daily. -Prior stress test: 02/15/2024: Moderate size fixed defect mid to apical an terolateral wall, may be small amount of noreen-infarct ischemia, estimated LVEF 43% -Echocardiogram: 12/08/2024: Reduced LV systolic function with ejection fraction of 35 to 40%, moderate MR, mild aortic stenosis -Cardiac catheterization: Critical disease involving the distal left main and proximal left LAD and left circumflex, patent FAULKNER to LAD, patent radial artery bypass to ramus intermedius and distal left circumflex, left circumflex distal to distal anastomosis with a critical lesion, intermediate disease involving the mid RCA, SVG to PDA appeared diseased and atrophic. Patient subsequently underwent successful stenting of the distal left circumflex - Coronary artery bypass graftin01/2021: FAULKNER to LAD, radial graft to ramus intermedius and distal left circumflex, SVG to PDA Review Of Systems: At the time of my exam: CONSTITUTIONAL: Denies fever or chills. HEENT: Denies blurred vision, vision changes. CARDIOVASCULAR: Denies chest pain. Denies orthopnea. Denies PND. Denies palpi tations, dizziness, or syncope. RESPIRATORY: Denies shortness of breath, wheezing, or cough. Denies hemoptysis. GASTROINTESTINAL: Denies abdominal pain. Denies nausea or vomiting. Denies bleeding. HEMATOLOGIC: Denies bleeding disorders. GENITOURINARY: Denies hematuria. SKIN: Denies puritis. Denies rash. PHYSICAL EXAMINATION: This is a 85-year-old -Filipino gentleman in no apparent distress at the time of my examination. VITAL SIGNS: Reviewed. HEENT: Head is atraumatic, normocephalic. Pupils are equal, round. Sclerae anicteric. Conjunctivae are clear. Mucous membranes of the mouth are moist. Neck is supple. There is no elevated jugular venous pressure. No carotid bruit is heard. CHEST EXAMINATION: Clear to auscultation bilaterally. No wheezes rales or rhonchi. Respirations even and nonlabored. HEART EXAMINATION: Heart regular, positive S1 and S2. No S3. No S4. Systolic murmur. ABDOMEN: Soft, nontender. Bowel sounds are heard. No organomegaly noted. EXTREMITIES: 2+ peripheral pulses with no evidence of peripheral edema and no calf tenderness noted. NEUROLOGIC EXAMINATION: Patient is awake, alert and oriented x3. Assessment: 1. Concern for A-fib 2. Dizziness, likely secondary to dehydration 3. Coronary artery disease, status post CABG and subsequent stenting of the left circumflex 4. Ischemic cardiomyopathy 5. Hypertension 6. Hyperlipidemia Plan: From cardiology's perspective EKGs and telemetry strips were reviewed including alerts on clinical access, no true atrial fibrillation identified. We will discontinue IV heparin. Resume home dose of losartan hydrochlorothiazide, discontinue amlodipine. Will start the patient on metoprolol succinate 25 mg p.o. daily. Repeat renal function electrolytes in the morning. We will continue to follow the patient and provide further recommendations accordingly. Anticipate possible event monitor as an outpatient. Thank you kindly for this consultation. Nurse practitioner note has been reviewed, I agree with documented findings and plan of care. Patient was seen and examined. Past Medical History Past Medical History: Asthma, Coronary Artery Disease (CAD), Cancer, GERD/Reflux, Hyperlipidemia, Hypertension, Myocardial Infarction (CT), Prostate Disorder, Sleep Apnea/CPAP/BIPAP Additional Past Medical History / Comment(s): H&P scanned. No CPAP use, hx prostate cancer prior to 1999-had surgery & radiation, erectile dysfunction, BILATERAL PLEURAL EFFUSIONS POST CABG. Last Myocardial Infarction Date:: unknown History of Any Multi-Drug Resistant Organisms: None Reported Past Surgical History: Coronary Bypass/CABG, Heart Catheterization, Heart Catheterization With Stent, Prostate Surgery Additional Past Surgical History / Comment(s): Quadruple bypass, one cardiac stent, BILATERAL THORACENTESIS, prostatectomy, cataract laser surgery. Past Anesthesia/Blood Transfusion Reactions: No Reported Reaction Date of Last Stent Placement:: unknown Past Psychological History: No Psychological Hx Reported Smoking Status: Former smoker Past Alcohol Use History: None Reported Past Drug Use History: None Reported - Past Family History Mother Family Medical History: No Reported History Additional Family Medical History / Comment(s): Multisystem organ failure, at age 93. Father Family Medical History: Cancer Additional Family Medical History / Comment(s): Colon cancer. Medications and Allergies Home Medications Medication Instructions Recorded Confirmed Type Atorvastatin Calcium [Lipitor] 40 mg PO DAILY 02/12/24 05/16/25 History Clopidogrel [Plavix] 75 mg PO DAILY 02/12/24 05/16/25 History amLODIPine [Norvasc] 5 mg PO DAILY 30 Days #30 tab 12/10/24 05/16/25 Rx Albuterol Sulfate [Ventolin HFA] 2 puff INHALATION RT-QID 05/16/25 05/16/25 History Cetirizine HCl [Zyrtec] 10 mg PO DAILY 05/16/25 05/16/25 History Fluticasone Nasal [place] [Flonase 1 spr EA NOSTRIL DAILY 05/16/25 05/16/25 History Nasal [place]] Gabapentin 600 mg PO DAILY PRN 05/16/25 05/16/25 History Ketorolac 0.5% Ophth Soln [Acular 1 drop LEFT EYE QID 05/16/25 05/16/25 History 0.5%] Losartan-Hctz 50-12.5 mg [Hyzaar 1 tab PO DAILY 05/16/25 05/16/25 History 50-12.5] Ofloxacin 0.3% Ophth Soln [Ocuflox 1 drop LEFT EYE QID 05/16/25 05/16/25 History Ophth Soln] Prednisolone Acetate/Pf 1 drop LEFT EYE QID 05/16/25 05/16/25 History [Prednisolone Acet 1% Eye Drop] Allergies Allergy/AdvReac Type Severity Reaction Status Date / Time iodine Allergy Severe Rash/Hives,skin Verified 05/16/25 17:29 peeled Penicillins Allergy Rash/Hives Verified 05/16/25 17:29 shellfish derived [Shellfish] Allergy Rash/Hives Verified 05/16/25 17:29 Physical Exam Vitals: Vital Signs Temp Pulse Pulse Resp BP BP Pulse Ox 05/17/25 01:50 97.3 F L 76 17 121/72 98 05/17/25 01:29 81 17 05/16/25 20:37 98.2 F 85 17 137/65 98 05/16/25 20:00 84 15 05/16/25 17:54 92 18 138/69 94 L 05/16/25 15:17 84 15 127/91 94 L 05/16/25 15:09 89 05/16/25 14:14 98.0 F 84 16 114/98 96 Intake and Output 05/16/25 05/17/25 05/17/25 22:59 06:59 14:59 Intake Total 133.834 Balance 133.834 Intake: Intake, IV Titration 133.834 Amount Heparin Sod,Pork in 0.45% 133.834 NaCl 25,000 unit In 0.45 % NaCl 1 250ml.bag @ 9. 798 UNITS/KG/HR 10 mls/hr IV .Q24H [facility] Rx#: [id number] Other: Voiding Method Toilet Toilet # Voids 2 Weight 102.058 kg Results 05/17/25 04:06 05/17/25 04:06 Cardiac Enzymes 05/16/25 05/16/25 05/17/25 Range/Units 14:31 14:31 04:06 AST 34 35 (17-59) U/L Troponin I 0.025 (0.000-0.034) ng/mL Coagulation 05/16/25 05/16/25 05/17/25 Range/Units 14:31 23:06 04:06 PT 10.1 (10.0-12.5) sec APTT 22.2 43.2 H 46.2 H (22.0-30.0) sec CBC 05/16/25 05/17/25 Range/Units 14:31 04:06 WBC 9.99 10.29 H (4.50-10.00) 10*3/uL RBC 3.94 L 3.80 L (4.40-5.60) 10*6/uL Hgb 11.0 L 10.5 L (13.0-17.0) g/dL Hct 34.4 L 33.7 L (39.6-50.0) % Plt Count 334 327 (140-440) 10*3/uL Comprehensive Metabolic Panel 05/16/25 05/17/25 Range/Units 14:31 04:06 Sodium 137 137 (137-145) mmol/L Potassium 4.5 4.2 (3.5-5.1) mmol/L Chloride 101 103 (98-107) mmol/L Carbon Dioxide 26 23 (22-30) mmol/L BUN 17 20 (9-20) mg/dL Creatinine 1.65 H 1.22 (0.66-1.25) mg/dL Glucose 182 H 142 H (74-99) mg/dL Calcium 10.6 H 9.7 (8.4-10.2) mg/dL AST 34 35 (17-59) U/L ALT 26 24 (4-49) U/L Alkaline Phosphatase 122 133 H (38-126) U/L Total Protein 7.5 7.1 (6.3-8.2) g/dL Albumin 4.2 4.0 (3.5-5.0) g/dL Current Medications Generic Name Dose Route Start Last Admin Trade Name Freq PRN Reason Stop Dose Admin Albuterol Sulfate 2.5 mg 05/17/25 08:00 Albuterol Nebulized 2.5 Mg/3 Ml INHALATION RT-QID [facility] Atorvastatin Calcium 40 mg 05/17/25 09:00 Atorvastatin 40 Mg Tab PO DAILY ELISA Fluticasone Propionate 1 spray 05/17/25 09:00 Fluticasone Nasal 50mcg/[place] 16gm Btl EA NOSTRIL DAILY ELISA Gabapentin 600 mg 05/17/25 07:13 Gabapentin 300 Mg Cap PO DAILY PRN Pain Heparin Sodium (Porcine) 0 unit 05/16/25 14:53 Heparin Sodium 1,000 Un/Ml (10ml Vl) IV PER PROTOCOL PRN Low PTT Protocol Heparin Sodium/Sodium Chloride 250 mls @ 10 mls/hr 05/16/25 15:00 05/17/25 04:49 25,000 unit/ Sodium Chloride IV 9.798 units/kg/hr .Q24H ELISA 10 mls/hr Titration Protocol 9.798 UNITS/KG/HR Sodium Chloride 1,000 mls @ 20 mls/hr 05/16/25 15:30 05/16/25 16:45 Saline 0.9% IV 20 mls/hr .Q24H ELISA Administration Ketorolac Tromethamine 1 drops 05/17/25 09:00 Ketorolac 0.5% Ophth Drops 5 Ml Btl LEFT EYE QID ELISA Loratadine 10 mg 05/17/25 09:00 Loratadine 10 Mg Tab PO DAILY ELISA Naloxone HCl 0.2 mg 05/16/25 15:28 Naloxone 0.4 Mg/Ml 1 Ml Vial IV Q2M PRN Opioid Reversal Ofloxacin 1 drops 05/17/25 09:00 Ofloxacin 0.3% Ophth Drops 5 Ml Bottle LEFT EYE QID ELISA Prednisolone Acetate 1 drops 05/17/25 09:00 Prednisolone Acetate 1% Ophth Drops 5 Ml Btl LEFT EYE QID ELISA Intake and Output 05/16/25 05/17/25 05/17/25 22:59 06:59 14:59 Intake Total 133.834 Balance 133.834 Intake: Intake, IV Titration 133.834 Amount Heparin Sod,Pork in 0.45% 133.834 NaCl 25,000 unit In 0.45 % NaCl 1 250ml.bag @ 9. 798 UNITS/KG/HR 10 mls/hr IV .Q24H [facility] Rx#: [id number] Other: Voiding Method Toilet Toilet # Voids 2 Weight 102.058 kg 05/17/25 04:06 05/17/25 04:06
[2025-05-17] MEDS: METOPROLOL SUCCINATE (ER) 25 MG TAB.ER.24H PO SCH (11:30)
[2025-05-17] MEDS: CLOPIDOGREL 75 MG TAB PO SCH (11:31)
[2025-05-17] MEDS: ALBUTEROL NEBULIZED 2.5 MG/3 ML INHALATION SCH (11:52)
--- NOTE | 2025-05-18 04:45 | P.HPIM ---
History of Present Illness H&P Date: 05/17/25 This is a pleasant 85-year-old male who presented to the emergency department with feeling lightheaded after standing in line for over an hour waiting to go on a ferry boat ride in the sun in very hot weather and EMS was called. There was concern of possible atrial fibrillation with an irregular rhythm on the monitor and patient brought here for further evaluation. Patient follows with Dr. Khan in the outpatient setting with a past medical history of asthma, coronary artery disease, GERD, hyperlipidemia, hypertension, previous myocardial infarction, prostate cancer. Patient denies alcohol use, tobacco use or illicit drug use. Labs reviewed on and reveal a white count of 9.99, hemoglobin 11.0 platelets 334, sodium 137, potassium 4.5, mildly elevated at 1 point random, troponin 0.025. EKG shows atrial fibrillation with moderate voltage for LVH consider normal variant, chest x-ray shows no acute cardiopulmonary process. Patient was admitted under observation with cardiology evaluation which is pending at this time. REVIEW OF SYSTEMS: CONSTITUTIONAL: No fever, no malaise, no fatigue. HEENT: No recent visual problems or hearing problems. Denied any sore throat. CARDIOVASCULAR: No chest pain, orthopnea, PND, no palpitations, no syncope. Reported feeling lightheaded prior to admission although denies any further feelings of this PULMONARY: No shortness of breath, no cough, no hemoptysis. GASTROINTESTINAL: No diarrhea, no nausea, no vomiting, no abdominal pain. NEUROLOGICAL: No headaches, no weakness, no numbness. HEMATOLOGICAL: Denies any bleeding or petechiae. GENITOURINARY: Denies any burning micturition, frequency, or urgency. MUSCULOSKELETAL/RHEUMATOLOGICAL: Denies any joint pain, swelling, or any muscle pain. ENDOCRINE: Denies any polyuria or polydipsia. The rest of the 14-point review of systems is negative. PHYSICAL EXAMINATION: GENERAL: This is an 85-year-old -[place] male who is alert and oriented x3, not in any acute distress. Well developed, well nourished. Elderly appearing, obese HEENT: Pupils are round and equally reacting to light. EOMI. No scleral icterus. No conjunctival pallor. Normocephalic, atraumatic. No pharyngeal erythema. No thyromegaly. CARDIOVASCULAR: S1 and S2 muffled PULMONARY: Diminished breath sounds bilaterally otherwise chest is clear to auscultation, no wheezing or crackles. ABDOMEN: Soft, obese, nontender, nondistended, normoactive bowel sounds. No palpable organomegaly. MUSCULOSKELETAL: No joint swelling or deformity. EXTREMITIES: No cyanosis, clubbing, or pedal edema. NEUROLOGICAL: Gross neurological examination did not reveal any focal deficits. SKIN: No rashes. Assessment: Dizziness, lightheadedness, presyncopal concerns for A-fib although per cardiology showing sinus rhythm with frequent PACs, A-fib ruled out, likely dehydration with prolonged exposure to sun and heat for over an hour History of coronary artery disease with previous CABG stenting to the left circumflex History of ischemic cardiomyopathy with an EF of 35 to 40% Mild acute kidney injury, ATN to dehydration, improving after gentle hydration Obesity with a BMI 36.3 Hypertension History of prostate cancer History of asthma, not in exacerbation GERD Hyperlipidemia GI prophylaxis DVT prophylaxis Full code Plan: Patient was standing out in the sun in high heat for over an hour while awaiting to board a ferry boat and became dizzy and lightheaded and feeling like he was going to pass out. EMS was called and there was concerns of possible A-fib. Cardiology has evaluated the patient and reviewed the strips and likely frequent PACs with no true A-fib noted. Patient had been started on heparin which was discontinued. His home dose of Plavix has been resumed Home medications reviewed and resumed as appropriate Patient with no further episodes of dizziness or lightheadedness denies any chest pain or palpitations. Continue telemetry monitoring and encourage increase activity as tolerated with repeat labs in the morning Cardiology has evaluated the patient recommending outpatient follow-up with Dr. Boo his primary certified wellness program coordinator Will continue to monitor overnight and plan for discharge in 24 hours The impression and plan of care has been dictated by Nurse Jessica Leonard as directed. Dr. Marichuy MD I have performed a history and examination and MDM of this patient, discussed the same with the dictator, and agree with the dictator's assessment and plan a s written ,documented as a scribe. Based on total visit time, I have performed more than 50% of the visit. Past Medical History Past Medical History: Asthma, Coronary Artery Disease (CAD), Cancer, GERD/Reflux, Hyperlipidemia, Hypertension, Myocardial Infarction ([place]), Prostate Disorder, Sleep Apnea/CPAP/BIPAP Additional Past Medical History / Comment(s): H&P scanned. No CPAP use, hx prostate cancer prior to 1999-had surgery & radiation, erectile dysfunction, BILATERAL PLEURAL EFFUSIONS POST CABG. Last Myocardial Infarction Date:: unknown History of Any Multi-Drug Resistant Organisms: None Reported Past Surgical History: Coronary Bypass/CABG, Heart Catheterization, Heart Catheterization With Stent, Prostate Surgery Additional Past Surgical History / Comment(s): Quadruple bypass, one cardiac stent, BILATERAL THORACENTESIS, prostatectomy, cataract laser surgery. Past Anesthesia/Blood Transfusion Reactions: No Reported Reaction Date of Last Stent Placement:: unknown Past Psychological History: No Psychological Hx Reported Smoking Status: Former smoker Past Alcohol Use History: None Reported Past Drug Use History: None Reported - Past Family History Mother Family Medical History: No Reported History Additional Family Medical History / Comment(s): Multisystem organ failure, at age 93. Father Family Medical History: Cancer Additional Family Medical History / Comment(s): Colon cancer. Medications and Allergies Home Medications Medication Instructions Recorded Confirmed Type Atorvastatin Calcium [Lipitor] 40 mg PO DAILY 02/12/24 05/16/25 History Clopidogrel [Plavix] 75 mg PO DAILY 02/12/24 05/16/25 History amLODIPine [Norvasc] 5 mg PO DAILY 30 Days #30 tab 12/10/24 05/16/25 Rx Albuterol Sulfate [Ventolin HFA] 2 puff INHALATION RT-QID 05/16/25 05/16/25 History Cetirizine HCl [Zyrtec] 10 mg PO DAILY 05/16/25 05/16/25 History Fluticasone Nasal [place] [Flonase 1 spr EA NOSTRIL DAILY 05/16/25 05/16/25 History Nasal [place]] Gabapentin 600 mg PO DAILY PRN 05/16/25 05/16/25 History Ketorolac 0.5% Ophth Soln [Acular 1 drop LEFT EYE QID 05/16/25 05/16/25 History 0.5%] Losartan-Hctz 50-12.5 mg [Hyzaar 1 tab PO DAILY 05/16/25 05/16/25 History 50-12.5] Ofloxacin 0.3% Ophth Soln [Ocuflox 1 drop LEFT EYE QID 05/16/25 05/16/25 History Ophth Soln] Prednisolone Acetate/Pf 1 drop LEFT EYE QID 05/16/25 05/16/25 History [Prednisolone Acet 1% Eye Drop] Allergies Allergy/AdvReac Type Severity Reaction Status Date / Time iodine Allergy Severe Rash/Hives,skin Verified 05/16/25 17:29 peeled Penicillins Allergy Rash/Hives Verified 05/16/25 17:29 shellfish derived [Shellfish] Allergy Rash/Hives Verified 05/16/25 17:29 Physical Exam Vitals: Vital Signs Temp Pulse Pulse Resp BP BP Pulse Ox 05/17/25 01:50 97.3 F L 76 17 121/72 98 05/17/25 01:29 81 17 05/16/25 20:37 98.2 F 85 17 137/65 98 05/16/25 20:00 84 15 05/16/25 17:54 92 18 138/69 94 L 05/16/25 15:17 84 15 127/91 94 L 05/16/25 15:09 89 05/16/25 14:14 98.0 F 84 16 114/98 96 Intake and Output 05/16/25 05/17/25 05/17/25 22:59 06:59 14:59 Intake Total 133.834 Balance 133.834 Intake: Intake, IV Titration 133.834 Amount Heparin Sod,Pork in 0.45% 133.834 NaCl 25,000 unit In 0.45 % NaCl 1 250ml.bag @ 9. 798 UNITS/KG/HR 10 mls/hr IV .Q24H [facility] Rx#: [id number] Other: Voiding Method Toilet Toilet # Voids 2 Weight 102.058 kg Results CBC & Chem 7: 05/17/25 04:06 05/17/25 04:06 Labs: Abnormal Lab Results - Last 24 Hours (Table) 05/16/25 05/16/25 05/16/25 Range/Units 14:17 14:31 14:31 RBC 3.94 L (4.40-5.60) 10*6/uL Hgb 11.0 L (13.0-17.0) g/dL Hct 34.4 L (39.6-50.0) % Immature Gran # 0.09 H (0.00-0.04) 10*3/uL Basophils # 0.11 H (0.00-0.10) 10*3/uL APTT (22.0-30.0) sec Creatinine 1.65 H (0.66-1.25) mg/dL Glucose 182 H (74-99) mg/dL POC Glucose (mg/dL) 196 H (70-110) mg/dL Calcium 10.6 H (8.4-10.2) mg/dL 05/16/25 05/17/25 Range/Units 23:06 04:06 RBC (4.40-5.60) 10*6/uL Hgb (13.0-17.0) g/dL Hct (39.6-50.0) % Immature Gran # (0.00-0.04) 10*3/uL Basophils # (0.00-0.10) 10*3/uL APTT 43.2 H 46.2 H (22.0-30.0) sec Creatinine (0.66-1.25) mg/dL Glucose (74-99) mg/dL POC Glucose (mg/dL) (70-110) mg/dL Calcium (8.4-10.2) mg/dL Thrombosis Risk Factor Assmnt - Choose All That Apply Any of the Below Risk Factors Present?: Yes Each Factor Represents 1 point: Obesity (BMI >25) Other Risk Factors: Yes Each Risk Factor Represents 3 Points: Age 75 years or older Thrombosis Risk Factor Assessment Total Risk Factor Score: 4 Thrombosis Risk Factor Assessment Level: Moderate Risk
[2025-05-18 08:27] VITALS: BP 106/62; PULSE 67; RESP 16; TEMP 98.2
--- NOTE | 2025-05-18 09:13 | P.PN ---
Subjective Progress Note Date: 05/18/25 History of present illness: This is a pleasant 85-year-old gentleman patient of Dr. Boo with past medical history of hypertension, hyperlipidemia, CAD with prior CABG in January 2021, stenting of the distal left circumflex in 2019 for, ischemic cardiomyopathy with ejection fraction of 35 to 40%, mitral regurgitation. Presented to the hospital with complaints of "heat stroke". He was standing in the sun yesterday for about an hour waiting to board the En lady when he suddenly became quite dizzy, nauseous and felt like he was going to pass out. He sat down and symptoms improved. EMS was called and there was question of possible atrial fibrillation on the rhythm strips done by them. EKG in the emergency department read out as atrial fibrillation however upon review shows sinus mechanism with frequent PACs. He has been initiated on IV heparin. Diagnostics -EKG: Sinus mechanism with PACs -Chest x-ray: No acute cardiopulmonary disease/process -Laboratory studies: White blood cell count 9.99, hemoglobin 11, sodium 137, potassium 4.5, BUN 17, creatinine 1.65 which is down to 1.22 this morning, troponin 0.025. -Home cardiac medications: Amlodipine 5 mg p.o. daily, losartan hydrochloroth iazide 50-12.5 mg 1 tablet daily, Plavix 75 mg p.o. daily, atorvastatin 40 mg p.o. daily. -Prior stress test: 02/15/2024: Moderate size fixed defect mid to apical anterolateral wall, may be small amount of noreen-infarct ischemia, estimated LVEF 43% -Echocardiogram: 12/08/2024: Reduced LV systolic function with ejection fraction of 35 to 40%, moderate MR, mild aortic stenosis -Cardiac catheterization: Critical disease involving the distal left main and proximal left LAD and left circumflex, patent FAULKNER to LAD, patent radial artery bypass to ramus intermedius and distal left circumflex, left circumflex distal to distal anastomosis with a critical lesion, intermediate disease involving the mid RCA, SVG to PDA appeared diseased and atrophic. Patient subsequently underwent successful stenting of the distal left circumflex - Coronary artery bypass graftin01/2021: FAULKNER to LAD, radial graft to ramus intermedius and distal left circumflex, SVG to PDA Progress note 05/18/2025 Seen and examined at bedside this a.m. No further evidence of atrial fibrillation noticed on telemetry Denies any chest pain chest pressure shortness of breath. Euvolemic. Blood pressure is controlled. Tolerating beta-ari and Plavix. PHYSICAL EXAMINATION: This is a 85-year-old -[place] gentleman in no apparent distress at the time of my examination. VITAL SIGNS: Reviewed. HEENT: Head is atraumatic, normocephalic. Pupils are equal, round. Sclerae anicteric. Conjunctivae are clear. Mucous membranes of the mouth are moist. Neck is supple. There is no elevated jugular venous pressure. No carotid bruit is heard. CHEST EXAMINATION: Clear to auscultation bilaterally. No wheezes rales or rhonchi. Respirations even and nonlabored. HEART EXAMINATION: Heart regular, positive S1 and S2. No S3. No S4. Systolic murmur. ABDOMEN: Soft, nontender. Bowel sounds are heard. No organomegaly noted. EXTREMITIES: 2+ peripheral pulses with no evidence of peripheral edema and no calf tenderness noted. NEUROLOGIC EXAMINATION: Patient is awake, alert and oriented x3. Assessment: 1. Concern for A-fib however on detailed review appears sinus with frequent PACs. 2. Dizziness, likely secondary to dehydration 3. Coronary artery disease, status post CABG and subsequent stenting of the left circumflex 4. Ischemic cardiomyopathy 5. Hypertension 6. Hyperlipidemia Plan: For a 14-day Holter monitor on discharge Continue Plavix. Added metoprolol succinate 25 on this admission. Will continue Continue other home medication include amlodipine 5, losartan 50, hydrochlorothiazide 12.5, Lipitor 40 Clear from cardiovascular standpoint. Can follow-up with Dr. Reis after Holter monitor results are available Objective - Vital Signs Vital signs: Vital Signs Temp 98.2 F 05/18/25 07:07 Pulse 72 05/18/25 08:25 Resp 16 05/18/25 07:07 BP 106/62 05/18/25 07:07 Pulse Ox 99 05/18/25 07:07 FiO2 21 05/17/25 12:02 Intake & Output 05/17/25 05/18/25 05/18/25 18:59 06:59 18:59 Intake Total 600 118 Balance 600 118 Intake: Oral 600 118 Other: # Voids 1 - Labs CBC & Chem 7: 05/17/25 04:06 05/17/25 04:06
[2025-05-18 11:25] LABS: Anion Gap 13.90 mmol/L (4.00-12.00); BUN/Creat Ratio 14.38 Ratio (12.00-20.00); Blood Urea Nitrogen 18.7 mg/dL (9.0-27.0); Calcium 9.5 mg/dL (8.7-10.3); Carbon Dioxide 22.1 mmol/L (21.6-31.8); Chloride 101 mmol/L (96-109); Glucose 178 mg/dL (70-110); Potassium 4.7 mmol/L (3.5-5.5); Sodium 137 mmol/L (135-145)
== END 2025-05-18 12:00 | disposition home or self-care (01) ==
LOC: EC 14:09 → 3SCARD 15:28 → 6NMEDSUR 17:55
PROVIDERS: ADMIT Hospitalist; ATTEND Hospitalist
DX: I49.1 Atrial premature depolarization (principal); N17.0 Acute kidney failure with tubular necrosis; E86.0 Dehydration; I08.0 Rheumatic disorders of both mitral and aortic valves; I25.810 Atherosclerosis of coronary artery bypass graft(s) without angina pectoris; I48.91 Unspecified atrial fibrillation; I25.5 Ischemic cardiomyopathy; I10 Essential (primary) hypertension; E78.5 Hyperlipidemia, unspecified; J45.909 Unspecified asthma, uncomplicated; K21.9 Gastro-esophageal reflux disease without esophagitis; I25.2 Old myocardial infarction; E66.9 Obesity, unspecified; Z68.36 Body mass index [BMI] 36.0-36.9, adult; X30.XXXA Exposure to excessive natural heat, initial encounter; Z79.02 Long term (current) use of antithrombotics/antiplatelets; Z79.82 Long term (current) use of aspirin; Z79.84 Long term (current) use of oral hypoglycemic drugs; Z79.899 Other long term (current) drug therapy; Z88.0 Allergy status to penicillin; Z91.013 Allergy to seafood; Z91.048 Other nonmedicinal substance allergy status; Z95.1 Presence of aortocoronary bypass graft; Z87.891 Personal history of nicotine dependence; Z85.46 Personal history of malignant neoplasm of prostate
CPT/HCPCS: 96361; 96366 ×2; 96376; 96365; 99291; 36415; 94640 ×3; 94760; 93005; 93225; 80053 ×2; 80048; 84484; 85025 ×2; 85610; 85730 ×2; 83036; 71046; G0378 ×4; J1644 ×2